=== PATIENT | female | born 1950 | race Caucasian/White ===

== ENCOUNTER 2023-07-03 23:38 | Inpatient (IN) | payer MEDICARE, BC, SELFPAY ==
[2023-07-03 18:03] VITALS: BP 118/51
[2023-07-03 18:27] LABS: % Basophils 0.4 % (0-2); % Eosinophils 1.6 % (0-6); % Immature Granulocytes 0.4 % (0-0.5); % Lymphocytes 14.2 % (20.5-51.1); % Neutrophils 77.4 % (42.2-75.2); Absolute Eosinophils 0.1 10^3/uL (0-0.7); Absolute Lymphocytes 0.7 10^3/uL (1.2-3.4); Absolute Monocytes 0.3 10^3/uL (0.1-0.6); Absolute Neutrophils 3.9 10^3/uL (1.4-6.5); Hematocrit 32.3 % (37.0-47.0); Hemoglobin 11.1 g/dL (12.0-16.0); Mean Corp Hgb Conc. 34.4 g/dL (33.0-37.0); Mean Corpuscular Hgb 31.7 pg (27.0-31.0); Mean Corpuscular Volume 92.3 fL (81.0-99.0); Mean Platelet Volume 8.7 fL (7.4-10.4); Nucleated Red Blood Cells % 0 %; Platelet Count 180 10^3/uL (130-400)
[2023-07-03 18:44] LABS: ALT (SGPT) 20 U/L (0-35); AST (SGOT) 28 U/L (14-36); Albumin 3.9 g/dl (3.5-5.0); Alkaline Phosphatase 84 U/L (38-126); Blood Urea Nitrogen 25 mg/dl (7-17); Calcium 10.1 mg/dl (8.4-10.2); Carbon Dioxide 31 mmol/L (22-30); Chloride 100 mmol/L (98-107); Glucose 123 mg/dl (70-99); Sodium 138 mmol/L (135-145); Total Bilirubin 0.4 mg/dl (0.2-1.3); Total Protein 6.1 g/dl (6.3-8.2); eGFR 59.49
[2023-07-03 19:38] VITALS: BMI 24.2
[2023-07-03] MEDS: DECADRON 10 MG IV (20:37)
[2023-07-03] MEDS: DUONEB 3 ML INH (20:37)
--- NOTE | 2023-07-03 20:43 | ED.GENMED ---
History of Present Illness
General
Chief Complaint: Breathing Problem
Source: patient
Exam Limitations: none
Time Seen by Provider: 07/03/23 19:32
Nursing documentation reviewed up to this point in time: agreed with
Travel History
Have you had any contact with someone who has COVID-19?: No
Do you have any symptoms of coronavirus? Fever > 100 degrees, chills, cough, shortness of breath, sore throat, loss of taste or smell, muscle aches, or headache?: No
History of Present Illness
History of Present Illness:
72-year-old female steroid and oxygen dependent COPD been on alternating 5 to 10 mg a day prednisone, usually on 2 L of oxygen 3 to 4 days ago increased shortness of breath cough bit of increase in her sputum despite using albuterol no fevers no
hemoptysis no leg edema increased her oxygen to 4 L, she is felt fatigued
Past History
Past History
ED Past Medical History: COPD, Fibromyalgia, GERD and Other (Rheumatoid arthritis, scleroderma, pneumonia, renal, bowel obstruction, IBS, anemia, chronic constipation, rectal prolapse, Upper Gi bleeding, Raynaud's disease)
ED Past Surgical History: Appendectomy, Bowel resection (due to perforation), Cholecystectomy, Gynecological (Hysterectomy) and Other ( breast lumpectomy)
Social History
Tobacco: Former smoker
Alcohol: None
Drug: None
Personal:
Living: alone
Employment: Not employed
Family History
Family History: Unable to obtain
Review of Systems
Review of Systems
Constitutional: Reports fatigue; Denies fever
EENT: Reports no symptoms
Respiratory: Reports cough and trouble breathing
Cardiac: Reports no symptoms
ABD/GI: Reports no symptoms
: Reports no symptoms
Musculoskeletal: Reports no symptoms
Skin: Reports no symptoms
Endocrine: Reports no symptoms
Phy Exam
Physical Exam
Physical Exam:
Physical Exam
General: Chronically ill female slightly dyspneic.
Neck: No jaundice
Heart: Regular
Lungs: Fair air movement diminished bilaterally no wheeze
Abdomen: Not tender
Neuro: alert and oriented. no focal neurological deficits
Skin: no rash
Psychiatric: well kept. interactive and cooperative
Extremities: no edema. no calf tenderness.
Scores
Heart Failure Risk
Heart Failure Risk Score: Not Applicable
Course
Orders/Labs/Results
Orders:
Orders
07/03/23 18:10
Electrocardiogram (*1) Urgent
Reason for Study: Shortness of Breath
EKG- Treatment ONCE
07/03/23 18:21
Complete Blood Count/With Diff Urgent
Comprehensive Metabolic Panel Urgent
07/03/23 19:32
CR Chest - 2 Views Urgent
Comment:
Reason For Exam: sob
07/03/23 20:24
Dexamethasone Sod Phosphate [Decadron] 10 mg IV NOW STA
Ipratropium/Albuterol Sulfate [Duoneb] 3 ml INH R NOW STA
Abnormal Lab Results
07/03/23
18:21
RBC 3.50 L 10^6/uL
(4.20-5.40)
Hgb 11.1 L g/dL
(12.0-16.0)
Hct 32.3 L %
(37.0-47.0)
MCH 31.7 H pg
(27.0-31.0)
Absolute Lymphs (auto) 0.7 L 10^3/uL
(1.2-3.4)
Neutrophils % 77.4 H %
(42.2-75.2)
Lymphocytes % 14.2 L %
(20.5-51.1)
Carbon Dioxide 31 H mmol/L
(22-30)
BUN 25 H mg/dl
(7-17)
Glucose 123 H mg/dl
(70-99)
Total Protein 6.1 L g/dl
(6.3-8.2)
07/03/23 18:21
07/03/23 18:21
Vital Signs
Initial and Last Documented VS:
Initial Vital Signs
Temp Pulse Resp BP Pulse Ox
98.8 F 94 16 118/51 96
07/03/23 18:03 07/03/23 18:03 07/03/23 18:03 07/03/23 18:03 07/03/23 18:03
Last Documented Vital Signs
Temp Pulse Resp BP Pulse Ox
98.8 F 79 18 138/63 91
07/03/23 18:03 07/03/23 21:00 07/03/23 21:00 07/03/23 21:00 07/03/23 21:00
MDM/Problems Addressed
Differential Diagnosis Includes:
COPD pneumonia heart failure pneumothorax conceivably PE
MDM/Problems Addressed:
Shortness of breath
Chronic conditions affecting care: COPD
Acute Exacerbation and/or Progression of Chronic Illness: COPD
*Radiology
Radiology exam reviewed: preliminary read by ED provider and radiology read reviewed
*Pulse Oximetry
Patient hypoxic: no
Comment: 98% on 3 L
*EKG
Interpreted by ED Provider?: Yes
Interpretation: abnormal
Comparison EKG: no comparison EKG present
Heart Rate: 78
Rate: normal
Rhythm: sinus
Ischemia: non-specific ST changes
*Accounting Director Interpretation
Rate: normal
Interpretation: normal
Heart Rate: 78
Rhythm: sinus
*Critical Care Note
Total Time (30-74mins, 75-104mins- exclusive of procedures): Not Applicable
Update Note
Update Note:
938 chest x-ray report noted patient given nebs and steroids
10:30 PM patient tells me she feels dyspneic still, recommend ambulating she belives she needs to be admitted
ED Attending Note
-
Portions of this chart may have been created with voice recognition software.� Occasional wrong word or��sound alike� substitutions may have occurred due to the inherent limitations of voice recognition software.
Discharge Plan
Departure
Patient Disposition: Admit
Date of Disposition: 07/03/23
Time of Disposition: 22:31
Admit to: Med/Surg
Presentation/result/management discussed w/ accepting MD/DO: Hospitalist
Patient with high blood pressure during this ER visit?: No
Condition: Fair
Covid-19: Not Applicable
Discharge Problem:
Acute exacerbation of chronic obstructive pulmonary disease (COPD), Chronic respiratory failure, Fibromyalgia, Esophageal reflux, Scleroderma, Hypothyroidism, Rheumatoid arthritis, Crouch's esophagus, Raynauds disease, CREST (calcinosis, Raynaud's
phenomenon, esophageal dysfunction, sclerodactyly, telangiectasia), Stage 3a chronic kidney disease (CKD)
Prescriptions:
No Action
citalopram 20 MG tablet
40 mg PO DAILY
oxycodone 5 MG tablet
5 mg PO BID
famotidine 40 MG tablet
40 mg PO HS
valsartan 80 MG tablet
160 mg PO DAILY
trazodone 100 MG tablet
200 mg PO HS
baclofen 10 MG tablet
10 mg PO BID
vitamin B complex 1 TAB tablet
1 tab PO DAILY
aripiprazole 5 MG tablet
5 mg PO DAILY
Focus Factor
2 cap PO DAILY
Hair,Skin and Nails Tablet
2 tab PO DAILY
bupropion HCl 300 mg tablet extended release 24 hr
300 mg PO DAILY
budesonide-formoterol [Symbicort] 160-4.5 mcg/actuation HFA aerosol inhaler
2 puff INHALATION R BID
cholecalciferol (vitamin D3) [Vitamin D3] 125 mcg (5,000 unit) Tablet
125 mcg PO DAILY
furosemide 40 mg Tablet
40 mg PO DAILY
prednisone 10 mg Tablet
5 mg PO SUTUTHSA@0800
atorvastatin 10 mg Tablet
10 mg PO DAILY
Theragen Tablet
1 tab PO DAILY
omeprazole 40 mg Capsule,Delayed Release(Dr/Ec)
40 mg PO DAILY
TheraTears 0.25 % Drops
1 drp BOTH EYES BID
fentanyl 25 mcg/hr Patch 72 Hour
1 patch TRANSDERMAL Q72H
Patient Comments:
07/03/2023, pt. wearing a patch on her left upper chest; per pt., she is due to change it tomorrow (07/04/2023).
albuterol sulfate [Ventolin HFA] 90 mcg/actuation Hfa Aerosol Inhaler
2 puff INHALATION R Q6HPRN PRN (Reason: sob)
Spiriva Respimat 2.5 mcg/actuation Mist
2 puff INHALATION R DAILY
fluticasone furoate-vilanterol [Breo Ellipta] 100-25 mcg/dose Blister With Device
1 inh INHALATION R DAILY
turmeric
2 cap PO DAILY
prednisone 10 mg tablet
10 mg PO MOWEFR@0800
budesonide 0.5 mg/2 mL suspension for nebulization
0.5 mg inhalation R TID
Patient Comments:
07/03/2023, pt. states to take this med. TID but on [facility] this med. is listed as BIDPRN as of 06/14/2023.
Referrals:
Diego Crenshaw MD [Family Provider] -
Interventions
Interventions:
*Risk Screen - Suicide Last Done: 07/03/23 20:07
*Neglect/Abuse Screening Last Done: 07/03/23 20:07
*ED COVID-19 Vaccine History Last Done: 07/03/23 18:03
ED- Cardiac Assessment Last Done: 07/03/23 20:06
ED- Pulmonary Assessment Last Done: 07/03/23 20:06
Discharge Date and Time
Print Language: OMANI
[2023-07-03 21:00] VITALS: BP 138/63
[2023-07-03 21:37] VITALS: BP 155/60
[2023-07-03 22:00] VITALS: BP 124/82
[2023-07-03 23:00] VITALS: BP 144/72
--- NOTE | 2023-07-03 23:30 | HPS.HSE ---
Family Physician
-
Family Physician: Diego Crenshaw
Chief Complaint
-
Shortness of Breath
History of Present Illness
This is a 72 year old female with a past medical history of COPD on chronic O2 at 2L and chronic steroids, scleroderma, GERD, hypertension, and chronic pain, who presents today for worsening dyspnea on exertion x 1 week. She states that it is 'hard
to get air in.' She notes over the weekend she had to increase her oxygen from 2L up to 4L due to increasing shortness of breath. Her symptoms were unimproved and she had a hard time showering today, prompting her to come to the ED. She also
complains of a cough and feeling of phlegm, but states she is unable to expectorate any mucus. She denies fever, wheezing, chest pain, or lower extremity edema.
Medical History
Past Medical History
Past Medical History: Reports Other
Additional Past Medical History:
Chronic Hypoxic Respiratory Failure
COPD
Interstitial Lung Disease
Essential Hypertension
CKD Stage IIIA
Hyperlipidemia
Fibromyalgia
Rheumatoid Arthritis
Scleroderma / CREST Syndrome
Irritable Bowel Syndrome
Major Depressive Disorder
Chronic Pain with Opioid Dependence
GERD
Past Surgical History: Reports Other
Additional Past Surgical History:
Appendectomy
Bowel Resection
Cholecystectomy
Hysterectomy
Breast Lumpectomy
Social History
Tobacco: Former Smoker
Alcohol: None
Drug: None
Personal:
Living: With Family (In-Law Suite)
Family History
Family History: Not pertinent
Allergies / Home Medications
Allergies reflects when Allergies were last updated in [employer].
Home Medications with original date entered in [employer]
Allergy/Medication List:
Allergies
Allergy/AdvReac Type Severity Reaction Status Date / Time
codeine Allergy rash,hives,METALLIC Verified 07/03/23 18:09
TASTE IN
MOUTH
Home Medications
citalopram 20 mg tablet 40 mg PO DAILY Mental Health 12/27/17
oxycodone 5 mg tablet 5 mg PO BID Pain 06/19/18
Focus Factor 2 cap PO DAILY Supplement 11/11/20
aripiprazole 5 mg tablet 5 mg PO DAILY Mental Health 11/11/20
baclofen 10 mg tablet 10 mg PO BID Muscle spasms 11/11/20
famotidine 40 mg tablet 40 mg PO HS Gastrointestinal issue 11/11/20
trazodone 100 mg tablet 200 mg PO HS Sleep 11/11/20
valsartan 80 mg tablet 160 mg PO DAILY Blood pressure 11/11/20
vitamin B complex 1 tab PO DAILY Supplement 11/11/20
budesonide-formoterol HFA 160 mcg-4.5 mcg/actuation aerosol inhaler (Symbicort) 2 puff inhalation R BID Lung/Breathing Issues 07/26/22
bupropion HCl 300 mg 24 hr tablet, extended release 300 mg PO DAILY Mental Health 07/26/22
cholecalciferol (vitamin D3) 125 mcg (5,000 unit) tablet (Vitamin D3) 125 mcg PO DAILY Supplement 07/26/22
multivitamin with minerals (Hair,Skin and Nails tablet) 2 tab PO DAILY Supplement 07/26/22
albuterol sulfate 90 mcg/actuation aerosol inhaler (Ventolin HFA) 2 puff inhalation R Q6HPRN PRN sob 07/03/23
atorvastatin 10 mg tablet 10 mg PO DAILY 07/03/23
budesonide 0.5 mg/2 mL suspension for nebulization 0.5 mg inhalation R TID Lung/breathing issues 07/03/23
carboxymethylcellulose sodium 0.25 % eye drops (TheraTears) 1 drp BOTH EYES BID 07/03/23
fentanyl 25 mcg/hr transdermal patch 1 patch transdermal Q72H 07/03/23
fluticasone furoate 100 mcg-vilanterol 25 mcg/dose inhalation powder (Breo Ellipta) 1 inh inhalation R DAILY 07/03/23
furosemide 40 mg tablet 40 mg PO DAILY 07/03/23
omeprazole 40 mg capsule,delayed release 40 mg PO DAILY 07/03/23
prednisone 10 mg tablet 5 mg PO SUTUTHSA@0800 07/03/23
prednisone 10 mg tablet 10 mg PO MOWEFR@0800 07/03/23
therapeutic multivitamin 1 tab PO DAILY 07/03/23
tiotropium bromide 2.5 mcg/actuation mist for inhalation (Spiriva Respimat) 2 puff inhalation R DAILY 07/03/23
turmeric 2 cap PO DAILY 07/03/23
Review of Systems
-
A 12 point ROS was completed and negative except as noted: Yes
Constitutional: Denies Fever or Chills
Respiratory: Reports See HPI and Trouble Breathing
Cardiac: Denies Chest Pain or Palpitations
Physical Exam
Vital Signs
Vital Signs
Temp Pulse Resp BP Pulse Ox
98.8 F 79 18 138/63 91
07/03/23 18:03 07/03/23 21:00 07/03/23 21:00 07/03/23 21:00 07/03/23 21:00
Physical Exam
General: Comfortable and Conversant
HEENT: Atraumatic and Oxygen (Nasal Cannula)
Respiratory: Wheezes (Faint late expiratory wheeze throughout), Non Labored Respirations and Decreased Breath Sounds
Cardiac: S1/S2 and Regular Rhythm; No Tachycardia
GI: Soft and Non Tender
Musculoskeletal: No Clubbing, No Cyanosis and No Edema
Skin: Warm and Dry
Neuro: Awake, Alert, Oriented and Nonfocal/grossly intact
Laboratory Results
-
07/03/23 18:21
07/03/23 18:21
Laboratory Results
Total Bilirubin 0.4 mg/dl (0.2-1.3) 07/03/23 18:21
AST 28 U/L (14-36) 07/03/23 18:21
ALT 20 U/L (0-35) 07/03/23 18:21
Alkaline Phosphatase 84 U/L (38-126) 07/03/23 18:21
Data Reviewed
-
Diagnostic Radiology: Report Reviewed by me
Lab Data: Labs Reviewed by me
Old Records: Reviewed
Impression/Plan
-
Acute COPD Exacerbation
-Continue Decadron
-Continue DuoNeb QID and PRN
-Continue Pulmicort Neb
-Continue Doxycycline
Acute on Chronic Hypoxic Respiratory Failure
-Continue supplemental oxygen
-Attempt to wean back to baseline 2L via nasal canula
Essential Hypertension
-Continue valsartan
Hyperlipidemia
-Continue atorvastatin
Lower Ext Edema
-Continue Lasix
CKD Stage IIIA
-Creatinine at baseline
Major Depressive Disorder
-Continue aripiprazole, bupropion, citalopram and trazodone
GERD
-Continue Pepcid and Protonix
Chronic Pain with Opioid Dependence
-Continue fentanyl patch
-Continue baclofen
DVT proph: Lovenox
Code Status: Full Code
--- NOTE | 2023-07-03 23:33 | W.PN.UPDATE ---
Update Note
Progress Note Update
This is an addendum to the history and physical written by GROVER Silva on 07/03/2023/. Patient seen and examined independently with PA.
72-year-old female past medical history of COPD on 2 L baseline, chronic pain/fibromyalgia with narcotic dependence, GERD, Rheumatoid Arthritis, scleroderma/CREST, anemia of chronic disease, chronic constipation, depression, CKD 3A, here with
shortness of breath with increasing productive cough consistent with COPD exacerbation. Chest x-ray unremarkable.
DuoNebs every 6 hours. Dexamethasone. Doxycycline.
[2023-07-04] VITALS (10 sets, daily range): BP systolic 86–135; BP diastolic 51–96; PULSE 75; O2SAT 96–97; BMI 23.8
--- NOTE | 2023-07-04 01:45 | PTCARENOTE ---
Pt transferred from ED. Pt ambulated into room with assistance. Pt on 3L, VSS. Pt oriented to unit, call romero within reach. Will continue with current plan.
[2023-07-04] MEDS: LIORESAL 10 MG PO ×3 (02:21→20:29)
[2023-07-04] MEDS: ROXICODONE 5 MG PO ×3 (02:21→20:29)
[2023-07-04] MEDS: DESYREL 100 MG PO (02:21)
[2023-07-04] MEDS: DECADRON 4 MG IV ×3 (05:14→17:14)
[2023-07-04] MEDS: PULMICORT 0.5 MG INH ×2 (07:20→19:47)
[2023-07-04] MEDS: DUONEB 3 ML INH ×4 (07:20→19:47)
[2023-07-04 08:16] LABS: % Basophils 0.2 % (0-2); % Immature Granulocytes 0.7 % (0-0.5); % Lymphocytes 16.3 % (20.5-51.1); % Monocytes 2.2 % (1.7-9.3); % Neutrophils 80.6 % (42.2-75.2); Absolute Lymphocytes 0.7 10^3/uL (1.2-3.4); Absolute Monocytes 0.1 10^3/uL (0.1-0.6); Absolute Neutrophils 3.4 10^3/uL (1.4-6.5); Hemoglobin 11.2 g/dL (12.0-16.0); Mean Corp Hgb Conc. 32.9 g/dL (33.0-37.0); Mean Corpuscular Hgb 31.2 pg (27.0-31.0); Mean Corpuscular Volume 94.7 fL (81.0-99.0); Nucleated Red Blood Cells % 0 %; Platelet Count 184 10^3/uL (130-400); Red Blood Cell Count 3.59 10^6/uL (4.20-5.40); Red Cell Dist. Width 12.8 % (11.5-14.5); White Blood Cell Count 4.2 10^3/uL (4.8-10.8)
[2023-07-04] MEDS: ABILIFY 5 MG PO (08:36)
[2023-07-04] MEDS: DIOVAN PO (08:37)
[2023-07-04] MEDS: DURAGESIC 25 MCG/HR PATCH 1 PATCH TRANSDERM (08:37)
[2023-07-04] MEDS: CELEXA 40 MG PO (08:37)
[2023-07-04] MEDS: B COMPLEX w/VITAMIN C 1 CAPLET PO (08:37)
[2023-07-04] MEDS: LASIX 40 MG PO (08:39)
[2023-07-04] MEDS: PROTONIX 40 MG PO (08:40)
[2023-07-04] MEDS: MUCINEX 600 MG PO ×2 (08:40→20:30)
[2023-07-04] MEDS: VIBRAMYCIN 100 MG PO ×2 (08:40→20:29)
[2023-07-04] MEDS: LIPITOR 10 MG PO (08:40)
[2023-07-04] MEDS: WELLBUTRIN XL (24 hour extended release) 300 MG PO (08:41)
[2023-07-04] MEDS: VITAMIN D3 (cholecalciferol) 125 MCG PO (08:41)
[2023-07-04 09:07] LABS: Blood Urea Nitrogen 24 mg/dl (7-17); Calcium 10.2 mg/dl (8.4-10.2); Carbon Dioxide 29 mmol/L (22-30); Chloride 100 mmol/L (98-107); Estimated Creatinine Clearance 47 ml/min; Glucose 117 mg/dl (70-99); Potassium 4.1 mmol/L (3.5-5.1); Sodium 137 mmol/L (135-145); eGFR > 60.00
--- NOTE | 2023-07-04 09:42 | PTOTSP ---
pt currently requires supervision to no assistance to complete simple ADLs, functional transfers, ambulation. pt typically on 2LO2 at home, currently on 3L. will defer endurance training, activity tolerance to PT, as pt is capable of completing
tasks without physical intervention. no acute OT needs identified, will sign off.
--- NOTE | 2023-07-04 10:08 | W.PN.HOSP.TC ---
Today's Communication/Plan
-
Continue present IV dexamethasone/nebs and oxygen as needed
Pulmonary consultation pending/
Assessment / Plan
Assessment / Plan
This is a 72 year old female with a past medical history of COPD on chronic O2 at 2L and chronic steroids, scleroderma, GERD, hypertension, and chronic pain, who presents today for worsening dyspnea on exertion x 1 week. She states that it is 'hard
to get air in.' She notes over the weekend she had to increase her oxygen from 2L up to 4L due to increasing shortness of breath. Her symptoms were unimproved and she had a hard time showering today, prompting her to come to the ED.
She also complains of a cough and feeling of phlegm, but states she is unable to expectorate any mucus. She denies fever, wheezing, chest pain, or lower extremity edema. She follows with Dr. Chavez who has been trying to reduce her steroids with a
slow taper of late alternating 5 and 10 mg.
Acute COPD Exacerbation
-Continue Decadron
-Continue DuoNeb QID and PRN
-Continue Pulmicort Neb
-Continue Doxycycline
-Await pulmonary input/not a lot of options left
Acute on Chronic Hypoxic Respiratory Failure
-Continue supplemental oxygen
-Attempt to wean back to baseline 2L via nasal canula
Essential Hypertension
-Continue valsartan
Hyperlipidemia
-Continue atorvastatin
Lower Ext Edema
-Continue Lasix
CKD Stage IIIA
-Creatinine at baseline
Major Depressive Disorder
-Continue aripiprazole, bupropion, citalopram and trazodone
GERD
-Continue Pepcid and Protonix
Chronic Pain with Opioid Dependence
-Continue fentanyl patch
-Continue baclofen
DVT proph: Lovenox
Code Status: Full Code
Anticipated Discharge: 24 - 48 hours
Subjective/Interval History
-
Date of Service: July 04, 2023
Dyspneic and breathless at rest on 3 L with recent pulse ox check of 93% on 3 L uses 3 L at home but had to increase it up to 4 L last 24 hours.
Objective Data
-
Labs:
Laboratory Results
07/04/23
07:57
WBC 4.2 L
Hgb 11.2 L
Hct 34.0 L
Plt Count 184
Sodium 137
Potassium 4.1
Chloride 100
Carbon Dioxide 29
BUN 24 H
Creatinine 0.8
Glucose 117 H
Calcium 10.2
Vital Signs:
Vital Signs
Temp Pulse Resp BP Pulse Ox
98.7 F 86 20 80/59 94
07/04/23 07:25 07/04/23 08:29 07/04/23 08:29 07/04/23 08:37 07/04/23 08:50
Review of Systems
-
History Source: Patient
Respiratory: Reports Trouble Breathing
Cardiac: Reports No Symptoms
Abdomen/GI: Reports No Symptoms
Genitourinary: Reports No Symptoms
Physical Exam
-
General: Appears Chronically Ill
HEENT: Normocephalic
Respiratory: Rhonchi and Decreased Breath Sounds
Cardiac: Regular Rhythm
GI: Soft
Neuro: Awake, Alert and Oriented
Psych: Calm
Data Reviewed
-
Total Time Spent with Patient (in minutes): 45
Labs: Labs Reviewed by me
--- NOTE | 2023-07-04 10:57 | CM ---
Patient seen in chair, initial assessment completed. Patient resides with her son, daughter in law, and two grandchildren in an in law suite, no steps to enter. Patient is on home O2, reports through '[facility]', denies other DME. Patient reports [facility] in
past, [facility] in past. Patient confirms Diego Crenshaw, pharmacy [facility]. Patient confirms she has prescription coverage, denies food insecurities at home. CM will continue to follow for all discharge planning needs.
Plan; home no needs likely.
--- NOTE | 2023-07-04 11:18 | CON.PUL ---
Consultation
Consultation Request
Date/Time Consultation Requested: 07/04/23
Date/Time Consultation Performed: 07/04/23
Performing Provider: Nicolasa
Reason for Consultation: SOB
Medical History
-
History of Present Illness:
72 year old female with a past medical history of COPD on chronic O2 at 2-3L and chronic steroids, scleroderma, GERD, hypertension, and chronic pain, who presents to ER 07/03/23 for worsening SOB x 1 week. She notes over the weekend she had to
increase her oxygen from 2L up to 4L due to increasing shortness of breath. Her symptoms were unimproved and she had a hard time showering today, prompting her to come to the ED.
Holden this was triggered by recent decrease in her prednisone, she normally takes 10mg daily. CXR performed showing no acute findings. ABG showing chronic CO2 retention.
Has extensive history of lung disease including COPD, pulmonary cachexia, chronic oxygen therapy, 3 L (w/ severe diffusion impairment, DLCO 30%), interstitial lung disease
She follows with Dr Garcia
Past Medical History
Past Medical History: Other (see list below)
Social History
Tobacco: Former Smoker
Alcohol: None
Drug: None
Family History
Family History: Reviewed & Not Pertinent
Allergies / Home Medications
Allergies
Allergy/AdvReac Type Severity Reaction Status Date / Time
codeine Allergy rash,hives,METALLIC Verified 07/03/23 18:09
TASTE IN
MOUTH
Home Medications
�Medication �Instructions �Recorded �Confirmed �Last Taken �Type
citalopram 20 mg tablet 40 mg PO DAILY Mental Health 12/27/17 07/03/23 07/03/23 History
oxycodone 5 mg tablet 5 mg PO BID Pain 06/19/18 07/03/23 07/03/23 History
Focus Factor 2 cap PO DAILY Supplement 11/11/20 07/03/23 07/03/23 History
aripiprazole 5 mg tablet 5 mg PO DAILY Mental Health 11/11/20 07/03/23 07/03/23 History
baclofen 10 mg tablet 10 mg PO BID Muscle spasms 11/11/20 07/03/23 07/03/23 History
famotidine 40 mg tablet 40 mg PO HS Gastrointestinal issue 11/11/20 07/03/23 07/01/23 History
trazodone 100 mg tablet 200 mg PO HS Sleep 11/11/20 07/03/23 07/02/23 History
valsartan 80 mg tablet 160 mg PO DAILY Blood pressure 11/11/20 07/03/23 07/03/23 History
vitamin B complex 1 tab PO DAILY Supplement 11/11/20 07/03/23 07/03/23 History
budesonide-formoterol HFA 160 2 puff inhalation R BID 07/26/22 07/03/23 07/03/23 History
mcg-4.5 mcg/actuation aerosol Lung/Breathing Issues
inhaler (Symbicort)
bupropion HCl 300 mg 24 hr tablet, 300 mg PO DAILY Mental Health 07/26/22 07/03/23 07/03/23 History
extended release
cholecalciferol (vitamin D3) 125 125 mcg PO DAILY Supplement 07/26/22 07/03/23 07/03/23 History
mcg (5,000 unit) tablet (Vitamin
D3)
multivitamin with minerals 2 tab PO DAILY Supplement 07/26/22 07/03/23 07/03/23 History
(Hair,Skin and Nails tablet)
albuterol sulfate 90 mcg/actuation 2 puff inhalation R Q6HPRN PRN sob 07/03/23 07/03/23 07/03/23 History
aerosol inhaler (Ventolin HFA)
atorvastatin 10 mg tablet 10 mg PO DAILY High Cholesterol 07/03/23 07/03/23 07/03/23 History
budesonide 0.5 mg/2 mL suspension 0.5 mg inhalation R TID 07/03/23 07/03/23 07/02/23 History
for nebulization Lung/breathing issues
carboxymethylcellulose sodium 0.25 1 drp BOTH EYES BID Eye Condition 07/03/23 07/03/23 07/03/23 History
% eye drops (TheraTears)
fentanyl 25 mcg/hr transdermal 1 patch transdermal Q72H Pain 07/03/23 07/03/23 07/03/23 History
patch
fluticasone furoate 100 1 inh inhalation R DAILY 07/03/23 07/03/23 07/03/23 History
mcg-vilanterol 25 mcg/dose Lung/Breathing Issues
inhalation powder (Breo Ellipta)
furosemide 40 mg tablet 40 mg PO DAILY Fluid 07/03/23 07/03/23 07/03/23 History
Retention/Swelling
omeprazole 40 mg capsule,delayed 40 mg PO DAILY GERD 07/03/23 07/03/23 07/03/23 History
release
prednisone 10 mg tablet 5 mg PO SUTUTHSA@0800 INFLAMMATION 07/03/23 07/03/23 07/02/23 History
prednisone 10 mg tablet 10 mg PO MOWEFR@0800 INFLAMMATION 07/03/23 07/03/23 07/03/23 History
therapeutic multivitamin 1 tab PO DAILY Supplement 07/03/23 07/03/23 07/03/23 History
tiotropium bromide 2.5 2 puff inhalation R DAILY 07/03/23 07/03/23 07/03/23 History
mcg/actuation mist for inhalation Lung/Breathing Issues
(Spiriva Respimat)
turmeric 2 cap PO DAILY Supplement 07/03/23 07/03/23 07/03/23 History
Review of Systems
-
History Source: Patient
All other systems: Negative unless noted
Vitals / Labs / Diagnostic Testing
Vital Signs
Temp Pulse Resp BP Pulse Ox
98.7 F 87 24 80/59 95
07/04/23 07:25 07/04/23 11:17 07/04/23 11:17 07/04/23 08:37 07/04/23 11:17
Lab Data
07/04/23 07:57
07/04/23 07:57
Diagnostic Testing:
Physical Exam
-
HEENT: Normocephalic, Anicteric and Moist Mucous Membranes
Cardiovascular: S1/S2 and Regular Rhythm
Respiratory: Clear (overall significantly decreased), Non-Labored Respirations and Other (visibly breath stacking)
GI: Soft, Non Distended and Non Tender
Neurology: Awake, Alert, Oriented, AO x 3 and No Motor Deficits
Skin: Warm, Dry and Good Color
General: Comfortable and Other (NAD, anxious appearing)
Assessment
-
72 year old female with a past medical history of COPD on chronic O2 at 2-3L and chronic steroids, scleroderma, GERD, hypertension, and chronic pain, who presents to ER 07/03/23 for worsening SOB x 1 week. She notes over the weekend she had to
increase her oxygen from 2L up to 4L due to increasing shortness of breath. Her symptoms were unimproved and she had a hard time showering today, prompting her to come to the ED.
Holden this was triggered by recent decrease in her prednisone, she normally takes 10mg daily. CXR performed showing no acute findings. ABG showing chronic CO2 retention. We are consulted for eval.
AECOPD
Acute on chronic SOB
Acute on chronic CO2 retention, ABG 7.
Mild leukopenia/anemia
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
Recent admission 01/12-20 07/2022 with COPD exacerbation
COPD on home O2
Follows with Dr Garcia
pulmonary cachexia
oxygen therapy, 3 L (severe diffusion impairment, DLCO 30%)
Interstitial lung disease
Bilateral groundglass abnormality, interstitial changes, bronchiolitis,
CT 06/19/2018 reviewed-- mild interstitial changes, 1 cm subpleural nodule right lung, likely inflammatory/scar
Fibromyalgia.
GERD.
RA.
Scleroderma w/ lung/GI involvement, follows GI at [facility]
History of aspiration/VDRF, hospitalized for 10 days
Bowel obstruction.
GERD - Diverticulosis - Colon polyps
Vitamin D deficiency
IBS.
Chronic anemia.
Chronic constipation.
Rectal prolapse.
History of upper GI bleed.
Raynaud's.
Appendectomy.
Bowel [id number]
Exploratory Laparotomy with lysis of adhesions, repair of two partial-thickness enterotomies-10/2017
s/p Bowel resection due to perforation.
Cholecystectomy.
MIHAI - bleeding and fibroids - 1976
RT breast Cyst [id number]
Depression
B/L Cataract Surgery
Plan
She is maintained on 3L, currently 95%
Baseline use of 2-3L
Has extensive history of lung disease including COPD, pulmonary cachexia, chronic oxygen therapy, 3 L (w/ severe diffusion impairment, DLCO 30%), interstitial lung disease
She follows with Dr Garcia
Suspect patient has underlying AECOPD, she feels triggered by reduction in steroid dosing
She is started on IV decadron
Anxiety may be a component as she is visibly breath stacking, we discussed breathing techniques
CXR obtained indicating NAD
Other imaging reviewed--minor scarring, mild ILD, nodules found-chronic
Prior ECHO reviewed-stable biV function
proBNP <200 in past, not repeat
CXR clear, no signs of volume overload
She has chronic Co2 retention
Never had a sleep study
Can trial CPAP now
Would need OP testing to confirm SDB
There is possibility of overlap syndrome (with history of COPD)
We will follow
Diagnostic Data
CXR 07/03/23- No acute cardiopulmonary process.
Chest x-ray 01/26/2023-subsegmental atelectasis right basilar opacification
CT chest 11/01/2022: Stable 10 mm subpleural nodule in the anterior inferior right upper lobe consistent with benign etiology. Stable biapical pleural-parenchymal scarring, right greater than left. No new or enlarging or suspicious pulmonary nodules.
Lungs otherwise clear. Moderate coronary artery calcifications redemonstrated. Patulous distal esophagus with air fluid level, findings suggest gastroesophageal reflux.
CT chest 01/09/2023-no pulmonary embolism, subcentimeter nodular focus anterior inferior right upper lobe stable from previous exam and favors a benign etiology-comparison made to 11/01/2022,
CT head 01/27/2023-no acute intracranial abnormalities diffuse cortical atrophy
ABG 01/26/2023--49/93/7 0.35
PFT 12/30/22: FVC 2.43/96%, FEV1 1.45/76%, ratio 60%, no significant BD response, TLC 5.57/126%, RV 3.14/159%, DLCO 8.78/46%.
PFT 10/11/21: FVC 2.25/86%, FEV1 1.46/74%, ratio 65. TLC 4.83/107%, DLCO 6.85/35%.
TTE 01-13-23 CONCLUSIONS: Normal biventricular size and systolic function without regional wall motion abnormality. Estimated LVEF 65-70%. Mild/moderate eccentric aortic regurgitation. Mild/moderate tricuspid regurgitation. Mildly elevated PASP.
Estimated pulmonary artery pressure of 42 mmHg. Compared to 10/09/20: AR and TR have progressed from mild to mild/moderate. PASP has increased from 37 mmHg to 42 mmHg.
--- NOTE | 2023-07-04 12:04 | PTCARENOTE ---
Addendum entered by Summer Bowser RN 07/04/23 16:12:
250ml NS IV bolus infused and thigh high teds applied per dr's order. Pt's B/P at present 115/69
Original Note:
Pt's B/P has been on the lower side today, 90/59, 86/56, 87/51 by dynamap and manually LT 88/52 and RT 64/32. Pt is asymptomatic. Avel held this am. Dr. Bosch made aware.
[2023-07-04 14:40] LABS: Venous Blood Gas B.E. 6.2 mmol/L (-4 to +4); Venous Blood Gas O2 Sat % 75.5 %; Venous Blood Gas pCO2 57 mmHg (35-48); Venous Blood Gas pH 7.37 (7.32-7.43); Venous Blood Gas pO2 44 mmHg (30-50)
[2023-07-04] MEDS: NSS 250 IV (14:58)
[2023-07-04] MEDS: LOVENOX 40 MG SC (17:15)
[2023-07-04] MEDS: PEPCID 40 MG PO (21:43)
[2023-07-04] MEDS: DESYREL 200 MG PO (21:43)
[2023-07-05] VITALS (7 sets, daily range): BP systolic 109–157; BP diastolic 56–76; PULSE 81; BMI 24.3
[2023-07-05] MEDS: DECADRON 4 MG IV ×5 (00:08→23:24)
--- NOTE | 2023-07-05 04:09 | DOWNTIME ---
There was a [employer] Client [employer] Downtime on 07/04/2023 from 0100 to 07/05/2023 at 0300. Downtime documentation of patient's care, including medication administrations, has been reconciled in the electronic record per guidelines. Refer to the
patient's paper chart under the miscellaneous tab to see printed paper medication records and downtime forms.
[2023-07-05 06:59] LABS: Hematocrit 32.5 % (37.0-47.0); Hemoglobin 11.3 g/dL (12.0-16.0); Mean Corp Hgb Conc. 34.8 g/dL (33.0-37.0); Mean Corpuscular Hgb 31.7 pg (27.0-31.0); Platelet Count 198 10^3/uL (130-400); Red Blood Cell Count 3.57 10^6/uL (4.20-5.40); Red Cell Dist. Width 12.9 % (11.5-14.5); White Blood Cell Count 8.6 10^3/uL (4.8-10.8)
[2023-07-05 07:33] LABS: Blood Urea Nitrogen 27 mg/dl (7-17); Calcium 9.9 mg/dl (8.4-10.2); Carbon Dioxide 29 mmol/L (22-30); Chloride 100 mmol/L (98-107); Estimated Creatinine Clearance 42 ml/min; Glucose 107 mg/dl (70-99); Potassium 3.8 mmol/L (3.5-5.1); Sodium 135 mmol/L (135-145); eGFR > 60.00
[2023-07-05] MEDS: PULMICORT 0.5 MG INH ×2 (07:42→19:58)
[2023-07-05] MEDS: DUONEB 3 ML INH ×4 (07:42→19:59)
[2023-07-05] MEDS: MUCINEX 600 MG PO ×2 (08:44→21:05)
[2023-07-05] MEDS: PROTONIX 40 MG PO (08:44)
[2023-07-05] MEDS: DIOVAN 160 MG PO (08:44)
[2023-07-05] MEDS: VIBRAMYCIN 100 MG PO ×2 (08:44→21:04)
[2023-07-05] MEDS: ABILIFY 5 MG PO (08:46)
[2023-07-05] MEDS: VITAMIN D3 (cholecalciferol) 125 MCG PO (08:46)
[2023-07-05] MEDS: LIPITOR 10 MG PO (08:46)
[2023-07-05] MEDS: LIORESAL 10 MG PO ×2 (08:47→21:05)
[2023-07-05] MEDS: ROXICODONE 5 MG PO ×2 (08:47→21:04)
[2023-07-05] MEDS: B COMPLEX w/VITAMIN C 1 CAPLET PO (08:47)
[2023-07-05] MEDS: WELLBUTRIN XL (24 hour extended release) 300 MG PO (08:48)
[2023-07-05] MEDS: CELEXA 40 MG PO (08:48)
--- NOTE | 2023-07-05 09:05 | W.PN.HOSP.TC ---
Today's Communication/Plan
-
Will continue present course of steroid management at this time
Continue nebs and oxygen as required to maintain pulse ox of over 93%
Continue CPAP nightly which seems to have helped her overall fatigue following day
Assessment / Plan
Assessment / Plan
This is a 72 year old female with a past medical history of COPD on chronic O2 at 2L and chronic steroids, scleroderma, GERD, hypertension, and chronic pain, who presents today for worsening dyspnea on exertion x 1 week. She states that it is 'hard
to get air in.' She notes over the weekend she had to increase her oxygen from 2L up to 4L due to increasing shortness of breath. Her symptoms were unimproved and she had a hard time showering today, prompting her to come to the ED.
She also complains of a cough and feeling of phlegm, but states she is unable to expectorate any mucus. She denies fever, wheezing, chest pain, or lower extremity edema. She follows with Dr. Chavez who has been trying to reduce her steroids with a
slow taper of late alternating 5 and 10 mg.
Acute COPD Exacerbation
-Continue Decadron
-Continue DuoNeb QID and PRN
-Continue Pulmicort Neb
-Continue Doxycycline
-Await pulmonary input/not a lot of options left
-Added CPAP nightly
Acute on Chronic Hypoxic Respiratory Failure
-Continue supplemental oxygen
-Attempt to wean back to baseline 2L via nasal canula
Essential Hypertension
-Continue valsartan
Hyperlipidemia
-Continue atorvastatin
Lower Ext Edema
-Continue Lasix
CKD Stage IIIA
-Creatinine at baseline
Major Depressive Disorder
-Continue aripiprazole, bupropion, citalopram and trazodone
GERD
-Continue Pepcid and Protonix
Chronic Pain with Opioid Dependence
-Continue fentanyl patch
-Continue baclofen
DVT proph: Lovenox
Code Status: Full Code
Anticipated Discharge: Within 24 hours
Subjective/Interval History
-
Date of Service: July 05, 2023
Used to be breathing a little bit easier she is lying flat in bed she did have CPAP overnight which helped her she believes she gets more stressed.
Objective Data
-
Labs:
Laboratory Results
07/05/23
06:47
WBC 8.6
Hgb 11.3 L
Hct 32.5 L
Plt Count 198
Sodium 135
Potassium 3.8
Chloride 100
Carbon Dioxide 29
BUN 27 H
Creatinine 0.9
Glucose 107 H
Calcium 9.9
Vital Signs:
Vital Signs
Temp Pulse Resp BP Pulse Ox
97.9 F 72 18 124/76 98
07/05/23 03:34 07/05/23 07:44 07/05/23 07:44 07/05/23 03:34 07/05/23 07:44
I&O
07/04/23 07/05/23 07/06/23
06:59 06:59 06:59
Intake Total 1120 / 1120
Balance 1120 / 1120
Review of Systems
-
Respiratory: Reports Trouble Breathing
Cardiac: Reports No Symptoms
Abdomen/GI: Reports No Symptoms
Physical Exam
-
General: Appears Chronically Ill
HEENT: Normocephalic
Respiratory: Crackles and Decreased Breath Sounds
Cardiac: Regular Rhythm
GI: Soft
Neuro: Awake, Alert and Oriented
Data Reviewed
-
Total Time Spent with Patient (in minutes): 34
Labs: Labs Reviewed by me and Discussed with Physician
--- NOTE | 2023-07-05 10:38 | CM ---
Patient seen bedside, discussed PT recommendation of home health. Patient requesting referral to [facility], will update [facility] liaison. CM will continue to follow for all discharge planning needs.
Plan; home with [facility] pending acceptance
--- NOTE | 2023-07-05 12:44 | W.PN.PUL3 ---
Today's Communication / Plan
-
IV steroids continued, will taper to q8
CPAP trials, continue nightly
Encouraged further ambulation/IS
Slow progress
Assessment
-
72 year old female with a past medical history of COPD on chronic O2 at 2-3L and chronic steroids, scleroderma, GERD, hypertension, and chronic pain, who presents to ER 07/03/23 for worsening SOB x 1 week. She notes over the weekend she had to
increase her oxygen from 2L up to 4L due to increasing shortness of breath. Her symptoms were unimproved and she had a hard time showering today, prompting her to come to the ED.
[place] this was triggered by recent decrease in her prednisone, she normally takes 10mg daily. CXR performed showing no acute findings. ABG showing chronic CO2 retention. We are consulted for eval.
AECOPD
Acute on chronic SOB
Acute on chronic CO2 retention, ABG 7
Mild leukopenia/anemia
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
Recent admission 01/12-07/2022 with COPD exacerbation
COPD on home O2
Follows with Dr Garcia
pulmonary cachexia
oxygen therapy, 3 L (severe diffusion impairment, DLCO 30%)
Interstitial lung disease
Bilateral groundglass abnormality, interstitial changes, bronchiolitis,
CT 06/19/2018 reviewed-- mild interstitial changes, 1 cm subpleural nodule right lung, likely inflammatory/scar
Fibromyalgia.
GERD.
RA.
Scleroderma w/ lung/GI involvement, follows GI at [facility]
History of aspiration/VDRF, hospitalized for 10 days
Bowel obstruction.
GERD - Diverticulosis - Colon polyps
Vitamin D deficiency
IBS.
Chronic anemia.
Chronic constipation.
Rectal prolapse.
History of upper GI bleed.
Raynaud's.
Appendectomy.
Bowel [id number]
Exploratory Laparotomy with lysis of adhesions, repair of two partial-thickness enterotomies-10/2017
s/p Bowel resection due to perforation.
Cholecystectomy.
MIHAI - bleeding and fibroids - 1976
RT breast Cyst [id number]
Depression
B/L Cataract Surgery
Plan
She is maintained on 3L, currently 95%
Baseline use of 2-3L
Has extensive history of lung disease including COPD, pulmonary cachexia, chronic oxygen therapy, 3 L (w/ severe diffusion impairment, DLCO 30%), interstitial lung disease
She follows with Dr Garcia
Suspect patient has underlying AECOPD, she feels triggered by reduction in steroid dosing
She is started on IV decadron, will taper dosing today
Anxiety may be a component as she is visibly breath stacking, we discussed breathing techniques
CXR obtained indicating NAD
Other imaging reviewed--minor scarring, mild ILD, nodules found-chronic
Prior ECHO reviewed-stable biV function
proBNP <200 in past, not repeat
CXR clear, no signs of volume overload
She has chronic Co2 retention
Never had a sleep study
Can trial CPAP --she did well overnight
Would need OP testing to confirm SDB, PAP arrangement as OP
There is possibility of overlap syndrome (with history of COPD)
Encouraged further OOB/ambulation
Diagnostic Data
CXR 07/03/23- No acute cardiopulmonary process.
Chest x-ray 01/26/2023-subsegmental atelectasis right basilar opacification
CT chest 11/01/2022: Stable 10 mm subpleural nodule in the anterior inferior right upper lobe consistent with benign etiology. Stable biapical pleural-parenchymal scarring, right greater than left. No new or enlarging or suspicious pulmonary nodules.
Lungs otherwise clear. Moderate coronary artery calcifications redemonstrated. Patulous distal esophagus with air fluid level, findings suggest gastroesophageal reflux.
CT chest 01/09/2023-no pulmonary embolism, subcentimeter nodular focus anterior inferior right upper lobe stable from previous exam and favors a benign etiology-comparison made to 11/01/2022,
CT head 01/27/2023-no acute intracranial abnormalities diffuse cortical atrophy
ABG 01/26/2023--49/93/7 0.35
PFT 12/30/22: FVC 2.43/96%, FEV1 1.45/76%, ratio 60%, no significant BD response, TLC 5.57/126%, RV 3.14/159%, DLCO 8.78/46%.
PFT 10/11/21: FVC 2.25/86%, FEV1 1.46/74%, ratio 65. TLC 4.83/107%, DLCO 6.85/35%.
TTE 01-13-23 CONCLUSIONS: Normal biventricular size and systolic function without regional wall motion abnormality. Estimated LVEF 65-70%. Mild/moderate eccentric aortic regurgitation. Mild/moderate tricuspid regurgitation. Mildly elevated PASP.
Estimated pulmonary artery pressure of 42 mmHg. Compared to 10/09/20: AR and TR have progressed from mild to mild/moderate. PASP has increased from 37 mmHg to 42 mmHg.
Subjective Data
-
Date of Service:
Date of Service: July 05, 2023
Chief Complaint: Pulmonary Follow Up
Subjective:
doing slightly better today but still notes ongoing LEVINE to bathroom
tolerated CPAP overnight
Objective Data
Data Reviewed
Vital Signs / I&O / Oxygen:
Vital Signs
Temp Pulse Resp BP Pulse Ox
98.2 F 76 18 142/69 95
07/05/23 07:00 07/05/23 11:15 07/05/23 11:15 07/05/23 07:00 07/05/23 11:15
Intake and Output
07/04/23 07/05/23 07/06/23
06:59 06:59 06:59
Intake Total 1120 / 1120
Balance 1120 / 1120
SaO2 95
Nasal Cannula flow liters per 3
minute
Physical Exam
General: Comfortable and Other (chronically ill appearing, nad)
HEENT: Normocephalic, Anicteric and Moist Mucous Membranes
Cardiovascular: S1-S2 and Regular Rhythm
Respiratory: Crackles, Non-Labored Respirations and Other (scoliosis noted)
GI: Soft, Non Distended and Non Tender
Neurology: Awake, Alert, Oriented, AO x 3 and No Motor Deficits
Skin: Warm and Dry
Labs/Micro/Reports
Lab Data
07/05/23 06:47
07/05/23 06:47
--- NOTE | 2023-07-05 14:46 | PN.CDI ---
CDI
- -
CDI:
Physician Documentation Request
Admit Date: 07/03/23 23:38
Dear Doctor Danitza,
Please review the following and provide your response in the progress notes.
Clinical Indicators:
Documentation in the record on _07/04 PN_ includes the diagnosis of acute on chronic respiratory failure.
- 07/04 PN 'Acute on Chronic Hypoxic Respiratory Failure...Attempt to wean back to baseline 2L via nasal canula'
- During admission 3-4L O2, SpO2 > 91%
- 07/04 Pulmonary 'AECOPD...Acute on chronic CO2 retention'
Based on the above information and the recognized standard for respiratory failure could you please verify this diagnoses is still accurate and reflective of the patient�s condition to ensure quality of the medical record.
Please clarify in the Progress Notes:
Acute hypoxic respiratory failure is/was present and is a clinical diagnosis based on (please include this additional support in the medical record)
After careful study acute hypoxic respiratory failure has been ruled out, chronic hypoxic respiratory failure only
Other
Recognized standard criteria for respiratory failure includes:
(Source: [facility] Dec 2012)
ABGs (1 or more)
�PO2 <60 or RA SpO2 <91%
�PcO2 >50 and pH <7.35
�pO2 decrease or pcO2 increase by 10 mmHg from baseline if known Symptoms:
�Tachypnea, SOB, dyspnea
�Pallor or cyanosis
�Anxiety or restlessness
�Use of accessory muscles
�Retractions (grunting in newborns)
�Unable to speak in complete sentences
Supplemental O2 requirement of 40% (5LPM) or more Intubation is not required
Use of terms such as suspected, likely, concern for, or probable (associated with a specific diagnosis that is being evaluated, monitored, or treated as if it exists) are acceptable and can be coded in the inpatient setting, when documented at the
time of discharge.
Thank you,
Eduard Calderon RN
CDI Specialist
Please use your independent medical judgment in providing your response.
--- NOTE | 2023-07-05 15:45 | VNURNOTE ---
Home Health Liaison met with patient at 1445 to discuss [facility] nurse/therapy, visits, schedule and homebound status. Patient is agreeable and understands that visits at home will be 2-3 x per week to assess and teach medical management.
[facility] brochure provided with contact information. Patient is aware that [facility] will contact her for start of care in 1-2 days after discharge from .
[facility] referral completed in [facility].
[2023-07-05] MEDS: LOVENOX 40 MG SC (17:10)
[2023-07-05] MEDS: DESYREL 200 MG PO (21:04)
[2023-07-05] MEDS: PEPCID 40 MG PO (21:05)
[2023-07-06] VITALS (9 sets, daily range): BP systolic 101–166; BP diastolic 57–93; PULSE 82–88; O2SAT 95; BMI 24.8
[2023-07-06] MEDS: PULMICORT 0.5 MG INH ×2 (07:33→20:07)
[2023-07-06] MEDS: DUONEB 3 ML INH ×4 (07:33→20:07)
[2023-07-06 07:48] LABS: Hematocrit 36.3 % (37.0-47.0); Hemoglobin 12.2 g/dL (12.0-16.0); Mean Corp Hgb Conc. 33.6 g/dL (33.0-37.0); Mean Corpuscular Hgb 30.6 pg (27.0-31.0); Platelet Count 235 10^3/uL (130-400); Red Blood Cell Count 3.99 10^6/uL (4.20-5.40); Red Cell Dist. Width 12.9 % (11.5-14.5); White Blood Cell Count 9.7 10^3/uL (4.8-10.8)
[2023-07-06 08:07] LABS: Blood Urea Nitrogen 30 mg/dl (7-17); Calcium 10.4 mg/dl (8.4-10.2); Carbon Dioxide 28 mmol/L (22-30); Chloride 100 mmol/L (98-107); Estimated Creatinine Clearance 42 ml/min; Glucose 87 mg/dl (70-99); Sodium 134 mmol/L (135-145); eGFR > 60.00
[2023-07-06] MEDS: DIOVAN 160 MG PO (08:57)
[2023-07-06] MEDS: VIBRAMYCIN 100 MG PO ×2 (08:57→19:50)
[2023-07-06] MEDS: ROXICODONE 5 MG PO ×2 (08:59→19:50)
[2023-07-06] MEDS: LIPITOR 10 MG PO (08:59)
[2023-07-06] MEDS: VITAMIN D3 (cholecalciferol) 125 MCG PO (08:59)
[2023-07-06] MEDS: CELEXA 40 MG PO (08:59)
[2023-07-06] MEDS: MUCINEX 600 MG PO ×2 (08:59→19:50)
[2023-07-06] MEDS: WELLBUTRIN XL (24 hour extended release) 300 MG PO (08:59)
[2023-07-06] MEDS: B COMPLEX w/VITAMIN C 1 CAPLET PO (08:59)
[2023-07-06] MEDS: ABILIFY 5 MG PO (08:59)
[2023-07-06] MEDS: PROTONIX 40 MG PO (08:59)
[2023-07-06] MEDS: LIORESAL 10 MG PO ×2 (08:59→19:50)
[2023-07-06] MEDS: DECADRON 4 MG IV ×2 (09:00→15:05)
--- NOTE | 2023-07-06 09:33 | W.PN.PUL3 ---
Today's Communication / Plan
-
Taper IV steroids again today, will transition to oral tomorrow if stable
She is on PAP nightly and PRN
Chronic LEVINE, not sure if there is much that can be done to improve her limitations
PT eval ongoing, possible SNF benefit
Assessment
-
72 year old female with a past medical history of COPD on chronic O2 at 2-3L and chronic steroids, scleroderma, GERD, hypertension, and chronic pain, who presents to ER 07/03/23 for worsening SOB x 1 week. She notes over the weekend she had to
increase her oxygen from 2L up to 4L due to increasing shortness of breath. Her symptoms were unimproved and she had a hard time showering today, prompting her to come to the ED.
[place] this was triggered by recent decrease in her prednisone, she normally takes 10mg daily. CXR performed showing no acute findings. ABG showing chronic CO2 retention. We are consulted for eval.
AECOPD
Acute on chronic SOB
Acute on chronic CO2 retention, ABG 7.
Mild leukopenia/anemia
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
Recent admission 01/12-07/2022 with COPD exacerbation
COPD on home O2
Follows with Dr Garcia
pulmonary cachexia
oxygen therapy, 3 L (severe diffusion impairment, DLCO 30%)
Interstitial lung disease
Bilateral groundglass abnormality, interstitial changes, bronchiolitis,
CT 06/19/2018 reviewed-- mild interstitial changes, 1 cm subpleural nodule right lung, likely inflammatory/scar
Fibromyalgia.
GERD.
RA.
Scleroderma w/ lung/GI involvement, follows GI at [facility]
History of aspiration/VDRF, hospitalized for 10 days
Bowel obstruction.
GERD - Diverticulosis - Colon polyps
Vitamin D deficiency
IBS.
Chronic anemia.
Chronic constipation.
Rectal prolapse.
History of upper GI bleed.
Raynaud's.
Appendectomy.
Bowel [id number]
Exploratory Laparotomy with lysis of adhesions, repair of two partial-thickness enterotomies-10/2017
s/p Bowel resection due to perforation.
Cholecystectomy.
MIHAI - bleeding and fibroids - 1976
RT breast Cyst [id number]
Depression
B/L Cataract Surgery
Plan
She is maintained on 3L, currently 95%
Baseline use of 2-3L
Has extensive history of lung disease including COPD, pulmonary cachexia, chronic oxygen therapy, 3 L (w/ severe diffusion impairment, DLCO 30%), interstitial lung disease
She follows with Dr Garcia
Suspect patient has underlying AECOPD, she feels triggered by reduction in steroid dosing
She is started on IV decadron, will taper dosing today
Anxiety may be a component as she is visibly breath stacking, we discussed breathing techniques
LEVINE may be chronic at this point
CXR obtained indicating NAD
Other imaging reviewed--minor scarring, mild ILD, nodules found-chronic
Prior ECHO reviewed-stable biV function
proBNP <200 in past, not repeat
CXR clear, no signs of volume overload
She has chronic Co2 retention
Never had a sleep study
Can trial CPAP --she did well overnight
Would need OP testing to confirm SDB, PAP arrangement as OP
There is possibility of overlap syndrome (with history of COPD)
Encouraged further OOB/ambulation
PT eval, could possibly benefit from SNF placement
Diagnostic Data
CXR 07/03/23- No acute cardiopulmonary process.
Chest x-ray 01/26/2023-subsegmental atelectasis right basilar opacification
CT chest 11/01/2022: Stable 10 mm subpleural nodule in the anterior inferior right upper lobe consistent with benign etiology. Stable biapical pleural-parenchymal scarring, right greater than left. No new or enlarging or suspicious pulmonary nodules.
Lungs otherwise clear. Moderate coronary artery calcifications redemonstrated. Patulous distal esophagus with air fluid level, findings suggest gastroesophageal reflux.
CT chest 01/09/2023-no pulmonary embolism, subcentimeter nodular focus anterior inferior right upper lobe stable from previous exam and favors a benign etiology-comparison made to 11/01/2022,
CT head 01/27/2023-no acute intracranial abnormalities diffuse cortical atrophy
ABG 01/26/2023--49/93/7 0.35
PFT 12/30/22: FVC 2.43/96%, FEV1 1.45/76%, ratio 60%, no significant BD response, TLC 5.57/126%, RV 3.14/159%, DLCO 8.78/46%.
PFT 10/11/21: FVC 2.25/86%, FEV1 1.46/74%, ratio 65. TLC 4.83/107%, DLCO 6.85/35%.
TTE 01-13-23 CONCLUSIONS: Normal biventricular size and systolic function without regional wall motion abnormality. Estimated LVEF 65-70%. Mild/moderate eccentric aortic regurgitation. Mild/moderate tricuspid regurgitation. Mildly elevated PASP.
Estimated pulmonary artery pressure of 42 mmHg. Compared to 10/09/20: AR and TR have progressed from mild to mild/moderate. PASP has increased from 37 mmHg to 42 mmHg.
Subjective Data
-
Date of Service:
Date of Service: July 06, 2023
Chief Complaint: Pulmonary Follow Up
Subjective:
slightly better, but still remains dyspneic with exertion
still using PAP at night
Objective Data
Data Reviewed
Vital Signs / I&O / Oxygen:
Vital Signs
Temp Pulse Resp BP Pulse Ox
97.7 F 80 18 143/67 97
07/06/23 07:00 07/06/23 07:35 07/06/23 07:35 07/06/23 07:00 07/06/23 07:35
Intake and Output
07/05/23 07/06/23 07/07/23
06:59 06:59 06:59
Intake Total 1120 / 1120 1080 / 1080
Balance 1120 / 1120 1080 / 1080
SaO2 97
Nasal Cannula flow liters per 3
minute
Physical Exam
General: Comfortable and Other (chronically ill appearing, nad)
HEENT: Normocephalic, Anicteric and Moist Mucous Membranes
Cardiovascular: S1-S2 and Regular Rhythm
Respiratory: Crackles, Non-Labored Respirations and Other (scoliosis noted)
GI: Soft, Non Distended and Non Tender
Neurology: Awake, Alert, Oriented, AO x 3 and No Motor Deficits
Skin: Warm and Dry
Labs/Micro/Reports
Lab Data
07/06/23 07:27
07/06/23 07:27
--- NOTE | 2023-07-06 10:01 | W.PN.HOSP.TC ---
Addendum entered and electronically signed by Edwar Bosch MD 07/06/23 17:09:
Chronic hypoxic respiratory failure with chronic CO2 retention
Original Note:
Today's Communication/Plan
-
Will get speech therapy eval and VSE
Continue IV steroids at present dosing and will await input from pulmonary
Not much improvement
Assessment / Plan
Assessment / Plan
This is a 72 year old female with a past medical history of COPD on chronic O2 at 2L and chronic steroids, scleroderma, GERD, hypertension, and chronic pain, who presents today for worsening dyspnea on exertion x 1 week. She states that it is 'hard
to get air in.' She notes over the weekend she had to increase her oxygen from 2L up to 4L due to increasing shortness of breath. Her symptoms were unimproved and she had a hard time showering today, prompting her to come to the ED.
She also complains of a cough and feeling of phlegm, but states she is unable to expectorate any mucus. She denies fever, wheezing, chest pain, or lower extremity edema. She follows with Dr. Chavez who has been trying to reduce her steroids with a
slow taper of late alternating 5 and 10 mg.
Acute COPD Exacerbation/also chronic CO2 retention
-Continue Decadron
-Continue DuoNeb QID and PRN
-Continue Pulmicort Neb
-Continue Doxycycline
-Await pulmonary input/not a lot of options left
-Added CPAP nightly
Acute on Chronic Hypoxic Respiratory Failure
-Continue supplemental oxygen
-Attempt to wean back to baseline 2L via nasal canula
Dysphagia
-Mostly solids
-Longstanding history of GERD with Crouch's esophagus and followed by outside GI
-Gets yearly dilatations and surveillance with EGDs
-Will obtain video swallow eval today may need GI eval
-Remains on PPI since admission and uses omeprazole at home
Essential Hypertension
-Continue valsartan
Hyperlipidemia
-Continue atorvastatin
Lower Ext Edema
-Continue Lasix
CKD Stage IIIA
-Creatinine at baseline
Major Depressive Disorder
-Continue aripiprazole, bupropion, citalopram and trazodone
GERD
-Continue Pepcid and Protonix
Chronic Pain with Opioid Dependence
-Continue fentanyl patch
-Continue baclofen
DVT proph: Lovenox
Code Status: Full Code
Anticipated Discharge: 24 - 48 hours
Subjective/Interval History
-
Date of Service: July 06, 2023
Some difficulty with the swallowing especially to solids still short of breath at rest on 3 L nasal flow oxygen not much improvement
Objective Data
-
Labs:
Laboratory Results
07/06/23
07:27
WBC 9.7
Hgb 12.2
Hct 36.3 L
Plt Count 235
Sodium 134 L
Potassium 4.0
Chloride 100
Carbon Dioxide 28
BUN 30 H
Creatinine 0.9
Glucose 87
Calcium 10.4 H
Vital Signs:
Vital Signs
Temp Pulse Resp BP Pulse Ox
97.7 F 80 18 143/67 97
07/06/23 07:00 07/06/23 07:35 07/06/23 07:35 07/06/23 07:00 07/06/23 07:35
I&O
07/05/23 07/06/23 07/07/23
06:59 06:59 06:59
Intake Total 1120 / 1120 1080 / 1080
Balance 1120 / 1120 1080 / 1080
Review of Systems
-
Constitutional: Reports Fatigue and Weakness
Respiratory: Reports Cough and Trouble Breathing
Cardiac: Reports No Symptoms
Physical Exam
-
General: Cachectic
HEENT: Normocephalic
Respiratory: Clear to Auscultation and Decreased Breath Sounds
Cardiac: Regular Rhythm
GI: Soft and Nontender
Skin: Warm
Neuro: Awake
Psych: Calm
Data Reviewed
-
Total Time Spent with Patient (in minutes): 56
Labs: Labs Reviewed by me
--- NOTE | 2023-07-06 10:49 | PTOTSP ---
Speech Therapy Assessment
No gross signs of aspiration. Patient complains of pharyngeal/sternal retention and regurgitation. High suspicion for esophageal dysphagia given above findings, as well as her history of scleroderma, GERD and patient report of dilations in past.
Recommend
1. Continue regular solids and thin liquids with patient selecting soft/moist options.
2. Meds as tolerated.
3. Cyclic ingestion of solids/liquids. Reflux precautions.
4. Rest breaks as needed.
5. Smaller/more frequent meals.
6. VSE to objectively assess pharyngeal swallow and airway protection as well as sweep esophagus for gross findings.
7. Consider GI consult.
--- NOTE | 2023-07-06 11:20 | CM ---
Patient seen, chart reviewed, remains on IV steroids. Patient for VSE. CM will continue to follow for all discharge planning needs.
Plan; home with [facility] when medically stable.
[2023-07-06] MEDS: LOVENOX 40 MG SC (17:13)
[2023-07-06] MEDS: DESYREL 200 MG PO (21:16)
[2023-07-06] MEDS: PEPCID 40 MG PO (21:16)
[2023-07-07] VITALS (8 sets, daily range): BP systolic 130–158; BP diastolic 56–68; PULSE 80–89; O2SAT 95; BMI 25.1
[2023-07-07] MEDS: DECADRON 4 MG IV ×2 (05:25→17:01)
[2023-07-07] MEDS: DUONEB 3 ML INH ×4 (07:08→20:19)
[2023-07-07] MEDS: PULMICORT 0.5 MG INH ×2 (07:08→20:19)
[2023-07-07] MEDS: DURAGESIC 25 MCG/HR PATCH 1 PATCH TRANSDERM (08:18)
[2023-07-07] MEDS: VIBRAMYCIN 100 MG PO ×2 (08:23→20:01)
[2023-07-07] MEDS: WELLBUTRIN XL (24 hour extended release) 300 MG PO (08:23)
[2023-07-07] MEDS: DIOVAN 160 MG PO (08:23)
[2023-07-07] MEDS: LIPITOR 10 MG PO (08:24)
[2023-07-07] MEDS: ROXICODONE 5 MG PO ×2 (08:24→20:01)
[2023-07-07] MEDS: MUCINEX 600 MG PO ×2 (08:24→20:01)
[2023-07-07] MEDS: CELEXA 40 MG PO (08:24)
[2023-07-07] MEDS: PROTONIX 40 MG PO (08:24)
[2023-07-07] MEDS: LIORESAL 10 MG PO ×2 (08:24→20:01)
[2023-07-07] MEDS: VITAMIN D3 (cholecalciferol) 125 MCG PO (08:24)
[2023-07-07] MEDS: B COMPLEX w/VITAMIN C 1 CAPLET PO (08:24)
[2023-07-07] MEDS: ABILIFY 5 MG PO (08:24)
--- NOTE | 2023-07-07 09:12 | W.PN.PUL3 ---
Today's Communication / Plan
-
Doing slightly better, she is still having LEVINE
Encouraged continued PT/ambulation, rehab
Transition IV steroids to PO
Outpatient pulmonary FU recommended
Hopefully may discharge in next 24 hours
Assessment
-
72 year old female with a past medical history of COPD on chronic O2 at 2-3L and chronic steroids, scleroderma, GERD, hypertension, and chronic pain, who presents to ER 07/03/23 for worsening SOB x 1 week. She notes over the weekend she had to
increase her oxygen from 2L up to 4L due to increasing shortness of breath. Her symptoms were unimproved and she had a hard time showering today, prompting her to come to the ED.
[place] this was triggered by recent decrease in her prednisone, she normally takes 10mg daily. CXR performed showing no acute findings. ABG showing chronic CO2 retention. We are consulted for eval.
AECOPD
Acute on chronic SOB
Acute on chronic CO2 retention, ABG
Mild leukopenia/anemia
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
Recent admission 01/12-07/2022 with COPD exacerbation
COPD on home O2
Follows with Dr Garcia
pulmonary cachexia
oxygen therapy, 3 L (severe diffusion impairment, DLCO 30%)
Interstitial lung disease
Bilateral groundglass abnormality, interstitial changes, bronchiolitis,
CT 06/19/2018 reviewed-- mild interstitial changes, 1 cm subpleural nodule right lung, likely inflammatory/scar
Fibromyalgia.
GERD.
RA.
Scleroderma w/ lung/GI involvement, follows GI at [place] [facility]
History of aspiration/VDRF, hospitalized for 10 days
Bowel obstruction.
GERD - Diverticulosis - Colon polyps
Vitamin D deficiency
IBS.
Chronic anemia.
Chronic constipation.
Rectal prolapse.
History of upper GI bleed.
Raynaud's.
Appendectomy.
Bowel [id number]
Exploratory Laparotomy with lysis of adhesions, repair of two partial-thickness enterotomies-10/2017
s/p Bowel resection due to perforation.
Cholecystectomy.
MIHAI - bleeding and fibroids - 1976
RT breast Cyst [id number]
Depression
B/L Cataract Surgery
Plan
She is maintained on 3L, currently 95%
Baseline use of 2-3L
Has extensive history of lung disease including COPD, pulmonary cachexia, chronic oxygen therapy, 3 L (w/ severe diffusion impairment, DLCO 30%), interstitial lung disease
She follows with Dr Garcia
Suspect patient has underlying AECOPD, she feels triggered by reduction in steroid dosing
She is started on IV decadron, will taper dosing today
Anxiety may be a component as she is visibly breath stacking, we discussed breathing techniques
LEVINE may be chronic at this point
CXR obtained indicating NAD
Other imaging reviewed--minor scarring, mild ILD, nodules found-chronic
Prior ECHO reviewed-stable biV function
proBNP <200 in past, not repeat
CXR clear, no signs of volume overload
She has chronic Co2 retention
Never had a sleep study
Can trial CPAP --she did well overnight
Would need OP testing to confirm SDB, PAP arrangement as OP
There is possibility of overlap syndrome (with history of COPD)
Encouraged further OOB/ambulation
PT eval, could possibly benefit from SNF placement
Diagnostic Data
CXR 07/03/23- No acute cardiopulmonary process.
Chest x-ray 01/26/2023-subsegmental atelectasis right basilar opacification
CT chest 11/01/2022: Stable 10 mm subpleural nodule in the anterior inferior right upper lobe consistent with benign etiology. Stable biapical pleural-parenchymal scarring, right greater than left. No new or enlarging or suspicious pulmonary nodules.
Lungs otherwise clear. Moderate coronary artery calcifications redemonstrated. Patulous distal esophagus with air fluid level, findings suggest gastroesophageal reflux.
CT chest 01/09/2023-no pulmonary embolism, subcentimeter nodular focus anterior inferior right upper lobe stable from previous exam and favors a benign etiology-comparison made to 11/01/2022,
CT head 01/27/2023-no acute intracranial abnormalities diffuse cortical atrophy
ABG 01/26/2023--49/93/7 0.35
PFT 12/30/22: FVC 2.43/96%, FEV1 1.45/76%, ratio 60%, no significant BD response, TLC 5.57/126%, RV 3.14/159%, DLCO 8.78/46%.
PFT 10/11/21: FVC 2.25/86%, FEV1 1.46/74%, ratio 65. TLC 4.83/107%, DLCO 6.85/35%.
TTE 01-13-23 CONCLUSIONS: Normal biventricular size and systolic function without regional wall motion abnormality. Estimated LVEF 65-70%. Mild/moderate eccentric aortic regurgitation. Mild/moderate tricuspid regurgitation. Mildly elevated PASP.
Estimated pulmonary artery pressure of 42 mmHg. Compared to 10/09/20: AR and TR have progressed from mild to mild/moderate. PASP has increased from 37 mmHg to 42 mmHg.
Subjective Data
-
Date of Service:
Date of Service: July 07, 2023
Chief Complaint: Pulmonary Follow Up
Subjective:
slightly better today
sitting in chair
still LEVINE
Objective Data
Data Reviewed
Vital Signs / I&O / Oxygen:
Vital Signs
Temp Pulse Resp BP Pulse Ox
97.9 F 78 16 158/68 97
07/07/23 08:05 07/07/23 08:05 07/07/23 08:05 07/07/23 08:05 07/07/23 08:05
Intake and Output
07/06/23 07/07/23 07/08/23
06:59 06:59 06:59
Intake Total 1080 / 1080 1840 / 184
Balance 1080 / 1080 0 / 184
SaO2 97
Nasal Cannula flow liters per 3
minute
Physical Exam
General: Comfortable and Other (chronically ill appearing, nad)
HEENT: Normocephalic, Anicteric and Moist Mucous Membranes
Cardiovascular: S1-S2 and Regular Rhythm
Respiratory: Crackles, Non-Labored Respirations and Other (scoliosis noted)
GI: Soft, Non Distended and Non Tender
Neurology: Awake, Alert, Oriented, AO x 3 and No Motor Deficits
Skin: Warm and Dry
Labs/Micro/Reports
Lab Data
07/06/23 07:27
07/06/23 07:27
--- NOTE | 2023-07-07 10:24 | W.PN.HOSP.TC ---
Today's Communication/Plan
-
Hope to continue slow steroid taper as per pulmonary
Continue nebs as prior along with doxycycline for now
May have some benefit for a subacute nursing facility short-term
Continue CPAP nightly
Assessment / Plan
Assessment / Plan
This is a 72 year old female with a past medical history of COPD on chronic O2 at 2L and chronic steroids, scleroderma, GERD, hypertension, and chronic pain, who presents today for worsening dyspnea on exertion x 1 week. She states that it is 'hard
to get air in.' She notes over the weekend she had to increase her oxygen from 2L up to 4L due to increasing shortness of breath. Her symptoms were unimproved and she had a hard time showering today, prompting her to come to the ED.
She also complains of a cough and feeling of phlegm, but states she is unable to expectorate any mucus. She denies fever, wheezing, chest pain, or lower extremity edema. She follows with Dr. Chavez who has been trying to reduce her steroids with a
slow taper of late alternating 5 and 10 mg.
Acute COPD Exacerbation/also chronic CO2 retention
-Continue Decadron being tapered and should be transition to oral in the next 24 hours
-Continue DuoNeb QID and PRN
-Continue Pulmicort Neb
-Continue Doxycycline
-Await pulmonary input/not a lot of options left
-Added CPAP nightly
-Pulmonary consult tapering steroids
Acute on Chronic Hypoxic Respiratory Failure
-Continue supplemental oxygen
-Attempt to wean back to baseline 2L via nasal canula
Dysphagia
-Mostly solids/VSE showed no overt aspiration the consistencies some distal esophageal slowing but went through
-Longstanding history of GERD with Crouch's esophagus and followed by outside GI
-Gets yearly dilatations and surveillance with EGDs
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
-Remains on PPI since admission and uses omeprazole at home
Essential Hypertension
-Continue valsartan
Hyperlipidemia
-Continue atorvastatin
Lower Ext Edema
-Continue Lasix
CKD Stage IIIA
-Creatinine at baseline
Major Depressive Disorder
-Continue aripiprazole, bupropion, citalopram and trazodone
GERD
-Continue Pepcid and Protonix
Chronic Pain with Opioid Dependence
-Continue fentanyl patch
-Continue baclofen
DVT proph: Lovenox
Code Status: Full Code
Anticipated Discharge: Within 24 hours
Subjective/Interval History
-
Date of Service: July 07, 2023
Seems to be at her baseline for oxygen requirements and no worsening of her dyspnea remains even dyspneic at rest which may be her baseline at this point.
Objective Data
-
Vital Signs:
Vital Signs
Temp Pulse Resp BP Pulse Ox
97.9 F 78 16 158/68 97
07/07/23 08:05 07/07/23 08:05 07/07/23 08:05 07/07/23 08:05 07/07/23 08:05
I&O
07/06/23 07/07/23 07/08/23
06:59 06:59 06:59
Intake Total 1080 / 1080 1840 / 1840
Balance 1080 / 1080 1840 / 1840
Review of Systems
-
History Source: Patient
Respiratory: Reports Trouble Breathing
Physical Exam
-
General: No Apparent Distress
Respiratory: Decreased Breath Sounds and Other (Oxygen at baseline of 3 L)
Cardiac: Regular Rhythm
Neuro: Awake, Alert and Oriented
Data Reviewed
-
Total Time Spent with Patient (in minutes): 45
Labs: Labs Reviewed by me (Had VSE this morning showing no overt aspiration with some slowing of the distal esophagus of contrast but went through/)
--- NOTE | 2023-07-07 11:11 | CM ---
Addendum entered by Krista Smith 07/07/23 15:45:
IMM signed placed in chart.
Original Note:
Patient seen in chair, reports she is feeling a little better today. CM will continue to follow for all discharge planning needs.
Plan; home with [facility] when stable.
--- NOTE | 2023-07-07 13:32 | PTOTSP ---
Video Swallow Examination
No aspiration or significant pharyngeal stasis. Risk for reverse aspiration given retained contrast in distal esophagus suggesting slow to empty esophagus. Esophageal findings consistent with known history.
Recommend
1. Continue with current diet of Regular solids/Thin liquids.
2. Patient will continue selecting soft/moist options.
3. Cyclic ingestion - taking sip of liquid after every 2-3 bites of solids/semi-solids
4. Eat slowly and chew food thoroughly.
5. Rest breaks as needed - stand briefly as needed.
6. Meds as tolerated.
7. Reflux precautions.
No further ST indicated as patient is knowledgeable and utilizing above strategies.
[2023-07-07] MEDS: LOVENOX 40 MG SC (17:01)
[2023-07-07] MEDS: DESYREL 200 MG PO (21:30)
[2023-07-07] MEDS: PEPCID 40 MG PO (21:30)
[2023-07-08] VITALS (7 sets, daily range): BP systolic 102–144; BP diastolic 54–74; PULSE 83; BMI 24.6
[2023-07-08] MEDS: DUONEB 3 ML INH ×4 (07:41→20:53)
[2023-07-08] MEDS: PULMICORT 0.5 MG INH ×2 (07:41→20:53)
[2023-07-08] MEDS: WELLBUTRIN XL (24 hour extended release) 300 MG PO (09:16)
[2023-07-08] MEDS: LIPITOR 10 MG PO (09:17)
[2023-07-08] MEDS: ABILIFY 5 MG PO (09:17)
[2023-07-08] MEDS: ROXICODONE 5 MG PO ×2 (09:17→20:39)
[2023-07-08] MEDS: MUCINEX 600 MG PO ×2 (09:17→20:39)
[2023-07-08] MEDS: VITAMIN D3 (cholecalciferol) 125 MCG PO (09:17)
[2023-07-08] MEDS: PROTONIX 40 MG PO (09:17)
[2023-07-08] MEDS: LIORESAL 10 MG PO ×2 (09:17→20:39)
[2023-07-08] MEDS: VIBRAMYCIN 100 MG PO ×2 (09:17→20:39)
[2023-07-08] MEDS: DIOVAN 160 MG PO (09:17)
[2023-07-08] MEDS: CELEXA 40 MG PO (09:18)
[2023-07-08] MEDS: B COMPLEX w/VITAMIN C 1 CAPLET PO (09:18)
[2023-07-08] MEDS: DELTASONE 50 MG PO (09:18)
--- NOTE | 2023-07-08 10:14 | W.PN.HOSP.TC ---
Today's Communication/Plan
-
At this point probably stable to undergo a very slow steroid taper and should go to rehab as believed to inform still for going home
Spoke to case management in that regard
Assessment / Plan
Assessment / Plan
This is a 72 year old female with a past medical history of COPD on chronic O2 at 2L and chronic steroids, scleroderma, GERD, hypertension, and chronic pain, who presents today for worsening dyspnea on exertion x 1 week. She states that it is 'hard
to get air in.' She notes over the weekend she had to increase her oxygen from 2L up to 4L due to increasing shortness of breath. Her symptoms were unimproved and she had a hard time showering today, prompting her to come to the ED.
She also complains of a cough and feeling of phlegm, but states she is unable to expectorate any mucus. She denies fever, wheezing, chest pain, or lower extremity edema. She follows with Dr. Chavez who has been trying to reduce her steroids with a
slow taper of late alternating 5 and 10 mg.
Acute COPD Exacerbation/also chronic CO2 retention
-Continue Decadron being tapered and should be transition to oral in the next 24 hours
-Continue DuoNeb QID and PRN
-Continue Pulmicort Neb
-Continue Doxycycline
-Await pulmonary input/not a lot of options left
-Added CPAP nightly
-Pulmonary consult tapering steroids/now on prednisone 40 mg which I will keep on for at least the next 5 days
Acute on Chronic Hypoxic Respiratory Failure
-Continue supplemental oxygen
-Attempt to wean back to baseline 2L via nasal canula
Dysphagia
-Mostly solids/VSE showed no overt aspiration the consistencies some distal esophageal slowing but went through
-Longstanding history of GERD with Crouch's esophagus and followed by outside GI
-Gets yearly dilatations and surveillance with EGDs
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
-Remains on PPI since admission and uses omeprazole at home
Essential Hypertension
-Continue valsartan
Hyperlipidemia
-Continue atorvastatin
Lower Ext Edema
-Continue Lasix
CKD Stage IIIA
-Creatinine at baseline
Major Depressive Disorder
-Continue aripiprazole, bupropion, citalopram and trazodone
GERD
-Continue Pepcid and Protonix
Chronic Pain with Opioid Dependence
-Continue fentanyl patch
-Continue baclofen
DVT proph: Lovenox
Code Status: Full Code
Anticipated Discharge: 24 - 48 hours
Subjective/Interval History
-
Date of Service: July 08, 2023
She remains weak and short of breath with any exertion and even at rest which may be her baseline at this point but also she is concerned about going home and the burden that she will be on her family members although she lives in a in-law suite.
We discussed the fact that both myself and the pulmonary service feel that may be her best would be a rehab facility
Objective Data
-
Vital Signs:
Vital Signs
Temp Pulse Resp BP Pulse Ox
98.1 F 73 20 141/64 97
07/08/23 07:45 07/08/23 09:17 07/08/23 07:45 07/08/23 09:17 07/08/23 07:45
I&O
07/07/23 07/08/23 07/09/23
06:59 06:59 06:59
Intake Total 1839 540 / 540
Balance 1839 540 / 540
Review of Systems
-
History Source: Patient
Constitutional: Reports Fatigue and Weakness
Respiratory: Reports Trouble Breathing
Cardiac: Reports No Symptoms
Abdomen/GI: Reports No Symptoms
Physical Exam
-
General: Appears Chronically Ill
HEENT: Normocephalic
Respiratory: Rhonchi
Cardiac: Regular Rhythm
GI: Soft and Nontender
Psych: Calm
Data Reviewed
-
Total Time Spent with Patient (in minutes): 45
Medical Tests (Nuc Med, Echo etc): Report Reviewed by me (Reviewed video swallow eval that showed some distal delay of the esophagus with contrast)
[2023-07-08] MEDS: DUONEB INH (11:37)
--- NOTE | 2023-07-08 12:22 | CM ---
Spoke with patient bedside.
Patient with oxygen 3liters.
PT/OT recommending home with [facility], however patient would prefer skilled rehab.
Plan: skilled rehab, referrals to [facility] and [facility].
[2023-07-08] MEDS: COLACE 100 MG PO (14:03)
--- NOTE | 2023-07-08 15:57 | W.PN.PUL3 ---
Today's Communication / Plan
-
O2
Prednisone taper
bronchodilators
Antibiotic
Disposition
Assessment
-
72 year old female with a past medical history of COPD on chronic O2 at 2-3L and chronic steroids, scleroderma, GERD, hypertension, and chronic pain, who presents to ER 07/03/23 for worsening SOB x 1 week. She notes over the weekend she had to
increase her oxygen from 2L up to 4L due to increasing shortness of breath. Her symptoms were unimproved and she had a hard time showering today, prompting her to come to the ED.
[place] this was triggered by recent decrease in her prednisone, she normally takes 10mg daily. CXR performed showing no acute findings. ABG showing chronic CO2 retention. We are consulted for eval.
AECOPD
Acute on chronic SOB
Acute on chronic CO2 retention, ABG 7.
Mild leukopenia/anemia
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
Recent admission 01/12-07/2022 with COPD exacerbation
COPD on home O2 3L
Follows with Dr Garcia
pulmonary cachexia
oxygen therapy, 3 L (severe diffusion impairment, DLCO 30%)
Interstitial lung disease
Bilateral groundglass abnormality, interstitial changes, bronchiolitis,
CT 06/19/2018 reviewed-- mild interstitial changes, 1 cm subpleural nodule right lung, likely inflammatory/scar
Fibromyalgia.
GERD.
RA.
Scleroderma w/ lung/GI involvement, follows GI at [facility]
History of aspiration/VDRF, hospitalized for 10 days
Bowel obstruction.
GERD - Diverticulosis - Colon polyps
Vitamin D deficiency
IBS.
Chronic anemia.
Chronic constipation.
Rectal prolapse.
History of upper GI bleed.
Raynaud's.
Appendectomy.
Bowel [id number]
Exploratory Laparotomy with lysis of adhesions, repair of two partial-thickness enterotomies-10/2017
s/p Bowel resection due to perforation.
Cholecystectomy.
MIHAI - bleeding and fibroids - 1976
RT breast Cyst [id number]
Depression
B/L Cataract Surgery
Plan
She is maintained on 3L, currently 95%
Baseline use of 2-3L at home
Has extensive history of lung disease including COPD, pulmonary cachexia, chronic oxygen therapy, 3 L (w/ severe diffusion impairment, DLCO 30%), interstitial lung disease
She follows with Dr Garcia
Suspect patient has underlying AECOPD, she feels triggered by reduction in steroid dosing
She was started on IV decadron, changed to pred 50 mg qd 07-07, taper by 10 mg q3 d to 10 mg/day until seen in the office again
According to the patient for the last several months, probably 10 months she been on a progressive weaning of prednisone, for the last 3 weeks she was on 10 mg Monday and Monday and 10 mg the rest of the days of the week
Anxiety may be a component as she is visibly breath stacking, we discussed breathing techniques
LEVINE may be chronic at this point
CXR obtained indicating NAD
Other imaging reviewed--minor scarring, mild ILD, nodules found-chronic
Complete 5-day course of oral doxycycline
Resume Breo Ellipta upon discharge as well as tiotropium
For now continue budesonide twice daily and DuoNebs 4 times daily and as needed
Prior ECHO reviewed-stable biV function
proBNP <200 in past, not repeat
CXR clear, no signs of volume overload
She has chronic CO2 retention
Never had a sleep study
Trial of CPAP 5 cwp, continue as an inpatient, discontinue upon discharge, does not need to be discharged on CPAP
Would need OP testing to confirm SDB, PAP arrangement as OP
There is possibility of overlap syndrome (with history of COPD)
Encouraged further OOB/ambulation
PT eval, could possibly benefit from SNF placement
Discussed with patient, questions answered
No objection to discharge in next 24 4 to 48 hours if otherwise stable
Diagnostic Data
CXR 07/03/23- No acute cardiopulmonary process.
Chest x-ray 01/26/2023-subsegmental atelectasis right basilar opacification
CT chest 11/01/2022: Stable 10 mm subpleural nodule in the anterior inferior right upper lobe consistent with benign etiology. Stable biapical pleural-parenchymal scarring, right greater than left. No new or enlarging or suspicious pulmonary nodules.
Lungs otherwise clear. Moderate coronary artery calcifications redemonstrated. Patulous distal esophagus with air fluid level, findings suggest gastroesophageal reflux.
CT chest 01/09/2023-no pulmonary embolism, subcentimeter nodular focus anterior inferior right upper lobe stable from previous exam and favors a benign etiology-comparison made to 11/01/2022,
CT head 01/27/2023-no acute intracranial abnormalities diffuse cortical atrophy
ABG 01/26/2023--49/93/7 0.35
PFT 12/30/22: FVC 2.43/96%, FEV1 1.45/76%, ratio 60%, no significant BD response, TLC 5.57/126%, RV 3.14/159%, DLCO 8.78/46%.
PFT 10/11/21: FVC 2.25/86%, FEV1 1.46/74%, ratio 65. TLC 4.83/107%, DLCO 6.85/35%.
TTE 01-13-23 CONCLUSIONS: Normal biventricular size and systolic function without regional wall motion abnormality. Estimated LVEF 65-70%. Mild/moderate eccentric aortic regurgitation. Mild/moderate tricuspid regurgitation. Mildly elevated PASP.
Estimated pulmonary artery pressure of 42 mmHg. Compared to 10/09/20: AR and TR have progressed from mild to mild/moderate. PASP has increased from 37 mmHg to 42 mmHg.
Subjective Data
-
Date of Service:
Date of Service: July 08, 2023
Chief Complaint: Pulmonary Follow Up
Subjective:
No major events reported overnight
Tolerated CPAP trial at 5 cm water pressure for the last 2 nights even though she does not like to use CPAP
States may be discharged to rehab today or tomorrow, continuous pillowcase cutter are working on this
Review of Systems
General: Fever (n), Sweats (n), Chills (n) and Satisfactory Appetite
HEENT: Epistaxis (n)
Cardiopulmonary: Dyspnea, Cough and Chest Pain (n)
GI: Abdominal Pain (n), Nausea (n) and Vomiting (n)
Neuro: Weakness
Objective Data
Data Reviewed
Vital Signs / I&O / Oxygen:
Vital Signs
Temp Pulse Resp BP Pulse Ox
98.0 F 100 22 102/74 94
07/08/23 15:44 07/08/23 15:44 07/08/23 15:44 07/08/23 15:44 07/08/23 15:44
Intake and Output
07/07/23 07/08/23 07/09/23
06:59 06:59 06:59
Intake Total 1839 540 / 540
Balance 1839 540 / 540
SaO2 94
Nasal Cannula flow liters per 3
minute
Physical Exam
General: Comfortable and Other (chronically ill appearing, nad)
HEENT: Normocephalic, Anicteric and Moist Mucous Membranes
Cardiovascular: S1-S2, Regular Rhythm, Murmur (n), JVD and Peripheral Edema (n)
Respiratory: Crackles, Non-Labored Respirations, Stridor (n) and Other (kyphosis)
GI: Soft, Non Distended and Non Tender
Neurology: Awake, AO x 3 and No Motor Deficits
Skin: Warm and Dry
Labs/Micro/Reports
Lab Data
07/06/23 07:27
07/06/23 07:27
[2023-07-08] MEDS: LOVENOX 40 MG SC (18:16)
[2023-07-08] MEDS: COLACE PO (20:20)
[2023-07-08] MEDS: PEPCID 40 MG PO (21:15)
[2023-07-08] MEDS: DESYREL 200 MG PO (21:15)
[2023-07-09 06:00] VITALS: BMI 24.5
[2023-07-09 07:00] VITALS: BP 137/59
[2023-07-09] MEDS: PULMICORT 0.5 MG INH ×2 (07:36→20:48)
[2023-07-09] MEDS: DUONEB 3 ML INH ×4 (07:36→20:48)
[2023-07-09] MEDS: DIOVAN 160 MG PO (08:58)
[2023-07-09] MEDS: DELTASONE 50 MG PO (08:58)
[2023-07-09] MEDS: VIBRAMYCIN 100 MG PO ×2 (08:58→20:43)
[2023-07-09] MEDS: ABILIFY 5 MG PO (08:58)
[2023-07-09] MEDS: PROTONIX 40 MG PO (08:58)
[2023-07-09] MEDS: MUCINEX 600 MG PO ×2 (08:59→20:43)
[2023-07-09] MEDS: LIORESAL 10 MG PO ×2 (08:59→20:44)
[2023-07-09] MEDS: WELLBUTRIN XL (24 hour extended release) 300 MG PO (08:59)
[2023-07-09] MEDS: COLACE PO ×3 (08:59→20:49)
[2023-07-09] MEDS: LASIX 40 MG PO (08:59)
[2023-07-09] MEDS: VITAMIN D3 (cholecalciferol) 125 MCG PO (08:59)
[2023-07-09] MEDS: LIPITOR 10 MG PO (08:59)
[2023-07-09] MEDS: B COMPLEX w/VITAMIN C 1 CAPLET PO (08:59)
[2023-07-09] MEDS: ROXICODONE 5 MG PO ×2 (08:59→20:43)
[2023-07-09] MEDS: CELEXA 40 MG PO (08:59)
--- NOTE | 2023-07-09 09:25 | W.PN.HOSP.TC ---
Today's Communication/Plan
-
Continue slow steroid taper
Should continue on the Breo Ellipta and budesonide at discharge
Right now best option given her presentation of pulmonary cachexia and ongoing COPD exacerbation is a SNF rehab/also given her home situation
Pulmonary does not believe will need CPAP on discharge
Assessment / Plan
Assessment / Plan
This is a 72 year old female with a past medical history of COPD on chronic O2 at 2L and chronic steroids, scleroderma, GERD, hypertension, and chronic pain, who presents today for worsening dyspnea on exertion x 1 week. She states that it is 'hard
to get air in.' She notes over the weekend she had to increase her oxygen from 2L up to 4L due to increasing shortness of breath. Her symptoms were unimproved and she had a hard time showering today, prompting her to come to the ED.
She also complains of a cough and feeling of phlegm, but states she is unable to expectorate any mucus. She denies fever, wheezing, chest pain, or lower extremity edema. She follows with Dr. Chavez who has been trying to reduce her steroids with a
slow taper of late alternating 5 and 10 mg.
Acute COPD Exacerbation/also chronic CO2 retention
-Now off IV Decadron and on prednisone taper 50 mg taper by 10 mg every third day
-Continue DuoNeb QID and PRN/resume Breo Ellipta at discharge
-Continue Pulmicort Neb continue on discharge
-Continue Doxycycline
-Await pulmonary input/not a lot of options left
-Added CPAP nightly( new) will not be required on discharge
-Pulmonary consult tapering steroids/now on prednisone 40 mg which I will keep on for at least the next 5 days
Acute on Chronic Hypoxic Respiratory Failure
-Continue supplemental oxygen
-Attempt to wean back to baseline 2L via nasal canula
Dysphagia
-Mostly solids/VSE showed no overt aspiration the consistencies some distal esophageal slowing but went through
-Longstanding history of GERD with Crouch's esophagus and followed by outside GI
-Gets yearly dilatations and surveillance with EGDs
-Based on swallow eval ( VSE showed some distal esophageal delay in contrast passage but no emilee obstruction and no aspiration events) can continue to follow with her outpatient qa automation engineer continue present diet is already modified
-Remains on PPI since admission and uses omeprazole at home
Essential Hypertension
-Continue valsartan
Hyperlipidemia
-Continue atorvastatin
Lower Ext Edema
-Continue Lasix
CKD Stage IIIA
-Creatinine at baseline
Major Depressive Disorder
-Continue aripiprazole, bupropion, citalopram and trazodone
GERD
-Continue Pepcid and Protonix
Chronic Pain with Opioid Dependence
-Continue fentanyl patch
-Continue baclofen
DVT proph: Lovenox
Code Status: Full Code
Anticipated Discharge: 24 - 48 hours
Subjective/Interval History
-
Date of Service: July 09, 2023
Remains dyspneic at rest remains on 3 L nasal of oxygen/continues to request to go to rehab which I agree with
Objective Data
-
Vital Signs:
Vital Signs
Temp Pulse Resp BP Pulse Ox
97.6 F 79 16 137/59 98
07/09/23 07:00 07/09/23 08:58 07/09/23 07:43 07/09/23 08:58 07/09/23 07:43
I&O
07/08/23 07/09/23 07/10/23
06:59 06:59 06:59
Intake Total 540 / 540 1200 / 1200
Balance 540 / 540 1200 / 1200
Review of Systems
-
History Source: Patient
Constitutional: Reports No Symptoms
Respiratory: Reports No Symptoms and Trouble Breathing
Abdomen/GI: Reports No Symptoms
Physical Exam
-
General: Appears Chronically Ill and Cachectic
HEENT: Normocephalic
Respiratory: Rhonchi and Decreased Breath Sounds
Cardiac: Regular Rhythm
GI: Soft
Psych: Calm
[2023-07-09 15:00] VITALS: BP 133/56
--- NOTE | 2023-07-09 16:36 | W.PN.PUL3 ---
Today's Communication / Plan
-
O2
CS
BDs
CPAP inpatient
Dispo
Assessment
-
72 year old female with a past medical history of COPD on chronic O2 at 2-3L and chronic steroids, scleroderma, GERD, hypertension, and chronic pain, who presents to ER 07/03/23 for worsening SOB x 1 week. She notes over the weekend she had to
increase her oxygen from 2L up to 4L due to increasing shortness of breath. Her symptoms were unimproved and she had a hard time showering today, prompting her to come to the ED.
[place] this was triggered by recent decrease in her prednisone, she normally takes 10mg daily. CXR performed showing no acute findings. ABG showing chronic CO2 retention. We are consulted for eval.
AECOPD
Acute on chronic SOB
Acute on chronic CO2 retention, ABG 7.
Mild leukopenia/anemia
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
Recent admission 01/12-07/2022 with COPD exacerbation
COPD on home O2 3L
Follows with Dr Garcia
pulmonary cachexia
oxygen therapy, 3 L (severe diffusion impairment, DLCO 30%)
Interstitial lung disease
Bilateral groundglass abnormality, interstitial changes, bronchiolitis,
CT 06/19/2018 reviewed-- mild interstitial changes, 1 cm subpleural nodule right lung, likely inflammatory/scar
Fibromyalgia.
GERD.
RA.
Scleroderma w/ lung/GI involvement, follows GI at [facility]
History of aspiration/VDRF, hospitalized for 10 days
Bowel obstruction.
GERD - Diverticulosis - Colon polyps
Vitamin D deficiency
IBS.
Chronic anemia.
Chronic constipation.
Rectal prolapse.
History of upper GI bleed.
Raynaud's.
Appendectomy.
Bowel [id number]
Exploratory Laparotomy with lysis of adhesions, repair of two partial-thickness enterotomies-10/2017
s/p Bowel resection due to perforation.
Cholecystectomy.
MIHAI - bleeding and fibroids - 1976
RT breast Cyst [id number]
Depression
B/L Cataract Surgery
Plan
She is maintained on 3L, POC POx 95%
Baseline use of 2-3L at home
Has extensive history of lung disease including COPD, pulmonary cachexia, chronic oxygen therapy, 3 L (w/ severe diffusion impairment, DLCO 30%), interstitial lung disease
She follows with Dr Garcia
Suspect patient has underlying AECOPD, she feels triggered by reduction in steroid dosing
She was started on IV decadron, changed to pred 50 mg qd 07-07, taper by 10 mg q3 d to 10 mg/day until seen in the office again
According to the patient for the last several months, probably 10 months she been on a progressive weaning of prednisone, for the last 3 weeks she was on 10 mg Monday and Monday and 10 mg the rest of the days of the week
Anxiety is a significant component as she was visibly breath stacking, we discussed breathing techniques
LEVINE may be chronic at this point
CXR obtained indicating NAD
Other imaging reviewed--minor scarring, mild ILD, nodules found-chronic
Complete 5-day course of oral doxycycline
Resume Breo Ellipta upon discharge as well as tiotropium
For now continue budesonide twice daily and DuoNebs 4 times daily and as needed
Prior ECHO reviewed-stable biV function
proBNP <200 in past, not repeat
CXR clear, no signs of volume overload
She has chronic CO2 retention
Never had a sleep study
Trial of CPAP 5 cwp, continue as an inpatient, discontinue upon discharge, does not need to be discharged on CPAP
Would need OP testing to confirm SDB, PAP arrangement as OP
There is possibility of overlap syndrome (with history of COPD)
Encouraged further OOB/ambulation
PT eval, could possibly benefit from SNF placement
Discussed with Mrs Jain, questions answered
No objection to discharge in next 24 4 to 48 hours if otherwise stable
Diagnostic Data
CXR 07/03/23- No acute cardiopulmonary process.
Chest x-ray 01/26/2023-subsegmental atelectasis right basilar opacification
CT chest 11/01/2022: Stable 10 mm subpleural nodule in the anterior inferior right upper lobe consistent with benign etiology. Stable biapical pleural-parenchymal scarring, right greater than left. No new or enlarging or suspicious pulmonary nodules.
Lungs otherwise clear. Moderate coronary artery calcifications redemonstrated. Patulous distal esophagus with air fluid level, findings suggest gastroesophageal reflux.
CT chest 01/09/2023-no pulmonary embolism, subcentimeter nodular focus anterior inferior right upper lobe stable from previous exam and favors a benign etiology-comparison made to 11/01/2022,
CT head 01/27/2023-no acute intracranial abnormalities diffuse cortical atrophy
ABG 01/26/2023--49/93/7 0.35
PFT 12/30/22: FVC 2.43/96%, FEV1 1.45/76%, ratio 60%, no significant BD response, TLC 5.57/126%, RV 3.14/159%, DLCO 8.78/46%.
PFT 10/11/21: FVC 2.25/86%, FEV1 1.46/74%, ratio 65. TLC 4.83/107%, DLCO 6.85/35%.
TTE 01-13-23 CONCLUSIONS: Normal biventricular size and systolic function without regional wall motion abnormality. Estimated LVEF 65-70%. Mild/moderate eccentric aortic regurgitation. Mild/moderate tricuspid regurgitation. Mildly elevated PASP.
Estimated pulmonary artery pressure of 42 mmHg. Compared to 10/09/20: AR and TR have progressed from mild to mild/moderate. PASP has increased from 37 mmHg to 42 mmHg.
Subjective Data
-
Date of Service:
Date of Service: July 09, 2023
Chief Complaint: Pulmonary Follow Up
Subjective:
No major events reported overnight
I noted that she became dyspneic when she realizes entered the room, she) does have a component of anxiety that compounds care underlying severe lung disease (COPD)
Review of Systems
General: Fever (n), Sweats, Chills (n) and Satisfactory Appetite
Cardiopulmonary: Dyspnea, Dyspnea on Exertion, Cough and Wheezing
GI: Abdominal Pain (n), Nausea (n) and Vomiting
Neuro: Weakness
Objective Data
Data Reviewed
Vital Signs / I&O / Oxygen:
Vital Signs
Temp Pulse Resp BP Pulse Ox
97.6 F 76 16 137/59 98
07/09/23 07:00 07/09/23 14:53 07/09/23 14:53 07/09/23 08:58 07/09/23 07:43
Intake and Output
07/08/23 07/09/23 07/10/23
06:59 06:59 06:59
Intake Total 540 / 540 1200 / 1200
Balance 540 / 540 1200 / 1200
SaO2 98
Nasal Cannula flow liters per 3
minute
Physical Exam
General: Other (chronically ill appearing)
HEENT: Normocephalic, Anicteric and Moist Mucous Membranes
Cardiovascular: S1-S2, Regular Rhythm, Murmur (n), JVD and Peripheral Edema (n)
Respiratory: Crackles, Non-Labored Respirations, Stridor (n) and Other (kyphosis)
GI: Soft, Non Distended and Non Tender
Neurology: Awake, AO x 3 and No Motor Deficits
Skin: Warm and Dry
Labs/Micro/Reports
Lab Data
07/06/23 07:27
07/06/23 07:27
[2023-07-09] MEDS: LOVENOX 40 MG SC (17:14)
[2023-07-09] MEDS: PEPCID 40 MG PO (21:42)
[2023-07-09] MEDS: DESYREL 200 MG PO (21:42)
[2023-07-09 23:20] VITALS: BP 129/63
[2023-07-10 06:00] VITALS: BMI 23.9
[2023-07-10 07:30] VITALS: BP 145/56
[2023-07-10] MEDS: DUONEB 3 ML INH ×4 (08:11→19:28)
[2023-07-10] MEDS: PULMICORT 0.5 MG INH ×2 (08:17→19:28)
[2023-07-10] MEDS: B COMPLEX w/VITAMIN C 1 CAPLET PO (08:33)
[2023-07-10] MEDS: CELEXA 40 MG PO (08:33)
[2023-07-10] MEDS: ABILIFY 5 MG PO (08:33)
[2023-07-10] MEDS: LIPITOR 10 MG PO (08:34)
[2023-07-10] MEDS: DELTASONE 50 MG PO (08:34)
[2023-07-10] MEDS: MUCINEX 600 MG PO ×2 (08:34→19:41)
[2023-07-10] MEDS: DIOVAN 160 MG PO (08:34)
[2023-07-10] MEDS: LIORESAL 10 MG PO ×2 (08:34→19:41)
[2023-07-10] MEDS: LASIX 40 MG PO (08:34)
[2023-07-10] MEDS: COLACE 100 MG PO (08:34)
[2023-07-10] MEDS: WELLBUTRIN XL (24 hour extended release) 300 MG PO (08:34)
[2023-07-10] MEDS: DURAGESIC 25 MCG/HR PATCH 1 PATCH TRANSDERM (08:34)
[2023-07-10] MEDS: ROXICODONE 5 MG PO ×2 (08:35→19:41)
[2023-07-10] MEDS: VIBRAMYCIN 100 MG PO ×2 (08:35→19:41)
[2023-07-10] MEDS: VITAMIN D3 (cholecalciferol) 125 MCG PO (08:35)
[2023-07-10] MEDS: PROTONIX 40 MG PO (08:35)
--- NOTE | 2023-07-10 12:29 | W.PN.HOSP.TC ---
Today's Communication/Plan
-
monitor vitals
see plan
cw prednisone
patient wants to see how she does with ambulation today before deciding if wants SNF or can go home
Continue with breathing treatments
Assessment / Plan
Assessment / Plan
This is a 72 year old female with a past medical history of COPD on chronic O2 at 2L and chronic steroids, scleroderma, GERD, hypertension, and chronic pain, who presents today for worsening dyspnea on exertion x 1 week. She states that it is 'hard
to get air in.' She notes over the weekend she had to increase her oxygen from 2L up to 4L due to increasing shortness of breath. Her symptoms were unimproved and she had a hard time showering today, prompting her to come to the ED.
She also complains of a cough and feeling of phlegm, but states she is unable to expectorate any mucus. She denies fever, wheezing, chest pain, or lower extremity edema. She follows with Dr. Chavez who has been trying to reduce her steroids with a
slow taper of late alternating 5 and 10 mg.
Acute COPD Exacerbation/also chronic CO2 retention
-Now off IV Decadron and on prednisone taper 50 mg taper by 10 mg every third day
-Continue DuoNeb QID and PRN/resume Breo Ellipta at discharge
-Continue Pulmicort Neb continue on discharge
-Continue Doxycycline
-Await pulmonary input/not a lot of options left
-Added CPAP nightly( new) will not be required on discharge
-Pulmonary consult tapering steroids/now on prednisone 50 mg which I will keep on for at least the next 5 days
Acute on Chronic Hypoxic Respiratory Failure
-Continue supplemental oxygen
-Attempt to wean back to baseline 2L via nasal canula
Dysphagia
-Mostly solids/VSE showed no overt aspiration the consistencies some distal esophageal slowing but went through
-Longstanding history of GERD with Crouch's esophagus and followed by outside GI
-Gets yearly dilatations and surveillance with EGDs
-Based on swallow eval ( VSE showed some distal esophageal delay in contrast passage but no emilee obstruction and no aspiration events) can continue to follow with her outpatient crime scene specialist continue present diet is already modified
-Remains on PPI since admission and uses omeprazole at home
Essential Hypertension
-Continue valsartan
Hyperlipidemia
-Continue atorvastatin
Lower Ext Edema
-Continue Lasix
CKD Stage IIIA
-Creatinine at baseline
Major Depressive Disorder
-Continue aripiprazole, bupropion, citalopram and trazodone
GERD
-Continue Pepcid and Protonix
Chronic Pain with Opioid Dependence
-Continue fentanyl patch
-Continue baclofen
DVT proph: Lovenox
Code Status: Full Code
General: Appears Chronically Ill and Cachectic
HEENT: Normocephalic
Respiratory: Rhonchi and Decreased Breath Sounds
Cardiac: Regular Rhythm
GI: Soft
Psych: Calm
Anticipated Discharge: Within 24 hours
Subjective/Interval History
-
Date of Service: July 10, 2023
denies chest pain
Objective Data
-
Vital Signs:
Vital Signs
Temp Pulse Resp BP Pulse Ox
99.0 F 76 16 145/56 93
07/10/23 07:30 07/10/23 11:44 07/10/23 11:44 07/10/23 07:30 07/10/23 11:44
I&O
07/09/23 07/10/23 07/11/23
06:59 06:59 06:59
Intake Total 1200 / 1200 1400 / 1400
Balance 1200 / 1200 1400 / 1400
--- NOTE | 2023-07-10 12:39 | CM ---
Patient seen bedside, reports she is feeling a little bit better today. CM discussed SN[facility] referrals [facility], no beds at [facility], awaiting to hear from [facility] in regards to bed availability. CM will continue to follow for all discharge
planning needs.
Plan; SNF pending accepting facility, when medically stable. No auth required.
--- NOTE | 2023-07-10 14:05 | W.PN.PUL3 ---
Today's Communication / Plan
-
O2
CS
BDs
Hold off on CPAP tonight --> trend AM VBG to assure pCO2 is stable
Dispo planning - PT recommending skilled rehab
Assessment
-
72 year old female with a past medical history of COPD on chronic O2 at 2-3L and chronic steroids, scleroderma, GERD, hypertension, and chronic pain, who presents to ER 07/03/23 for worsening SOB x 1 week. She notes over the weekend she had to
increase her oxygen from 2L up to 4L due to increasing shortness of breath. Her symptoms were unimproved and she had a hard time showering today, prompting her to come to the ED.
[place] this was triggered by recent decrease in her prednisone, she normally takes 10mg daily. CXR performed showing no acute findings. ABG showing chronic CO2 retention. We are consulted for eval.
Impression:
AECOPD
Acute on chronic SOB
Acute on chronic CO2 retention, ABG 7.37/57 - had simialr hospitalization in 2022 with acute on chronic hypercapnea)
Mild leukopenia/anemia
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
Recent admission 01/12-07/2022 with COPD exacerbation
COPD on home O2 3L
Follows with Dr Garcia
pulmonary cachexia
oxygen therapy, 3 L (severe diffusion impairment, DLCO 30%)
Interstitial lung disease
Bilateral groundglass abnormality, interstitial changes, bronchiolitis,
CT 06/19/2018 reviewed-- mild interstitial changes, 1 cm subpleural nodule right lung, likely inflammatory/scar
Fibromyalgia.
GERD.
RA.
Scleroderma w/ lung/GI involvement, follows GI at [facility]
History of aspiration/VDRF, hospitalized for 10 days
Bowel obstruction.
GERD - Diverticulosis - Colon polyps
Vitamin D deficiency
IBS.
Chronic anemia.
Chronic constipation.
Rectal prolapse.
History of upper GI bleed.
Raynaud's.
Appendectomy.
Bowel [id number]
Exploratory Laparotomy with lysis of adhesions, repair of two partial-thickness enterotomies-10/2017
s/p Bowel resection due to perforation.
Cholecystectomy.
MIHAI - bleeding and fibroids - 1976
RT breast Cyst [id number]
Depression
B/L Cataract Surgery
Plan
She is maintained on 3L, POC POx 95%
Baseline use of 2-3L at home on chronic prednisone
Has extensive history of lung disease including COPD, pulmonary cachexia, chronic oxygen therapy, 3 L (w/ severe diffusion impairment, DLCO 30%), interstitial lung disease
She follows with Dr Garica
Suspect patient has underlying AECOPD, she feels triggered by reduction in steroid dosing
She was started on IV decadron, changed to pred 50 mg qd 07-07, taper by 10 mg q3 d to 10 mg/day until seen in the office again
According to the patient for the last several months, probably 10 months she been on a progressive weaning of prednisone, for the last 3 weeks she was on 10 mg Monday and Monday and 10 mg the rest of the days of the week
Anxiety is a significant component as she was visibly breath stacking, we discussed breathing techniques
LEVINE may be chronic at this point
CXR obtained indicating NAD
Other imaging reviewed--minor scarring, mild ILD, nodules found-chronic
Complete 5-7 day course of oral doxycycline
Resume Breo Ellipta upon discharge as well as tiotropium
For now continue budesonide twice daily and DuoNebs 4 times daily and as needed
Prior ECHO reviewed-stable biV function
proBNP <200 in past, not repeat
CXR clear, no signs of volume overload
She has chronic CO2 retention
Never had a sleep study
Considering patient is now mentating well with stable serum bicarbonate level of 28, hold off on CPAP tonight and check morning VBG. If VBG is stable then okay to discontinue nocturnal PAP and continue to trend blood gas while she remains
inpatient.
Would need OP testing to confirm SDB, PAP arrangement as OP
There is possibility of overlap syndrome (with history of COPD)
Encouraged further OOB/ambulation
PT --> recommends skilled rehab upon discharge
Discussed with Mrs Jain, questions answered
No objection to discharge in next 1-2 days if otherwise stable
Total time spent today was 35 minutes for this encounter. Time includes reviewing laboratory test/imaging results, reviewing pertinent medical records, obtaining and reviewing medical history, performing an appropriate exam, ordering medications,
tests and procedures. Time also includes documentation of this encounter, coordinating patient care and communicating with other healthcare professionals. Total time does not include separately billed tests performed on this date of service.
Diagnostic Data
CXR 07/03/23- No acute cardiopulmonary process.
Chest x-ray 01/26/2023-subsegmental atelectasis right basilar opacification
CT chest 11/01/2022: Stable 10 mm subpleural nodule in the anterior inferior right upper lobe consistent with benign etiology. Stable biapical pleural-parenchymal scarring, right greater than left. No new or enlarging or suspicious pulmonary nodules.
Lungs otherwise clear. Moderate coronary artery calcifications redemonstrated. Patulous distal esophagus with air fluid level, findings suggest gastroesophageal reflux.
CT chest 01/09/2023-no pulmonary embolism, subcentimeter nodular focus anterior inferior right upper lobe stable from previous exam and favors a benign etiology-comparison made to 11/01/2022,
CT head 01/27/2023-no acute intracranial abnormalities diffuse cortical atrophy
ABG 01/26/2023--49/93/7 0.35
PFT 12/30/22: FVC 2.43/96%, FEV1 1.45/76%, ratio 60%, no significant BD response, TLC 5.57/126%, RV 3.14/159%, DLCO 8.78/46%.
PFT 10/11/21: FVC 2.25/86%, FEV1 1.46/74%, ratio 65. TLC 4.83/107%, DLCO 6.85/35%.
TTE 01-13-23 CONCLUSIONS: Normal biventricular size and systolic function without regional wall motion abnormality. Estimated LVEF 65-70%. Mild/moderate eccentric aortic regurgitation. Mild/moderate tricuspid regurgitation. Mildly elevated PASP.
Estimated pulmonary artery pressure of 42 mmHg. Compared to 10/09/20: AR and TR have progressed from mild to mild/moderate. PASP has increased from 37 mmHg to 42 mmHg.
Subjective Data
-
Date of Service:
Date of Service: July 10, 2023
Chief Complaint: Pulmonary Follow Up
Subjective:
Patient seen and evaluated at bedside. She says she feels better. Wore CPAP last night bled with 3 L/min. Patient currently denies chest pain, headache, fevers or chills.
Review of Systems
General: Other (Negative unless mentioned above)
Objective Data
Data Reviewed
Vital Signs / I&O / Oxygen:
Vital Signs
Temp Pulse Resp BP Pulse Ox
99.0 F 76 16 145/56 93
07/10/23 07:30 07/10/23 11:44 07/10/23 11:44 07/10/23 07:30 07/10/23 11:44
Intake and Output
07/09/23 07/10/23 07/11/23
06:59 06:59 06:59
Intake Total 1200 / 1200 1400 / 1400
Balance 1200 / 1200 1400 / 1400
SaO2 93
Nasal Cannula flow liters per 2
minute
Physical Exam
General: Respiratory Distress (Negative), Comfortable and Other (chronically ill appearing)
HEENT: Normocephalic and Anicteric
Cardiovascular: S1-S2, Murmur (n), Peripheral Edema (n) and Other (Varicose veins seen in bilateral lower extremities)
Respiratory: Wheeze (Negative), Crackles ([place] primarily in the left hemithorax), Rhonchi (Negative), Non-Labored Respirations, Stridor (n) and Other (kyphosis)
GI: Soft, Non Distended, Non Tender and Normal Bowel Sounds
Neurology: Awake, Alert and No Motor Deficits
Skin: Warm, Dry and Cyanosis (Negative)
Labs/Micro/Reports
Lab Data
07/06/23 07:27
07/06/23 07:27
[2023-07-10 15:05] VITALS: O2SAT 94
[2023-07-10 15:30] VITALS: BP 127/54
[2023-07-10] MEDS: LOVENOX 40 MG SC (17:06)
[2023-07-10] MEDS: COLACE PO (19:41)
[2023-07-10] MEDS: PEPCID 40 MG PO (21:07)
[2023-07-10] MEDS: DESYREL 200 MG PO (21:07)
[2023-07-10 23:33] VITALS: BP 122/105
[2023-07-11 06:00] VITALS: BMI 23.5
[2023-07-11 06:19] LABS: Venous Blood Gas B.E. 11.6 mmol/L (-4 to +4); Venous Blood Gas HCO3 37.5 mmol/L (22-27); Venous Blood Gas O2 Sat % 83.7 %; Venous Blood Gas pCO2 54 mmHg (35-48); Venous Blood Gas pH 7.45 (7.32-7.43); Venous Blood Gas pO2 49 mmHg (30-50)
[2023-07-11] MEDS: DUONEB 3 ML INH ×2 (07:20→11:32)
[2023-07-11] MEDS: PULMICORT 0.5 MG INH (07:20)
[2023-07-11 07:51] VITALS: BP 111/71
[2023-07-11] MEDS: PROTONIX 40 MG PO (08:56)
[2023-07-11] MEDS: VIBRAMYCIN 100 MG PO (08:56)
[2023-07-11] MEDS: LASIX 40 MG PO (08:56)
[2023-07-11] MEDS: MUCINEX 600 MG PO (08:56)
[2023-07-11] MEDS: WELLBUTRIN XL (24 hour extended release) 300 MG PO (08:56)
[2023-07-11] MEDS: CELEXA 40 MG PO (08:56)
[2023-07-11] MEDS: LIPITOR 10 MG PO (08:57)
[2023-07-11] MEDS: ABILIFY 5 MG PO (08:57)
[2023-07-11] MEDS: DELTASONE 50 MG PO (08:57)
[2023-07-11] MEDS: B COMPLEX w/VITAMIN C 1 CAPLET PO (08:57)
[2023-07-11] MEDS: LIORESAL 10 MG PO (08:57)
[2023-07-11] MEDS: ROXICODONE 5 MG PO (08:57)
[2023-07-11] MEDS: COLACE PO (08:57)
[2023-07-11] MEDS: DIOVAN 160 MG PO (08:57)
[2023-07-11] MEDS: VITAMIN D3 (cholecalciferol) 125 MCG PO (08:57)
[2023-07-11] MEDS: IMODIUM 2 MG PO (09:58)
--- NOTE | 2023-07-11 11:20 | W.PN.PUL3 ---
Today's Communication / Plan
-
O2
CS - continue prednisone taper
BDs
Give Diamox x 2 doses today given alkalemia seen on blood gas this morning. Okay to stop nocturnal PAP as patient has no intention of using this once she is discharged and her mental status is normal.
PT recommending skilled rehab
Patient being prepared for discharge today back to her halfway [facility]. Her next appointment with our office is on 08/16/2023 at 1:[address] Garcia - I will work on getting this appt moved up for between next 1-2 weeks.
Pulmonary service will now sign off. Please reconsult if there are any additional questions/concerns, or if patient's respiratory status deteriorates.
Assessment
-
72 year old female with a past medical history of COPD on chronic O2 at 2-3L and chronic steroids, scleroderma, GERD, hypertension, and chronic pain, who presents to ER 07/03/23 for worsening SOB x 1 week. She notes over the weekend she had to
increase her oxygen from 2L up to 4L due to increasing shortness of breath. Her symptoms were unimproved and she had a hard time showering today, prompting her to come to the ED.
[place] this was triggered by recent decrease in her prednisone, she normally takes 10mg daily. CXR performed showing no acute findings. ABG showing chronic CO2 retention. We are consulted for eval.
Impression:
AECOPD
Acute on chronic SOB
Acute on chronic CO2 retention, ABG 7.37/57 - had similar hospitalization in 2022 with acute on chronic hypercapnea)
Mild leukopenia/anemia
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
Recent admission 01/12-07/2022 with COPD exacerbation
COPD on home O2 3L
Follows with Dr Garcia
pulmonary cachexia
oxygen therapy, 3 L (severe diffusion impairment, DLCO 30%)
Interstitial lung disease
Bilateral groundglass abnormality, interstitial changes, bronchiolitis,
CT 06/19/2018 reviewed-- mild interstitial changes, 1 cm subpleural nodule right lung, likely inflammatory/scar
Fibromyalgia.
GERD.
RA.
Scleroderma w/ lung/GI involvement, follows GI at [facility]
History of aspiration/VDRF, hospitalized for 10 days
Bowel obstruction.
GERD - Diverticulosis - Colon polyps
Vitamin D deficiency
IBS.
Chronic anemia.
Chronic constipation.
Rectal prolapse.
History of upper GI bleed.
Raynaud's.
Appendectomy.
Bowel [id number]
Exploratory Laparotomy with lysis of adhesions, repair of two partial-thickness enterotomies-10/2017
s/p Bowel resection due to perforation.
Cholecystectomy.
MIHAI - bleeding and fibroids - 1976
RT breast Cyst [id number]
Depression
B/L Cataract Surgery
Plan
She is maintained on 3L, POx 95%
Baseline use of 2-3L at home on chronic prednisone
Has extensive history of lung disease including COPD, pulmonary cachexia, chronic oxygen therapy, 3 L (w/ severe diffusion impairment, DLCO 30%), interstitial lung disease
She follows with Dr Garcia
Suspect patient has underlying AECOPD, she feels triggered by reduction in steroid dosing
She was started on IV decadron, changed to pred 50 mg qd 07-07, taper by 10 mg q3 d to 10 mg/day until seen in the office again
According to the patient for the last several months, probably 10 months she been on a progressive weaning of prednisone, for the last 3 weeks she was on 10 mg Monday and Monday and 10 mg the rest of the days of the week
Anxiety is a significant component as she was visibly breath stacking, we discussed breathing techniques
LEVINE may be chronic at this point
CXR obtained indicating NAD
Other imaging reviewed--minor scarring, mild ILD, nodules found-chronic
Complete 5-7 day course of oral doxycycline
Resume Symbicort upon discharge as well as tiotropium
For now continue budesonide twice daily and DuoNebs 4 times daily and as needed
Prior ECHO reviewed-stable biV function
proBNP <200 in past, not repeat
CXR clear, no signs of volume overload
She has chronic CO2 retention
Never had a sleep study
VBG this morning showed alkalemia with pH 7.45 and pCO2 stable at 54. Her baseline is ~50. Give diamox x 2 doses. She is intolerant to nocturnal CPAP, so, can DC that now as she has no intention of using it as an outpatient anyway - we can discuss
this further in the office.
Would need OP testing to confirm SDB, PAP arrangement as OP
There is possibility of overlap syndrome (with history of COPD)
Encouraged further OOB/ambulation
PT --> recommends skilled rehab upon discharge
Discussed with Mrs Jain, questions answered
Patient being prepared for discharge today back to her halfway @ [facility]. Her next appointment with our office is on 08/16/2023 at 1:[address] Garcia - I will work on getting this appt moved up for between next 1-2 weeks.
Pulmonary service will now sign off. Thank you for allowing us to be involved in the care of this patient. Please reconsult if there are any additional questions/concerns, or if patient's respiratory status deteriorates.
Total time spent today was 25 minutes for this encounter. Time includes reviewing laboratory test/imaging results, reviewing pertinent medical records, obtaining and reviewing medical history, performing an appropriate exam, ordering medications,
tests and procedures. Time also includes documentation of this encounter, coordinating patient care and communicating with other healthcare professionals. Total time does not include separately billed tests performed on this date of service.
Diagnostic Data
CXR 07/03/23- No acute cardiopulmonary process.
Chest x-ray 01/26/2023-subsegmental atelectasis right basilar opacification
CT chest 11/01/2022: Stable 10 mm subpleural nodule in the anterior inferior right upper lobe consistent with benign etiology. Stable biapical pleural-parenchymal scarring, right greater than left. No new or enlarging or suspicious pulmonary nodules.
Lungs otherwise clear. Moderate coronary artery calcifications redemonstrated. Patulous distal esophagus with air fluid level, findings suggest gastroesophageal reflux.
CT chest 01/09/2023-no pulmonary embolism, subcentimeter nodular focus anterior inferior right upper lobe stable from previous exam and favors a benign etiology-comparison made to 11/01/2022,
CT head 01/27/2023-no acute intracranial abnormalities diffuse cortical atrophy
ABG 01/26/2023--49/93/7 0.35
PFT 12/30/22: FVC 2.43/96%, FEV1 1.45/76%, ratio 60%, no significant BD response, TLC 5.57/126%, RV 3.14/159%, DLCO 8.78/46%.
PFT 10/11/21: FVC 2.25/86%, FEV1 1.46/74%, ratio 65. TLC 4.83/107%, DLCO 6.85/35%.
TTE 01-13-23 CONCLUSIONS: Normal biventricular size and systolic function without regional wall motion abnormality. Estimated LVEF 65-70%. Mild/moderate eccentric aortic regurgitation. Mild/moderate tricuspid regurgitation. Mildly elevated PASP.
Estimated pulmonary artery pressure of 42 mmHg. Compared to 10/09/20: AR and TR have progressed from mild to mild/moderate. PASP has increased from 37 mmHg to 42 mmHg.
Subjective Data
-
Date of Service:
Date of Service: July 11, 2023
Chief Complaint: Pulmonary Follow Up
Subjective:
Patient seen and evaluated today at bedside. VBG this morning showed stable pCO2 with alkalemia, with pH 7.45, pCO2 54. She remains on 3 L/min nasal cannula and is breathing comfortably. No acute events reported overnight. Patient awaiting to be
discharged back to her SNF.
Review of Systems
General: Other (Negative unless mentioned above)
Objective Data
Data Reviewed
Vital Signs / I&O / Oxygen:
Vital Signs
Temp Pulse Resp BP Pulse Ox
98.4 F 91 18 117/61 99
07/11/23 14:14 07/11/23 14:14 07/11/23 14:14 07/11/23 14:14 07/11/23 14:14
Intake and Output
07/10/23 07/11/23 07/12/23
06:59 06:59 06:59
Intake Total 1400 / 1400 910 / 910
Output Total 250 / 250
Balance 1400 / 1400 660 / 660
SaO2 99
Nasal Cannula flow liters per 3
minute
Physical Exam
General: Respiratory Distress (Negative), Comfortable and Other (chronically ill appearing)
HEENT: Normocephalic and Anicteric
Cardiovascular: S1-S2, Murmur (n), Peripheral Edema (n) and Other (Varicose veins seen in bilateral lower extremities)
Respiratory: Wheeze (Negative), Crackles ([place] primarily in the left hemithorax), Rhonchi (Negative), Non-Labored Respirations, Stridor (n) and Other (kyphosis)
GI: Soft, Non Distended, Non Tender and Normal Bowel Sounds
Neurology: Awake, Alert and No Motor Deficits
Skin: Warm, Dry and Cyanosis (Negative)
Labs/Micro/Reports
Lab Data
07/06/23 07:27
07/06/23 07:27
--- NOTE | 2023-07-11 11:28 | W.PN.HOSP.TC ---
Today's Communication/Plan
-
Monitor vital signs
see plan
Discharge to SNF
Continue with prednisone with taper
Pulmonary follow-up outpatient
Time of discharge 38 minutes
Assessment / Plan
Assessment / Plan
This is a 72 year old female with a past medical history of COPD on chronic O2 at 2L and chronic steroids, scleroderma, GERD, hypertension, and chronic pain, who presents today for worsening dyspnea on exertion x 1 week. She states that it is 'hard
to get air in.' She notes over the weekend she had to increase her oxygen from 2L up to 4L due to increasing shortness of breath. Her symptoms were unimproved and she had a hard time showering today, prompting her to come to the ED.
She also complains of a cough and feeling of phlegm, but states she is unable to expectorate any mucus. She denies fever, wheezing, chest pain, or lower extremity edema. She follows with Dr. Chavez who has been trying to reduce her steroids with a
slow taper of late alternating 5 and 10 mg.
Acute COPD Exacerbation/also chronic CO2 retention
-Now off IV Decadron and on prednisone taper 50 mg taper by 10 mg every third day
-Continue DuoNeb QID and PRN/resume Breo Ellipta at discharge
-Continue Pulmicort Neb continue on discharge
-Continue Doxycycline
-Await pulmonary input/not a lot of options left
-Added CPAP nightly( new) will not be required on discharge
-Pulmonary consult tapering steroids/now on prednisone 50 mg qd -18, taper by 10 mg q3 d to 10 mg/day until seen in the pulmonary office again
Acute on Chronic Hypoxic Respiratory Failure
-Continue supplemental oxygen
-Attempt to wean back to baseline 2L via nasal canula
Dysphagia
-Mostly solids/VSE showed no overt aspiration the consistencies some distal esophageal slowing but went through
-Longstanding history of GERD with Crouch's esophagus and followed by outside GI
-Gets yearly dilatations and surveillance with EGDs
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
-Remains on PPI since admission and uses omeprazole at home
Essential Hypertension
-Continue valsartan
Hyperlipidemia
-Continue atorvastatin
Lower Ext Edema
-Continue Lasix
CKD Stage IIIA
-Creatinine at baseline
Major Depressive Disorder
-Continue aripiprazole, bupropion, citalopram and trazodone
GERD
-Continue Pepcid and Protonix
Chronic Pain with Opioid Dependence
-Continue fentanyl patch
-Continue baclofen
DVT proph: Lovenox
Code Status: Full Code
General: Appears Chronically Ill and Cachectic
HEENT: Normocephalic
Respiratory: Rhonchi and Decreased Breath Sounds
Cardiac: Regular Rhythm
GI: Soft
Psych: Calm
Anticipated Discharge: Today
Subjective/Interval History
-
Date of Service: July 11, 2023
denies pain
Objective Data
-
Vital Signs:
Vital Signs
Temp Pulse Resp BP Pulse Ox
97.7 F 72 20 111/71 99
07/11/23 07:51 07/11/23 07:51 07/11/23 07:51 07/11/23 07:51 07/11/23 07:51
I&O
07/10/23 07/11/23 07/12/23
06:59 06:59 06:59
Intake Total 1400 / 1400 910 / 910
Output Total 250 / 250
Balance 1400 / 1400 660 / 660
--- NOTE | 2023-07-11 11:38 | W.DCSUMMARY ---
Discharge Summary
Discharge Data
Date of Admission: 07/03/23
Date of Discharge: 07/11/23
-
Pending Results: No
Hospital Course
72-year-old female with past medical history of COPD, scleroderma, GERD, hypertension, chronic pain came to the hospital with shortness of breath known to be in COPD exacerbation. Patient initially had acute on chronic hypoxic respiratory failure
which over time improved and patient was able to be weaned down to her home oxygen needs. Patient was seen by pulmonary throughout hospitalization and was initially on IV steroids which was later transitioned to prednisone with taper. Patient did
had CPAP added at night however per latest pulmonary recommendation patient did not need CPAP on discharge. Patient also had dysphagia and was seen by speech. Patient instructed to follow-up with GI outpatient. Patient was evaluated by physical
therapy as well on this hospitalization. Once her symptoms started to improve, she was then discharged to SNF with instructions to follow-up with all her physicians outpatient.
Discharge Plan
-
Patient Disposition: Long Term/SNF
Discharge Diagnosis/Procedures: Acute chronic obstructive pulmonary disease exacerbation
Chronic hypercarbia
Acute on chronic hypoxic respiratory failure
Dysphagia
Diet: As tolerated
Activity: As tolerated
Driving Restrictions: As prior to admission
Bathing Restrictions: None
Activity Restrictions/Additional Instructions:
prednisone 50 mg qd on 07/11, starting 07/12 taper by 10 mg q3 days to 10 mg/day until seen in the pulmonary office again
1 dose Diamox needed 07/11/2023 evening dose
Follow-up with gastroenterology outpatient
Referrals:
Ventura Garcia MD [Active] - in one to two weeks
Diego Crenshaw MD [Family Provider] - in less than 1 week
Prescriptions:
New
docusate sodium 100 mg Capsule
100 mg PO BID Qty: 0 0RF
prednisone 50 mg Tablet
50 mg PO DAILY Qty: 0 0RF
guaifenesin 600 mg Tablet Extended Release 12hr
600 mg PO Q12 Qty: 0 0RF
acetazolamide 250 mg Tablet
250 mg PO BID Qty: 1 0RF
Continued
citalopram 20 MG tablet
40 mg PO DAILY
famotidine 40 MG tablet
40 mg PO HS
valsartan 80 MG tablet
160 mg PO DAILY
trazodone 100 MG tablet
200 mg PO HS
baclofen 10 MG tablet
10 mg PO BID
vitamin B complex 1 TAB tablet
1 tab PO DAILY
aripiprazole 5 MG tablet
5 mg PO DAILY
Focus Factor
2 cap PO DAILY
Hair,Skin and Nails Tablet
2 tab PO DAILY
bupropion HCl 300 mg tablet extended release 24 hr
300 mg PO DAILY
budesonide-formoterol [Symbicort] 160-4.5 mcg/actuation HFA aerosol inhaler
2 puff INHALATION R BID
cholecalciferol (vitamin D3) [Vitamin D3] 125 mcg (5,000 unit) Tablet
125 mcg PO DAILY
furosemide 40 mg Tablet
40 mg PO DAILY
atorvastatin 10 mg Tablet
10 mg PO DAILY
therapeutic multivitamin Tablet
1 tab PO DAILY
omeprazole 40 mg Capsule,Delayed Release(Dr/Ec)
40 mg PO DAILY
TheraTears 0.25 % Drops
1 drp BOTH EYES BID
albuterol sulfate [Ventolin HFA] 90 mcg/actuation Hfa Aerosol Inhaler
2 puff INHALATION R Q6HPRN PRN (Reason: sob)
Spiriva Respimat 2.5 mcg/actuation Mist
2 puff INHALATION R DAILY
fluticasone furoate-vilanterol [Breo Ellipta] 100-25 mcg/dose Blister With Device
1 inh INHALATION R DAILY
turmeric
2 cap PO DAILY
budesonide 0.5 mg/2 mL suspension for nebulization
0.5 mg inhalation R TID
Patient Comments:
07/03/2023, pt. states to take this med. TID but on [facility] this med. is listed as BIDPRN as of 06/14/2023.
fentanyl 25 mcg/hr Patch 72 Hour
1 patch TRANSDERMAL Q72H 3 Days Qty: 1 0RF
oxycodone 5 MG tablet
5 mg PO BID Qty: 6 0RF
Discontinued
prednisone 10 mg Tablet
5 mg PO SUTUTHSA@0800
prednisone 10 mg tablet
10 mg PO MOWEFR@0800
Discharge Orders:
Discharge Patient (As Directed); Ordered 07/11/23
Ordered By: Jamie Siddiqui
Discharge Date and Time
Discharge Date/Time: 07/11/23 15:36
Print Language: GRENADIAN
--- NOTE | 2023-07-11 11:47 | CM ---
Patient seen bedside, discussed [facility] able to accept patient today. Per transport, patient does not qualify for ambulance, will use hospital oxygen in wheelchair van as patient does not have her own oxygen with her. CM spoke with patients
daughter in law, Mariann, provided number to call for wheelchair van and cost of $90, 3:30 p.m. transport time scheduled. CM updated Al[facility] at [facility] with transport time. IMM reviewed, signed, placed in patients chart. CM will continue to follow for
discharge planning needs.
Plan; [facility], 3:30 p.m. wheelchair van transport.
[facility]
Report: [phone]
[2023-07-11 14:14] VITALS: BP 117/61
[2023-07-11] MEDS: DIAMOX 250 MG PO (14:42)
[2023-07-11] MEDS: DUONEB INH (15:32)
== END 2023-07-11 15:36 | DRG 190 ==
LOC: 4 WEST ACU 23:38
PROVIDERS: Emergency Medicine; Internal Medicine; Internal Medicine Critical Care Medicine; Physician Assistant Medical; ADMITTING PHYSICIAN Hospitalist; ATTENDING PHYSICIAN Internal Medicine; CONSULT PHYSICIAN Internal Medicine; EMERGENCY PHYSICIAN Emergency Medicine; FAMILY PHYSICIAN Family Medicine
DX: J44.1 Chronic obstructive pulmonary disease with (acute) exacerbation (principal); J96.21 Acute and chronic respiratory failure with hypoxia; F11.20 Opioid dependence, uncomplicated; E87.29 Other acidosis; I12.9 Hypertensive chronic kidney disease with stage 1 through stage 4 chronic kidney disease, or unspecified chronic kidney disease; N18.31 Chronic kidney disease, stage 3a; M34.1 CR(E)ST syndrome; Z79.52 Long term (current) use of systemic steroids; E78.00 Pure hypercholesterolemia, unspecified; F32.9 Major depressive disorder, single episode, unspecified; K21.9 Gastro-esophageal reflux disease without esophagitis; G89.29 Other chronic pain; M79.7 Fibromyalgia
CPT/HCPCS: 71046; 74230; 80048; 80053; 82805; 85025; 85027; 92610; 92611; 93005; 94640; 94660; 96374; 97116; 97161; 97165; 97530; 99285

== ENCOUNTER → 2023-07-14 10:53 | Outpatient (REF) | payer MEDICARE, BC, SELFPAY ==
[2023-07-14 12:19] LABS: % Basophils 0.2 % (0-2); % Eosinophils 1.5 % (0-6); % Immature Granulocytes 2.2 % (0-0.5); % Lymphocytes 23.4 % (20.5-51.1); % Monocytes 9.4 % (1.7-9.3); % Neutrophils 63.3 % (42.2-75.2); Absolute Eosinophils 0.1 10^3/uL (0-0.7); Absolute Immature Granulocytes 0.2 10^3/uL (0-0.05); Absolute Lymphocytes 2.3 10^3/uL (1.2-3.4); Absolute Monocytes 0.9 10^3/uL (0.1-0.6); Absolute Neutrophils 6.1 10^3/uL (1.4-6.5); Hematocrit 36.3 % (37.0-47.0); Hemoglobin 11.7 g/dL (12.0-16.0); Mean Corp Hgb Conc. 32.2 g/dL (33.0-37.0); Mean Corpuscular Hgb 31.5 pg (27.0-31.0); Mean Corpuscular Volume 97.6 fL (81.0-99.0); Mean Platelet Volume 9.9 fL (7.4-10.4); Nucleated Red Blood Cells % 0 %; Platelet Count 226 10^3/uL (130-400); Red Blood Cell Count 3.72 10^6/uL (4.20-5.40); Red Cell Dist. Width 14.2 % (11.5-14.5); White Blood Cell Count 9.6 10^3/uL (4.8-10.8)
[2023-07-14 12:26] LABS: Blood Urea Nitrogen 46 mg/dl (7-17); Calcium 9.7 mg/dl (8.4-10.2); Carbon Dioxide 28 mmol/L (22-30); Chloride 104 mmol/L (98-107); Glucose 89 mg/dl (70-99); Potassium 3.7 mmol/L (3.5-5.1); Sodium 138 mmol/L (135-145); eGFR 33.84
== END ==
LOC: OLABP 10:53
PROVIDERS: ATTENDING PHYSICIAN Family Medicine
DX: J44.1 Chronic obstructive pulmonary disease with (acute) exacerbation (principal); J84.9 Interstitial pulmonary disease, unspecified; M79.7 Fibromyalgia; K22.70 Barrett's esophagus without dysplasia; N18.31 Chronic kidney disease, stage 3a; K21.9 Gastro-esophageal reflux disease without esophagitis; M06.9 Rheumatoid arthritis, unspecified; M34.9 Systemic sclerosis, unspecified; E55.9 Vitamin D deficiency, unspecified; K58.9 Irritable bowel syndrome, unspecified; D64.9 Anemia, unspecified
CPT/HCPCS: 36415; 80048; 85025

== ENCOUNTER → 2023-07-18 11:51 | Outpatient (REF) | payer MEDICARE, BC, SELFPAY ==
[2023-07-18 12:34] LABS: % Basophils 0.1 % (0-2); % Eosinophils 0.8 % (0-6); % Immature Granulocytes 0.8 % (0-0.5); % Lymphocytes 21.8 % (20.5-51.1); % Monocytes 8.4 % (1.7-9.3); % Neutrophils 68.1 % (42.2-75.2); Absolute Eosinophils 0.1 10^3/uL (0-0.7); Absolute Immature Granulocytes 0.1 10^3/uL (0-0.05); Absolute Lymphocytes 1.7 10^3/uL (1.2-3.4); Absolute Monocytes 0.7 10^3/uL (0.1-0.6); Absolute Neutrophils 5.3 10^3/uL (1.4-6.5); Hematocrit 32.2 % (37.0-47.0); Hemoglobin 10.4 g/dL (12.0-16.0); Mean Corp Hgb Conc. 32.3 g/dL (33.0-37.0); Mean Corpuscular Hgb 31.6 pg (27.0-31.0); Mean Corpuscular Volume 97.9 fL (81.0-99.0); Mean Platelet Volume 10.2 fL (7.4-10.4); Nucleated Red Blood Cells % 0 %; Platelet Count 181 10^3/uL (130-400); Red Blood Cell Count 3.29 10^6/uL (4.20-5.40); Red Cell Dist. Width 14.5 % (11.5-14.5); White Blood Cell Count 7.7 10^3/uL (4.8-10.8)
[2023-07-18 12:53] LABS: Blood Urea Nitrogen 29 mg/dl (7-17); Calcium 8.8 mg/dl (8.4-10.2); Carbon Dioxide 22 mmol/L (22-30); Chloride 109 mmol/L (98-107); Glucose 80 mg/dl (70-99); Potassium 3.6 mmol/L (3.5-5.1); Sodium 138 mmol/L (135-145); eGFR 59.49
== END ==
LOC: OLABP 11:51
PROVIDERS: ATTENDING PHYSICIAN Family Medicine
DX: J44.1 Chronic obstructive pulmonary disease with (acute) exacerbation (principal); J84.9 Interstitial pulmonary disease, unspecified; M79.7 Fibromyalgia; E55.9 Vitamin D deficiency, unspecified
CPT/HCPCS: 36415; 80048; 85025

== ENCOUNTER 2023-08-07 19:14 | Emergency (ER) | payer MEDICARE, BC, SELFPAY ==
[2023-08-07 19:26] VITALS: BP 122/56
--- NOTE | 2023-08-07 19:41 | ED.GENMED ---
History of Present Illness
General
Chief Complaint: Change in Mental Status
Time Seen by Provider: 08/07/23 19:40
Travel History
Have you had any contact with someone who has COVID-19?: No
Do you have any symptoms of coronavirus? Fever > 100 degrees, chills, cough, shortness of breath, sore throat, loss of taste or smell, muscle aches, or headache?: No
History of Present Illness
History of Present Illness:
HPI: Daughter states the patient was brought here due to concerns for confusion. These are described as relatively mild. She does have a history of COPD on chronic oxygen. When she was here in the past with COPD exacerbation she is much worse
than she was currently. Patient had a little bit of pain near the right mastoid/back of the neck.
EXAM:
GENERAL: Well appearing in no distress
HEENT: Moist oral mucosa
CARDIOVASCULAR: No murmurs, normal heart rate, regular rhythm, No chest wall tenderness
PULMONARY: No respiratory distress, breath sounds are clear and equal
ABDOMEN: Soft with no peritoneal signs, no tenderness
NEUROLOGIC: There strength all extremities, no coordination deficits
PSYCHIATRIC: Mild cognitive deficits but reasonable judgment and insight
EXTREMITIES: Nontender, no edema, moves all extremities equally
SKIN: No rash, no lesions
TIME OF INITIAL ENCOUNTER: 7:15 PM
NUMBER AND COMPLEXITY OF PROBLEMS ADDRESSED AT THE ENCOUNTER
� Chronic conditions affecting care: COPD, Raynaud's, smoker, has had cardiac arrest, high blood pressure, hyperlipidemia, has had bowel obstruction, GERD, anemia
� Acute Exacerbation and/or Progression of Chronic Illness: This is an acute problem
� Differential Diagnosis includes: UTI, hyponatremia, intracranial pathology
AMOUNT AND/OR COMPLEXITY OF DATA TO BE REVIEWED AND ANALYZED
� I performed an independent evaluation of and my interpretation is:
EKG:
CT: CT brain shows no acute abnormality
X-rays:
Laboratory Studies: White count 7.0, hemoglobin 10.8 which is near baseline, pCO2 is 46, urinalysis shows no evidence of infection, renal function is slightly impaired with a creatinine of 1.5 up from 1.0
Other:
� Review of other/old records: I reviewed records. The patient was admitted here with COPD exacerbation. She is chronically on home oxygen. She was treated with IV steroids last admission and pulmonary recommended that the
patient did not need CPAP on discharge. She was discharged to a SNF.
� Clinical information was obtained by an independent historian: I spoke to the daughter at bedside
� Prescriptions/Medications Considered but not given:
� Further testing considered but not performed:
RISK OF COMPLICATIONS AND/OR MORBIDITY OR MORTALITY OF PATIENT MANAGEMENT
� Social determinants of health affecting care: Lives at home with family
� Discussion with other providers: I spoke to the respiratory therapist to do the ABG who actually knows the patient personally who indicates she is near her baseline
� Escalation of care including admission/observation vs risk of discharge considered: The patient has only mild confusion/mild change in mental status but overall daughter is pleased with how she looks. I do suspect that degree
of dehydration given the rise in the creatinine and she was given IV fluids. Relatively unremarkable workup with no clear indication for admission to the hospital. Daughter feels okay with her going back home.
Past History
Past History
ED Past Medical History: COPD, Fibromyalgia, GERD and Other (Rheumatoid arthritis, scleroderma, pneumonia, renal, bowel obstruction, IBS, anemia, chronic constipation, rectal prolapse, Upper Gi bleeding, Raynaud's disease)
ED Past Surgical History: Appendectomy, Bowel resection (due to perforation), Cholecystectomy, Gynecological (Hysterectomy) and Other ( breast lumpectomy)
Social History
Tobacco: Former smoker
Alcohol: None
Drug: None
Personal:
Living: alone
Employment: Not employed
Family History
Family History: Unable to obtain
Phy Exam
Physical Exam
Physical Exam:
See HPI
Course
Orders/Labs/Results
Orders:
Orders
08/07/23 19:43
0.9% Sodium Chloride 500 ml [Nss] 500 ml IV BOLUS
08/07/23 19:49
CT Head W/o Iv Contrast Urgent
Comment:
Reason For Exam: alt ms, ARRIAGA
Straight cath- Treatment ONCE
08/07/23 20:06
Complete Blood Count/With Diff Urgent
Comprehensive Metabolic Panel Urgent
08/07/23 20:28
Urinalysis Reflex To Culture Urgent
Date Specimen was Collected: 08/07/23
Time Specimen was Collected: 20:10
08/07/23 21:15
ABG [Arterial Blood Gas] Urgent
%Oxygen/Room Air: 3lpm
Abnormal Lab Results
08/07/23 08/07/23
20:06 21:15
RBC 3.41 L 10^6/uL
(4.20-5.40)
Hgb 10.8 L g/dL
(12.0-16.0)
Hct 32.5 L %
(37.0-47.0)
MCH 31.7 H pg
(27.0-31.0)
Abs Immat Gran (auto) 0.1 H 10^3/uL
(0-0.05)
Absolute Lymphs (auto) 0.9 L 10^3/uL
(1.2-3.4)
Immature Gran % 1.4 H %
(0-0.5)
Neutrophils % 76.5 H %
(42.2-75.2)
Lymphocytes % 12.2 L %
(20.5-51.1)
pCO2 46 H mmHg
(32-35)
pO2 121 H mmHg
(83-108)
ABG O2 Sat (Measured) 98.6 H %
(94-98)
BUN 26 H mg/dl
(7-17)
Creatinine 1.5 H mg/dL
(0.6-1.0)
Glucose 109 H mg/dl
(70-99)
Total Protein 6.0 L g/dl
(6.3-8.2)
08/07/23 20:06
08/07/23 20:06
Vital Signs
Initial and Last Documented VS:
Initial Vital Signs
Temp Pulse Resp BP Pulse Ox
98.1 F 92 18 122/56 98
08/07/23 19:26 08/07/23 19:26 08/07/23 19:26 08/07/23 19:26 08/07/23 19:26
Last Documented Vital Signs
Temp Pulse Resp BP Pulse Ox
98.1 F 92 18 122/56 98
08/07/23 19:26 08/07/23 19:26 08/07/23 19:26 08/07/23 19:26 08/07/23 19:26
*Critical Care Note
Total Time (30-74mins, 75-104mins- exclusive of procedures): Not Applicable
ED Attending Note
-
Portions of this chart may have been created with voice recognition software.� Occasional wrong word or��sound alike� substitutions may have occurred due to the inherent limitations of voice recognition software.
Discharge Plan
Departure
Prescriptions:
No Action
citalopram 20 MG tablet
40 mg PO DAILY
famotidine 40 MG tablet
40 mg PO HS
valsartan 80 MG tablet
160 mg PO DAILY
trazodone 100 MG tablet
200 mg PO HS
baclofen 10 MG tablet
10 mg PO BID
vitamin B complex 1 TAB tablet
1 tab PO DAILY
aripiprazole 5 MG tablet
5 mg PO DAILY
Focus Factor
2 cap PO DAILY
Hair,Skin and Nails Tablet
2 tab PO DAILY
bupropion HCl 300 mg tablet extended release 24 hr
300 mg PO DAILY
budesonide-formoterol [Symbicort] 160-4.5 mcg/actuation HFA aerosol inhaler
2 puff INHALATION R BID
cholecalciferol (vitamin D3) [Vitamin D3] 125 mcg (5,000 unit) Tablet
125 mcg PO DAILY
furosemide 40 mg Tablet
40 mg PO DAILY
atorvastatin 10 mg Tablet
10 mg PO DAILY
therapeutic multivitamin Tablet
1 tab PO DAILY
omeprazole 40 mg Capsule,Delayed Release(Dr/Ec)
40 mg PO DAILY
TheraTears 0.25 % Drops
1 drp BOTH EYES BID
albuterol sulfate [Ventolin HFA] 90 mcg/actuation Hfa Aerosol Inhaler
2 puff INHALATION R Q6HPRN PRN (Reason: sob)
Spiriva Respimat 2.5 mcg/actuation Mist
2 puff INHALATION R DAILY
fluticasone furoate-vilanterol [Breo Ellipta] 100-25 mcg/dose Blister With Device
1 inh INHALATION R DAILY
turmeric
2 cap PO DAILY
budesonide 0.5 mg/2 mL suspension for nebulization
0.5 mg inhalation R TID
Patient Comments:
07/03/2023, pt. states to take this med. TID but on [facility] this med. is listed as BIDPRN as of 06/14/2023.
docusate sodium 100 mg Capsule
100 mg PO BID Qty: 0 0RF
prednisone 50 mg Tablet
50 mg PO DAILY Qty: 0 0RF
guaifenesin 600 mg Tablet Extended Release 12hr
600 mg PO Q12 Qty: 0 0RF
fentanyl 25 mcg/hr Patch 72 Hour
1 patch TRANSDERMAL Q72H 3 Days Qty: 1 0RF
oxycodone 5 MG tablet
5 mg PO BID Qty: 6 0RF
acetazolamide 250 mg Tablet
250 mg PO BID Qty: 1 0RF
Referrals:
Diego Crenshaw MD [Family Provider] -
Interventions
Interventions:
*Risk Screen - Suicide Last Done: 08/07/23 19:26
*General Assessment Last Done: 08/07/23 19:26
*Neglect/Abuse Screening Last Done: 08/07/23 19:26
ED- Neurological Assessment Last Done: 08/07/23 20:25
Discharge Date and Time
Print Language: [id number]
[2023-08-07 20:05] VITALS: BMI 24.6
[2023-08-07 20:11] LABS: % Basophils 0.9 % (0-2); % Eosinophils 1.7 % (0-6); % Immature Granulocytes 1.4 % (0-0.5); % Lymphocytes 12.2 % (20.5-51.1); % Monocytes 7.3 % (1.7-9.3); % Neutrophils 76.5 % (42.2-75.2); Absolute Basophils 0.1 10^3/uL (0-0.2); Absolute Eosinophils 0.1 10^3/uL (0-0.7); Absolute Immature Granulocytes 0.1 10^3/uL (0-0.05); Absolute Lymphocytes 0.9 10^3/uL (1.2-3.4); Absolute Monocytes 0.5 10^3/uL (0.1-0.6); Absolute Neutrophils 5.4 10^3/uL (1.4-6.5); Hematocrit 32.5 % (37.0-47.0); Hemoglobin 10.8 g/dL (12.0-16.0); Mean Corp Hgb Conc. 33.2 g/dL (33.0-37.0); Mean Corpuscular Hgb 31.7 pg (27.0-31.0); Mean Corpuscular Volume 95.3 fL (81.0-99.0); Mean Platelet Volume 8.7 fL (7.4-10.4); Nucleated Red Blood Cells % 0 %; Platelet Count 240 10^3/uL (130-400); Red Blood Cell Count 3.41 10^6/uL (4.20-5.40); Red Cell Dist. Width 13.3 % (11.5-14.5)
[2023-08-07] MEDS: NSS 500 IV (20:11)
[2023-08-07 20:30] LABS: ALT (SGPT) 20 U/L (0-35); AST (SGOT) 25 U/L (14-36); Albumin 3.7 g/dl (3.5-5.0); Alkaline Phosphatase 67 U/L (38-126); Blood Urea Nitrogen 26 mg/dl (7-17); Calcium 10.2 mg/dl (8.4-10.2); Carbon Dioxide 29 mmol/L (22-30); Chloride 105 mmol/L (98-107); Estimated Creatinine Clearance 25 ml/min; Glucose 109 mg/dl (70-99); Potassium 3.8 mmol/L (3.5-5.1); Sodium 142 mmol/L (135-145); Total Bilirubin 0.3 mg/dl (0.2-1.3); eGFR 36.57
[2023-08-07 20:37] LABS: Urine Albumin Negative (Neg - Trace); Urine Bilirubin Negative (Negative); Urine Character Clear (Clear); Urine Color Yellow; Urine Glucose Negative (Negative); Urine Ketone Negative (Negative); Urine Leukocyte Negative (Negative); Urine Nitrite Negative (Negative); Urine Occult Blood Negative (Negative); Urine Specific Gravity 1.015 (<1.030); Urine Urobilinogen Negative (Neg - 1+)
[2023-08-07 21:23] LABS: B.E. 0.3 mmol/L; O2 Saturation % 98.6 % (94-98); PCO2 46 mmHg (32-35); PO2 121 mmHg (83-108); pH 7.36 (7.35-7.45)
== END 2023-08-07 22:40 | disposition home or self-care (01) ==
LOC: EMR 19:14
PROVIDERS: EMERGENCY PHYSICIAN Emergency Medicine; FAMILY PHYSICIAN Family Medicine
DX: R41.0 Disorientation, unspecified (principal); Z87.891 Personal history of nicotine dependence; J44.9 Chronic obstructive pulmonary disease, unspecified; Z99.81 Dependence on supplemental oxygen
CPT/HCPCS: 99284; 96360; 70450; 80053; 81003; 82805; 85025

== ENCOUNTER 2023-08-19 23:27 | Inpatient (IN) | payer MEDICARE, BC, SELFPAY ==
[2023-08-19] VITALS (7 sets, daily range): BP systolic 90–178; BP diastolic 42–151; BMI 23.3
--- NOTE | 2023-08-19 19:47 | ED.GENMED ---
History of Present Illness
General
Chief Complaint: Weakness
Source: family and ambulance crew
Exam Limitations: clinical condition
Time Seen by Provider: 08/19/23 19:47
Nursing documentation reviewed up to this point in time: agreed with
History of Present Illness
History of Present Illness:
72-year-old female presents via EMS for weakness. Patient was discharged from [facility] yesterday. Patient has not eaten since her discharge. Patient does have a chronic fentanyl patch in place.
Past History
Past History
ED Past Medical History: COPD, Fibromyalgia, GERD and Other (Rheumatoid arthritis, scleroderma, pneumonia, renal, bowel obstruction, IBS, anemia, chronic constipation, rectal prolapse, Upper Gi bleeding, Raynaud's disease)
ED Past Surgical History: Appendectomy, Bowel resection (due to perforation), Cholecystectomy, Gynecological (Hysterectomy) and Other ( breast lumpectomy)
Social History
Tobacco: Former smoker
Alcohol: None
Drug: None
Personal:
Living: alone
Employment: Not employed
Family History
Family History: Unable to obtain
Review of Systems
Review of Systems
Allergies reviewed?: Yes
Unable to obtain full review of systems at this time due to: due to acuity
Other source history: family
All Other Systems: Not applicable
Constitutional: Reports fatigue and sleep disturbance
EENT: Reports no symptoms
Respiratory: Reports no symptoms
Cardiac: Reports no symptoms
ABD/GI: Reports no symptoms
: Reports no symptoms
Musculoskeletal: Reports no symptoms
Skin: Reports no symptoms
Neurological: Reports weakness
Endocrine: Reports no symptoms
Hematologic/Lymphatic: Reports no symptoms
Psychiatric: Reports anxiety
Phy Exam
General Physical Exam
General Presentation: moderate distress
General age: appears stated age
General Skin: warm and dry
General Habitus: elderly and frail
General Mental: confused
General Hydration: dry mucous membranes
ENT Exam
ENT Exam: EOMI, pharynx normal, neck supple and normocephalic
Eye Exam
Eye Exam: PERRL, cornea clear and conjunctiva normal
Cardiovascular Exam
Cardiovascular Exam: regular rate/rhythm
Pulmonary Exam
Pulmonary Exam: lungs clear, no respiratory distress, no rales, no crackles, no rhonchi, no stridor, no wheezing and no cough
Gastrointestinal Exam
Gastrointestinal Exam: normal bowel sounds, non tender, soft, no organomegaly, no pulsatile mass and non distended
Neurological Exam
Neurological Exam: alert, oriented x3, no motor deficits and speech normal
Musculoskeletal Exam
Musculoskeletal Exam: full ROM and no edema
Skin Exam
Skin Exam: normal color, warm/dry, no rash and no petechia
Psychiatric Exam
Psychiatric Exam: depressed and labile
Course
Orders/Labs/Results
Orders:
Orders
08/19/23 19:42
Electrocardiogram (*1) Urgent
Reason for Study: Syncope
EKG- Treatment ONCE
CR Chest - 2 Views Urgent
Comment:
Reason For Exam: wheezing
08/19/23 19:45
Complete Blood Count/With Diff Urgent
Comprehensive Metabolic Panel Urgent
Troponin I Urgent
08/19/23 20:27
CT Head W/o Iv Contrast Urgent
Comment:
Reason For Exam: CONFUSION
08/19/23 20:45
0.9% Sodium Chloride 1000 ml [Nss] 1,000 ml IV 250 mls/hr
08/19/23 23:09
Urinalysis Reflex To Culture Urgent
Date Specimen was Collected: 08/19/23
Time Specimen was Collected: 22:50
08/19/23 23:50
ABG [Arterial Blood Gas] Urgent
%Oxygen/Room Air: NC
Abnormal Lab Results
08/19/23
19:45
RBC 3.26 L 10^6/uL
(4.20-5.40)
Hgb 10.2 L g/dL
(12.0-16.0)
Hct 31.3 L %
(37.0-47.0)
MCH 31.3 H pg
(27.0-31.0)
MCHC 32.6 L g/dL
(33.0-37.0)
Abs Immat Gran (auto) 0.1 H 10^3/uL
(0-0.05)
Absolute Lymphs (auto) 1.1 L 10^3/uL
(1.2-3.4)
Absolute Monos (auto) 0.7 H 10^3/uL
(0.1-0.6)
Immature Gran % 1.3 H %
(0-0.5)
Lymphocytes % 19.8 L %
(20.5-51.1)
Monocytes % 12.2 H %
(1.7-9.3)
Chloride 108 H mmol/L
(98-107)
BUN 31 H mg/dl
(7-17)
Creatinine 1.6 H mg/dL
(0.6-1.0)
Total Protein 5.4 L g/dl
(6.3-8.2)
08/19/23 19:45
08/19/23 19:45
Vital Signs
Initial and Last Documented VS:
Initial Vital Signs
Temp Pulse Resp BP Pulse Ox
98.2 F 80 16 115/50 96
08/19/23 19:28 08/19/23 19:28 08/19/23 19:28 08/19/23 19:28 08/19/23 19:28
Last Documented Vital Signs
Temp Pulse Resp BP Pulse Ox
98.2 F 75 11 98/47 94
08/19/23 23:29 08/20/23 00:00 08/20/23 00:00 08/20/23 00:00 08/20/23 00:00
*Radiology
Radiology exam reviewed: radiology read reviewed (IMPRESSION: No acute intracranial process. No intracranial bleed. No calvarial fracture. Unchanged mild parenchymal volume loss.)
*Pulse Oximetry
Patient hypoxic: no
*Critical Care Note
Total Time (30-74mins, 75-104mins- exclusive of procedures): 40
comment:
Critical care statement: A total of 40 minutes of critical care time was provided for this patient. This time is separate from time utilized to perform the aforementioned documented procedures. Aggregate critical care time includes only time
during which I was engaged in work directly related to the patient's care, as described above, whether at the bedside or elsewhere in the Emergency Department.
Data Reviewed
Review of Other/Old Records Reveals: Labs, Operative Reports and Testing
Source: patient and family
Patient Management
Discussion with other providers: Hospitalist
Update Note
Update Note:
Spoke with [id number] who is her primary caregiver while at home. She was able to give us a good history. In June she was seen at [facility] for COPD. She was admitted for approximately 1-1/2 weeks. She was discharged to [facility] [place] rehab.
After being rehabilitated at [facility] [place], she was discharged home and everything was great. Few weeks later she was sent to the emergency department at [place] for confusion. She was sent home without admission at that point. She was advised to
follow-up with GI for endoscopy. She was seen by the dry kiln worker to sent her to the [facility] ER for emergency endoscopy. She was admitted at [facility] since yesterday. Yesterday she was discharged home, feeling tired.
[id number] thought that her level of tiredness yesterday was from the hospital stay. She is on a strict liquid diet. Food was made for her but patient did not eat. Today, patient fell when getting up off the bed. Patient has not eaten since
getting home from the hospital yesterday. Patient was unable to communicate clearly and could not walk tonight which is new. [id number] states that she almost fell twice while being helped to the bathroom. Patient was sent into the hospital
for increased weakness, and somnolence for the last 2 days
ED Attending Note
-
Portions of this chart may have been created with voice recognition software.� Occasional wrong word or��sound alike� substitutions may have occurred due to the inherent limitations of voice recognition software.
Discharge Plan
Departure
Patient Disposition: Admit
Date of Disposition: 08/19/23
Time of Disposition: 22:26
Admit to: Telemetry
Presentation/result/management discussed w/ accepting MD/DO: Hospitalist
Condition: Fair
Discharge Problem:
Altered mental status, unspecified, Toxic metabolic encephalopathy, Acute kidney injury
Interventions
Interventions:
*Risk Screen - Suicide Last Done: 08/19/23 19:43
*General Assessment Last Done: 08/19/23 19:43
*Neglect/Abuse Screening Last Done: 08/19/23 19:43
ED- Fall Risk Assessment Last Done: 08/19/23 19:43
*ED COVID-19 Vaccine History Last Done: 08/19/23 19:43
ED- Cardiac Assessment Last Done: 08/19/23 19:43
ED- Neurological Assessment Last Done: 08/19/23 23:28
ED- Pulmonary Assessment Last Done: 08/19/23 19:43
[2023-08-19 19:55] LABS: % Basophils 1.1 % (0-2); % Eosinophils 5.3 % (0-6); % Immature Granulocytes 1.3 % (0-0.5); % Lymphocytes 19.8 % (20.5-51.1); % Monocytes 12.2 % (1.7-9.3); % Neutrophils 60.3 % (42.2-75.2); Absolute Basophils 0.1 10^3/uL (0-0.2); Absolute Eosinophils 0.3 10^3/uL (0-0.7); Absolute Immature Granulocytes 0.1 10^3/uL (0-0.05); Absolute Lymphocytes 1.1 10^3/uL (1.2-3.4); Absolute Monocytes 0.7 10^3/uL (0.1-0.6); Absolute Neutrophils 3.3 10^3/uL (1.4-6.5); Hematocrit 31.3 % (37.0-47.0); Hemoglobin 10.2 g/dL (12.0-16.0); Mean Corp Hgb Conc. 32.6 g/dL (33.0-37.0); Mean Corpuscular Hgb 31.3 pg (27.0-31.0); Mean Platelet Volume 9.6 fL (7.4-10.4); Nucleated Red Blood Cells % 0 %; Platelet Count 226 10^3/uL (130-400); Red Blood Cell Count 3.26 10^6/uL (4.20-5.40); Red Cell Dist. Width 13.8 % (11.5-14.5); White Blood Cell Count 5.5 10^3/uL (4.8-10.8)
[2023-08-19 20:13] LABS: ALT (SGPT) 16 U/L (0-35); AST (SGOT) 21 U/L (14-36); Albumin 3.5 g/dl (3.5-5.0); Alkaline Phosphatase 65 U/L (38-126); Blood Urea Nitrogen 31 mg/dl (7-17); Calcium 10.1 mg/dl (8.4-10.2); Carbon Dioxide 22 mmol/L (22-30); Chloride 108 mmol/L (98-107); Estimated Creatinine Clearance 24 ml/min; Glucose 92 mg/dl (70-99); Potassium 3.8 mmol/L (3.5-5.1); Sodium 139 mmol/L (135-145); Total Bilirubin 0.4 mg/dl (0.2-1.3); Total Protein 5.4 g/dl (6.3-8.2); eGFR 33.84
[2023-08-19 20:19] LABS: Troponin I < 0.012 ng/ml
[2023-08-19] MEDS: NSS 1000 IV (20:41)
[2023-08-19 23:16] LABS: Urine Albumin Negative (Neg - Trace); Urine Bilirubin Negative (Negative); Urine Character Clear (Clear); Urine Color Yellow; Urine Glucose Negative (Negative); Urine Ketone Negative (Negative); Urine Leukocyte Negative (Negative); Urine Nitrite Negative (Negative); Urine Occult Blood Negative (Negative); Urine Urobilinogen Negative (Neg - 1+)
--- NOTE | 2023-08-19 23:42 | HPS.HSE ---
Family Physician
-
Family Physician: NOT KNOW UNKNOWN - PT DOES
Chief Complaint
-
Lethargy
History of Present Illness
Patient is a 72y F with PMH significant for COPD with chronic hypoxemia, chronic dysphagia and chronic pain syndrome who presents to ED for evaluation of lethargy. History obtained primarily from [id number] via phone.
Patient was hospitalized here in June for COPD exacerbation. She was discharged to [facility] for rehab and was doing very well when she returned home. She began to decline with a few days however - including increased dyspnea and difficulty with
swallowing. Patient was seen by GI and referred emergently to [facility] ED where she was admitted. She underwent EGD with dilation and was discharged to home on 08/18/23.
[id number] notes that patient was very sleepy upon her return home. She had a very little amount of soup for dinner last PM.
Today she slept for most of the day with again very little PO intake. She is able to take in only liquid diet due to her chronic dysphagia.
This evening, patient had a fall witnessed by her family. No LOC and no significant injury noted.
Patient seemed more confused following this and EMS was called to bring patient to the ED for further evaluation.
In the ED, patient is awake but remains confused and will fall asleep easily.
She denies any pain or any SOB.
Medical History
Past Medical History
Past Medical History: Reports Other
Additional Past Medical History:
Chronic Hypoxemic Respiratory Failure (3 lpm at home)
COPD
Interstitial Lung Disease
Hypertension
CKD Stage IIIA
Hyperlipidemia
Fibromyalgia
Rheumatoid Arthritis
Scleroderma / CREST Syndrome
Irritable Bowel Syndrome
Major Depressive Disorder
Chronic Pain with Opioid Dependence
GERD
Chronic Dysphagia
Past Surgical History: Reports Other
Additional Past Surgical History:
Appendectomy
Bowel Resection
Cholecystectomy
Hysterectomy
Breast Lumpectomy
EGD with Dilation (multiple)
Social History
Tobacco: Former Smoker
Alcohol: None
Drug: None
Personal:
Living: With Family (In[employer]Law Suite)
Family History
Family History: Not pertinent
Allergies / Home Medications
Allergies reflects when Allergies were last updated in [facility].
Home Medications with original date entered in [facility]
Allergy/Medication List:
Allergies
Allergy/AdvReac Type Severity Reaction Status Date / Time
codeine Allergy rash,hives,METALLIC Verified 08/19/23 19:27
TASTE IN
MOUTH
Home Medications
citalopram 20 mg tablet 40 mg PO DAILY Mental Health 12/27/17
Focus Factor 2 cap PO DAILY Supplement 11/11/20
aripiprazole 5 mg tablet 5 mg PO DAILY Mental Health 11/11/20
baclofen 10 mg tablet 10 mg PO BID Muscle spasms 11/11/20
famotidine 40 mg tablet 40 mg PO HS Gastrointestinal issue 11/11/20
trazodone 100 mg tablet 200 mg PO HS Sleep 11/11/20
valsartan 80 mg tablet 160 mg PO DAILY Blood pressure 11/11/20
vitamin B complex 1 tab PO DAILY Supplement 11/11/20
budesonide-formoterol HFA 160 mcg-4.5 mcg/actuation aerosol inhaler (Symbicort) 2 puff inhalation R BID Lung/Breathing Issues 07/26/22
bupropion HCl 300 mg 24 hr tablet, extended release 300 mg PO DAILY Mental Health 07/26/22
cholecalciferol (vitamin D3) 125 mcg (5,000 unit) tablet (Vitamin D3) 125 mcg PO DAILY Supplement 07/26/22
multivitamin with minerals (Hair,Skin and Nails tablet) 2 tab PO DAILY Supplement 07/26/22
albuterol sulfate 90 mcg/actuation aerosol inhaler (Ventolin HFA) 2 puff inhalation R Q6HPRN PRN sob 07/03/23
atorvastatin 10 mg tablet 10 mg PO DAILY High Cholesterol 07/03/23
budesonide 0.5 mg/2 mL suspension for nebulization 0.5 mg inhalation R TID Lung/breathing issues 07/03/23
carboxymethylcellulose sodium 0.25 % eye drops (TheraTears) 1 drp BOTH EYES BID Eye Condition 07/03/23
fluticasone furoate 100 mcg-vilanterol 25 mcg/dose inhalation powder (Breo Ellipta) 1 inh inhalation R DAILY Lung/Breathing Issues 07/03/23
furosemide 40 mg tablet 40 mg PO DAILY Fluid Retention/Swelling 07/03/23
omeprazole 40 mg capsule,delayed release 40 mg PO DAILY GERD 07/03/23
therapeutic multivitamin 1 tab PO DAILY Supplement 07/03/23
tiotropium bromide 2.5 mcg/actuation mist for inhalation (Spiriva Respimat) 2 puff inhalation R DAILY Lung/Breathing Issues 07/03/23
turmeric 2 cap PO DAILY Supplement 07/03/23
acetazolamide 250 mg tablet 250 mg PO BID #1 tab 07/11/23
docusate sodium 100 mg capsule 100 mg PO BID #0 caps 07/11/23
fentanyl 25 mcg/hr transdermal patch 1 patch transdermal Q72H Pain 3 days #1 ea 07/11/23
guaifenesin 600 mg tablet, extended release 12 hr 600 mg PO Q12 #0 tabs 07/11/23
oxycodone 5 mg tablet 5 mg PO BID Pain #6 tabs 07/11/23
prednisone 50 mg tablet 50 mg PO DAILY #0 tabs 07/11/23
Review of Systems
-
History Source: Patient (Limited ROS due to lethargy)
A 12 point ROS was completed and negative except as noted: Yes
Constitutional: Reports Fatigue
EENT: Denies Sore Throat
Respiratory: Denies Cough or Trouble Breathing
Cardiac: Denies Chest Pain or Palpitations
Abdomen/GI: Denies Abdominal Pain or Nausea
Neurological: Denies Headache
Physical Exam
Vital Signs
Vital Signs
Temp Pulse Resp BP Pulse Ox
98.2 F 64 10 92/45 92
08/19/23 23:29 08/19/23 22:00 08/19/23 22:00 08/19/23 20:36 08/19/23 23:29
Physical Exam
General: Other (72y F who appears older than stated age. Not in acute distress. Slightly flushed appearance.)
HEENT: Other (Dry MM. No JVD.)
Respiratory: Other (Decreased BS at bases - otherwise clear.)
Cardiac: S1/S2 and Regular Rhythm
GI: Soft, Non Tender, Non Distended and Normal Bowel Sounds
Musculoskeletal: No Clubbing, No Cyanosis and No Edema
Neuro: Awake and Other (Patient unable to recall details leading to hospitalization. Knows that she is in the hospital. Follows commands.)
Laboratory Results
-
08/19/23 19:45
08/19/23 19:45
Laboratory Results
Total Bilirubin 0.4 mg/dl (0.2-1.3) 08/19/23 19:45
AST 21 U/L (14-36) 08/19/23 19:45
ALT 16 U/L (0-35) 08/19/23 19:45
Alkaline Phosphatase 65 U/L (38-126) 08/19/23 19:45
Troponin I < 0.012 ng/ml 08/19/23 19:45
Impression/Plan
-
A/P: Patient is a 72y F with PMH significant for COPD, chronic hypoxemia and chronic dysphagia who presents to ED for evaluation of lethargy 24 hours s/p discharge from outside institution.
Acute TME / Lethargy
- Admit for further evaluation and treatment.
- Differential for lethargy includes CO2 narcosis, adverse med effect, VIKTOR / hypovolemia, etc.
- ABG pending to assess for CO2 retention (prior h/o same) - begin PAP therapy if indicated.
- Hold sedating medications including fentanyl patch, trazodone, etc.
- Hold diuretic regimen. IVF overnight.
- Follow for improvement in mental status.
- Treat individual issues as outlined below.
VIKTOR
- SCr = 1.6 compared to known baseline = 1.0.
- Hold Diamox and Lasix for now.
- Hold ARB.
- IVF support overnight and follow for improvement in labs / lytes / cognition.
COPD without Acute Exacerbation
Chronic Hypoxemic Respiratory Failure
- No new / worsened hypoxemia, no cough, no wheezing on exam.
- Continue current medications - including current prednisone dose - without changes.
- Patient has noted history of CO2 retention and has been on BiPAP therapy here previously.
- Most recent ABGs do not show significant retention - repeat pending today.
- Titrate FiO2 to keep SpO2 88-92%.
- Follow for any new / worsening pulmonary symptoms.
Chronic Dysphagia
Scleroderma / CREST Syndrome
GERD
- Stable. s/p recent EGD / dilation done at [facility].
- Continue liquid only diet.
- Encourage oral intake as able.
Chronic Pain Syndrome
Chronic Opioid Dependence
- Fentanyl patch removed given lethargy / TME.
- Change oxycodone to PRN only.
- Adjust med regimen as needed.
Anxiety / Depression
- Hold sedating meds acutely including aripiprazole and trazodone.
- Continue Wellbutrin and Celexa.
- Adjust med regimen as clinical status improves.
- Seems that patient would - in general -benefit from overall decrease in med burden.
Benign Hypertension
- Presently hypotensive in the ED - likely due to hypovolemia / overdiuresis.
- Holding diuretics / IVFs overnight as noted above.
- Hold ARB due to hypotension and VIKTOR.
DVT Prophylaxis: Subcut Heparin
Code Status: Full
[2023-08-20] VITALS (13 sets, daily range): BP systolic 92–145; BP diastolic 41–69; PULSE 2–100; O2SAT 94; BMI 22.7; BMI 23.0
[2023-08-20 00:01] LABS: B.E. -5.4 mmol/L; HCO3 21.5 mmol/L (21-28); O2 Saturation % 96.6 % (94-98); PCO2 48 mmHg (32-35); PO2 69 mmHg (83-108); pH 7.26 (7.35-7.45)
[2023-08-20 00:02] LABS: O2 Therapy %Oxygen/Room Air NC
[2023-08-20] MEDS: NSS IV (02:11)
--- NOTE | 2023-08-20 02:40 | PTCARENOTE ---
Received pt from ED into bed 317-1 at approx 0200 with BiPAP, HARD[employer] FLOORING SPECIALIST at bedside. Purewick in place. VSS. Placed on telemetry monitoring, NSR. Pt drowsy, falling asleep during assessment. Pt Ox3, able to state she is in the hospital, unable to decipher
which one. Pt previously on liquid diet, hx of dysphagia - made NPO per protocol. Bed alarm activated for safety. Call romero within reach
[2023-08-20] MEDS: LR 1000 IV ×2 (02:59→13:01)
[2023-08-20 06:43] LABS: Hematocrit 29.4 % (37.0-47.0); Hemoglobin 9.4 g/dL (12.0-16.0); Mean Corpuscular Hgb 31.2 pg (27.0-31.0); Mean Corpuscular Volume 97.7 fL (81.0-99.0); Platelet Count 221 10^3/uL (130-400); Red Blood Cell Count 3.01 10^6/uL (4.20-5.40); Red Cell Dist. Width 13.7 % (11.5-14.5); White Blood Cell Count 5.5 10^3/uL (4.8-10.8)
[2023-08-20 07:12] LABS: Blood Urea Nitrogen 23 mg/dl (7-17); Calcium 9.1 mg/dl (8.4-10.2); Carbon Dioxide 21 mmol/L (22-30); Chloride 114 mmol/L (98-107); Estimated Creatinine Clearance 38 ml/min; Glucose 67 mg/dl (70-99); Potassium 3.8 mmol/L (3.5-5.1); Sodium 139 mmol/L (135-145); eGFR 53.06
[2023-08-20] MEDS: SYMBICORT 160/4.5 MCG INHALER 2 PUFF INH ×2 (07:23→20:10)
[2023-08-20] MEDS: DUONEB 3 ML INH ×4 (07:24→20:10)
[2023-08-20] MEDS: PULMICORT 0.5 MG INH (07:24)
[2023-08-20 07:37] LABS: TSH Reflex To Free T4 1.76 uIU/ml (0.47-4.68)
[2023-08-20] MEDS: HEPARIN 5000 UNITS SC ×2 (08:13→19:45)
[2023-08-20] MEDS: CELEXA PO (10:54)
[2023-08-20] MEDS: DELTASONE PO (10:55)
[2023-08-20] MEDS: COLACE PO ×2 (10:55→19:45)
[2023-08-20] MEDS: PROTONIX PO (10:55)
[2023-08-20] MEDS: WELLBUTRIN XL (24 hour extended release) PO (10:55)
[2023-08-20] MEDS: LIPITOR PO (10:55)
--- NOTE | 2023-08-20 11:28 | W.PN.HOSP.TC ---
Today's Communication/Plan
-
Resume diet
Speech consult
Await records
Assessment / Plan
Assessment / Plan
Gen-AAOx3, NAD
HEENT-NC, AT, anicteric, clear oral mm
Neck-supple
CV-reg, no M, +S1/S2
Lungs-clear B/L
Abd-soft, NT, ND
Ext-no edema
Musculoskeletal-no cyanosis, clubbing
Skin-warm and dry
Neuro-grossly non-focal
Psych-calm, cooperative
Acute encephalopathy -likely due to volume depletion, VIKTOR. Opiates and sedatives likely contributing. Mental status appears to be back to baseline. Sedatives on hold for now.
Severe chronic dysphagia -with recent esophageal dilation in [facility]. Await records, request ordered.
Apparently was discharged on pur�ed diet. Resume diet, consult speech therapy.
Volume depletion/VIKTOR - improved with IV fluids.
Chronic normocytic anemia -stable.
COPD without exacerbation/chronic hypoxic respiratory failure -stable. Resume inhalers. On chronic home oxygen 3 L [id number].
Interstitial lung disease
rheumatoid arthritis
Scleroderma/crest syndrome
IBS
Fibromyalgia
Major depression
Chronic pain syndrome/chronic opiate dependence -fentanyl patch on hold given presentation with sedation, encephalopathy. Oxycodone as needed to continue. Resume fentanyl patch when more stable.
GERD
Hyperlipidemia
Full code
Updated family on the phone.
Anticipated Discharge: 24 - 48 hours
Subjective/Interval History
-
Date of Service: August 20, 2023
Patient seen and examined. Feeling hungry, asking to eat.
Objective Data
-
Labs:
Laboratory Results
08/19/23 08/20/23
23:50 05:42
WBC 5.5
Hgb 9.4 L
Hct 29.4 L
Plt Count 221
HCO3 21.5
Sodium 139
Potassium 3.8
Chloride 114 H
Carbon Dioxide 21 L
BUN 23 H
Creatinine 1.1 H
Glucose 67 L
Calcium 9.1
Vital Signs:
Vital Signs
Temp Pulse Resp BP Pulse Ox
97.8 F 84 17 130/60 100
08/20/23 11:00 08/20/23 11:00 08/20/23 11:00 08/20/23 11:00 08/20/23 11:00
I&O
08/19/23 08/20/23 08/21/23
06:59 06:59 06:59
Output Total 250 / 250
Balance -250 / -250
Review of Systems
-
History Source: Patient
All other systems: Reviewed and negative
--- NOTE | 2023-08-20 11:31 | CM ---
Reviewed chart, placed a call to patient's daughter in law, Pretty, to obtain information for assessment. Pretty stated that patient lives in an in law suite which is one level with no steps to enter or inside. Patient has only been home for about a
week and a half as she was at [facility] for SNF post an admission at [place]. Patient's family would like for resumption of care, of VN services prior to discharge through . Since patient has been home, patient's daughter has been
assisting with dressing, bathing, personal care, all ADLs and supervises ambulation with her rollator. Patient's daughter in law does all the fruit receiver, cooking, cleaning and laundry. Per daughter in law, up until June, she was doing these
things at an independent level. Daughter in law transports patient to her appointments and does all the shopping.
Patient has home o2 and uses it continuously.
Patient was at [facility] in [place] in the past. [facility] recently.
She is current with VN.
Patient has a prescription plan and uses [facility] in [place].
Her PCP is, not listed.
Plan: Case management will continue to follow and assist with discharge planning. Patient's daughter in law is hopeful that patient can return home with her VN. She confirmed that she did call to make them aware.
--- NOTE | 2023-08-20 13:00 | PTOTSP ---
Speech Therapy
Presentation: Patient's speech and language was WNL during informal conversations with POWER ELECTRONICS RESEARCH ENGINEER. Patient denied communicative deficits.
07/07/23 VSE: POWER ELECTRONICS RESEARCH ENGINEER recommended regular consistency solids and thin liquids (soft moist preference) with cyclic ingestion and reflux precautions. See VSE note for details.
Per patient, recent dilation and EGD at [facility] in which patient was on a full liquid diet and was recently upgraded to a puree and thin liquid diet.
Swallowing Function: Patient was observed with several straw sips of thin liquids and bites of puree in which patient appeared to tolerate as she did not exhibit any overt clinical s/sx of aspiration or difficulty with mastication/ manipulation.
Patient recalled and demonstrated an understanding of previous recommendations from recent VSE (i.e. compensatory strategies).
Given the above, recommend continuation of IDDSI 4 puree solids and thin liquids.
Recommendations:
1) Continuation of IDDSI 4; puree solids and thin liquids
2) Aspiration precuations
3) Reflux precautions
4) Continued use of compensatory strategies
5) Medications as tolerated
Plan: POWER ELECTRONICS RESEARCH ENGINEER will continue to follow; pending hospitalization.
[2023-08-20] MEDS: PEPCID 20 MG PO (21:27)
[2023-08-21] VITALS (10 sets, daily range): BP systolic 108–164; BP diastolic 52–89; PULSE 2–103; BMI 22.8
[2023-08-21] MEDS: LR 1000 IV (00:52)
[2023-08-21] MEDS: DELTASONE 50 MG PO (07:32)
[2023-08-21] MEDS: CELEXA 40 MG PO (07:32)
[2023-08-21] MEDS: PROTONIX 40 MG PO (07:32)
[2023-08-21] MEDS: LIPITOR 10 MG PO (07:32)
[2023-08-21] MEDS: WELLBUTRIN XL (24 hour extended release) 300 MG PO (07:33)
[2023-08-21] MEDS: HEPARIN 5000 UNITS SC ×2 (07:33→20:30)
[2023-08-21] MEDS: DUONEB 3 ML INH ×4 (07:36→19:54)
[2023-08-21] MEDS: SYMBICORT 160/4.5 MCG INHALER 2 PUFF INH ×2 (07:36→19:54)
[2023-08-21 07:52] LABS: Blood Urea Nitrogen 15 mg/dl (7-17); Calcium 9.5 mg/dl (8.4-10.2); Carbon Dioxide 22 mmol/L (22-30); Chloride 112 mmol/L (98-107); Estimated Creatinine Clearance 59 ml/min; Glucose 84 mg/dl (70-99); Potassium 3.6 mmol/L (3.5-5.1); Sodium 141 mmol/L (135-145); eGFR > 60.00
[2023-08-21] MEDS: COLACE PO ×2 (08:03→19:52)
[2023-08-21] MEDS: LEVAQUIN 750 MG PO (10:06)
[2023-08-21] MEDS: LR IV (10:12)
--- NOTE | 2023-08-21 12:35 | W.PN.HOSP.TC ---
Today's Communication/Plan
-
pursue SNF placement
Assessment / Plan
Assessment / Plan
Assessment:
Acute encephalopathy - likely due to volume depletion, VIKTOR. Opiates and sedatives likely contributing. Mental status appears to be back to baseline. Sedatives on hold for now.
Severe chronic dysphagia -with recent esophageal dilation in [facility]. Await records, request ordered.
- Apparently was discharged on pur�ed diet. Resume diet, consult speech therapy.
- OP GI f/u [place]
Volume depletion/VIKTOR - resolved with IV fluids.
Chronic normocytic anemia -stable.
COPD without exacerbation/chronic hypoxic respiratory failure -stable. Resume inhalers. On chronic home oxygen 3 L [id number].
- CXR with subtle increased reticulonodular opacities in the left mid to lower lung and the right lower lung, new since previous examination, suspicious for pneumonia.
- start Levaquin 750mg daily x 5 days
Interstitial lung disease
- OP pulm follow up
rheumatoid arthritis
Scleroderma/crest syndrome
IBS
Fibromyalgia
Major depression
Chronic pain syndrome/chronic opiate dependence -fentanyl patch on hold given presentation with sedation, encephalopathy. Oxycodone as needed to continue. Resume fentanyl patch when more stable.
GERD
Hyperlipidemia
Full code
Anticipated Discharge: 24 - 48 hours
Subjective/Interval History
-
Date of Service: August 21, 2023
tolerating diet
reports chronically SOB
Objective Data
-
Labs:
Laboratory Results
08/21/23
06:43
Sodium 141
Potassium 3.6
Chloride 112 H
Carbon Dioxide 22
BUN 15
Creatinine 0.7
Glucose 84
Calcium 9.5
Vital Signs:
Vital Signs
Temp Pulse Resp BP Pulse Ox
98.6 F 85 16 157/78 97
08/21/23 11:00 08/21/23 11:26 08/21/23 11:26 08/21/23 11:00 08/21/23 11:26
I&O
08/20/23 08/21/23 08/22/23
06:59 06:59 06:59
Intake Total 2580 / 2580 300 / 300
Output Total 250 / 250 2150 / 2150
Balance -250 / -250 430 / 430 300 / 300
Physical Exam
-
General: No Apparent Distress
HEENT: Normocephalic and Atraumatic
Respiratory: Negative Wheezes
Cardiac: Regular Rhythm
GI: Soft
Neuro: AO x 3
Psych: Calm
Data Reviewed
-
Total Time Spent with Patient (in minutes): 42
Labs: Labs Reviewed by me
[2023-08-22] VITALS (13 sets, daily range): BP systolic 118–165; BP diastolic 52–89; PULSE 2–99; O2SAT 97; BMI 21.5
[2023-08-22] MEDS: SYMBICORT 160/4.5 MCG INHALER 2 PUFF INH ×2 (07:28→19:44)
[2023-08-22] MEDS: DUONEB 3 ML INH ×4 (07:28→19:44)
[2023-08-22 08:09] LABS: Blood Urea Nitrogen 14 mg/dl (7-17); Calcium 9.9 mg/dl (8.4-10.2); Carbon Dioxide 27 mmol/L (22-30); Chloride 107 mmol/L (98-107); Estimated Creatinine Clearance 52 ml/min; Glucose 81 mg/dl (70-99); Potassium 3.7 mmol/L (3.5-5.1); Sodium 140 mmol/L (135-145); eGFR > 60.00
[2023-08-22] MEDS: DELTASONE 50 MG PO (08:12)
[2023-08-22] MEDS: LIPITOR 10 MG PO (08:12)
[2023-08-22] MEDS: PROTONIX 40 MG PO (08:12)
[2023-08-22] MEDS: CELEXA 40 MG PO (08:13)
[2023-08-22] MEDS: WELLBUTRIN XL (24 hour extended release) 300 MG PO (08:13)
[2023-08-22] MEDS: COLACE 100 MG PO ×2 (08:13→20:01)
[2023-08-22] MEDS: HEPARIN 5000 UNITS SC ×2 (08:13→20:01)
[2023-08-22] MEDS: LEVAQUIN 750 MG PO (08:42)
--- NOTE | 2023-08-22 09:42 | VNURNOTE ---
Patient current with [facility] since 07/26, SN. Chart reviewed, will continue to follow hospital course, d/c needs.
--- NOTE | 2023-08-22 11:13 | W.PN.HOSP.TC ---
Today's Communication/Plan
-
dc standing nebs
resume Fent patch
continue Abx for PNA
DC planning to SNF
Assessment / Plan
Assessment / Plan
Assessment:
Acute encephalopathy - likely due to volume depletion, VIKTOR. Opiates and sedatives likely contributing. Mental status appears to be back to baseline. Sedatives on hold for now.
Severe chronic dysphagia -with recent esophageal dilation in [facility]. Await records, request ordered.
- Apparently was discharged on pur�ed diet. Resume diet. speech therapy following.
- OP GI f/u [place]
Volume depletion/VIKTOR - resolved with IV fluids.
Chronic normocytic anemia
- stable.
COPD without exacerbation/chronic hypoxic respiratory failure -stable. Resume inhalers. On chronic home oxygen 3 L [id number].
- CXR with subtle increased reticulonodular opacities in the left mid to lower lung and the right lower lung, new since previous examination, suspicious for pneumonia.
- continue Levaquin 750mg daily, day 2/5.
- prn nebs
Interstitial lung disease
- OP pulm follow up
rheumatoid arthritis
Scleroderma/crest syndrome
IBS
Fibromyalgia
Major depression
Chronic pain syndrome/chronic opiate dependence - fentanyl patch on hold given presentation with sedation, encephalopathy. Oxycodone as needed to continue. Resume fentanyl patch today.
GERD
Hyperlipidemia
Full code
Anticipated Discharge: 24 - 48 hours
Subjective/Interval History
-
Date of Service: August 22, 2023
reports tremors associated with ongoing nebs
she reports prn usage at home
no other complaints
Objective Data
-
Labs:
Laboratory Results
08/22/23
06:44
Sodium 140
Potassium 3.7
Chloride 107
Carbon Dioxide 27
BUN 14
Creatinine 0.8
Glucose 81
Calcium 9.9
Vital Signs:
Vital Signs
Temp Pulse Resp BP Pulse Ox
97.9 F 83 18 121/72 97
08/22/23 07:00 08/22/23 07:33 08/22/23 07:33 08/22/23 07:00 08/22/23 07:33
I&O
08/21/23 08/22/23 08/23/23
06:59 06:59 06:59
Intake Total 2580 / 2580 1020 / 1020
Output Total 2150 / 2150 400 / 400
Balance 430 / 430 620 / 620
Physical Exam
-
General: No Apparent Distress
HEENT: Normocephalic and Atraumatic
Respiratory: Decreased Breath Sounds; Negative Wheezes
Cardiac: Regular Rhythm and S1/S2
Genito-urinary: No Costovertebral Tender
Neuro: AO x 3 and Tremors
Psych: Calm
Data Reviewed
-
Total Time Spent with Patient (in minutes): 42
Labs: Labs Reviewed by me
[2023-08-22] MEDS: DUONEB INH (11:17)
--- NOTE | 2023-08-22 11:41 | CM ---
PT OT recommended SNF.
SPoke with first contact gama Olsen [phone] reviewed PT OT evals with her .She requested [facility] referral
Referral placed in care port.
Pt has Medicare.
Maintained on oxygen 2 liter Pox 97%.
PLAN To Snf after located
--- NOTE | 2023-08-22 12:11 | PTOTSP ---
SPEECH THERAPY SWALLOW FOLLOW UP NOTE:
Patient continues to exhibit clinical signs of oropharyngeal dysphagia. Recommend diet downgrade to Full Liquid diet at this time due to patient preference, only when respiratory status improves. Strict aspiration precautions. Patient reported she
understood all recommendations. Recommend consider repeat VSE (prior VSE 07/07/23) to further assess swallow physiology at this time, given pneumonia diagnosis and patient endorsing dysphagia symptoms. Recommend hold on VSE at this time until
respiratory status improves. Recommend Speech therapy to follow, re-assess patient in 24 hours, determine readiness and/or indication for repeat VSE, and provide continued diagnostic swallow therapy as appropriate. Discussed with patient, RN, and
Dr. Carrasquillo.
RECOMMEND:
1) diet downgrade to Full Liquid diet per patient preference
2) Medications with liquid, one at a time
3) Aspiration precautions: Do not eat when short of breath; Take breaks while eating/drinking; Small single sips/bites; Slow rate of intake; Upright positioning
4) Speech therapy to follow, re-assess patient in 24 hours, determine readiness and/or indication for repeat VSE
[2023-08-22] MEDS: ABILIFY 5 MG PO (12:19)
[2023-08-22] MEDS: DURAGESIC 25 MCG/HR PATCH 1 PATCH TRANSDERM (12:33)
--- NOTE | 2023-08-22 13:07 | PN.CDI ---
CDI
- -
CDI:
Physician Documentation Request
Admit Date: 08/19/23 23:27
Dear Doctor Foreign,
Please review the following and provide your response in the progress notes.
Clinical Indicators:
Pt admitted with VIKTOR/ TME// Chronic Hypoxic respiratory Failure on 3 LPM at baseline
Documented per ED, ' Patient was discharged from [facility] yesterday. Patient has not eaten since her discharge. ..'
Pt with Severe chronic dysphagia
Documented per nutrition consult 08/20, 'Pt reports poor appetite due to difficulty swallowing. Pt states can't eat much at one time. Pt had ensure at bedside and was consuming..... RD to order ensure daily to help met estimated needs....
.CBW: 128 lbs 9.6 oz BMI 22.8 normal range 08/20. Pts weight previous admission listed as 124 lbs 07/10 reflective of stable weight. During visit RD able to visualize protrusion of clavicle, temporal wasting and apparent ribs.....
With < 75% estimated needs > 1 month and observed muscle and fat wasting pt meets AND/ASPEN criteria for moderate protein calorie malnutrition of chronic illness... Subcutaneous loss over rib cage Severity-moderate, Muscle loss over temporal/
Clavicle severity Moderate...'
Based on the above information and your assessment, which of the following most accurately represents the patient's nutritional status?
Moderate protein calorie Malnutrition
Mild protein Calorie Malnutrition
Other ( please specify)
Dyer Criteria (ACP Hospitalist 2017)
2 or more criteria must be present for either
non severe or severe malnutrition
Note that the criteria differs related to the
presence of an acute or chronic illness
Acute Illness Chronic Illness
Energy Intake Non Severe: <75% for >7 days Non Severe: <75% for >1 month
Severe: <50% for >5 days Severe: <75% for >1 month
Weight Loss Non Severe: 1-2% over 1 week Non Severe: 5% over 1 month
5% over 1 month 7.5% over 3 months
7.5% over 3 months 10% over 6 months
1 year N/A 20% over 1 year
Severe: >2% over 1 week Severe: >5% over 1 month
>5% over 1 month >7.5% over 3 months
>7.5% over 3 months >10% over 6 months
1 year N/A >20% over 1 year
Body Fat Non Severe: Mild Decrease Non Severe: Mild Loss
Severe: Moderate Decrease Severe: Severe Loss
Muscle Mass Non Severe: Mild Decrease Non Severe: Mild Loss
Severe: Moderate Decrease Severe: Severe Loss
Fluid Accumulation Non Severe: Mild Accumulation Non Severe: Mild Accumulation
Severe: Moderate to severe Severe: Moderate to severe
accumulation accumulation
Reduced Door And Arrival Attendant Strength Non Severe: N/A Non Severe: N/A
Severe: Measurably reduced Severe: Measurably reduced
Use of terms such as suspected, likely, concern for, or probable (associated with a specific diagnosis that is being evaluated, monitored, or treated as if it exists) are acceptable and can be coded in the inpatient setting, when documented at the
time of discharge.
Thank you,
Diana Kurtz RN
CDI Specialist
[facility]
Please use your independent medical judgment in providing your response.
--- NOTE | 2023-08-22 18:17 | W.PN.UPDATE ---
Update Note
Progress Note Update
Received TT from RN pt with tachypnea.
Seen and examined at bedside
remains on 3L oxygen at her baseline
denies cp or sob.
Gen: cachectic on NC, appears chronically ill and older than expected age
cards s1 s2 mild tachycardia regular
lung-no wheezing, mild decrease aeration b/l, mild tachypneic
ext no edema
neuro awake
A/P
Tachypnea likely 2/2 AECOPD/ILD vs. mild anxiety
Will give decadron 6mg x 1. Added duoneb BID standing for now. Further adjustment based on clinical course.
repeat CXR portable
cont abx
Pt did not tolerate CPAP last night (as O2 was malfunctioning)
Last abg with CO2 retention-pt willing to go back on CPAP now -RN to call RT.
If no improvement, Check abg in 1h. Unclear if will be able to tolerate Bipap. If ABG with severe retention then trial of BiPAP
Speech evaluated earlier today and diet was downgraded. Unclear if there was any aspiration pneumonitis.
[2023-08-22] MEDS: DECADRON 6 MG IV (18:34)
[2023-08-22] MEDS: ATIVAN 0.5 MG PO (22:08)
[2023-08-22] MEDS: PEPCID 20 MG PO (22:08)
[2023-08-22] MEDS: DESYREL 200 MG PO (22:08)
[2023-08-23] VITALS (7 sets, daily range): BP systolic 102–153; BP diastolic 54–79; PULSE 2; BMI 22.0
[2023-08-23] MEDS: SYMBICORT 160/4.5 MCG INHALER 2 PUFF INH ×2 (07:57→19:34)
[2023-08-23] MEDS: DUONEB 3 ML INH ×2 (07:57→19:34)
--- NOTE | 2023-08-23 08:34 | W.PN.HOSP.TC ---
Today's Communication/Plan
-
continue IV steroids
continue Levaquin
pulmonary evaluation
Assessment / Plan
Assessment / Plan
Assessment:
Acute encephalopathy - likely due to volume depletion, VIKTOR. Opiates and sedatives likely contributing. Mental status appears to be back to baseline.
Severe chronic dysphagia -with recent esophageal dilation in [facility]. Await records, request ordered.
- Apparently was discharged on pur�ed diet. Resume diet. speech therapy following.
- OP GI f/u [place]
Volume depletion/VIKTOR - resolved with IV fluids.
Chronic normocytic anemia
- stable.
COPD *with* acute exacerbation/chronic hypoxic respiratory failure -stable. Resume inhalers. On chronic home oxygen 3 L [id number].
Underlying ILD
- CXR with subtle increased reticulonodular opacities in the left mid to lower lung and the right lower lung, new since previous examination, suspicious for pneumonia.
- continue Levaquin 750mg daily, day 3/.
- prn nebs
- started IV steroids 08/21 with worsening respiratory distress
- consult pulmonary
rheumatoid arthritis
Scleroderma/crest syndrome
IBS
Fibromyalgia
Major depression
Chronic pain syndrome/chronic opiate dependence - fentanyl patch on hold given presentation with sedation, encephalopathy. Oxycodone as needed to continue. Resume fentanyl patch today.
GERD
Hyperlipidemia
moderate protein calorie malnutrition of chronic illness
Full code
Anticipated Discharge: > 48 hours
Subjective/Interval History
-
Date of Service: August 23, 2023
feels subjective improved, less difficulty with breathing
Objective Data
-
Vital Signs:
Vital Signs
Temp Pulse Resp BP Pulse Ox
97.5 F 83 18 122/65 95
08/23/23 02:45 08/23/23 08:03 08/23/23 08:03 08/23/23 02:45 08/23/23 08:03
I&O
08/22/23 08/23/23 08/24/23
06:59 06:59 06:59
Intake Total 1020 / 1020 240 / 240
Output Total 400 / 400
Balance 620 / 620 240 / 240
Physical Exam
-
General: No Apparent Distress
HEENT: Normocephalic and Atraumatic
Respiratory: Negative Wheezes
Cardiac: Regular Rhythm and S1/S2
GI: Soft and Nontender
Musculoskeletal: No Edema
Neuro: AO x 3
Hematologic / Lymphatic: No Lymphadenopathy
Psych: Calm
Data Reviewed
-
Total Time Spent with Patient (in minutes): 41
Labs: Labs Reviewed by me
[2023-08-23] MEDS: WELLBUTRIN XL (24 hour extended release) 300 MG PO (08:35)
[2023-08-23] MEDS: ABILIFY 5 MG PO (08:35)
[2023-08-23] MEDS: COLACE PO ×4 (08:35→20:53)
[2023-08-23] MEDS: LIPITOR 10 MG PO (08:35)
[2023-08-23] MEDS: PROTONIX 40 MG PO (08:35)
[2023-08-23] MEDS: DELTASONE PO ×2 (08:35→09:01)
[2023-08-23] MEDS: HEPARIN 5000 UNITS SC ×2 (08:36→20:49)
[2023-08-23] MEDS: CELEXA 40 MG PO (08:36)
[2023-08-23] MEDS: LEVAQUIN 750 MG PO (08:36)
[2023-08-23] MEDS: DECADRON 4 MG IV ×2 (08:50→20:49)
[2023-08-23] MEDS: LASIX 40 MG PO (08:51)
[2023-08-23] MEDS: DIOVAN 160 MG PO (08:51)
[2023-08-23] MEDS: DIAMOX 250 MG PO (08:59)
--- NOTE | 2023-08-23 11:13 | CON.PUL ---
Consultation
Consultation Request
Date/Time Consultation Requested: 08/23/2023830
Date/Time Consultation Performed: 08/23/2023929
Requesting Provider: Dr. Carrasquillo
Performing Provider: Dr. Busby
Reason for Consultation: COPD
Medical History
-
Chief Complaint: Weakness
History of Present Illness:
72-year-old female former tobacco smoker (quit 07/2019) with moderate COPD with air trapping, hyperinflation and pulmonary cachexia, chronic hypoxic respiratory failure on home O2 at 3 L/min, mild restrictive lung defect, GERD without esophagitis,
history of scleroderma not on Biologics, history of aspiration pneumonia, IBD, history diverticulosis, colon polyps, fibromyalgia and depression who presents with generalized weakness. She was recently hospitalized at [facility] 1
day prior to arrival. When EMS arrived patient was hypotensive at 70/palp. Patient has fentanyl patch on and was given fluids by EMS. Vitals in the ER showed normotension to 115/50, afebrile to 98.2 �F, heart rate 80, RR: 16 and SpO2 96% on room
air. Labs showed elevated creatinine to 1.6, serum bicarbonate 22 (baseline 26�28), with mild acute respiratory acidosis with ABG showin.26/48/69/96%, troponin negative x 1 at <0.012, urinalysis negative for UTI, with CXR showing opacification
at the right base with retrocardiac opacification concerning for multifocal pneumonia vs atelectasis. IVF with 1L NS 0.9% was given in the ER, and she was admitted to the hospitalist service and started on Levaquin. She also apparently had a
recent esophageal dilation at [facility]. On the evening of 08/21 she developed tachypnea with suspected COPD flare versus Asbiha, and was given Decadron and DuoNebs. Pulmonary now consulted for additional management/recommendations.
When I saw the patient she was sitting in a chair in no acute distress on 3 L/min nasal cannula breathing comfortably. She says she feels better today. Denies cough or chest pain, headache, abdominal pain, nausea, vomiting, fevers or chills. She
says she was recently at [facility] for about 20 days due to shortness of breath, where she underwent a esophageal dilation due to difficulty swallowing. She did not know any additional details. She says that she continues to wear oxygen at home at
3 L/min. She does not follow with rheumatology for her scleroderma.
Patient follows with us in the [facility] office with Dr. Garcia - last office visit on 06/14/2023. Last full PFT performed in April 2023 showing moderate COPD with negative bronchodilator response, with mild restrictive lung defect and very severe gas
exchange capacity defect (DLco: 30%). She is on Breo, Spiriva with nebulized albuterol twice daily for her COPD and also chronic prednisone alternating between 5 mg and 10 mg every other day with intentions to go down to 5 mg daily. She does have
GERD and follows closely with GI at [place] and is taking omeprazole/famotidine. She was going to follow-up in July 2023, unfortunately she had a repeat COPD exacerbation and required hospitalization during 07/02ere at . She was
discharged to SNF/rehab @ [facility].
PMHx: Moderate COPD (due to centrilobular emphysema) with air trapping and hyperinflation with pulmonary cachexia, mild restrictive lung defect, esophageal dilation seen on CT chest, chronic hypoxic respiratory failure on home oxygen at 3 L/min,
pulmonary hypertension, history of scleroderma, GERD without esophagitis, history of aspiration, former tobacco use disorder (quit 07/2019), IBD, history of diverticulosis, colon polyps, fibromyalgia, depression, arthritis
PSHx: Appendectomy, cholecystectomy, bilateral cataract surgery, MIHAI, right breast cyst removal, bowel blockage surgery, ex lap with lysis of adhesions, repair of two partial-thickness enterotomies
Past Medical History
Past Medical History: Other (Above as per HPI)
Past Surgical History: Other (Above as per HPI)
Social History
Tobacco: Former Smoker (Quit July 2019)
Alcohol: None
Drug: None
Family History
Family History: CAD (Father + mother) and Hypertension (Mother + sibling X1)
Allergies / Home Medications
Allergies
Allergy/AdvReac Type Severity Reaction Status Date / Time
codeine Allergy rash,hives,METALLIC Verified 08/19/23 19:27
TASTE IN
MOUTH
Home Medications
�Medication �Instructions �Recorded �Confirmed �Last Taken �Type
citalopram 20 mg tablet 40 mg PO DAILY Mental Health 12/27/17 08/19/23 07/03/23 History
Focus Factor 2 cap PO DAILY Supplement 11/11/20 08/19/23 07/03/23 History
aripiprazole 5 mg tablet 5 mg PO DAILY Mental Health 11/11/20 08/19/23 07/03/23 History
baclofen 10 mg tablet 10 mg PO BID Muscle spasms 11/11/20 08/19/23 07/03/23 History
famotidine 40 mg tablet 40 mg PO HS Gastrointestinal issue 11/11/20 08/19/23 07/01/23 History
trazodone 100 mg tablet 200 mg PO HS Sleep 11/11/20 08/19/23 07/02/23 History
valsartan 80 mg tablet 160 mg PO DAILY Blood pressure 11/11/20 08/19/23 07/03/23 History
vitamin B complex 1 tab PO DAILY Supplement 11/11/20 08/19/23 07/03/23 History
budesonide-formoterol HFA 160 2 puff inhalation R BID 07/26/22 08/19/23 07/03/23 History
mcg-4.5 mcg/actuation aerosol Lung/Breathing Issues
inhaler (Symbicort)
bupropion HCl 300 mg 24 hr tablet, 300 mg PO DAILY Mental Health 07/26/22 08/19/23 07/03/23 History
extended release
cholecalciferol (vitamin D3) 125 125 mcg PO DAILY Supplement 07/26/22 08/19/23 07/03/23 History
mcg (5,000 unit) tablet (Vitamin
D3)
multivitamin with minerals 2 tab PO DAILY Supplement 07/26/22 08/19/23 07/03/23 History
(Hair,Skin and Nails tablet)
albuterol sulfate 90 mcg/actuation 2 puff inhalation R Q6HPRN PRN sob 07/03/23 08/19/23 07/03/23 History
aerosol inhaler (Ventolin HFA)
atorvastatin 10 mg tablet 10 mg PO DAILY High Cholesterol 07/03/23 08/19/23 07/03/23 History
budesonide 0.5 mg/2 mL suspension 0.5 mg inhalation R TID 07/03/23 08/19/23 07/02/23 History
for nebulization Lung/breathing issues
carboxymethylcellulose sodium 0.25 1 drp BOTH EYES BID Eye Condition 07/03/23 08/19/23 07/03/23 History
% eye drops (TheraTears)
fluticasone furoate 100 1 inh inhalation R DAILY 07/03/23 08/19/23 07/03/23 History
mcg-vilanterol 25 mcg/dose Lung/Breathing Issues
inhalation powder (Breo Ellipta)
furosemide 40 mg tablet 40 mg PO DAILY Fluid 07/03/23 08/19/23 07/03/23 History
Retention/Swelling
omeprazole 40 mg capsule,delayed 40 mg PO DAILY GERD 07/03/23 08/19/23 07/03/23 History
release
therapeutic multivitamin 1 tab PO DAILY Supplement 07/03/23 08/19/23 07/03/23 History
tiotropium bromide 2.5 2 puff inhalation R DAILY 07/03/23 08/19/23 07/03/23 History
mcg/actuation mist for inhalation Lung/Breathing Issues
(Spiriva Respimat)
turmeric 2 cap PO DAILY Supplement 07/03/23 08/19/23 07/03/23 History
acetazolamide 250 mg tablet 250 mg PO BID #1 tab 07/11/23 08/19/23 Unknown Rx
docusate sodium 100 mg capsule 100 mg PO BID #0 caps 07/11/23 08/19/23 Unknown Rx
fentanyl 25 mcg/hr transdermal 1 patch transdermal Q72H Pain 3 07/11/23 08/19/23 Unknown Rx
patch days #1 ea
guaifenesin 600 mg tablet, 600 mg PO Q12 #0 tabs 07/11/23 08/19/23 Unknown Rx
extended release 12 hr
oxycodone 5 mg tablet 5 mg PO BID Pain #6 tabs 07/11/23 08/19/23 Unknown Rx
prednisone 50 mg tablet 50 mg PO DAILY #0 tabs 07/11/23 08/19/23 Unknown Rx
Review of Systems
-
History Source: Patient
All other systems: Negative unless noted
Vitals / Labs / Diagnostic Testing
Vital Signs
Temp Pulse Resp BP Pulse Ox
97.6 F 85 17 153/61 98
08/23/23 08:54 08/23/23 08:54 08/23/23 08:54 08/23/23 08:54 08/23/23 08:54
Lab Data
08/20/23 05:42
08/22/23 06:44
Diagnostic Testing:
Physical Exam
-
HEENT: Normocephalic and Anicteric
Cardiovascular: S1/S2 and Peripheral Edema (Negative)
Respiratory: Wheeze (Negative), Rales (Bibasilar), Rhonchi (Negative) and Non-Labored Respirations
GI: Soft, Non Distended, Non Tender and Normal Bowel Sounds
Neurology: Awake and Alert
Skin: Warm and Dry
General: Comfortable, Fever (Negative) and Chills (Negative)
Assessment
-
Assessment: 72-year-old female former tobacco smoker (quit 07/2019) with moderate COPD with air trapping, hyperinflation and pulmonary cachexia, chronic hypoxic respiratory failure on home O2 at 3 L/min, mild restrictive lung defect, GERD without
esophagitis, history of scleroderma not on Biologics, history of aspiration pneumonia, IBD, history diverticulosis, colon polyps, fibromyalgia and depression who presents with generalized weakness. She was recently hospitalized at [facility] 1 day prior to arrival. When EMS arrived patient was hypotensive at 70/palp. Patient has fentanyl patch on and was given fluids by EMS. Vitals in the ER showed normotension to 115/50, afebrile to 98.2 �F, heart rate 80, RR: 16 and SpO2
96% on room air. Labs showed elevated creatinine to 1.6, serum bicarbonate 22 (baseline 26�28), with mild acute respiratory acidosis with ABG showin.26/48/69/96%, troponin negative x 1 at <0.012, urinalysis negative for UTI, with CXR showing
opacification at the right base with retrocardiac opacification concerning for multifocal pneumonia vs atelectasis. IVF with 1L NS 0.9% was given in the ER, and she was admitted to the hospitalist service and started on Levaquin. She also
apparently had a recent esophageal dilation at [facility]. On the evening of 08/21 she developed tachypnea with suspected COPD flare versus Sabiha, and was given Decadron and DuoNebs. Pulmonary now consulted for additional
management/recommendations.
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
oxygen at 3 L/min, pulmonary hypertension, history of scleroderma, GERD without esophagitis, history of aspiration, former tobacco use disorder (quit 07/2019), IBD, history of diverticulosis, colon polyps, fibromyalgia, depression, arthritis, history
of GI bleed, rectal prolapse
Impression:
#Tachypnea with acute on chronic respiratory failure with hypoxia -likely due to acute decompensated heart failure
#Acute pulmonary edema seen on CXR from 08/22/2023
#Moderate COPD with air trapping, hyperinflation on chronic prednisone and home oxygen at 3 L/min - On breo, Spiriva and BID nebulized albuterol at home
#History of pulmonary cachexia
#Chronic pulmonary aspiration
#Bibasilar linear scarring
#Acute on chronic anemia (Hb 9.4 on 08/20/2023 with baseline Hb 11�12.5 g/dL)
#History of of scleroderma
Plan:
- Diurese to maintain net negative of at least 1-1.5 L per day for next 1-2 days, re-assessing daily
- Re-check CXR tomorrow
- Strict I/O, trend sCr and UOP
- Check TTE and consider cardiology consultation
- Systemic steroids already started - currently on decadron 4mg IV q12hr - empirically continue but would diurese and if Sx improve then would quickly wean off decadron and go back to her home dose of prednisone
- Maintain SpO2 >88-94% with supplemental O2 - wean as tolerated
- Continue Symbicort 160mcg + DuoNebs BID; prn nebulized bronchodilators
- Obtain medical records from recent hospitalization at [facility]
- Aspiration precautions
- Diet as per CUSTOMER SERVICE DISPATCHER but if she is on BiPAP then maintain NPO for now
- Incentive spirometer encouraged
- Trend blood gas to monitor pH and pCO2; trend sHCO3 as well; if pt becomes alkalotic then consider diamox only if pH>7.45 and serum HCO3>35
- Her pCO2 was only slightly elevated on recent blood gas from 08/19/2023 (7.26/48/69/96%) - she says that she will wear BiPAP again tonight with sleep which she is not prescribed at home
- Hold diamox for now as need to check blood gas to ensure her pH is not still <7.3
- Trend CBC and transfuse if needed to keep Hb>7g/dL and plt>20k
- Replete electrolytes with K>4, Mg>2
- Maintain euglycemia with goal BG >100 and <180
- DVT ppx
Pulmonary service will continue to follow along.
Total time spent today was 55 minutes for this encounter. Time includes reviewing laboratory test/imaging results, reviewing pertinent medical records, obtaining and reviewing medical history, performing an appropriate exam, ordering medications,
tests and procedures. Time also includes documentation of this encounter, coordinating patient care and communicating with other healthcare professionals. Total time does not include separately billed tests performed on this date of service.
Data:
CXR 08-22-2023:
1. Mild acute interstitial cardiogenic pulmonary edema.
2. Mild cardiomegaly.
3. Severe calcific atherosclerotic plaque in the thoracic and abdominal aorta.
4. Mild scarring in the right lung apex, lingula, and left lower lobe.
TTE 02-13-2024:
Normal biventricular size and systolic function without regional wall motion
abnormality. Estimated LVEF 65-70%.
Mild/moderate eccentric aortic regurgitation.
Mild/moderate tricuspid regurgitation. Mildly elevated PASP. Estimated
pulmonary artery pressure of 42 mmHg.
Compared to 10/09/20: AR and TR have progressed from mild to mild/moderate.
PASP has increased from 37 mmHg to 42 mmHg.
[2023-08-23] MEDS: DESYREL 200 MG PO (20:49)
[2023-08-23] MEDS: FLUSH (NSS) 1 FLUSH IV (20:50)
[2023-08-23] MEDS: ROXICODONE 5 MG PO (21:01)
[2023-08-24] VITALS (9 sets, daily range): BP systolic 92–134; BP diastolic 48–62; PULSE 2–106; O2SAT 98; BMI 20.7
[2023-08-24 06:31] LABS: Venous Blood Gas B.E. 1.5 mmol/L (-4 to +4); Venous Blood Gas HCO3 25.9 mmol/L (22-27); Venous Blood Gas O2 Sat % 99.8 %; Venous Blood Gas pCO2 39 mmHg (35-48); Venous Blood Gas pH 7.43 (7.32-7.43); Venous Blood Gas pO2 151 mmHg (30-50)
[2023-08-24 06:42] LABS: Venous Blood Gas O2 Therapy 3L/min
[2023-08-24] MEDS: SYMBICORT 160/4.5 MCG INHALER 2 PUFF INH ×2 (07:48→19:38)
[2023-08-24] MEDS: DUONEB 3 ML INH ×2 (07:48→19:38)
[2023-08-24 08:43] LABS: Hematocrit 33.8 % (37.0-47.0); Hemoglobin 11.4 g/dL (12.0-16.0); Mean Corp Hgb Conc. 33.7 g/dL (33.0-37.0); Mean Corpuscular Hgb 31.1 pg (27.0-31.0); Mean Corpuscular Volume 92.3 fL (81.0-99.0); Mean Platelet Volume 9.4 fL (7.4-10.4); Platelet Count 244 10^3/uL (130-400); Red Blood Cell Count 3.66 10^6/uL (4.20-5.40); Red Cell Dist. Width 13.5 % (11.5-14.5); White Blood Cell Count 6.3 10^3/uL (4.8-10.8)
[2023-08-24 08:51] LABS: Blood Urea Nitrogen 26 mg/dl (7-17); Carbon Dioxide 27 mmol/L (22-30); Chloride 102 mmol/L (98-107); Estimated Creatinine Clearance 38 ml/min; Glucose 89 mg/dl (70-99); Magnesium 1.9 mg/dl (1.6-2.3); Potassium 3.6 mmol/L (3.5-5.1); Sodium 136 mmol/L (135-145); eGFR 53.06
[2023-08-24 08:59] LABS: NT-proBNP 1450 pg/ml
[2023-08-24] MEDS: ABILIFY 5 MG PO (09:14)
[2023-08-24] MEDS: LASIX 40 MG PO (09:14)
[2023-08-24] MEDS: PROTONIX 40 MG PO (09:14)
[2023-08-24] MEDS: LIPITOR 10 MG PO (09:14)
[2023-08-24] MEDS: CELEXA 40 MG PO (09:15)
[2023-08-24] MEDS: DECADRON 4 MG IV ×2 (09:15→21:04)
[2023-08-24] MEDS: WELLBUTRIN XL (24 hour extended release) 300 MG PO (09:15)
[2023-08-24] MEDS: HEPARIN 5000 UNITS SC ×2 (09:15→21:04)
[2023-08-24] MEDS: COLACE PO ×2 (09:16→21:06)
[2023-08-24] MEDS: LEVAQUIN PO (09:34)
[2023-08-24] MEDS: DIOVAN 160 MG PO (09:36)
--- NOTE | 2023-08-24 11:04 | W.PN.HOSP.TC ---
Today's Communication/Plan
-
hold further Lasix with rise in cr, repeat AM BMP and reassess dosing
continue IV steroids per pulm
dc planning to SNF
Assessment / Plan
Assessment / Plan
Assessment:
Acute encephalopathy - likely due to volume depletion, VIKTOR. Opiates and sedatives likely contributing. Mental status appears to be back to baseline.
Severe chronic dysphagia -with recent esophageal dilation in [facility]. Await records, request ordered.
- Apparently was discharged on pur�ed diet. Resume diet. speech therapy following.
- OP GI f/u [facility]
Volume depletion/VIKTOR - resolved with IV fluids.
mild acute HFpEF, possibly iatrogenic volume overload
- resume oral Lasix with improvement, will not hold with rising Cr. Repeat AM lab and consider resumption of 40mg vs 20mg
- echo: LV ejection fraction is 65-70%. No regional wall motion abnormalities are seen. Normal right ventricular size and function. Mild aortic regurgitation. Mild tricuspid regurgitation. Estimated pulmonary artery pressure of 20-25 mmHg.
Chronic normocytic anemia
- stable.
COPD *with* acute exacerbation/chronic hypoxic respiratory failure -stable. Resume inhalers. On chronic home oxygen 3 L [id number].
Underlying ILD
- CXR with subtle increased reticulonodular opacities in the left mid to lower lung and the right lower lung, new since previous examination, suspicious for pneumonia.
- continue Levaquin 750mg daily, day 4/5.
- prn nebs
- started IV steroids 08/21 with worsening respiratory distress; follow pulmonary recs
rheumatoid arthritis
Scleroderma/crest syndrome
IBS
Fibromyalgia
Major depression
Chronic pain syndrome/chronic opiate dependence - fentanyl patch on hold given presentation with sedation, encephalopathy. Oxycodone as needed to continue. Resume fentanyl patch today.
GERD
Hyperlipidemia
moderate protein calorie malnutrition of chronic illness
Full code
Anticipated Discharge: > 48 hours
Subjective/Interval History
-
Date of Service: August 24, 2023
breathing improving
weight reducing as well with resumption oral diuretics
Objective Data
-
Labs:
Laboratory Results
08/24/23
08:25
WBC 6.3
Hgb 11.4 L D
Hct 33.8 L
Plt Count 244
Sodium 136
Potassium 3.6
Chloride 102
Carbon Dioxide 27
BUN 26 H
Creatinine 1.1 H
Glucose 89
Calcium 10.0
Vital Signs:
Vital Signs
Temp Pulse Resp BP Pulse Ox
98.0 F 80 16 122/48 94
08/24/23 07:00 08/24/23 07:51 08/24/23 07:51 08/24/23 07:00 08/24/23 07:51
I&O
08/23/23 08/24/23 08/25/23
06:59 06:59 06:59
Intake Total 240 / 240 840 / 840
Output Total 600 / 600
Balance 240 / 240 240 / 240
Physical Exam
-
General: No Apparent Distress
HEENT: Normocephalic and Atraumatic
Respiratory: Negative Wheezes
Cardiac: Regular Rhythm and S1/S2
GI: Soft
Neuro: AO x 3
Psych: Calm
Data Reviewed
-
Total Time Spent with Patient (in minutes): 44
Labs: Labs Reviewed by me
--- NOTE | 2023-08-24 14:32 | W.PN.PUL3 ---
Today's Communication / Plan
-
Transition to oral prednisone in a.m.
Check ambulatory saturation
Continue inhaler regimen
DVT prophylaxis disposition efforts
Assessment
-
Assessment: 72-year-old female former tobacco smoker (quit 07/2019) with moderate COPD with air trapping, hyperinflation and pulmonary cachexia, chronic hypoxic respiratory failure on home O2 at 3 L/min, mild restrictive lung defect, GERD without
esophagitis, history of scleroderma not on Biologics, history of aspiration pneumonia, IBD, history diverticulosis, colon polyps, fibromyalgia and depression who presents with generalized weakness. She was recently hospitalized at [facility] 1 day prior to arrival. When EMS arrived patient was hypotensive at 70/palp. Patient has fentanyl patch on and was given fluids by EMS. Vitals in the ER showed normotension to 115/50, afebrile to 98.2 �F, heart rate 80, RR: 16 and SpO2
96% on room air. Labs showed elevated creatinine to 1.6, serum bicarbonate 22 (baseline 26�28), with mild acute respiratory acidosis with ABG showin.26/48/69/96%, troponin negative x 1 at <0.012, urinalysis negative for UTI, with CXR showing
opacification at the right base with retrocardiac opacification concerning for multifocal pneumonia vs atelectasis. IVF with 1L NS 0.9% was given in the ER, and she was admitted to the hospitalist service and started on Levaquin. She also
apparently had a recent esophageal dilation at [facility]. On the evening of 08/21 she developed tachypnea with suspected COPD flare versus Sabiha, and was given Decadron and DuoNebs. Pulmonary now consulted for additional
management/recommendations.
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
oxygen at 3 L/min, pulmonary hypertension, history of scleroderma, GERD without esophagitis, history of aspiration, former tobacco use disorder (quit 07/2019), IBD, history of diverticulosis, colon polyps, fibromyalgia, depression, arthritis, history
of GI bleed, rectal prolapse
Impression:
#Tachypnea with acute on chronic respiratory failure with hypoxia -likely due to acute decompensated heart failure
#Acute pulmonary edema seen on CXR from 08/22/2023
#Moderate COPD with air trapping, hyperinflation on chronic prednisone and home oxygen at 3 L/min - On breo, Spiriva and BID nebulized albuterol at home
#History of pulmonary cachexia
#Chronic pulmonary aspiration
#Bibasilar linear scarring
#Acute on chronic anemia (Hb 9.4 on 08/20/2023 with baseline Hb 11�12.5 g/dL)
#History of of scleroderma
Plan/recommendations
At this time, patient appears to be objectively and subjectively improved
Chest x-ray 08/23 without any changes
Mild crackles at base noted
Echocardiogram with normal biventricular function, normal pressures. No significant valvular disease
Positive fluid balance noted
Moving forward
At this time, patient appears to be subjectively improved without negative fluid status
This suggests possible noncardiac etiology
Echocardiogram also without significant abnormality
Given the above, doubt cardiac process at this time
Will continue with empiric steroids
Transition to oral prednisone
Continue inhaler regimen
Assess oxygen requirements
Obtain medical records from recent hospitalization at [facility]
Aspiration precautions
Diet as per TRANSPORTATION ENGINEERING TECHNICIAN but if she is on BiPAP then maintain NPO for now
ABG reviewed
Repeat ABG in a.m.
DVT ppx: Remains on subcutaneous heparin
GI prophylaxis: Remains on Protonix
Pulmonary service will continue to follow along.
Disposition efforts
Data:
CXR 08-22-2023:
1. Mild acute interstitial cardiogenic pulmonary edema.
2. Mild cardiomegaly.
3. Severe calcific atherosclerotic plaque in the thoracic and abdominal aorta.
4. Mild scarring in the right lung apex, lingula, and left lower lobe.
TTE 12-24-2024:
Normal biventricular size and systolic function without regional wall motion
abnormality. Estimated LVEF 65-70%.
Mild/moderate eccentric aortic regurgitation.
Mild/moderate tricuspid regurgitation. Mildly elevated PASP. Estimated
pulmonary artery pressure of 42 mmHg.
Compared to 10/09/20: AR and TR have progressed from mild to mild/moderate.
PASP has increased from 37 mmHg to 42 mmHg.
Subjective Data
-
Date of Service:
Date of Service: August 24, 2023
Subjective:
Patient examined earlier this morning. Subjectively she is improved. She is less short of breath. She denies chest pain, nausea, abdominal pain. She does have a mild dry cough, nonproductive.
Objective Data
Data Reviewed
Vital Signs / I&O / Oxygen:
Vital Signs
Temp Pulse Resp BP Pulse Ox
98.0 F 80 16 122/48 94
08/24/23 07:00 08/24/23 07:51 08/24/23 07:51 08/24/23 07:00 08/24/23 07:51
Intake and Output
08/23/23 08/24/23 08/25/23
06:59 06:59 06:59
Intake Total 240 / 240 840 / 840
Output Total 600 / 600
Balance 240 / 240 240 / 240
SaO2 94
Nasal Cannula flow liters per 3
minute
Physical Exam
General: Comfortable and Other (Cachectic, mild kyphoscoliosis)
HEENT: Normocephalic and Anicteric
Cardiovascular: S1-S2, Regular Rhythm, Murmur (2/6 systolic murmur), Rub (n), Peripheral Edema (n) and Calf Tenderness (n)
Respiratory: Wheeze (n), Crackles (Few at base), Rhonchi (n) and Non-Labored Respirations
GI: Soft, Non Distended and Non Tender
Neurology: Awake, Alert and No Motor Deficits (Able to sit up without assistance)
Skin: Good Color, Cyanosis (n) and Jaundice (n)
Labs/Micro/Reports
Lab Data
08/24/23 08:25
08/24/23 08:25
[2023-08-24] MEDS: DESYREL 200 MG PO (21:04)
[2023-08-24] MEDS: FLUSH (NSS) 1 FLUSH IV (21:08)
[2023-08-25] VITALS (7 sets, daily range): BP systolic 101–199; BP diastolic 54–76; PULSE 2–92; BMI 20.6
[2023-08-25 06:29] LABS: B.E. 2.3 mmol/L; HCO3 26.4 mmol/L (21-28); O2 Saturation % 98.5 % (94-98); PCO2 38 mmHg (32-35); PO2 83 mmHg (83-108); pH 7.45 (7.35-7.45)
[2023-08-25 06:54] LABS: Hematocrit 34.6 % (37.0-47.0); Hemoglobin 11.1 g/dL (12.0-16.0); Mean Corp Hgb Conc. 32.1 g/dL (33.0-37.0); Mean Corpuscular Hgb 30.8 pg (27.0-31.0); Mean Corpuscular Volume 96.1 fL (81.0-99.0); Mean Platelet Volume 9.8 fL (7.4-10.4); Platelet Count 228 10^3/uL (130-400); Red Cell Dist. Width 13.5 % (11.5-14.5); White Blood Cell Count 7.3 10^3/uL (4.8-10.8)
[2023-08-25 07:13] LABS: Blood Urea Nitrogen 39 mg/dl (7-17); Calcium 10.1 mg/dl (8.4-10.2); Carbon Dioxide 26 mmol/L (22-30); Chloride 103 mmol/L (98-107); Estimated Creatinine Clearance 35 ml/min; Glucose 98 mg/dl (70-99); Potassium 3.8 mmol/L (3.5-5.1); Sodium 135 mmol/L (135-145)
[2023-08-25] MEDS: DUONEB 3 ML INH ×2 (07:36→18:07)
[2023-08-25] MEDS: SYMBICORT 160/4.5 MCG INHALER 2 PUFF INH ×2 (07:37→18:07)
[2023-08-25] MEDS: CELEXA 40 MG PO (08:46)
[2023-08-25] MEDS: WELLBUTRIN XL (24 hour extended release) 300 MG PO (08:46)
[2023-08-25] MEDS: HEPARIN 5000 UNITS SC ×2 (08:46→20:48)
[2023-08-25] MEDS: DELTASONE 40 MG PO (08:46)
[2023-08-25] MEDS: COLACE 100 MG PO ×2 (08:46→20:48)
[2023-08-25] MEDS: LIPITOR 10 MG PO (08:46)
[2023-08-25] MEDS: PROTONIX 40 MG PO (08:46)
[2023-08-25] MEDS: PEPCID 20 MG PO (08:46)
[2023-08-25] MEDS: ABILIFY 5 MG PO (08:46)
[2023-08-25] MEDS: LEVAQUIN 750 MG PO (08:46)
--- NOTE | 2023-08-25 10:07 | CM ---
Addendum entered by JU Lopez 08/25/23 13:29:
Spoke with Pulmonology who stated that patient should be cleared for tomorrow. Met with patient who stated she is agreeable and her daughter will be here to transport her to SNF.
Addendum entered by JU Lopez 08/25/23 13:19:
Alba in admissions at [facility] called, and confirmed that she can take patient over the weekend
# for report [phone] ask for nursing supervisor shellfish farming and fax# [phone]
Patient on 3 liters of o2. She has o2 at facility.
Original Note:
Reviewed chart, placed a call to [facility] (Alba in admissions) however had to leave a voice mail. Request was made to call back with bed availability in the event that patient is medically stable today or over the weekend.
Plan: Case management will continue to follow and assist with discharge planning. Hopeful transfer to [facility] if [facility] does not have any beds.
--- NOTE | 2023-08-25 10:34 | W.PN.PUL3 ---
Today's Communication / Plan
-
Continue prednisone taper
Check ambulatory oximetry testing for home O2 assessment prior to discharge
Continue inhaler regimen
DVT prophylaxis disposition efforts
Will try to obtain medical records from [place] including any radiological, cardiac or GI testing/procedures done, any pulmonary progress notes and H&P/consult notes
Assessment
-
Assessment: 72-year-old female former tobacco smoker (quit 07/2019) with moderate COPD with air trapping, hyperinflation and pulmonary cachexia, chronic hypoxic respiratory failure on home O2 at 3 L/min, mild restrictive lung defect, GERD without
esophagitis, history of scleroderma not on Biologics, history of aspiration pneumonia, IBD, history diverticulosis, colon polyps, fibromyalgia and depression who presents with generalized weakness. She was recently hospitalized at [facility] 1 day prior to arrival. When EMS arrived patient was hypotensive at 70/palp. Patient has fentanyl patch on and was given fluids by EMS. Vitals in the ER showed normotension to 115/50, afebrile to 98.2 �F, heart rate 80, RR: 16 and SpO2
96% on room air. Labs showed elevated creatinine to 1.6, serum bicarbonate 22 (baseline 26�28), with mild acute respiratory acidosis with ABG showin.26/48/69/96%, troponin negative x 1 at <0.012, urinalysis negative for UTI, with CXR showing
opacification at the right base with retrocardiac opacification concerning for multifocal pneumonia vs atelectasis. IVF with 1L NS 0.9% was given in the ER, and she was admitted to the hospitalist service and started on Levaquin. She also
apparently had a recent esophageal dilation at [facility]. On the evening of 08/21 she developed tachypnea with suspected COPD flare versus Sabiha, and was given Decadron and DuoNebs. Pulmonary now consulted for additional
management/recommendations.
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
oxygen at 3 L/min, pulmonary hypertension, history of scleroderma, GERD without esophagitis, history of aspiration, former tobacco use disorder (quit 07/2019), IBD, history of diverticulosis, colon polyps, fibromyalgia, depression, arthritis, history
of GI bleed, rectal prolapse
Impression:
#Tachypnea with acute on chronic respiratory failure with hypoxia -likely due to acute decompensated heart failure
#Acute pulmonary edema seen on CXR from 08/22/2023
#Moderate COPD with air trapping, hyperinflation on chronic prednisone and home oxygen at 3 L/min - On breo, Spiriva and BID nebulized albuterol at home
#History of pulmonary cachexia
#Chronic pulmonary aspiration
#Bibasilar linear scarring
#Acute on chronic anemia (Hb 9.4 on 08/20/2023 with baseline Hb 11�12.5 g/dL)
#History of of scleroderma
Plan/recommendations
At this time, patient continues to be objectively and subjectively improved
Chest x-ray 08/23 without any changes with radiology stating there is slight improvement with mild vascular congestion and interstitial edema compared to prior CXR in 08/22/2023
Mild crackles at base noted
Echocardiogram from 08/23/2023 with normal biventricular function, normal pressures. No significant valvular disease
Positive fluid balance noted
Moving forward
At this time, patient appears to be subjectively improved without negative fluid status
This suggests possible noncardiac etiology
Echocardiogram also without significant abnormality
Given the above, doubt cardiac process at this time
Will continue with empiric steroids
Transitioned to oral prednisone today (08/24) --> wean by 10mg every 4th day until back to home dose (alternating between 10mg and 5mg every other day)
Continue inhaler regimen with Symbicort 160mcg + DuoNebs twice daily
Assess oxygen requirements prior to discharge with O2 assessment
Obtain medical records from recent hospitalization at [facility] - records obtained was just an AVS - no pertinent, helpful details on their except med list and dates of hospitalization, which was 08/09 - 08/18/2023
Aspiration precautions
Diet as per SYSTEMS ENG
ABG reviewed from today showing mild respiratory + metabolic alkalosis
Continue PPI (home med)
DVT ppx: HSQ
GI prophylaxis: N/A
Pulmonary service will continue to follow along.
Disposition efforts
Total time spent today was 35 minutes for this encounter. Time includes reviewing laboratory test/imaging results, reviewing pertinent medical records, obtaining and reviewing medical history, performing an appropriate exam, ordering medications,
tests and procedures. Time also includes documentation of this encounter, coordinating patient care and communicating with other healthcare professionals. Total time does not include separately billed tests performed on this date of service.
Data:
CXR 08-22-2023:
1. Mild acute interstitial cardiogenic pulmonary edema.
2. Mild cardiomegaly.
3. Severe calcific atherosclerotic plaque in the thoracic and abdominal aorta.
4. Mild scarring in the right lung apex, lingula, and left lower lobe.
TTE 02-13-2024:
Normal biventricular size and systolic function without regional wall motion
abnormality. Estimated LVEF 65-70%.
Mild/moderate eccentric aortic regurgitation.
Mild/moderate tricuspid regurgitation. Mildly elevated PASP. Estimated
pulmonary artery pressure of 42 mmHg.
Compared to 10/09/20: AR and TR have progressed from mild to mild/moderate.
PASP has increased from 37 mmHg to 42 mmHg.
Subjective Data
-
Date of Service:
Date of Service: August 25, 2023
Chief Complaint: Pulmonary Follow Up
Subjective:
Patient seen and evaluated at bedside. Still short of breath but just finished eating. Use CPAP overnight which woke her up. Currently on 3 L/min nasal cannula, has a mild occasional dry cough but it is not overly bothersome. She denies chest
pain, headache, abdominal pain, fevers or chills.
Review of Systems
General: Other (Negative unless mentioned above)
Objective Data
Data Reviewed
Vital Signs / I&O / Oxygen:
Vital Signs
Temp Pulse Resp BP Pulse Ox
98.3 F 86 16 148/62 94
08/25/23 07:44 08/25/23 07:51 08/25/23 07:51 08/25/23 07:46 08/25/23 07:51
Intake and Output
08/24/23 08/25/23 08/26/23
06:59 06:59 06:59
Intake Total 840 / 840 540 / 540
Output Total 600 / 600
Balance 240 / 240 540 / 540
SaO2 94
Nasal Cannula flow liters per 3
minute
Physical Exam
General: Comfortable and Other (Cachectic, mild kyphoscoliosis)
HEENT: Normocephalic and Anicteric
Cardiovascular: S1-S2, Murmur (2/6 systolic murmur), Rub (n), Peripheral Edema (n), Calf Tenderness (n) and Other (Distant heart sounds)
Respiratory: Wheeze (n), Crackles (Bibasilar), Rhonchi (n) and Non-Labored Respirations
GI: Soft, Non Distended and Non Tender
Neurology: Awake, Alert and No Motor Deficits (Able to sit up without assistance)
Skin: Good Color, Cyanosis (n) and Jaundice (n)
Labs/Micro/Reports
Lab Data
08/25/23 06:22
08/25/23 06:22
Laboratory Results
08/25/23
06:18
pH 7.45
pCO2 38 H
pO2 83
HCO3 26.4
O2 Delivery Level Not Reportable
--- NOTE | 2023-08-25 10:36 | W.PN.HOSP.TC ---
Today's Communication/Plan
-
decrease Lasix
repeat CXR tomorrow
Assessment / Plan
Assessment / Plan
Assessment:
Acute encephalopathy - likely due to volume depletion, VIKTOR. Opiates and sedatives likely contributing. Mental status appears to be back to baseline.
Severe chronic dysphagia -with recent esophageal dilation in [facility]. Await records, request ordered.
- Apparently was discharged on pur�ed diet. Resume diet. speech therapy following. Pt states she is due for another dilation, pt tod that she would need follow up with her GI doctor to schedule
- OP GI f/u [place]
Volume depletion/VIKTOR - resolved with IV fluids.
mild acute HFpEF, possibly iatrogenic volume overload
BUN/Creat: 14/0.8--> 26/1.1--> 39/1.2
- resumed oral Lasix with improvement, will decrease dose to 20 mg with rising Cr.
- echo: LV ejection fraction is 65-70%. No regional wall motion abnormalities are seen. Normal right ventricular size and function. Mild aortic regurgitation. Mild tricuspid regurgitation. Estimated pulmonary artery pressure of 20-25 mmHg.
Chronic normocytic anemia
- stable.
COPD *with* acute exacerbation/chronic hypoxic respiratory failure -stable. Resume inhalers. On chronic home oxygen 3 L [id number].
Underlying ILD
- CXR with subtle increased reticulonodular opacities in the left mid to lower lung and the right lower lung, new since previous examination, suspicious for pneumonia.
- continue Levaquin 750mg daily, day 4/5.
- prn nebs
- started IV steroids 08/21 with worsening respiratory distress; follow pulmonary recs, now on oral Prednisone
will repeat CXR
rheumatoid arthritis
Scleroderma/crest syndrome
IBS
Fibromyalgia
Major depression
Chronic pain syndrome/chronic opiate dependence - fentanyl patch on hold given presentation with sedation, encephalopathy. Oxycodone as needed to continue. Resume fentanyl patch today.
GERD
Hyperlipidemia
moderate protein calorie malnutrition of chronic illness
Full code
Anticipated Discharge: 24 - 48 hours
Subjective/Interval History
-
Date of Service: August 25, 2023
Awake, alert, conversant
Objective Data
-
Labs:
Laboratory Results
08/25/23 08/25/23
06:18 06:22
WBC 7.3
Hgb 11.1 L
Hct 34.6 L
Plt Count 228
HCO3 26.4
Sodium 135
Potassium 3.8
Chloride 103
Carbon Dioxide 26
BUN 39 H
Creatinine 1.2 H
Glucose 98
Calcium 10.1
Vital Signs:
Vital Signs
Temp Pulse Resp BP Pulse Ox
98.3 F 86 16 148/62 94
08/25/23 07:44 08/25/23 07:51 08/25/23 07:51 08/25/23 07:46 08/25/23 07:51
I&O
08/24/23 08/25/23 08/26/23
06:59 06:59 06:59
Intake Total 840 / 840 540 / 540
Output Total 600 / 600
Balance 240 / 240 540 / 540
Review of Systems
-
History Source: Patient and Coordinated Provider
Constitutional: Denies Fever
EENT: Reports No Symptoms Reported
Respiratory: Reports Cough
Cardiac: Reports No Symptoms; Denies Chest Pain
Genitourinary: Reports No Symptoms
Physical Exam
-
General: Well Developed, Well Nourished, No Apparent Distress and Appears Chronically Ill
HEENT: Normocephalic, Atraumatic and Moist Mucous Membranes
Respiratory: Rales (left lower lung)
Cardiac: Regular Rhythm, S1/S2 and Murmur (2/6sem)
Neuro: Awake, Alert and Oriented
[2023-08-25] MEDS: DURAGESIC 25 MCG/HR PATCH 1 PATCH TRANSDERM (12:46)
[2023-08-25] MEDS: DESYREL 200 MG PO (22:31)
[2023-08-26 03:55] VITALS: PULSE 2
[2023-08-26 06:00] VITALS: BMI 21.1
[2023-08-26 07:33] VITALS: BP 100/58
[2023-08-26] MEDS: SYMBICORT 160/4.5 MCG INHALER 2 PUFF INH ×2 (08:10→18:12)
[2023-08-26] MEDS: DUONEB 3 ML INH ×2 (08:10→18:11)
[2023-08-26] MEDS: CELEXA 40 MG PO (08:40)
[2023-08-26] MEDS: COLACE 100 MG PO ×2 (08:40→21:21)
[2023-08-26] MEDS: DELTASONE 40 MG PO (08:40)
[2023-08-26] MEDS: LIPITOR 10 MG PO (08:40)
[2023-08-26] MEDS: PROTONIX 40 MG PO (08:40)
[2023-08-26] MEDS: WELLBUTRIN XL (24 hour extended release) 300 MG PO (08:41)
[2023-08-26] MEDS: PEPCID 20 MG PO (08:41)
[2023-08-26] MEDS: ABILIFY 5 MG PO (08:41)
[2023-08-26] MEDS: HEPARIN 5000 UNITS SC ×2 (08:41→21:20)
[2023-08-26 09:33] VITALS: BP 137/57
--- NOTE | 2023-08-26 11:46 | W.PN.PUL3 ---
Today's Communication / Plan
-
Check ambulatory saturation on room air
Discontinue antibiotics
Will consult case management to see if home CPAP can be set up. If not, this can be done as outpatient
Aspiration precautions
Steroid wean as below
Disposition efforts
Assessment
-
Assessment: 72-year-old female former tobacco smoker (quit 07/2019) with moderate COPD with air trapping, hyperinflation and pulmonary cachexia, chronic hypoxic respiratory failure on home O2 at 3 L/min, mild restrictive lung defect, GERD without
esophagitis, history of scleroderma not on Biologics, history of aspiration pneumonia, IBD, history diverticulosis, colon polyps, fibromyalgia and depression who presents with generalized weakness. She was recently hospitalized at [facility] 1 day prior to arrival. When EMS arrived patient was hypotensive at 70/palp. Patient has fentanyl patch on and was given fluids by EMS. Vitals in the ER showed normotension to 115/50, afebrile to 98.2 �F, heart rate 80, RR: 16 and SpO2
96% on room air. Labs showed elevated creatinine to 1.6, serum bicarbonate 22 (baseline 26�28), with mild acute respiratory acidosis with ABG showin.26/48/69/96%, troponin negative x 1 at <0.012, urinalysis negative for UTI, with CXR showing
opacification at the right base with retrocardiac opacification concerning for multifocal pneumonia vs atelectasis. IVF with 1L NS 0.9% was given in the ER, and she was admitted to the hospitalist service and started on Levaquin. She also
apparently had a recent esophageal dilation at [facility]. On the evening of 08/21 she developed tachypnea with suspected COPD flare versus Sabiha, and was given Decadron and DuoNebs. Pulmonary now consulted for additional
management/recommendations.
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
oxygen at 3 L/min, pulmonary hypertension, history of scleroderma, GERD without esophagitis, history of aspiration, former tobacco use disorder (quit 07/2019), IBD, history of diverticulosis, colon polyps, fibromyalgia, depression, arthritis, history
of GI bleed, rectal prolapse
Impression:
#Tachypnea with acute on chronic respiratory failure with hypoxia -likely due to acute decompensated heart failure
#Acute pulmonary edema seen on CXR from 08/22/2023
#Moderate COPD with air trapping, hyperinflation on chronic prednisone and home oxygen at 3 L/min - On breo, Spiriva and BID nebulized albuterol at home
#History of pulmonary cachexia
#Chronic pulmonary aspiration
#Bibasilar linear scarring
#Acute on chronic anemia (Hb 9.4 on 08/20/2023 with baseline Hb 11�12.5 g/dL)
#History of of scleroderma
Plan/recommendations
At this time, patient continues to be objectively and subjectively improved
Chest x-ray 08/25 with improvement in pulm edema pattern when compared to 08/21 per my review
Echocardiogram from 08/23/2023 with normal biventricular function, normal pressures. No significant valvular disease
Negative fluid balance noted
Moving forward
At this time, patient appears to be subjectively improved with negative fluid status
Chest x-ray and exam improved
This suggests possible noncardiac etiology
Echocardiogram also without significant abnormality
Difficult to distinguish between volume overload and inflammatory process
Will continue with empiric steroids
Transitioned to oral prednisone today (08/24) --> wean by 10mg every 4th day until back to home dose (alternating between 10mg and 5mg every other day)
Continue inhaler regimen with Symbicort 160mcg + DuoNebs twice daily
Assess oxygen requirements prior to discharge with O2 assessment
Obtain medical records from recent hospitalization at [facility] - records obtained was just an AVS - no pertinent, helpful details on their except med list and dates of hospitalization, which was 08/09 - 08/18/2023
This can also be obtained as outpatient as patient follows up in the pulmonary clinic
Discontinue antibiotics
Aspiration precautions
Diet as per SOLUTION CONSULTANT
ABG reviewed from today showing mild respiratory + metabolic alkalosis
Continue PPI (home med)
DVT ppx: HSQ
GI prophylaxis: N/A
Ongoing disposition efforts
Data:
CXR 08-22-2023:
1. Mild acute interstitial cardiogenic pulmonary edema.
2. Mild cardiomegaly.
3. Severe calcific atherosclerotic plaque in the thoracic and abdominal aorta.
4. Mild scarring in the right lung apex, lingula, and left lower lobe.
TTE 02-13-2024:
Normal biventricular size and systolic function without regional wall motion
abnormality. Estimated LVEF 65-70%.
Mild/moderate eccentric aortic regurgitation.
Mild/moderate tricuspid regurgitation. Mildly elevated PASP. Estimated
pulmonary artery pressure of 42 mmHg.
Compared to 10/09/20: AR and TR have progressed from mild to mild/moderate.
PASP has increased from 37 mmHg to 42 mmHg.
Subjective Data
-
Date of Service:
Date of Service: August 26, 2023
Chief Complaint: Pulmonary Follow Up
Subjective:
Patient examined earlier this morning. She is feeling improved from a respiratory standpoint. Denies cough, chest pain, lightheadedness. She feels better since admission
Objective Data
Data Reviewed
Vital Signs / I&O / Oxygen:
Vital Signs
Temp Pulse Resp BP Pulse Ox
97.9 F 87 18 137/57 97
08/26/23 07:33 08/26/23 08:14 08/26/23 08:14 08/26/23 09:33 08/26/23 09:38
Intake and Output
08/25/23 08/26/23 08/27/23
06:59 06:59 06:59
Intake Total 540 / 540
Output Total 1050 / 1050
Balance 540 / 540 -1050 / -1050
SaO2 97
Nasal Cannula flow liters per 3
minute
Physical Exam
General: Comfortable and Other (Cachectic, mild kyphoscoliosis)
HEENT: Normocephalic and Anicteric
Cardiovascular: S1-S2, Murmur (2/6 systolic murmur), Rub (n), Peripheral Edema (n) and Calf Tenderness (n)
Respiratory: Wheeze (n), Crackles (Bibasilar), Rhonchi (n), Non-Labored Respirations and Other
GI: Soft, Non Distended and Non Tender
Neurology: Awake, Alert and No Motor Deficits (Able to sit up without assistance)
Skin: Good Color, Cyanosis (n) and Jaundice (n)
Labs/Micro/Reports
Lab Data
08/25/23 06:22
[2023-08-26 13:09] LABS: Blood Urea Nitrogen 31 mg/dl (7-17); Calcium 10.1 mg/dl (8.4-10.2); Carbon Dioxide 26 mmol/L (22-30); Chloride 105 mmol/L (98-107); Estimated Creatinine Clearance 35 ml/min; Glucose 82 mg/dl (70-99); Potassium 3.9 mmol/L (3.5-5.1); Sodium 137 mmol/L (135-145)
[2023-08-26] MEDS: ROXICODONE 5 MG PO (13:41)
--- NOTE | 2023-08-26 14:31 | W.PN.HOSP.TC ---
Today's Communication/Plan
-
stop Levaquin
Assessment / Plan
Assessment / Plan
Assessment:
Acute encephalopathy - likely due to volume depletion, VIKTOR. Opiates and sedatives likely contributing. Mental status appears to be back to baseline.
Severe chronic dysphagia -with recent esophageal dilation in [facility]. Discussed with Dr. Subramanian of GI, recommend this be followed up with her GI at [place] (Dr Alford)
- Apparently was discharged on pur�ed diet. continue pureed. speech therapy following. Pt states she is due for another dilation, pt told that she would need follow up with her GI doctor to schedule
- OP GI f/u [place]
Volume depletion/VIKTOR - resolved with IV fluids.
mild acute HFpEF, possibly iatrogenic volume overload
BUN/Creat: 14/0.8--> 26/1.1--> 39/1.2-->31/1.2
- resumed oral Lasix with improvement, decreased dose to 20 mg with rising Cr.
- echo: LV ejection fraction is 65-70%. No regional wall motion abnormalities are seen. Normal right ventricular size and function. Mild aortic regurgitation. Mild tricuspid regurgitation. Estimated pulmonary artery pressure of 20-25 mmHg.
Chronic normocytic anemia
- stable.
COPD *with* acute exacerbation/chronic hypoxic respiratory failure -stable. Resume inhalers. On chronic home oxygen 3 L [id number].
Underlying ILD
- CXR with subtle increased reticulonodular opacities in the left mid to lower lung and the right lower lung, new since previous examination, suspicious for pneumonia.
- completed Levaquin 750mg daily,
- prn nebs
- started IV steroids 08/21 with worsening respiratory distress; follow pulmonary recs, now on oral Prednisone
08/25 CXR: No evidence of congestive heart failure or pneumonia. Subtle band of linear atelectasis at the right lung base.
rheumatoid arthritis
Scleroderma/crest syndrome
IBS
Fibromyalgia
Major depression
Chronic pain syndrome/chronic opiate dependence - fentanyl patch on hold given presentation with sedation, encephalopathy. Oxycodone as needed to continue. Resume fentanyl patch today.
GERD
Hyperlipidemia
moderate protein calorie malnutrition of chronic illness
Full code
discussed with CM, will plan on dc tomorrow to SNF
Anticipated Discharge: Within 24 hours
Subjective/Interval History
-
Date of Service: August 26, 2023
Awake, alert, conversant
Objective Data
-
Labs:
Laboratory Results
08/26/23 08/26/23
10:30 11:49
Sodium Cancelled 137
Potassium Cancelled 3.9
Chloride Cancelled 105
Carbon Dioxide Cancelled 26
BUN Cancelled 31 H
Creatinine Cancelled 1.2 H
Glucose Cancelled 82
Calcium Cancelled 10.1
Vital Signs:
Vital Signs
Temp Pulse Resp BP Pulse Ox
97.9 F 87 18 137/57 97
08/26/23 07:33 08/26/23 08:14 08/26/23 08:14 08/26/23 09:33 08/26/23 09:38
I&O
08/25/23 08/26/23 08/27/23
06:59 06:59 06:59
Intake Total 540 / 540
Output Total 1050 / 1050
Balance 540 / 540 -1050 / -1050
Review of Systems
-
History Source: Patient and Coordinated Provider
Constitutional: Denies Fever
EENT: Reports No Symptoms Reported
Respiratory: Reports Cough
Cardiac: Reports No Symptoms; Denies Chest Pain
Genitourinary: Reports No Symptoms
Physical Exam
-
General: Well Developed, Well Nourished, No Apparent Distress and Appears Chronically Ill
HEENT: Normocephalic, Atraumatic and Moist Mucous Membranes
Respiratory: Negative Rales (left lower lung resolved)
Cardiac: Regular Rhythm, S1/S2 and Murmur (2/6sem)
Neuro: Awake, Alert and Oriented
[2023-08-26 15:13] VITALS: BP 130/57
[2023-08-26 15:26] VITALS: BP 130/57; BP 138/54; PULSE 87; O2SAT 97
[2023-08-26] MEDS: DESYREL 200 MG PO (21:20)
[2023-08-26 23:25] VITALS: BP 128/64
[2023-08-27 00:15] VITALS: PULSE 2; PULSE 76
[2023-08-27 06:00] VITALS: BMI 21.5
[2023-08-27] MEDS: HEPARIN 5000 UNITS SC ×2 (07:36→20:32)
[2023-08-27] MEDS: LIPITOR 10 MG PO (07:36)
[2023-08-27] MEDS: CELEXA 40 MG PO (07:36)
[2023-08-27] MEDS: DELTASONE 30 MG PO (07:37)
[2023-08-27 07:38] VITALS: BP 119/54
[2023-08-27] MEDS: PEPCID 20 MG PO (07:39)
[2023-08-27] MEDS: PROTONIX 40 MG PO (07:39)
[2023-08-27] MEDS: WELLBUTRIN XL (24 hour extended release) 300 MG PO (07:39)
[2023-08-27] MEDS: COLACE PO ×2 (07:39→20:23)
[2023-08-27] MEDS: ABILIFY 5 MG PO (07:41)
[2023-08-27] MEDS: SYMBICORT 160/4.5 MCG INHALER 2 PUFF INH ×2 (08:01→18:00)
[2023-08-27] MEDS: DUONEB 3 ML INH ×2 (08:05→18:00)
--- NOTE | 2023-08-27 10:17 | CM ---
PT Ot indictae SNF.
Spoke with [facility] wood room supervisor Zack Dyson .
Bed will be available tomorrow.
notified.
Zack Dyson
Report
report [phone]
fax [phone]
PLAN To Zack Dyson Monday
--- NOTE | 2023-08-27 11:31 | W.PN.HOSP.TC ---
Today's Communication/Plan
-
check BMP
continue taper of Prednisone
Assessment / Plan
Assessment / Plan
Assessment:
Acute encephalopathy - likely due to volume depletion, VIKTOR. Opiates and sedatives likely contributing. Mental status appears to be back to baseline. Resolved
Severe chronic dysphagia -with recent esophageal dilation in [facility]. Discussed with Dr. Subramanian of GI, recommend this be followed up with her GI at [place] (Dr Alford) who did her last dilation
- Apparently was discharged on pur�ed diet. continue pureed. speech therapy following. Pt states she is due for another dilation, pt told that she would need follow up with her GI doctor to schedule
- OP GI f/u [place]
Volume depletion/VIKTOR - resolved with IV fluids.
mild acute HFpEF, possibly iatrogenic volume overload
BUN/Creat: 14/0.8--> 26/1.1--> 39/1.2-->31/1.2
- resumed oral Lasix with improvement, decreased dose to 20 mg with rising Cr.
- echo: LV ejection fraction is 65-70%. No regional wall motion abnormalities are seen. Normal right ventricular size and function. Mild aortic regurgitation. Mild tricuspid regurgitation. Estimated pulmonary artery pressure of 20-25 mmHg.
Chronic normocytic anemia
- stable.
COPD *with* acute exacerbation/chronic hypoxic respiratory failure -stable. Resume inhalers. On chronic home oxygen 3 L [id number] SaO2 97%
Underlying ILD
- CXR with subtle increased reticulonodular opacities in the left mid to lower lung and the right lower lung, new since previous examination, suspicious for pneumonia.
- completed Levaquin 750mg daily,
- prn nebs
- started IV steroids 08/21 with worsening respiratory distress; follow pulmonary recs, now on oral Prednisone, now decreased to 30 mg daily, with continued improvement, continue to taper
08/25 CXR: No evidence of congestive heart failure or pneumonia. Subtle band of linear atelectasis at the right lung base.
rheumatoid arthritis
Scleroderma/crest syndrome
IBS
Fibromyalgia
Major depression
Chronic pain syndrome/chronic opiate dependence - fentanyl patch on hold given presentation with sedation, encephalopathy. Oxycodone as needed to continue. Resume fentanyl patch today.
GERD
Hyperlipidemia
moderate protein calorie malnutrition of chronic illness
Full code
discussed with WESLEY, will plan on dc tomorrow to [facility]
Discussed with WESLEY Quinteros. Zack Dyson unable to take today, will plan dc tomorrow. Recheck BMP prior to dc
Anticipated Discharge: Within 24 hours
Subjective/Interval History
-
Date of Service: August 27, 2023
Awake, alert, conversant
Objective Data
-
Vital Signs:
Vital Signs
Temp Pulse Resp BP Pulse Ox
98.5 F 89 18 119/54 97
08/27/23 07:38 08/27/23 08:06 08/27/23 08:06 08/27/23 07:38 08/27/23 08:06
I&O
08/26/23 08/27/23 08/28/23
06:59 06:59 06:59
Intake Total 1440 / 1440
Output Total 1050 / 1050
Balance -1050 / -1050 1440 / 1440
Review of Systems
-
History Source: Patient and Coordinated Provider
Constitutional: Denies Fever
EENT: Reports No Symptoms Reported
Respiratory: Reports No Symptoms; Denies Cough, Hemoptysis or Trouble Breathing
Cardiac: Reports No Symptoms; Denies Chest Pain
Abdomen/GI: Reports No Symptoms
Genitourinary: Reports No Symptoms
Musculoskeletal: Reports No Symptoms
Physical Exam
-
General: Well Developed, Well Nourished, No Apparent Distress and Appears Chronically Ill
HEENT: Normocephalic, Atraumatic and Moist Mucous Membranes
Respiratory: Clear to Auscultation; Negative Rales (left lower lung resolved)
Cardiac: Regular Rhythm, S1/S2 and Murmur (2/6sem)
Neuro: Awake, Alert and Oriented
[2023-08-27 15:31] VITALS: BP 134/59
--- NOTE | 2023-08-27 16:02 | W.PN.PUL3 ---
Today's Communication / Plan
-
Steroid taper as below
Outpatient follow-up in the sleep clinic to set up home CPAP
Patient will likely need SNF
Not sure she requires acetazolamide at discharge. Consider holding
Continue oxygen therapy
We will sign off. Please call with questions
Assessment
-
Assessment: 72-year-old female former tobacco smoker (quit 07/2019) with moderate COPD with air trapping, hyperinflation and pulmonary cachexia, chronic hypoxic respiratory failure on home O2 at 3 L/min, mild restrictive lung defect, GERD without
esophagitis, history of scleroderma not on Biologics, history of aspiration pneumonia, IBD, history diverticulosis, colon polyps, fibromyalgia and depression who presents with generalized weakness. She was recently hospitalized at [facility] 1 day prior to arrival. When EMS arrived patient was hypotensive at 70/palp. Patient has fentanyl patch on and was given fluids by EMS. Vitals in the ER showed normotension to 115/50, afebrile to 98.2 �F, heart rate 80, RR: 16 and SpO2
96% on room air. Labs showed elevated creatinine to 1.6, serum bicarbonate 22 (baseline 26�28), with mild acute respiratory acidosis with ABG showin.26/48/69/96%, troponin negative x 1 at <0.012, urinalysis negative for UTI, with CXR showing
opacification at the right base with retrocardiac opacification concerning for multifocal pneumonia vs atelectasis. IVF with 1L NS 0.9% was given in the ER, and she was admitted to the hospitalist service and started on Levaquin. She also
apparently had a recent esophageal dilation at [facility]. On the evening of 08/21 she developed tachypnea with suspected COPD flare versus Sabiha, and was given Decadron and DuoNebs. Pulmonary now consulted for additional
management/recommendations.
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
oxygen at 3 L/min, pulmonary hypertension, history of scleroderma, GERD without esophagitis, history of aspiration, former tobacco use disorder (quit 07/2019), IBD, history of diverticulosis, colon polyps, fibromyalgia, depression, arthritis, history
of GI bleed, rectal prolapse
Impression:
#Tachypnea with acute on chronic respiratory failure with hypoxia -likely due to acute decompensated heart failure
#Acute pulmonary edema seen on CXR from 08/22/2023
#Moderate COPD with air trapping, hyperinflation on chronic prednisone and home oxygen at 3 L/min - On breo, Spiriva and BID nebulized albuterol at home
#History of pulmonary cachexia
#Chronic pulmonary aspiration
#Bibasilar linear scarring
#Acute on chronic anemia (Hb 9.4 on 08/20/2023 with baseline Hb 11�12.5 g/dL)
#History of of scleroderma
Plan/recommendations
At this time, patient continues to be objectively and subjectively improved
Chest x-ray 08/25 with improvement in pulm edema pattern when compared to 08/21 per my review
Echocardiogram from 08/23/2023 with normal biventricular function, normal pressures. No significant valvular disease
Negative fluid balance noted
Difficult to distinguish between volume overload and inflammatory process
Transitioned to oral prednisone today (08/24) --> wean by 10mg every 4th day until back to home dose (alternating between 10mg and 5mg every other day)
Continue inhaler regimen with Symbicort 160mcg + DuoNebs twice daily
Assess oxygen requirements prior to discharge with O2 assessment
Obtain medical records from recent hospitalization at [facility] - records obtained was just an AVS - no pertinent, helpful details on their except med list and dates of hospitalization, which was 08/09 - 08/18/2023
This can also be obtained as outpatient as patient follows up in the pulmonary clinic
Discontinue antibiotics
Aspiration precautions
Diet as per TOBACCO HANGER
ABG reviewed from today showing mild respiratory + metabolic alkalosis
Continue PPI (home med)
Patient is interested in CPAP therapy at home. She will need to be seen in the office for this.
DVT ppx: HSQ
GI prophylaxis: N/A
Ongoing disposition efforts
We will sign off. Please call with questions
Data:
CXR 08-22-2023:
1. Mild acute interstitial cardiogenic pulmonary edema.
2. Mild cardiomegaly.
3. Severe calcific atherosclerotic plaque in the thoracic and abdominal aorta.
4. Mild scarring in the right lung apex, lingula, and left lower lobe.
TTE 02-13-2024:
Normal biventricular size and systolic function without regional wall motion
abnormality. Estimated LVEF 65-70%.
Mild/moderate eccentric aortic regurgitation.
Mild/moderate tricuspid regurgitation. Mildly elevated PASP. Estimated
pulmonary artery pressure of 42 mmHg.
Compared to 10/09/20: AR and TR have progressed from mild to mild/moderate.
PASP has increased from 37 mmHg to 42 mmHg.
Subjective Data
-
Date of Service:
Date of Service: August 27, 2023
Chief Complaint: Pulmonary Follow Up
Subjective:
Patient continues to improve subjectively. Denies chest pain, cough, shortness of breath at rest. Denies nausea, abdominal pain.
Objective Data
Data Reviewed
Vital Signs / I&O / Oxygen:
Vital Signs
Temp Pulse Resp BP Pulse Ox
97.9 F 78 16 134/59 97
08/27/23 15:31 08/27/23 15:31 08/27/23 15:31 08/27/23 15:31 08/27/23 15:31
Intake and Output
08/26/23 08/27/23 08/28/23
06:59 06:59 06:59
Intake Total 1440 / 1440
Output Total 1050 / 1050
Balance -1050 / -1050 1440 / 1440
SaO2 97
Nasal Cannula flow liters per 3
minute
Physical Exam
General: Comfortable and Other (Cachectic, mild kyphoscoliosis)
HEENT: Normocephalic and Anicteric
Cardiovascular: S1-S2, Murmur (2/6 systolic murmur), Rub (n), Peripheral Edema (n) and Calf Tenderness (n)
Respiratory: Wheeze (n), Crackles (Bibasilar), Rhonchi (n), Non-Labored Respirations and Other
GI: Soft, Non Distended and Non Tender
Neurology: Awake, Alert and No Motor Deficits (Able to sit up without assistance)
Skin: Good Color, Cyanosis (n) and Jaundice (n)
Labs/Micro/Reports
Lab Data
08/25/23 06:22
08/26/23 11:49
[2023-08-27] MEDS: DESYREL 200 MG PO (20:33)
[2023-08-27 23:20] VITALS: PULSE 118; PULSE 2
[2023-08-27 23:28] VITALS: BP 99/59
[2023-08-27 23:45] VITALS: BP 110/58
[2023-08-28 04:02] VITALS: PULSE 2
[2023-08-28 06:00] VITALS: BMI 21.1
[2023-08-28 07:00] VITALS: BP 130/51
[2023-08-28 07:39] LABS: Blood Urea Nitrogen 30 mg/dl (7-17); Calcium 9.7 mg/dl (8.4-10.2); Carbon Dioxide 32 mmol/L (22-30); Chloride 101 mmol/L (98-107); Estimated Creatinine Clearance 41 ml/min; Glucose 72 mg/dl (70-99); Potassium 3.8 mmol/L (3.5-5.1); Sodium 137 mmol/L (135-145); eGFR 59.49
[2023-08-28] MEDS: LIPITOR 10 MG PO (07:52)
[2023-08-28] MEDS: ABILIFY 5 MG PO (07:52)
[2023-08-28] MEDS: PROTONIX 40 MG PO (07:53)
[2023-08-28] MEDS: CELEXA 40 MG PO (07:53)
[2023-08-28] MEDS: PEPCID 20 MG PO (07:53)
[2023-08-28] MEDS: WELLBUTRIN XL (24 hour extended release) 300 MG PO (07:53)
[2023-08-28] MEDS: DELTASONE 30 MG PO (07:53)
[2023-08-28] MEDS: HEPARIN 5000 UNITS SC (07:54)
[2023-08-28] MEDS: SYMBICORT 160/4.5 MCG INHALER 2 PUFF INH (07:59)
[2023-08-28] MEDS: DUONEB 3 ML INH (07:59)
[2023-08-28] MEDS: COLACE PO (08:01)
--- NOTE | 2023-08-28 10:25 | W.PN.HOSP.TC ---
Today's Communication/Plan
-
dc
Assessment / Plan
Assessment / Plan
Physical Exam
-
General: Appears Chronically Ill, not in acute distress
HEENT: Normocephalic
Respiratory: Decreased Breath Sounds
Cardiac: Regular Rhythm
GI: Soft, non tender
MSK: no leg edema
Neuro: Awake, Alert and Oriented, she followed commands.
Psych: calm
Assessment:
# Toxic metabolic encephalopathy
Acute encephalopathy - likely due to volume depletion, VIKTOR. Opiates and sedatives likely contributing. Mental status appears to be back to baseline. Resolved
Severe chronic dysphagia -with recent esophageal dilation in [facility]. Discussed with Dr. Subramanian of GI, recommend this be followed up with her GI at [facility] (Dr Alford) who did her last dilation
- Apparently was discharged on pur�ed diet. continue pureed. speech therapy following. Pt states she is due for another dilation, pt told that she would need follow up with her GI doctor to schedule
- OP GI f/u [facility]
Volume depletion/VIKTOR - resolved with IV fluids.
mild acute HFpEF, possibly iatrogenic volume overload
BUN/Creat: 14/0.8--> 26/1.1--> 39/1.2-->31/1.2
- resumed oral Lasix with improvement, decreased dose to 20 mg with rising Cr.
- echo: LV ejection fraction is 65-70%. No regional wall motion abnormalities are seen. Normal right ventricular size and function. Mild aortic regurgitation. Mild tricuspid regurgitation. Estimated pulmonary artery pressure of 20-25 mmHg.
Chronic normocytic anemia
- stable.
COPD *with* acute exacerbation/chronic hypoxic respiratory failure -stable. Resume inhalers. On chronic home oxygen 3 L [id number] SaO2 97%
Underlying ILD
- CXR with subtle increased reticulonodular opacities in the left mid to lower lung and the right lower lung, new since previous examination, suspicious for pneumonia.
- completed Levaquin 750mg daily,
- prn nebs
- I d/w pulmonary regarding Diamox whether to dc or not. Dr Romeo is on today, he recommended to repeat venous Blood gases, will follow
- started IV steroids 08/21 with worsening respiratory distress; follow pulmonary recs, now on oral Prednisone, now decreased to 30 mg daily, with continued improvement, continue to taper
08/25 CXR: No evidence of congestive heart failure or pneumonia. Subtle band of linear atelectasis at the right lung base.
rheumatoid arthritis
Scleroderma/crest syndrome
IBS
Fibromyalgia
Major depression
Chronic pain syndrome/chronic opiate dependence - fentanyl patch on hold given presentation with sedation, encephalopathy. Oxycodone as needed to continue. Resume fentanyl patch today.
GERD
Hyperlipidemia
moderate protein calorie malnutrition of chronic illness
Full code
Total discharge time spent to see the patient, examine the patient, review data and lab results, and discuss the discharge plan with patient, nurse around 65 minutes
Anticipated Discharge: Today
Subjective/Interval History
-
Date of Service: August 28, 2023
No complaints
No chest pain or sob
Objective Data
-
Labs:
Laboratory Results
08/28/23
06:30
Sodium 137
Potassium 3.8
Chloride 101
Carbon Dioxide 32 H
BUN 30 H
Creatinine 1.0
Glucose 72
Calcium 9.7
Vital Signs:
Vital Signs
Temp Pulse Resp BP Pulse Ox
98.2 F 70 18 130/51 100
08/28/23 07:00 08/28/23 08:05 08/28/23 08:05 08/28/23 07:00 08/28/23 08:05
I&O
08/27/23 08/28/23 08/29/23
06:59 06:59 06:59
Intake Total 1440 / 1440 1260 / 1260
Balance 1440 / 1440 1260 / 1260
[2023-08-28 10:54] LABS: Venous Blood Gas B.E. 5.1 mmol/L (-4 to +4); Venous Blood Gas HCO3 32.7 mmol/L (22-27); Venous Blood Gas O2 Sat % 88.2 %; Venous Blood Gas pCO2 62 mmHg (35-48); Venous Blood Gas pH 7.33 (7.32-7.43); Venous Blood Gas pO2 55 mmHg (30-50)
[2023-08-28 12:16] VITALS: BP 129/49; BP 132/64; PULSE 85; O2SAT 97
--- NOTE | 2023-08-28 13:15 | CM ---
Addendum entered by JU Lopez 08/28/23 13:38:
Patient stated that her daughter will pick her up and take her to [facility]. [facility] coordinator updated.
Original Note:
Reviewed chart, spoke with attending who stated that patient is medically cleared to be discharged. Spoke with Alba in admissions at [facility] who confirmed bed availability for patient.
#For report [phone] and fax [phone].
Provided transfer sheet and medical necessity for patient to transfer.
Will update Alba in admissions with time of p/u.
Will review IMM with patient and put on chart.
Plan: Case management will continue to follow and assist with discharge planning. [facility] transfer today.
[2023-08-28] MEDS: DURAGESIC 25 MCG/HR PATCH 1 PATCH TRANSDERM (13:38)
--- NOTE | 2023-08-28 14:45 | W.DCSUMMARY ---
Discharge Summary
Discharge Data
Date of Admission: 08/19/23
Date of Discharge: 08/28/23
-
Pending Results: No
Hospital Course
72 years old female was sent to the emergency room for increasing lethargy. Patient was found to have toxic metabolic encephalopathy secondary to dehydration, acute kidney injury. She was also found to have elevation in partial fracture of CO2.
Patient was diagnosed with encephalopathy secondary to dehydration with possibility of sedative/narcotic induced encephalopathy. Diuretic therapy was held. Patient received intravenous fluid. She was given nebulizer treatment. Patient was
diagnosed with mild acute chronic obstructive pulmonary disease exacerbation. She was evaluated by pulmonary doctor. She received nebulizer treatment with empiric course of levofloxacin for subtle increase in opacity in the left mid and lower
lung, right lower lung which was new from a previous chest radiography.. Her mentation improved. She was diagnosed with mild acute heart failure with preserved ejection fraction after receiving intravenous fluid. Echocardiogram showed left
ventricular ejection fraction 65 - 70% with no regional wall motion abnormalities. She had mild aortic regurgitation, mild tricuspid regurgitation with estimated pulmonary artery pressure of 20 -o 25 mmHg and normal right ventricular size and
function. Patient had history of chronic dysphagia. She was maintained on pur�ed diet. Patient remained hemodynamically stable. She was discharged to nursing home facility in a stable condition.
Discharge Plan
-
Patient Disposition: Skilled Nursing/SNF
Discharge Diagnosis/Procedures: Acute on chronic respiratory failure with hypoxia and hypercapnia
Acute heart failure with preserved ejection fraction
Moderate chronic obstructive pulmonary disease with air trapping, hyperinflation on chronic prednisone and home oxygen at 3 L/min.
Continue with the prednisone 20 mg for 3 doses then resume home dose of 10/5 mg alternating days.
Chronic pulmonary aspiration
History of dysphagia
History of pulmonary cachexia
Bibasilar linear scarring of both lungs
Acute on chronic anemia
History of scleroderma/crest syndrome/rheumatoid arthritis
Fibromyalgia/chronic pain syndrome with opioid dependency
Acute kidney injury
Additional Diets: Continue with a pur�ed diet
Referrals:
Venutra Garcia MD [Active] - in two to four weeks
([employer] or physician
Set up home CPAP (tolerated in hospital and helped resp sxs))
UNKNOWN - PT DOES,NOT KNOW [Family Provider] -
Prescriptions:
New
prednisone 10 mg tablet
10 mg PO Q OTHER DAY Qty: 10 0RF
Rx Instructions:
Start this dose on 09/01/23
prednisone 5 mg tablet
5 mg PO Q OTHER DAY Qty: 10 0RF
Rx Instructions:
Start this dose on 09/01
prednisone 20 mg tablet
20 mg PO DAILY Qty: 3 0RF
Continued
citalopram 20 MG tablet
40 mg PO DAILY
famotidine 40 MG tablet
40 mg PO HS
valsartan 80 MG tablet
160 mg PO DAILY
trazodone 100 MG tablet
200 mg PO HS
baclofen 10 MG tablet
10 mg PO BID
vitamin B complex 1 TAB tablet
1 tab PO DAILY
aripiprazole 5 MG tablet
5 mg PO DAILY
Focus Factor
2 cap PO DAILY
Hair,Skin and Nails Tablet
2 tab PO DAILY
bupropion HCl 300 mg tablet extended release 24 hr
300 mg PO DAILY
budesonide-formoterol [Symbicort] 160-4.5 mcg/actuation HFA aerosol inhaler
2 puff INHALATION R BID
cholecalciferol (vitamin D3) [Vitamin D3] 125 mcg (5,000 unit) Tablet
125 mcg PO DAILY
furosemide 40 mg Tablet
40 mg PO DAILY
atorvastatin 10 mg Tablet
10 mg PO DAILY
therapeutic multivitamin Tablet
1 tab PO DAILY
omeprazole 40 mg Capsule,Delayed Release(Dr/Ec)
40 mg PO DAILY
TheraTears 0.25 % Drops
1 drp BOTH EYES BID
albuterol sulfate [Ventolin HFA] 90 mcg/actuation Hfa Aerosol Inhaler
2 puff INHALATION R Q6HPRN PRN (Reason: sob)
Spiriva Respimat 2.5 mcg/actuation Mist
2 puff INHALATION R DAILY
fluticasone furoate-vilanterol [Breo Ellipta] 100-25 mcg/dose Blister With Device
1 inh INHALATION R DAILY
budesonide 0.5 mg/2 mL suspension for nebulization
0.5 mg inhalation R TID
Patient Comments:
07/03/2023, pt. states to take this med. TID but on [facility] this med. is listed as BIDPRN as of 06/14/2023.
docusate sodium 100 mg Capsule
100 mg PO BID Qty: 0 0RF
guaifenesin 600 mg Tablet Extended Release 12hr
600 mg PO Q12 Qty: 0 0RF
fentanyl 25 mcg/hr Patch 72 Hour
1 patch TRANSDERMAL Q72H 3 Days Qty: 1 0RF
oxycodone 5 MG tablet
5 mg PO BID Qty: 6 0RF
Discontinued
turmeric
2 cap PO DAILY
prednisone 50 mg Tablet
50 mg PO DAILY Qty: 0 0RF
acetazolamide 250 mg Tablet
250 mg PO BID Qty: 1 0RF
Discharge Orders:
Discharge Patient (As Directed); Ordered 08/28/23
Ordered By: Lola Landa
Discharge Date and Time
Print Language: JAPANESE
[2023-08-28 15:00] VITALS: BP 139/56
== END 2023-08-28 18:49 | DRG 682 ==
LOC: 3 WEST ACU 23:27
PROVIDERS: Hospitalist; Internal Medicine; Internal Medicine Critical Care Medicine; ADMITTING PHYSICIAN Hospitalist; ATTENDING PHYSICIAN Internal Medicine; CONSULT PHYSICIAN Internal Medicine Critical Care Medicine; EMERGENCY PHYSICIAN Student in an Organized Health Care Education/Training Program
DX: N17.9 Acute kidney failure, unspecified (principal); G92.8 Other toxic encephalopathy; I50.31 Acute diastolic (congestive) heart failure; J96.22 Acute and chronic respiratory failure with hypercapnia; J96.21 Acute and chronic respiratory failure with hypoxia; J44.1 Chronic obstructive pulmonary disease with (acute) exacerbation; F11.20 Opioid dependence, uncomplicated; J84.9 Interstitial pulmonary disease, unspecified; R64 Cachexia; E44.0 Moderate protein-calorie malnutrition; I13.0 Hypertensive heart and chronic kidney disease with heart failure and stage 1 through stage 4 chronic kidney disease, or unspecified chronic kidney disease; Z87.891 Personal history of nicotine dependence; M79.7 Fibromyalgia; M34.9 Systemic sclerosis, unspecified; Z68.21 Body mass index [BMI] 21.0-21.9, adult
CPT/HCPCS: 36600; 70450; 71045; 71046; 80048; 80053; 81003; 82805; 83735; 83880; 84443; 84484; 85025; 85027; 92526; 92610; 93005; 93306; 94640; 94660; 97116; 97162; 97166; 97530; 97535; 99291

== ENCOUNTER → 2023-08-30 11:45 | Outpatient (REF) | payer MEDICARE, BC, SELFPAY ==
[2023-08-30 13:51] LABS: Blood Urea Nitrogen 29 mg/dl (7-17); Calcium 9.9 mg/dl (8.4-10.2); Carbon Dioxide 34 mmol/L (22-30); Chloride 94 mmol/L (98-107); Glucose 70 mg/dl (70-99); Potassium 4.1 mmol/L (3.5-5.1); Sodium 133 mmol/L (135-145); eGFR 53.06
== END ==
LOC: OLABP 11:45
PROVIDERS: ATTENDING PHYSICIAN Family Medicine
DX: N17.9 Acute kidney failure, unspecified (principal); J94.9 Pleural condition, unspecified; M79.7 Fibromyalgia; K22.70 Barrett's esophagus without dysplasia; M06.9 Rheumatoid arthritis, unspecified
CPT/HCPCS: 36415; 80048

== ENCOUNTER → 2023-09-05 12:39 | Outpatient (REF) | payer OTHER, MEDICARE, BC, SELFPAY ==
[2023-09-05 14:08] LABS: % Basophils 0.7 % (0-2); % Eosinophils 6.4 % (0-6); % Immature Granulocytes 0.9 % (0-0.5); % Lymphocytes 18.9 % (20.5-51.1); % Monocytes 13.2 % (1.7-9.3); % Neutrophils 59.9 % (42.2-75.2); Absolute Eosinophils 0.4 10^3/uL (0-0.7); Absolute Immature Granulocytes 0.1 10^3/uL (0-0.05); Absolute Lymphocytes 1.1 10^3/uL (1.2-3.4); Absolute Monocytes 0.8 10^3/uL (0.1-0.6); Absolute Neutrophils 3.5 10^3/uL (1.4-6.5); Hematocrit 29.5 % (37.0-47.0); Hemoglobin 9.8 g/dL (12.0-16.0); Mean Corp Hgb Conc. 33.2 g/dL (33.0-37.0); Mean Corpuscular Hgb 32.5 pg (27.0-31.0); Mean Corpuscular Volume 97.7 fL (81.0-99.0); Mean Platelet Volume 10.2 fL (7.4-10.4); Nucleated Red Blood Cells % 0 %; Platelet Count 137 10^3/uL (130-400); Red Blood Cell Count 3.02 10^6/uL (4.20-5.40); Red Cell Dist. Width 13.8 % (11.5-14.5); White Blood Cell Count 5.8 10^3/uL (4.8-10.8)
[2023-09-05 14:31] LABS: Blood Urea Nitrogen 21 mg/dl (7-17); Calcium 9.2 mg/dl (8.4-10.2); Carbon Dioxide 31 mmol/L (22-30); Chloride 96 mmol/L (98-107); Glucose 79 mg/dl (70-99); Potassium 3.9 mmol/L (3.5-5.1); Sodium 132 mmol/L (135-145); eGFR 59.49
== END ==
LOC: OLABP 12:39
PROVIDERS: ATTENDING PHYSICIAN Family Medicine
DX: M17.9 Osteoarthritis of knee, unspecified (principal); J44.9 Chronic obstructive pulmonary disease, unspecified; M79.7 Fibromyalgia; K22.70 Barrett's esophagus without dysplasia; M06.9 Rheumatoid arthritis, unspecified
CPT/HCPCS: 36415; 80048; 85025

== ENCOUNTER 2023-10-08 23:37 | Inpatient (IN) | payer MEDICARE, BC, SELFPAY ==
[2023-10-08] VITALS (13 sets, daily range): BP systolic 78–122; BP diastolic 43–57; BMI 23.9
[2023-10-08 19:53] LABS: % Basophils 0.7 % (0-2); % Eosinophils 2.4 % (0-6); % Immature Granulocytes 0.5 % (0-0.5); % Lymphocytes 10.5 % (20.5-51.1); % Monocytes 4.7 % (1.7-9.3); % Neutrophils 81.2 % (42.2-75.2); Absolute Basophils 0.1 10^3/uL (0-0.2); Absolute Eosinophils 0.2 10^3/uL (0-0.7); Absolute Lymphocytes 0.9 10^3/uL (1.2-3.4); Absolute Monocytes 0.4 10^3/uL (0.1-0.6); Absolute Neutrophils 6.7 10^3/uL (1.4-6.5); Hematocrit 34.2 % (37.0-47.0); Hemoglobin 11.5 g/dL (12.0-16.0); Mean Corp Hgb Conc. 33.6 g/dL (33.0-37.0); Mean Corpuscular Hgb 31.3 pg (27.0-31.0); Mean Corpuscular Volume 93.2 fL (81.0-99.0); Mean Platelet Volume 9.1 fL (7.4-10.4); Nucleated Red Blood Cells % 0 %; Platelet Count 210 10^3/uL (130-400); Red Blood Cell Count 3.67 10^6/uL (4.20-5.40); Red Cell Dist. Width 13.5 % (11.5-14.5); White Blood Cell Count 8.2 10^3/uL (4.8-10.8)
[2023-10-08 20:10] LABS: ALT (SGPT) 15 U/L (0-35); AST (SGOT) 25 U/L (14-36); Albumin 4.4 g/dl (3.5-5.0); Alkaline Phosphatase 67 U/L (38-126); Blood Urea Nitrogen 51 mg/dl (7-17); Calcium 10.4 mg/dl (8.4-10.2); Carbon Dioxide 19 mmol/L (22-30); Chloride 105 mmol/L (98-107); Glucose 98 mg/dl (70-99); Potassium 3.8 mmol/L (3.5-5.1); Sodium 138 mmol/L (135-145); Total Bilirubin 0.5 mg/dl (0.2-1.3); Total Protein 6.3 g/dl (6.3-8.2); eGFR 17.29
[2023-10-08 20:20] LABS: NT-proBNP 228 pg/ml
[2023-10-08 20:43] LABS: Venous Blood Gas B.E. -7.4 mmol/L (-4 to +4); Venous Blood Gas O2 Sat % 99.3 %; Venous Blood Gas pCO2 35 mmHg (35-48); Venous Blood Gas pH 7.32 (7.32-7.43); Venous Blood Gas pO2 165 mmHg (30-50)
[2023-10-08 20:44] LABS: Venous Blood Gas O2 Therapy 2L
[2023-10-08 21:04] LABS: Urine Albumin Trace (Neg - Trace); Urine Bilirubin 1+ (Negative); Urine Character Clear (Clear); Urine Color Yellow; Urine Glucose Negative (Negative); Urine Ketone Negative (Negative); Urine Leukocyte Negative (Negative); Urine Nitrite Negative (Negative); Urine Occult Blood Negative (Negative); Urine Urobilinogen Negative (Neg - 1+)
[2023-10-08] MEDS: NSS 500 IV ×2 (21:11→21:56)
--- NOTE | 2023-10-08 22:33 | ED.GENMED ---
History of Present Illness
General
Chief Complaint: Change Level of Consciousness
Source: patient and family
Exam Limitations: clinical condition
Time Seen by Provider: 10/08/23 20:26
History of Present Illness
History of Present Illness:
72-year-old female with a history of COPD, scleroderma, Raynaud's on chronic pain medication who presents with altered mentation. Family states that she has been like this for the last several days but today seems a little worse. She has been in
and out of the hospital recently both here and at [place]. She has a history of hypercapnia, UTI and overmedication at times. Patient is in charge of her own medications her family is not sure exactly how many pain medication she may have taken.
Of note she was here back in August for similar complaints
Past History
Past History
ED Past Medical History: COPD, Fibromyalgia, GERD and Other (Rheumatoid arthritis, scleroderma, pneumonia, renal, bowel obstruction, IBS, anemia, chronic constipation, rectal prolapse, Upper Gi bleeding, Raynaud's disease)
ED Past Surgical History: Appendectomy, Bowel resection (due to perforation), Cholecystectomy, Gynecological (Hysterectomy) and Other ( breast lumpectomy)
Social History
Tobacco: Former smoker
Alcohol: None
Drug: None
Personal:
Living: alone
Employment: Not employed
Family History
Family History: Unable to obtain
Phy Exam
Physical Exam
Physical Exam:
CONSTITUTIONAL Patient somnolent but is arousable to pain and voice. Vital signs reviewed.
HEAD atraumatic, normocephalic.
EYES eyelids normal to inspection, Pupils equally round and reactive to light, Extraocular muscles intact, Conjunctiva normal, Sclera normal.
NECK normal range of motion, Trachea midline, no jugular venous distention.
RESPIRATORY CHEST No respiratory distress noted, Chest expansion equal, Bilateral breath sounds clear.
CARDIOVASCULAR regular rate and rhythm, Heart sounds normal.
ABDOMEN No distention.
UPPER EXTREMITY range of motion normal, Motor strength normal, no cyanosis, no edema.
LOWER EXTREMITY range of motion normal, Motor strength normal, no cyanosis, no edema.
NEURO no obvious focal deficits but poorly follows commands. Does localize pain.
SKIN skin warm, dry, and normal in color.
Course
Orders/Labs/Results
Orders:
Orders
10/08/23 19:44
CBC/With Diff [Complete Blood Count/With Diff] Urgent
CMP [Comprehensive Metabolic Panel] Urgent
Pro-BNP [NT-proBNP] Urgent
10/08/23 20:36
Straight cath- Treatment ONCE
10/08/23 20:37
Venous Blood Gas Urgent
%Oxygen/Room Air: 2L
10/08/23 20:45
Urinalysis Reflex To Culture Urgent
Date Specimen was Collected: 10/08/23
Time Specimen was Collected: 20:36
10/08/23 21:10
0.9% Sodium Chloride 500 ml [Nss] 500 ml IV BOLUS
10/08/23 21:50
0.9% Sodium Chloride 500 ml [Nss] 500 ml IV BOLUS
Abnormal Lab Results
10/08/23 10/08/23 10/08/23
19:44 20:37 20:45
RBC 3.67 L 10^6/uL
(4.20-5.40)
Hgb 11.5 L g/dL
(12.0-16.0)
Hct 34.2 L %
(37.0-47.0)
MCH 31.3 H pg
(27.0-31.0)
Absolute Neuts (auto) 6.7 H 10^3/uL
(1.4-6.5)
Absolute Lymphs (auto) 0.9 L 10^3/uL
(1.2-3.4)
Neutrophils % 81.2 H %
(42.2-75.2)
Lymphocytes % 10.5 L %
(20.5-51.1)
VBG pO2 165 H mmHg
(30-50)
VBG HCO3 18.0 L mmol/L
(22-27)
Carbon Dioxide 19 L mmol/L
(22-30)
BUN 51 H mg/dl
(7-17)
Creatinine 2.8 H mg/dL
(0.6-1.0)
Calcium 10.4 H mg/dl
(8.4-10.2)
Urine Bilirubin 1+ A
(Negative)
10/08/23 19:44
10/08/23 19:44
Vital Signs
Initial and Last Documented VS:
Initial Vital Signs
Temp Pulse Resp BP Pulse Ox
98.2 F 89 18 101/57 97
10/08/23 19:26 10/08/23 19:26 10/08/23 19:26 10/08/23 19:26 10/08/23 19:26
Last Documented Vital Signs
Temp Pulse Resp BP Pulse Ox
98.0 F 73 24 99/47 100
10/08/23 20:49 10/08/23 22:20 10/08/23 22:20 10/08/23 22:20 10/08/23 22:20
MDM/Problems Addressed
MDM/Problems Addressed:
Acute kidney injury, metabolic cephalopathy, narcotic use
*Pulse Oximetry
Patient hypoxic: no
*[employer] Interpretation
Rate: normal
Interpretation: normal
Rhythm: sinus
*Critical Care Note
Total Time (30-74mins, 75-104mins- exclusive of procedures): 40 minutes
Data Reviewed
Review of Other/Old Records Reveals: Labs and Discharge Summary (Discharge summary reviewed from August 28, 2023 similar presentation)
Source: family
Prescriptions/Medications Considered But Not Given:
Considered Narcan but not hypoxic and no bradypnea
Patient Management
Discussion with other providers: Hospitalist
Escalation/DeEscalation of care consider admission/obs:
Patient with similar presentation to August 27. Suspect related to acute kidney injury and metabolic cephalopathy complicated by chronic narcotic use. Check CT head but anticipate admission
ED Attending Note
-
Portions of this chart may have been created with voice recognition software.� Occasional wrong word or��sound alike� substitutions may have occurred due to the inherent limitations of voice recognition software.
Discharge Plan
Departure
Patient Disposition: Admit
Date of Disposition: 10/08/23
Time of Disposition: 22:38
Admit to: Telemetry
Presentation/result/management discussed w/ accepting MD/DO: Hospitalist
Discharge Problem:
Acute kidney injury, Acute metabolic encephalopathy, Narcotic dependence
Prescriptions:
No Action
citalopram 20 MG tablet
40 mg PO DAILY
famotidine 40 MG tablet
40 mg PO HS
valsartan 80 MG tablet
160 mg PO DAILY
trazodone 100 MG tablet
200 mg PO HS
baclofen 10 MG tablet
10 mg PO BID
vitamin B complex 1 TAB tablet
1 tab PO DAILY
aripiprazole 5 MG tablet
5 mg PO DAILY
Focus Factor
2 cap PO DAILY
Hair,Skin and Nails Tablet
2 tab PO DAILY
bupropion HCl 300 mg tablet extended release 24 hr
300 mg PO DAILY
budesonide-formoterol [Symbicort] 160-4.5 mcg/actuation HFA aerosol inhaler
2 puff INHALATION R BID
cholecalciferol (vitamin D3) [Vitamin D3] 125 mcg (5,000 unit) Tablet
125 mcg PO DAILY
furosemide 40 mg Tablet
40 mg PO DAILY
atorvastatin 10 mg Tablet
10 mg PO DAILY
therapeutic multivitamin Tablet
1 tab PO DAILY
omeprazole 40 mg Capsule,Delayed Release(Dr/Ec)
40 mg PO DAILY
TheraTears 0.25 % Drops
1 drp BOTH EYES BID
albuterol sulfate [Ventolin HFA] 90 mcg/actuation Hfa Aerosol Inhaler
2 puff INHALATION R Q6HPRN PRN (Reason: sob)
Spiriva Respimat 2.5 mcg/actuation Mist
2 puff INHALATION R DAILY
fluticasone furoate-vilanterol [Breo Ellipta] 100-25 mcg/dose Blister With Device
1 inh INHALATION R DAILY
budesonide 0.5 mg/2 mL suspension for nebulization
0.5 mg inhalation R TID
Patient Comments:
07/03/2023, pt. states to take this med. TID but on [facility] this med. is listed as BIDPRN as of 06/14/2023.
docusate sodium 100 mg Capsule
100 mg PO BID Qty: 0 0RF
guaifenesin 600 mg Tablet Extended Release 12hr
600 mg PO Q12 Qty: 0 0RF
fentanyl 25 mcg/hr Patch 72 Hour
1 patch TRANSDERMAL Q72H 3 Days Qty: 1 0RF
oxycodone 5 MG tablet
5 mg PO BID Qty: 6 0RF
prednisone 10 mg tablet
10 mg PO Q OTHER DAY Qty: 10 0RF
Rx Instructions:
Start this dose on 09/01/23
prednisone 5 mg tablet
5 mg PO Q OTHER DAY Qty: 10 0RF
Rx Instructions:
Start this dose on 09/01
prednisone 20 mg tablet
20 mg PO DAILY Qty: 3 0RF
Referrals:
UNKNOWN - PT DOES,NOT KNOW [Family Provider] -
Interventions
Interventions:
*Risk Screen - Suicide Last Done: 10/08/23 21:30
*General Assessment Last Done: 10/08/23 21:30
*Neglect/Abuse Screening Last Done: 10/08/23 21:30
*ED COVID-19 Vaccine History Last Done: 10/08/23 21:30
ED- Cardiac Assessment Last Done: 10/08/23 21:21
ED- Neurological Assessment Last Done: 10/08/23 21:21
ED- Pulmonary Assessment Last Done: 10/08/23 21:21
Discharge Date and Time
Print Language: SETSWANA
--- NOTE | 2023-10-08 23:15 | HPS.HSE ---
Family Physician
-
Family Physician: NOT KNOW UNKNOWN - PT DOES
Chief Complaint
-
AMS
History of Present Illness
I could not get any information from the patient as she is lethargic
Information gathered by chart review and speaking with the ER staff.
HPI
72F with scleroderma HX Home NC O2 3 l ,chr prednisone dependent chronic Hypoxic RF, Chr ILDz, COPD, chronic narcotic depedent pain syndrome seeen at DR for evalaution of AMS;
- very similar presentation from last admissions for UTI, overmedication, hypercapnic RF
- onset of AMS with worsening lethargy
Medical History
Past Medical History
Past Medical History: Reports Other
Additional Past Medical History:
Chronic Hypoxemic Respiratory Failure (3 lpm at home)
COPD
Interstitial Lung Disease
Hypertension
CKD Stage IIIA
Hyperlipidemia
Fibromyalgia
Rheumatoid Arthritis
Scleroderma / CREST Syndrome
Irritable Bowel Syndrome
Major Depressive Disorder
Chronic Pain with Opioid Dependence
GERD
Chronic Dysphagia
Past Surgical History: Reports Other
Additional Past Surgical History:
Appendectomy
Bowel Resection
Cholecystectomy
Hysterectomy
Breast Lumpectomy
EGD with Dilation (multiple)
Social History
Tobacco: Former Smoker
Alcohol: None
Drug: None
Personal:
Living: With Family (In-Law Suite)
Family History
Family History: Not pertinent
Allergies / Home Medications
Allergies reflects when Allergies were last updated in [facility].
Home Medications with original date entered in [facility]
Allergy/Medication List:
Allergies
Allergy/AdvReac Type Severity Reaction Status Date / Time
codeine Allergy rash,hives,METALLIC Verified 08/19/23 19:27
TASTE IN
MOUTH
Home Medications
citalopram 20 mg tablet 40 mg PO DAILY Mental Health 12/27/17
Focus Factor 2 cap PO DAILY Supplement 11/11/20
aripiprazole 5 mg tablet 5 mg PO DAILY Mental Health 11/11/20
baclofen 10 mg tablet 10 mg PO BID Muscle spasms 11/11/20
famotidine 40 mg tablet 40 mg PO HS Gastrointestinal issue 11/11/20
trazodone 100 mg tablet 200 mg PO HS Sleep 11/11/20
valsartan 80 mg tablet 160 mg PO DAILY Blood pressure 11/11/20
vitamin B complex 1 tab PO DAILY Supplement 11/11/20
budesonide-formoterol HFA 160 mcg-4.5 mcg/actuation aerosol inhaler (Symbicort) 2 puff inhalation R BID Lung/Breathing Issues 07/26/22
bupropion HCl 300 mg 24 hr tablet, extended release 300 mg PO DAILY Mental Health 07/26/22
cholecalciferol (vitamin D3) 125 mcg (5,000 unit) tablet (Vitamin D3) 125 mcg PO DAILY Supplement 07/26/22
multivitamin with minerals (Hair,Skin and Nails tablet) 2 tab PO DAILY Supplement 07/26/22
albuterol sulfate 90 mcg/actuation aerosol inhaler (Ventolin HFA) 2 puff inhalation R Q6HPRN PRN sob 07/03/23
atorvastatin 10 mg tablet 10 mg PO DAILY High Cholesterol 07/03/23
budesonide 0.5 mg/2 mL suspension for nebulization 0.5 mg inhalation R TID Lung/breathing issues 07/03/23
carboxymethylcellulose sodium 0.25 % eye drops (TheraTears) 1 drp BOTH EYES BID Eye Condition 07/03/23
fluticasone furoate 100 mcg-vilanterol 25 mcg/dose inhalation powder (Breo Ellipta) 1 inh inhalation R DAILY Lung/Breathing Issues 07/03/23
furosemide 40 mg tablet 40 mg PO DAILY Fluid Retention/Swelling 07/03/23
omeprazole 40 mg capsule,delayed release 40 mg PO DAILY GERD 07/03/23
therapeutic multivitamin 1 tab PO DAILY Supplement 07/03/23
tiotropium bromide 2.5 mcg/actuation mist for inhalation (Spiriva Respimat) 2 puff inhalation R DAILY Lung/Breathing Issues 07/03/23
turmeric 2 cap PO DAILY Supplement 07/03/23
acetazolamide 250 mg tablet 250 mg PO BID #1 tab 07/11/23
docusate sodium 100 mg capsule 100 mg PO BID #0 caps 07/11/23
fentanyl 25 mcg/hr transdermal patch 1 patch transdermal Q72H Pain 3 days #1 ea 07/11/23
guaifenesin 600 mg tablet, extended release 12 hr 600 mg PO Q12 #0 tabs 07/11/23
oxycodone 5 mg tablet 5 mg PO BID Pain #6 tabs 07/11/23
prednisone 50 mg tablet 50 mg PO DAILY #0 tabs 07/11/23
Review of Systems
-
History Source: Patient (Limited ROS due to lethargy)
A 12 point ROS was completed and negative except as noted: Yes
Constitutional: Reports Fatigue
EENT: Denies Sore Throat
Respiratory: Denies Cough or Trouble Breathing
Cardiac: Denies Chest Pain or Palpitations
Abdomen/GI: Denies Abdominal Pain or Nausea
Neurological: Denies Headache
Physical Exam
Vital Signs
Vital Signs
Temp Pulse Resp BP Pulse Ox
98.0 F 73 24 99/47 100
10/08/23 20:49 10/08/23 22:20 10/08/23 22:20 10/08/23 22:20 10/08/23 22:20
Physical Exam
General: Other (somnolent but is arousable to pain and voice)
HEENT: Other (Dry MM. No JVD.)
Respiratory: Other (Decreased BS at bases - otherwise clear.)
Cardiac: S1/S2 and Regular Rhythm
GI: Soft, Non Tender, Non Distended and Normal Bowel Sounds
Musculoskeletal: No Clubbing, No Cyanosis and No Edema
Neuro: Awake and Other (Patient unable to recall details leading to hospitalization. Knows that she is in the hospital. Follows commands.)
Laboratory Results
-
10/08/23 19:44
10/08/23 19:44
Laboratory Results
Total Bilirubin 0.5 mg/dl (0.2-1.3) 10/08/23 19:44
AST 25 U/L (14-36) 10/08/23 19:44
ALT 15 U/L (0-35) 10/08/23 19:44
Alkaline Phosphatase 67 U/L (38-126) 10/08/23 19:44
Data Reviewed
-
Lab Data: Labs Reviewed by me
Old Records: Reviewed
Impression/Plan
-
Reviewed VS: Afebrile HR90 BP 100/55 RR 20 POx 97 on 3L
Data
Hgb 11.5 - baseline 10-11s
CO2 19
BUN 51
Cr 2.8 - baseline 1- 1.2
eGFR 17 - baseline is hi 50s suspect CKD3a
VBG pH 7.32 - acidemia
pCO2 35
pO2 165
proBNP 228
NEG UA
08/23/23 TTE
- LVEF 65-70%. No regional wall motion abnormalities are seen.
Normal right ventricular size and function.
Mild aortic regurgitation.
Mild tricuspid regurgitation.
Estimated pulmonary artery pressure of 20-25 mmHg.
Last hospitalist admission: 08/19/23 - 08/28/23
P Dxs:
Acute on chronic respiratory failure with hypoxia and hypercapnia
Acute HFpEF
Moderate COPD with air trapping, hyperinflation on chronic prednisone and home oxygen at 3 L/min.
Chr pul aspiration
HX Dysphagia
ASSESSMENT & PLAN
Pending Rx reconciliation
Acute hypoactive encephalopathy - suspect multi factorial origins
- likely due to volume depletion, VIKTOR. Opiates and sedatives
- Hold of fentanyl patch, Oxycodone, Trazodone , Wellbutrin and Frusemide
- NPO till MS is back to baseline for aspiration precaution
- ST to evaluate
Prerenal VIKTOR due to volume depletion
Asso. hypotension
Baseline GFR suggest CKD3a
- s/p 1 L NS x 2 at ER
- Held Frusemide, Valsartan
- IVF
- Trend Cr
- avoid any nephrotoxic Meds for now
- daily Wt
Acid base disorder
- Primary metabolic acidosis due to VIKTOR compensated by resp alkalosis and NAG MA
- Trend BMP in response to IVF
Chronic pain syndrome/chronic opiate dependence
- Holding fentanyl patch and Oxycodone due to sedation, encephalopathy.
HX HFpEF
- Held Frusemide, Valsartan due to VIKTOR
- Trend Cr
- daily Wt
-
Chronic normocytic anemia
- Current Hgb seems hemoconcentrated
- stable.
Severe chronic dysphagia
HX esophageal dilation in [facility].
- speech to evaluate
- OP GI f/u [facility]
HX COPD
HX chronic hypoxic respiratory failure on chronic home oxygen 3 L [id number].
Underlying Chr ILD
- prn nebs
- IV Decadron 2mg BID in place of PO Prednisone
Chr HX; Inactive problems
HX rheumatoid arthritis
HX Scleroderma/crest syndrome
IBS
Fibromyalgia
Major depression
GERD
Hyperlipidemia
Moderate protein calorie malnutrition of chronic illness
DVT Px: LMWH
Code: Full
IMU
[2023-10-09] VITALS (41 sets, daily range): BP systolic 72–129; BP diastolic 26–107; PULSE 87–90; O2SAT 94; BMI 22.0
[2023-10-09] MEDS: DECADRON 2 MG IV ×3 (01:02→20:41)
[2023-10-09] MEDS: NSS 500 IV (01:14)
[2023-10-09] MEDS: NSS 1000 IV ×3 (01:17→21:27)
--- NOTE | 2023-10-09 02:24 | PTCARENOTE ---
Received patient AAOx3, following commands, denying pain, very lethargic. Answering questions appropriately but falling asleep mid answer. Normal sinus, 80s. Pressures in the 90s, dropped to high 70s/50s, PANEL MONITOR notified. 500 ml bolus given, started on
IVF per order. Normothermic, weak palpable pedal pulses bilaterally. On 3 liters nasal cannula saturating 100%, lung sounds clear and diminished. Abdomen soft, hypoactive bowel sounds. Purewick in place. Skin red and flaky. PIVs patent, WNL. Call
romero within reach.
[2023-10-09] MEDS: LEVOPHED 250 IV (05:22)
[2023-10-09 05:34] LABS: Hematocrit 31.8 % (37.0-47.0); Hemoglobin 10.6 g/dL (12.0-16.0); Mean Corp Hgb Conc. 33.3 g/dL (33.0-37.0); Mean Corpuscular Hgb 31.7 pg (27.0-31.0); Mean Corpuscular Volume 95.2 fL (81.0-99.0); Mean Platelet Volume 9.4 fL (7.4-10.4); Platelet Count 219 10^3/uL (130-400); Red Blood Cell Count 3.34 10^6/uL (4.20-5.40); Red Cell Dist. Width 13.4 % (11.5-14.5); White Blood Cell Count 5.3 10^3/uL (4.8-10.8)
[2023-10-09 06:04] LABS: ALT (SGPT) 13 U/L (0-35); AST (SGOT) 26 U/L (14-36); Albumin 3.6 g/dl (3.5-5.0); Alkaline Phosphatase 50 U/L (38-126); Blood Urea Nitrogen 45 mg/dl (7-17); Calcium 9.1 mg/dl (8.4-10.2); Carbon Dioxide 20 mmol/L (22-30); Chloride 111 mmol/L (98-107); Estimated Creatinine Clearance 19 ml/min; Glucose 100 mg/dl (70-99); Potassium 3.8 mmol/L (3.5-5.1); Sodium 141 mmol/L (135-145); Total Bilirubin 0.4 mg/dl (0.2-1.3); Total Protein 5.4 g/dl (6.3-8.2); eGFR 25.89
--- NOTE | 2023-10-09 06:38 | W.PN.HOSP.TC ---
Today's Communication/Plan
-
Diet resumed
cont IVF VIKTOR
wean off pressor as tolerated, cont monitoring on IMU while on pressor
Fentanyl patch resumed low dose d/t kidney injury and to avoid opioid withdrawal
Oxycodone prn moderate severe pain (hold if sedated)
Claritin started
low dose ativan prn anxiety
Assessment / Plan
Assessment / Plan
Physical Exam
General: no acute distress appears comfortable at this time
HEENT: Dry MM. No JVD. Hard of Hearing
Respiratory: Clear to Auscultation b/l
Cardiac: S1/S2 and Regular Rhythm
GI: Soft, Non Tender, Non Distended and Normal Bowel Sounds
Musculoskeletal: No Clubbing, No Cyanosis and No Edema
Neuro: AOx3
HPI: 72F with scleroderma HX Home NC O2 3 l ,chr prednisone dependent chronic Hypoxic RF, Chr ILDz, COPD, chronic narcotic depedent pain syndrome p/w progressive AMS w/ associate VIKTOR hypotension.
Acute hypoactive encephalopathy - suspect multi factorial origins
- likely due to volume depletion, VIKTOR. Opiates and sedatives
- Mental status since improved following IVF and hold home opiates sedatives
Prerenal VIKTOR due to volume depletion
Asso. hypotension
Baseline GFR suggest CKD3a
- cont IVF support
- Hold Frusemide, Valsartan
- Trend Cr, improving
- avoid any nephrotoxic Meds for now
- daily Wt
- wean off low pressor support Levophed as tolerated
Chronic pain syndrome/chronic opiate dependence
- Fentanyl Patch resumed reduced dose d/t VIKTOR
-prn oxycodone
Anxiety
-Low dose ativan po prn
Nasal Drip
-claritin started for possible allergic rhinitis
HX HFpEF
- cont Hold Frusemide, Valsartan due to VIKTOR
- Trend Cr
- daily Wt
-
Chronic normocytic anemia
- H&H appears stable baseline at this time
- cont to monitor
Severe chronic dysphagia
HX esophageal dilation in [facility].
- Speech eval appreciated appropriate for Regular diet at this time.
HX COPD
HX chronic hypoxic respiratory failure on chronic home oxygen 3 L [id number].
Underlying Chr ILD
- prn nebs
- IV Decadron 2mg BID in place of PO Prednisone
HX rheumatoid arthritis
HX Scleroderma/crest syndrome
IBS
Fibromyalgia
Major depression
GERD
Hyperlipidemia
Moderate protein calorie malnutrition of chronic illness
DVT Px: LMWH
Code: Full
[id number] Rufina primary contact updated
I spent a total of 50 minutes with the patient or on the floor. More than 50% of this time involved counseling and coordination of care.
Anticipated Discharge: 24 - 48 hours
Subjective/Interval History
-
Date of Service: October 09, 2023
Mental status improved. Hard of hearing but AOx3 conversant coherent. Later anxious and sob/tachypneic improved with pain control,
Objective Data
-
Labs:
Laboratory Results
10/08/23 10/09/23
19:44 05:19
WBC 8.2 5.3
Hgb 11.5 L 10.6 L
Hct 34.2 L 31.8 L
Plt Count 210 219
Sodium 138 141
Potassium 3.8 3.8
Chloride 105 111 H
Carbon Dioxide 19 L 20 L
BUN 51 H 45 H
Creatinine 2.8 H 2.0 H
Glucose 98 100 H
Calcium 10.4 H 9.1
Total Bilirubin 0.5 0.4
AST 25 26
ALT 15 13
Alkaline Phosphatase 67 50
Vital Signs:
Vital Signs
Temp Pulse Resp BP Pulse Ox
97.7 F 71 11 94/59 95
10/09/23 03:22 10/09/23 06:00 10/09/23 06:00 10/09/23 06:00 10/09/23 06:00
I&O
10/07/23 10/08/23 10/09/23
06:59 06:59 06:59
Intake Total 1115.0 / 1115.0
Output Total 850 / 850
Balance 265.0 / 265.0
--- NOTE | 2023-10-09 07:45 | PTCARENOTE ---
0700 patient seen in bed. AAO x3. Denies pain , denies SOB,, no chest pain or nausea. On 2L of oxygen via nasal cannula . NSS at 100 and Levophed at 2mcg/7.5ml via left FA #18 . Left FA peripheral line capped flushed. SR 73; BP via RT upper arm
97/79 MAP 87; RR 16; 98% /2L . no edema . Lungs diminished . Abdomen soft non-tender . Purwick in place HOB elevated call romero within reach
[2023-10-09] MEDS: PULMICORT 0.5 MG INH ×2 (08:17→18:26)
[2023-10-09] MEDS: SYMBICORT 160/4.5 MCG INHALER 2 PUFF INH ×2 (08:17→20:20)
--- NOTE | 2023-10-09 09:16 | PTOTSP ---
Speech Language Pathology
Pt seen for clinical bedside swallow evaluation. Pt with hx of esophageal dysphagia with dilitation completed at [place]. She reported she eats smaller meals and drinks liquid frequently with meals to manage this issue. Three previous VSEs
completed: 07/07/23, 01/20/14, 06/08/11 with recommendations for regular solids/thin liquids each time. P.O. trials of puree, regular solids, and thin liquids provided. Adequate mastication, bolus formation, and A-P transit noted. Throat clear x1
with dry cracker. No overt signs of aspiration. Pt took frequent sips of liquids with dry solids.
Recommend:
(1) Initiate baseline diet of regular solids/thin liquids
(2) Esophageal precautions: smaller more frequent meals, slow rate, frequent sips of liquids during meals, sit upright during meals and for at least 30 minutes after
(3) Meds as tolerated (pt reported she takes them whole with liquid at baseline)
(4) Further [facility] services not indicated. Please reconsult as warranted
--- NOTE | 2023-10-09 09:40 | VNURNOTE ---
Chart reviewed. patient is current with [facility] Will continue to follow hospital course.
--- NOTE | 2023-10-09 10:32 | W.PN.UPDATE ---
Update Note
Progress Note Update
Diet resumed
cont IVF VIKTOR
wean off pressor as tolerated, cont monitoring on IMU while on pressor
Fentanyl patch resumed low dose d/t kidney injury and to avoid opioid withdrawal
Oxycodone prn moderate severe pain (hold if sedated)
[2023-10-09] MEDS: DURAGESIC 12 MCG/HR PATCH 1 PATCH TRANSDERM (12:03)
[2023-10-09] MEDS: ROXICODONE 5 MG PO (12:08)
--- NOTE | 2023-10-09 12:35 | CM ---
CM following re: discharge planning.
Reviewed pt's chart, met with pt.
Pt is a 72 year old female, admitted with primary dx of AMS.
Pt reports she lives in in-law suite attached to son's house, no steps. Pt reports she uses a cane and a walker when goes outside, has home O2 with 2L NC at baseline. Pt is known to [facility], was at [facility] in the past. Pt expressed her desire to
return back home at discharge with family.
PT and OT will evaluate the pt to determine a level of care at discharge.
PCP: Diego Crenshaw
Pharmacy: [facility]
D/C plan: [facility] PT/OT to confirm level of care at discharge.
CM will follow with discharge plan updates as hospitalization progresses
[2023-10-09] MEDS: DUONEB 3 ML INH ×2 (12:50→18:25)
[2023-10-09] MEDS: OCEAN, SALINE MIST 1 SPRAYS NASAL ×3 (13:12→21:26)
[2023-10-09] MEDS: CLARITIN 10 MG PO (13:12)
[2023-10-09] MEDS: LOVENOX 30 MG SC (17:05)
[2023-10-09] MEDS: SENOKOT-S 1 TABLET PO (18:09)
[2023-10-09] MEDS: ATIVAN 0.25 MG PO (18:13)
--- NOTE | 2023-10-09 20:00 | PTCARENOTE ---
Assumed care of pt at shift change; Pt AAOx3, offers no complaints, repositioned in bed. SpO2 97% on 2L O2 NC, lungs diminished but clear. Purewick in place draining clear yellow urine. Remainder of assessment as documented. When BP placed to pt's
RUE, pt reports her BP on RUE is 'never good' and is always lower than her LUE. Pt requesting BP in LUE only. Pt updated on POC for the evening, resting comfortably in bed at this time.
[2023-10-10] VITALS (28 sets, daily range): BP systolic 129–187; BP diastolic 49–124; BMI 22.6
[2023-10-10 05:00] LABS: Hematocrit 28.8 % (37.0-47.0); Hemoglobin 9.9 g/dL (12.0-16.0); Mean Corp Hgb Conc. 34.4 g/dL (33.0-37.0); Mean Corpuscular Volume 93.2 fL (81.0-99.0); Mean Platelet Volume 9.3 fL (7.4-10.4); Platelet Count 194 10^3/uL (130-400); Red Blood Cell Count 3.09 10^6/uL (4.20-5.40); Red Cell Dist. Width 13.2 % (11.5-14.5); White Blood Cell Count 4.3 10^3/uL (4.8-10.8)
[2023-10-10 05:21] LABS: Blood Urea Nitrogen 31 mg/dl (7-17); Calcium 9.6 mg/dl (8.4-10.2); Carbon Dioxide 21 mmol/L (22-30); Chloride 113 mmol/L (98-107); Estimated Creatinine Clearance 32 ml/min; Glucose 99 mg/dl (70-99); Magnesium 1.9 mg/dl (1.6-2.3); Phosphorus 3.6 mg/dl (2.5-4.5); Potassium 3.5 mmol/L (3.5-5.1); Sodium 139 mmol/L (135-145)
[2023-10-10] MEDS: SYMBICORT 160/4.5 MCG INHALER 2 PUFF INH ×2 (07:36→19:29)
[2023-10-10] MEDS: PULMICORT 0.5 MG INH ×3 (07:36→19:30)
[2023-10-10] MEDS: DUONEB 3 ML INH ×3 (07:36→19:30)
[2023-10-10] MEDS: NSS 1000 IV (07:48)
[2023-10-10] MEDS: OCEAN, SALINE MIST 1 SPRAYS NASAL ×3 (08:36→22:11)
[2023-10-10] MEDS: CLARITIN 10 MG PO (08:50)
[2023-10-10] MEDS: DECADRON 2 MG IV ×2 (08:50→20:17)
--- NOTE | 2023-10-10 09:56 | W.PN.HOSP.TC ---
Addendum entered and electronically signed by Yonis Raygoza MD 10/11/23 08:08:
hypovolemic shock resolved
Original Note:
Today's Communication/Plan
-
resume lasix abilify
downgrade to medsurg
PT/OT
Assessment / Plan
Assessment / Plan
Physical Exam
General: no acute distress appears comfortable at this time
HEENT: Dry MM. No JVD. Hard of Hearing
Respiratory: Clear to Auscultation b/l
Cardiac: S1/S2 and Regular Rhythm
GI: Soft, Non Tender, Non Distended and Normal Bowel Sounds
Musculoskeletal: No Clubbing, No Cyanosis and No Edema
Neuro: AOx3
HPI: 72F with scleroderma HX Home NC O2 3 l ,chr prednisone dependent chronic Hypoxic RF, Chr ILDz, COPD, chronic narcotic depedent pain syndrome p/w progressive AMS w/ associate VIKTOR hypotension.
Acute hypoactive encephalopathy - suspect multi factorial origins
- likely due to volume depletion, VIKTOR. Opiates and sedatives
- Mental status since improved following IVF and hold home opiates sedatives
Prerenal VIKTOR due to volume depletion
Asso. hypotension
Baseline GFR suggest CKD3a
- IVF support completed
- resumed Frusemide, Valsartan remains on hold
- Trend Cr, improved near baseline
- avoid any nephrotoxic Meds for now
- daily Wt
- weaned off pressor
-stable for downgrade to med/surg
Chronic pain syndrome/chronic opiate dependence
- Fentanyl Patch resumed reduced dose d/t VIKTOR
-prn oxycodone
Anxiety
Depression
-Low dose ativan po prn
-home abilify resumed, cont hold citalopram for now
Nasal Drip
-claritin started, cont
HX HFpEF
- Frusemide resumed, Valsartan remains on hold due to VIKTOR though resolving
- Trend Cr
- daily Wt
-
Chronic normocytic anemia
- H&H appears stable baseline at this time
- cont to monitor
Severe chronic dysphagia
HX esophageal dilation in [facility].
- Speech eval appreciated appropriate for Regular diet at this time.
HX COPD
HX chronic hypoxic respiratory failure on chronic home oxygen 3 L [id number].
Underlying Chr ILD
- prn nebs
- IV Decadron 2mg BID in place of PO Prednisone
HX rheumatoid arthritis
HX Scleroderma/crest syndrome
IBS
Fibromyalgia
GERD
Hyperlipidemia
Moderate protein calorie malnutrition of chronic illness
DVT Px: LMWH
Code: Full
Yrvoqjiz-ri-paz Rufina primary contact updated
I spent a total of 50 minutes with the patient or on the floor. More than 50% of this time involved counseling and coordination of care.
Anticipated Discharge: 24 - 48 hours
Subjective/Interval History
-
Date of Service: October 10, 2023
No acute distress. Appears comfortable at this time.
Objective Data
-
Labs:
Laboratory Results
10/10/23
04:36
WBC 4.3 L
Hgb 9.9 L
Hct 28.8 L
Plt Count 194
Sodium 139
Potassium 3.5
Chloride 113 H
Carbon Dioxide 21 L
BUN 31 H
Creatinine 1.2 H
Glucose 99
Calcium 9.6
Vital Signs:
Vital Signs
Temp Pulse Resp BP Pulse Ox
97.3 F 82 32 146/95 9
10/10/23 08:00 10/10/23 08:32 10/10/23 08:32 10/10/23 08:32 10/10/23 08:00
I&O
10/09/23 10/10/23 10/11/23
06:59 06:59 06:59
Intake Total 1115.0 / 1217.0 1931
Output Total 850 / 850 600 / 600
Balance 265.0 / 367.0 1331
[2023-10-10] MEDS: LASIX 40 MG PO (12:05)
[2023-10-10] MEDS: OCEAN, SALINE MIST NASAL (12:08)
[2023-10-10] MEDS: ABILIFY 5 MG PO (13:29)
--- NOTE | 2023-10-10 14:32 | PN.CDI ---
CDI
- -
CDI:
Physician Documentation Request
Admit Date: 10/08/23 23:37
Dear Doctor Idalmis,
Patient admitted with VIKTOR.
10/08 PN, 'Prerenal VIKTOR due to volume depletion....wean off low pressor support Levophed as tolerated....cont monitoring on IMU while on pressor'
Please clarify which of the following is the most likely etiology of the above symptoms and treatment rendered:
Hypovolemic shock
Other type of shock
Other diagnosis
Use of terms such as suspected, likely, concern for, or probable (associated with a specific diagnosis that is being evaluated, monitored, or treated as if it exists) are acceptable and can be coded in the inpatient setting, when documented at the
time of discharge.
Thank you,
Alize COHEN,RN,CCDS
CDI Specialist
Available via [place] text
Please use your independent medical judgment in providing your response.
--- NOTE | 2023-10-10 14:55 | PN.CDI ---
CDI
- -
CDI:
Physician Documentation Request
Admit Date: 10/08/23 23:37
Dear Doctor Idalmis,
Patient admitted with VIKTOR.
10/08 PN, 'Prerenal VIKTOR due to volume depletion....wean off low pressor support Levophed as tolerated....cont monitoring on IMU while on pressor.'
See MAP's below:
Selected Entries
10/08/23
20:29 10/08/23
20:36 10/08/23
21:00
MAP (cuff-Geovany Monitor) 63 64 56
10/08/23
21:07 10/08/23
21:20 10/08/23
21:40
MAP (cuff-Geovany Monitor) 58 57 60
10/08/23
22:00 10/08/23
22:20
MAP (cuff-Geovany Monitor) 64 62
Please clarify which of the following is the most likely etiology of the above symptoms and treatment rendered:
Hypovolemic shock
Other type of shock
Other diagnosis
Use of terms such as suspected, likely, concern for, or probable (associated with a specific diagnosis that is being evaluated, monitored, or treated as if it exists) are acceptable and can be coded in the inpatient setting, when documented at the
time of discharge.
Thank you,
Alize COHEN,RN,CCDS
CDI Specialist
Available via [place] text
Please use your independent medical judgment in providing your response.
--- NOTE | 2023-10-10 15:38 | CM ---
CM reviewed medical records. Patient remains acutely ill. CM will continue to follow for needs.
[2023-10-10] MEDS: LOVENOX 30 MG SC (17:42)
--- NOTE | 2023-10-10 20:47 | PTCARENOTE ---
Received patient AAOx3, following commands, denying pain. Normal sinus, 90s, BP stable, normothermic, palpable radial and pedal pulses bilaterally. 98% on 3L nasal cannula, lung sounds diminished. Tachypneic to the high 30s, dyspnea at rest and on
exertion. Last BM earlier today, abdomen soft, round, nontender, hypoactive bowel sounds. Purewick in place draining clear yellow urine. Fentanyl patch on IVONE. RFA PIV patent, WNL. Denture/mouth care done. Call romero within reach, able to make needs
known.
[2023-10-10] MEDS: ATIVAN 0.25 MG PO (22:11)
[2023-10-11] VITALS (8 sets, daily range): BP systolic 134–167; BP diastolic 59–81; PULSE 83; O2SAT 96–97; BMI 22.5
--- NOTE | 2023-10-11 03:06 | DOWNTIME ---
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 Downtime documentation of patient's care, including medication administrations, has been reconciled in the electronic record per guidelines. Refer to the
patient's paper chart under the miscellaneous tab to see printed paper medication records and downtime forms.
[2023-10-11 06:04] LABS: Hematocrit 30.4 % (37.0-47.0); Hemoglobin 10.5 g/dL (12.0-16.0); Mean Corp Hgb Conc. 34.5 g/dL (33.0-37.0); Mean Corpuscular Hgb 31.3 pg (27.0-31.0); Mean Corpuscular Volume 90.7 fL (81.0-99.0); Mean Platelet Volume 9.4 fL (7.4-10.4); Platelet Count 190 10^3/uL (130-400); Red Blood Cell Count 3.35 10^6/uL (4.20-5.40); Red Cell Dist. Width 13.2 % (11.5-14.5); White Blood Cell Count 4.7 10^3/uL (4.8-10.8)
[2023-10-11 06:31] LABS: Blood Urea Nitrogen 26 mg/dl (7-17); Calcium 9.8 mg/dl (8.4-10.2); Carbon Dioxide 28 mmol/L (22-30); Chloride 108 mmol/L (98-107); Estimated Creatinine Clearance 47 ml/min; Glucose 101 mg/dl (70-99); Magnesium 1.9 mg/dl (1.6-2.3); Phosphorus 3.3 mg/dl (2.5-4.5); Potassium 3.5 mmol/L (3.5-5.1); Sodium 138 mmol/L (135-145); eGFR > 60.00
--- NOTE | 2023-10-11 07:58 | W.PN.HOSP.TC ---
Addendum entered and electronically signed by Yonis Raygoza MD 10/12/23 07:40:
acute toxic metabolic encephalopathy
Original Note:
Today's Communication/Plan
-
resume citalopram
valsartan restarted reduced dose
cont pain control
IV steroids converted back to PO
Assessment / Plan
Assessment / Plan
Physical Exam
General: no acute distress appears comfortable at this time
HEENT: Dry MM. No JVD. Hard of Hearing
Respiratory: Clear to Auscultation b/l
Cardiac: S1/S2 and Regular Rhythm
GI: Soft, Non Tender, Non Distended and Normal Bowel Sounds
Musculoskeletal: No Clubbing, No Cyanosis and No Edema
Neuro: AOx3
HPI: 72F with scleroderma HX Home NC O2 3 l ,chr prednisone dependent chronic Hypoxic RF, Chr ILDz, COPD, chronic narcotic depedent pain syndrome p/w progressive AMS w/ associate VIKTOR hypotension.
Acute hypoactive encephalopathy - suspect multi factorial origins
- likely due to volume depletion, VIKTOR. Opiates and sedatives
- Mental status since improved following IVF and hold home opiates sedatives
Prerenal VIKTOR due to volume depletion
Asso. hypotension hypovolemic shock
Baseline GFR suggest CKD3a
- IVF support completed
- Furosemide, Valsartan resumed reduce dose
- VIKTOR resolved
- avoid any nephrotoxic Meds for now
- daily Wt
- weaned off pressor
-downgraded to med/surg
Chronic pain syndrome/chronic opiate dependence
- Fentanyl Patch resumed reduced dose d/t VIKTOR
-prn oxycodone
Anxiety
Depression
-Low dose ativan po prn
-cont home abilify citalopram
Nasal Drip
-claritin started, cont
HX HFpEF
- Frusemide resumed, Valsartan remains on hold due to VIKTOR though resolving
- Trend Cr
- daily Wt
-
Chronic normocytic anemia
- H&H appears stable baseline at this time
- cont to monitor
Severe chronic dysphagia
HX esophageal dilation in [facility].
- Speech eval appreciated appropriate for Regular diet at this time.
HX COPD
HX chronic hypoxic respiratory failure on chronic home oxygen 3 L [id number].
Underlying Chr ILD
- prn nebs
- IV Decadron 2mg BID in place of PO Prednisone, converted back to PO prednisone with improvement
HX rheumatoid arthritis
HX Scleroderma/crest syndrome
IBS
Fibromyalgia
GERD
Hyperlipidemia
Moderate protein calorie malnutrition of chronic illness
DVT Px: LMWH
Code: Full
[id number] Rufina primary contact updated
I spent a total of 50 minutes with the patient or on the floor. More than 50% of this time involved counseling and coordination of care.
Anticipated Discharge: 24 - 48 hours
Subjective/Interval History
-
Date of Service: October 11, 2023
no acute distress. comfortable
Objective Data
-
Labs:
Laboratory Results
10/11/23
05:56
WBC 4.7 L
Hgb 10.5 L
Hct 30.4 L
Plt Count 190
Sodium 138
Potassium 3.5
Chloride 108 H
Carbon Dioxide 28
BUN 26 H
Creatinine 0.8
Glucose 101 H
Calcium 9.8
Vital Signs:
Vital Signs
Temp Pulse Resp BP Pulse Ox
97.8 F 68 13 161/66 99
10/11/23 07:40 10/11/23 06:00 10/11/23 06:00 10/11/23 04:00 10/11/23 06:00
I&O
10/10/23 10/11/23 10/12/23
06:59 06:59 06:59
Intake Total 1931 340 / 340
Output Total 600 / 600 1800 / 1800
Balance 1332 / 1332 -1460 / -1460
[2023-10-11] MEDS: SYMBICORT 160/4.5 MCG INHALER 2 PUFF INH ×2 (08:11→20:30)
[2023-10-11] MEDS: PULMICORT 0.5 MG INH ×3 (08:11→20:30)
--- NOTE | 2023-10-11 08:20 | PTCARENOTE ---
Assumed care of pt at 0715 following shift report. Fentanyl patch verified w/ outgoing shift RN. Pt awake and resting quietly in bed, denies c/o pain or SOB. O2 at 3l/min w/ POx 98%. Pt reports using home O2 at 3l/min. AM Hygiene completed and pt
assisted OOB to BSC and then to chair to eat breakfast. LEVINE noted although POX remained >95%. Physical assessment completed as documented. Call romero w/in pt reach and safe environment maintained.
[2023-10-11] MEDS: DECADRON 2 MG IV (08:57)
[2023-10-11] MEDS: ABILIFY 5 MG PO (08:57)
[2023-10-11] MEDS: CLARITIN 10 MG PO (08:57)
[2023-10-11] MEDS: LASIX 40 MG PO (08:57)
[2023-10-11] MEDS: OCEAN, SALINE MIST 1 SPRAYS NASAL ×4 (08:59→22:02)
--- NOTE | 2023-10-11 09:50 | PTCARENOTE ---
Transfer report given to 'Tessie SIMON'. Pt transferred to Rm 436-2 via . No changes noted or new complaints received prior to transfer. Phone call placed to pt's daughter 'Mariann'- no answer, message left w/ information on transfer to Rm 436-2 and
phone number provided for 4W nurses station.
[2023-10-11] MEDS: DIOVAN 40 MG PO (10:43)
[2023-10-11] MEDS: ROXICODONE 5 MG PO (11:47)
--- NOTE | 2023-10-11 12:24 | PN.CDI ---
CDI
- -
CDI:
Physician Documentation Request
Admit Date: 10/08/23 23:37
Dear Doctor Idalmis,
Patient admitted with VIKTOR.
ED note, '....presents with altered mentation....Discharge Problem: Acute metabolic encephalopathy.'
8/ PN, 'Acute hypoactive encephalopathy - suspect multi factorial origins- likely due to volume depletion, VIKTOR. Opiates and sedatives- Mental status since improved following IVF and hold home opiates sedatives.'
Based on the above, could you clarify in the Progress Notes and Discharge Summary which, if any of the following, is the most likely etiology of the altered mental status:
Metabolic encephalopathy
Toxic metabolic encephalopathy
Other
Use of terms such as suspected, likely, concern for, or probable (associated with a specific diagnosis that is being evaluated, monitored, or treated as if it exists) are acceptable and can be coded in the inpatient setting, when documented at the
time of discharge.
Thank you,
Alize COHEN,RN,CCDS
CDI Specialist
Available via [place] text
Please use your independent medical judgment in providing your response.
[2023-10-11] MEDS: CELEXA 40 MG PO (13:07)
--- NOTE | 2023-10-11 16:36 | CM ---
Patient now in Med surg unit. patient plan is to go home with family, has home O2 per chart review. PT recommending home health at this time. CM will continue to follow for discharge planning needs.
Plan; home with [facility]
[2023-10-11] MEDS: LOVENOX 40 MG SC (17:00)
[2023-10-11] MEDS: DELTASONE 10 MG PO (17:00)
[2023-10-11] MEDS: DUONEB 3 ML INH (20:31)
[2023-10-11] MEDS: ATIVAN 0.25 MG PO (22:01)
[2023-10-12 06:00] VITALS: BMI 22.4
--- NOTE | 2023-10-12 07:25 | W.PN.HOSP.TC ---
Today's Communication/Plan
-
Blood pressure and pain control
PT/OT
Assessment / Plan
Assessment / Plan
Physical Exam
General: no acute distress appears comfortable at this time
HEENT: Dry MM. No JVD. Hard of Hearing
Respiratory: Clear to Auscultation b/l
Cardiac: S1/S2 and Regular Rhythm
GI: Soft, Non Tender, Non Distended and Normal Bowel Sounds
Musculoskeletal: No Clubbing, No Cyanosis and No Edema
Neuro: AOx3
HPI: 72F with scleroderma HX Home NC O2 3 l ,chr prednisone dependent chronic Hypoxic RF, Chr ILDz, COPD, chronic narcotic depedent pain syndrome p/w progressive AMS w/ associate VIKTOR hypotension.
acute toxic metabolic encephalopathy- suspect multi factorial origins
- likely due to volume depletion, VKITOR. Opiates and sedatives
- Mental status since improved following IVF and hold home opiates sedatives
Prerenal VIKTOR due to volume depletion
Asso. hypotension hypovolemic shock
Baseline GFR suggest CKD3a
- IVF support completed
- Furosemide, Valsartan resumed reduce dose
- VIKTOR resolved
- avoid any nephrotoxic Meds for now
- daily Wt
- weaned off pressor
-downgraded to med/surg
Chronic pain syndrome/chronic opiate dependence
- Fentanyl Patch resumed reduced dose d/t VIKTOR
-prn oxycodone
Anxiety
Depression
-Low dose ativan po prn
-cont home abilify citalopram
Nasal Drip
-claritin started, cont
HX HFpEF
- Frusemide resumed, Valsartan remains on hold due to VIKTOR though resolving
- Trend Cr
- daily Wt
-
Chronic normocytic anemia
- H&H appears stable baseline at this time
- cont to monitor
Severe chronic dysphagia
HX esophageal dilation in [facility].
- Speech eval appreciated appropriate for Regular diet at this time.
HX COPD
HX chronic hypoxic respiratory failure on chronic home oxygen 3 L [id number].
Underlying Chr ILD
- prn nebs
- IV Decadron 2mg BID in place of PO Prednisone, converted back to PO prednisone with improvement
HX rheumatoid arthritis
HX Scleroderma/crest syndrome
IBS
Fibromyalgia
GERD
Hyperlipidemia
Moderate protein calorie malnutrition of chronic illness
DVT Px: LMWH
Code: Full
I spent a total of 50 minutes with the patient or on the floor. More than 50% of this time involved counseling and coordination of care.
Anticipated Discharge: 24 - 48 hours
Subjective/Interval History
-
Date of Service: October 12, 2023
Appears comfortable at this time. Patient reports improvement in overall symptoms though had episode diarrhea in AM.
Objective Data
-
Labs:
Laboratory Results
10/12/23
07:16
WBC Pending
Hgb Pending
Hct Pending
Plt Count Pending
Sodium Pending
Potassium Pending
Chloride Pending
Carbon Dioxide Pending
BUN Pending
Creatinine Pending
Glucose Pending
Calcium Pending
Vital Signs:
Vital Signs
Temp Pulse Resp BP Pulse Ox
98.1 F 82 16 158/75 98
10/11/23 23:16 10/11/23 23:16 10/11/23 23:16 10/11/23 23:16 10/11/23 23:16
I&O
10/11/23 10/12/23 10/13/23
06:59 06:59 06:59
Intake Total 340 / 340 600 / 600
Output Total 1800 / 1800
Balance -1460 / -1460 600 / 600
[2023-10-12 07:30] VITALS: BP 176/76
[2023-10-12 07:49] LABS: Hematocrit 35.8 % (37.0-47.0); Hemoglobin 12.1 g/dL (12.0-16.0); Mean Corp Hgb Conc. 33.8 g/dL (33.0-37.0); Mean Corpuscular Hgb 31.5 pg (27.0-31.0); Mean Corpuscular Volume 93.2 fL (81.0-99.0); Mean Platelet Volume 9.8 fL (7.4-10.4); Platelet Count 200 10^3/uL (130-400); Red Blood Cell Count 3.84 10^6/uL (4.20-5.40); Red Cell Dist. Width 13.3 % (11.5-14.5); White Blood Cell Count 5.6 10^3/uL (4.8-10.8)
[2023-10-12 08:07] LABS: Blood Urea Nitrogen 20 mg/dl (7-17); Carbon Dioxide 35 mmol/L (22-30); Chloride 102 mmol/L (98-107); Estimated Creatinine Clearance 47 ml/min; Glucose 88 mg/dl (70-99); Magnesium 1.9 mg/dl (1.6-2.3); Phosphorus 3.1 mg/dl (2.5-4.5); Potassium 3.1 mmol/L (3.5-5.1); Sodium 138 mmol/L (135-145); eGFR > 60.00
[2023-10-12 08:13] VITALS: BP 176/76
[2023-10-12] MEDS: CELEXA 40 MG PO (08:38)
[2023-10-12] MEDS: DIOVAN 80 MG PO (08:38)
[2023-10-12] MEDS: DELTASONE 20 MG PO (08:38)
[2023-10-12] MEDS: CLARITIN 10 MG PO (08:38)
[2023-10-12] MEDS: OCEAN, SALINE MIST 1 SPRAYS NASAL ×4 (08:39→22:55)
[2023-10-12] MEDS: LASIX 40 MG PO (08:39)
[2023-10-12] MEDS: ABILIFY 5 MG PO (08:39)
[2023-10-12] MEDS: SYMBICORT 160/4.5 MCG INHALER 2 PUFF INH ×2 (09:32→19:52)
[2023-10-12] MEDS: PULMICORT 0.5 MG INH ×3 (09:32→19:52)
[2023-10-12] MEDS: DUONEB 3 ML INH (13:02)
[2023-10-12] MEDS: IMODIUM 2 MG PO (13:20)
[2023-10-12] MEDS: KCL 40 MEQ PO (13:20)
[2023-10-12] MEDS: DURAGESIC 12 MCG/HR PATCH 1 PATCH TRANSDERM (13:20)
--- NOTE | 2023-10-12 14:51 | CM ---
inventory control manager reviewed patient's chart and met with patient and plan is to return to home when stable with [facility], patient is followed by [facility] team. Patient is on 3 liters of oxygen at home from [facility].
Plan; Home when stable.
[2023-10-12 15:51] VITALS: BP 163/73
[2023-10-12] MEDS: LOVENOX 40 MG SC (17:39)
[2023-10-12] MEDS: ATIVAN 0.25 MG PO (22:55)
[2023-10-12 23:09] VITALS: BP 152/84
[2023-10-13 06:00] VITALS: BMI 22.2
[2023-10-13 07:20] VITALS: BP 152/70
--- NOTE | 2023-10-13 07:40 | W.PN.HOSP.TC ---
Today's Communication/Plan
-
discharge
Assessment / Plan
Assessment / Plan
Physical Exam
General: no acute distress appears comfortable at this time
HEENT: Dry MM. No JVD. Hard of Hearing
Respiratory: Clear to Auscultation b/l
Cardiac: S1/S2 and Regular Rhythm
GI: Soft, Non Tender, Non Distended and Normal Bowel Sounds
Musculoskeletal: No Clubbing, No Cyanosis and No Edema
Neuro: AOx3
HPI: 72F with scleroderma HX Home NC O2 3 l ,chr prednisone dependent chronic Hypoxic RF, Chr ILDz, COPD, chronic narcotic depedent pain syndrome p/w progressive AMS w/ associate VIKTOR hypotension.
acute toxic metabolic encephalopathy- suspect multi factorial origins
- likely due to volume depletion, VIKTOR. Opiates and sedatives
- AMS since resolved following IVF and hold home opiates sedatives
Prerenal VIKTOR due to volume depletion
Asso. hypotension hypovolemic shock
Baseline GFR suggest CKD3a
-admitted to IMU requiring pressors since weaned off downgraded to med/surg
- IVF support completed
- Furosemide, Valsartan resumed, cont
- VIKTOR resolved
- daily Wt
Chronic pain syndrome/chronic opiate dependence
- Fentanyl Patch resumed reduced dose d/t VIKTOR
-prn oxycodone
Anxiety
Depression
Insomnia
-Low dose ativan po prn
-cont home abilify citalopram
-resume home trazodone reduced dose
Nasal Drip
-claritin, nasal drip since resolved
HX HFpEF
- Frusemide Valsartan resumed
- Euvolemic
Chronic normocytic anemia
- H&H appears stable baseline at this time
- cont to monitor
Severe chronic dysphagia
HX esophageal dilation in [facility].
- Speech eval appreciated appropriate for Regular diet at this time.
HX COPD
HX chronic hypoxic respiratory failure on chronic home oxygen 3 L [id number].
Underlying Chr ILD
- prn nebs
- IV Decadron 2mg BID in place of PO Prednisone, converted back to PO prednisone following resolution AMS Encephalopathy
HX rheumatoid arthritis
HX Scleroderma/crest syndrome
IBS
Fibromyalgia
GERD
Hyperlipidemia
Moderate protein calorie malnutrition of chronic illness
DVT Px: LMWH
Code: Full
Medically stable for discharge home with home services and outpatient follow up recommendations.
Updated [id number] caregiver Pretty
Total Time Preparing Discharge ___50____ minutes including examination of the patient, summary of the hospital stay, instructions for continuing care to all relevant caregivers; and preparation of discharge records, prescriptions, and referral
forms if necessary.
Anticipated Discharge: Today
Subjective/Interval History
-
Date of Service: October 13, 2023
Seen and examined at bedside in no acute distress sitting up comfortably in bed. Patient reports feeling well. Denies new acute issues. Pain well controlled at this time. Eager to go home.
Objective Data
-
Labs:
Laboratory Results
10/13/23
06:34
WBC Pending
Hgb Pending
Hct Pending
Plt Count Pending
Sodium Pending
Potassium Pending
Chloride Pending
Carbon Dioxide Pending
BUN Pending
Creatinine Pending
Glucose Pending
Calcium Pending
Vital Signs:
Vital Signs
Temp Pulse Resp BP Pulse Ox
97.6 F 88 16 152/84 98
10/12/23 23:09 10/12/23 23:09 10/12/23 23:09 10/12/23 23:09 10/12/23 23:09
I&O
10/12/23 10/13/23 10/14/23
06:59 06:59 06:59
Intake Total 600 / 600 1769
Balance 600 / 600 1769
[2023-10-13] MEDS: SYMBICORT 160/4.5 MCG INHALER 2 PUFF INH (07:51)
[2023-10-13] MEDS: PULMICORT 0.5 MG INH ×2 (07:51→13:44)
[2023-10-13 08:22] LABS: Hematocrit 33.9 % (37.0-47.0); Hemoglobin 11.7 g/dL (12.0-16.0); Mean Corp Hgb Conc. 34.5 g/dL (33.0-37.0); Mean Corpuscular Hgb 31.7 pg (27.0-31.0); Mean Corpuscular Volume 91.9 fL (81.0-99.0); Red Blood Cell Count 3.69 10^6/uL (4.20-5.40); Red Cell Dist. Width 13.3 % (11.5-14.5); White Blood Cell Count 6.1 10^3/uL (4.8-10.8)
[2023-10-13] MEDS: CELEXA 40 MG PO (08:37)
[2023-10-13] MEDS: CLARITIN 10 MG PO (08:37)
[2023-10-13] MEDS: OCEAN, SALINE MIST 1 SPRAYS NASAL ×3 (08:37→17:21)
[2023-10-13] MEDS: ABILIFY 5 MG PO (08:37)
[2023-10-13] MEDS: DIOVAN 160 MG PO (08:37)
[2023-10-13] MEDS: DELTASONE 20 MG PO ×2 (08:38→14:19)
[2023-10-13] MEDS: LASIX 40 MG PO (08:38)
[2023-10-13 08:52] LABS: Blood Urea Nitrogen 27 mg/dl (7-17); Calcium 10.2 mg/dl (8.4-10.2); Carbon Dioxide 34 mmol/L (22-30); Chloride 101 mmol/L (98-107); Estimated Creatinine Clearance 42 ml/min; Glucose 81 mg/dl (70-99); Magnesium 1.9 mg/dl (1.6-2.3); Phosphorus 3.3 mg/dl (2.5-4.5); Sodium 140 mmol/L (135-145); eGFR > 60.00
[2023-10-13 09:02] LABS: Mean Platelet Volume 11.7 fL (7.4-10.4); Platelet Count 138 10^3/uL (130-400)
[2023-10-13] MEDS: ROXICODONE 5 MG PO (09:27)
[2023-10-13 12:18] VITALS: BP 145/76; PULSE 80; O2SAT 97
--- NOTE | 2023-10-13 13:30 | CM ---
Plan home with [facility].
Plan; Home with [facility].
[2023-10-13] MEDS: DUONEB 3 ML INH (13:44)
[2023-10-13 15:40] VITALS: BP 157/80
[2023-10-13] MEDS: LOVENOX 40 MG SC (17:20)
--- NOTE | 2023-10-13 18:17 | W.DCSUMMARY ---
Discharge Summary
Discharge Data
Date of Admission: 10/08/23
Date of Discharge: 10/13/23
-
Pending Results: No
Discharge Plan
-
Patient Disposition: Home with Home Care
Discharge Diagnosis/Procedures: acute toxic metabolic encephalopathy multifactorial origins (acute kidney injury, polypharmacy)
Acute Kidney Injury
Hypovolemic Shock
Chronic pain syndrome/chronic opiate dependence
Anxiety
Depression
Insomnia
Chronic Heart Failure with Preserved Ejection Fraction
Chronic normocytic anemia
Chronic Obstructive Pulmonary Disease
Chronic hypoxic respiratory failure on home oxygen 3L
Chronic Interstitial Lung Disease
Rheumatoid arthritis
Scleroderma/crest syndrome
Irritable Bowel Syndrome
Fibromyalgia
GERD
Hyperlipidemia
Moderate protein calorie malnutrition of chronic illness
Condition: Fair
Diet: Regular
Additional Diets: Ensure supplement daily your choice of flavor, available over the counter
Activity: As tolerated and With Walker
Driving Restrictions: No driving
Bathing Restrictions: None
Blood Work: Please repeat CBC and BMP with primary care provider in 1 week of discharge.
Other Services: PT and OT
Specialty Instructions: Weigh Daily- Call MD for wt gain/loss 3 lbs overnight/5 lbs in 1 week
Activity Restrictions/Additional Instructions:
Please follow up with primary care provider in 1 week of discharge, Pain specialist and Pulmonology in 1-2 weeks of discharge, and rheumatology in 1 week of discharge.
citalopram 20 mg tablet 40 mg PO DAILY Anxiety Depression
aripiprazole 5 mg tablet 5 mg PO DAILY Anxiety Depression
valsartan 80 mg tablet 160 mg PO DAILY Hypertension
vitamin B complex 1 tab PO DAILY Supplement
budesonide-formoterol HFA 160 mcg-4.5 mcg/actuation aerosol inhaler (Symbicort) 2 puff inhalation R BID for COPD
cholecalciferol (vitamin D3) 125 mcg (5,000 unit) tablet (Vitamin D3) 125 mcg PO DAILY Supplement
albuterol sulfate 90 mcg/actuation aerosol inhaler (Ventolin HFA) 2 puff inhalation R Q6HPRN as needed for shortness of breath/wheezing
atorvastatin 10 mg tablet 10 mg PO DAILY Cholesterol lowering medication for stroke risk reduction
budesonide 0.5 mg/2 mL suspension for nebulization 0.5 mg inhalation R TID for COPD
carboxymethylcellulose sodium 0.25 % eye drops (TheraTears) 1 drp BOTH EYES BID Eye Condition
furosemide 40 mg tablet 40 mg PO DAILY for heart failure with preserved ejection fraction
omeprazole 40 mg capsule,delayed release 40 mg PO DAILY for GERD and stress ulcer prophylaxis while on steroids
therapeutic multivitamin 1 tab PO DAILY Supplement
docusate sodium 100 mg capsule 100 mg PO BID for constipation
New prescriptions/refills or medication changes:
fentanyl 12 mcg/hr transdermal patch 1 patch transdermal Q72H for chronic pain dose reduced dose from 25 due to concern oversedation
oxycodone 5 mg tablet 5 mg PO BID changed to as needed BIDPRN for moderate to severe pain
prednisone 10 mg tablet 10 mg PO DAILY for COPD. Follow up with primary care provider or telephone plant power operator for further taper instructions.
trazodone 50 mg tablet 25 mg (1/2 x 50 mg) PO as needed bedtime for sleep. Dose reduced due to concern oversedation.
lorazepam 0.5 mg tablet 0.25 mg (1/2 x 0.5 mg) PO as needed at bedtime for sleep has also been prescribed- this is to be taken if trazodone is not sufficient.
Please take medications as prescribed/recommended and follow up with primary care provider and/or other healthcare provider involved in your care for refills and/or further adjustment to your medication regimen as necessary.
Referrals:
Ventura Garcia MD [Active] - in one to two weeks
Frederic Jansen MD [Active] - in one to two weeks
Randal Garza MD [Active] - in two weeks
UNKNOWN - PT DOES,NOT KNOW [Family Provider] -
Prescriptions:
New
trazodone 50 mg Tablet
25 mg PO HSPRN PRN (Reason: Sleep) 30 Days Qty: 15 0RF
fentanyl 12 mcg/hr Patch 72 Hour
1 patch transdermal Q72H Qty: 5 0RF
prednisone 10 mg tablet
10 mg PO DAILY 30 Days Qty: 30 0RF
lorazepam 0.5 mg Tablet
0.25 mg PO HSPRN PRN (Reason: Sleep) Qty: 7 0RF
Rx Instructions:
use if Trazodone is not sufficient for sleep.
Continued
citalopram 20 MG tablet
40 mg PO DAILY
valsartan 80 MG tablet
160 mg PO DAILY
vitamin B complex 1 TAB tablet
1 tab PO DAILY
aripiprazole 5 MG tablet
5 mg PO DAILY
budesonide-formoterol [Symbicort] 160-4.5 mcg/actuation HFA aerosol inhaler
2 puff INHALATION R BID
cholecalciferol (vitamin D3) [Vitamin D3] 125 mcg (5,000 unit) Tablet
125 mcg PO DAILY
furosemide 40 mg Tablet
40 mg PO DAILY
atorvastatin 10 mg Tablet
10 mg PO DAILY
therapeutic multivitamin Tablet
1 tab PO DAILY
omeprazole 40 mg Capsule,Delayed Release(Dr/Ec)
40 mg PO DAILY
TheraTears 0.25 % Drops
1 drp BOTH EYES BID
albuterol sulfate [Ventolin HFA] 90 mcg/actuation Hfa Aerosol Inhaler
2 puff INHALATION R Q6HPRN PRN (Reason: sob)
budesonide 0.5 mg/2 mL suspension for nebulization
0.5 mg inhalation R TID
Patient Comments:
07/03/2023, pt. states to take this med. TID but on [facility] this med. is listed as BIDPRN as of 06/14/2023.
docusate sodium 100 mg Capsule
100 mg PO BID Qty: 0 0RF
Changed
oxycodone 5 MG tablet
5 mg PO BIDPRN PRN (Reason: moderate severe pain) Qty: 6 0RF
Discontinued
famotidine 40 MG tablet
40 mg PO HS
trazodone 100 MG tablet
200 mg PO HS
baclofen 10 MG tablet
10 mg PO BID
Focus Factor
2 cap PO DAILY
Hair,Skin and Nails Tablet
2 tab PO DAILY
bupropion HCl 300 mg tablet extended release 24 hr
300 mg PO DAILY
Spiriva Respimat 2.5 mcg/actuation Mist
2 puff INHALATION R DAILY
fluticasone furoate-vilanterol [Breo Ellipta] 100-25 mcg/dose Blister With Device
1 inh INHALATION R DAILY
guaifenesin 600 mg Tablet Extended Release 12hr
600 mg PO Q12 Qty: 0 0RF
fentanyl 25 mcg/hr Patch 72 Hour
1 patch TRANSDERMAL Q72H 3 Days Qty: 1 0RF
prednisone 10 mg tablet
10 mg PO Q OTHER DAY Qty: 10 0RF
Rx Instructions:
Start this dose on 09/01/23
prednisone 5 mg tablet
5 mg PO Q OTHER DAY Qty: 10 0RF
Rx Instructions:
Start this dose on 09/01
prednisone 20 mg tablet
20 mg PO DAILY Qty: 3 0RF
Discharge Orders:
Discharge Patient (As Directed); Ordered 10/13/23
Ordered By: Yonis Raygoza
Discharge Date and Time
Print Language: MARTINIQUAIS
--- NOTE | 2023-10-13 20:03 | PTCARENOTE ---
Patient discharged home. Son waiting at front entrance of hospital. [facility] PCT assisted patient to front entrance via wheelchair. Patient on 3L NC (baseline). Son brought home O2 tank. Patient AAOx3, ambulatory and pleasant. Reviewed personal
belongings with patient. IV discontinued by Tessie SIMON (dayshift).
== END 2023-10-13 20:02 | disposition home health service (06) | DRG 682 ==
LOC: 4 WEST ACU 23:37
PROVIDERS: ADMITTING PHYSICIAN Internal Medicine; ATTENDING PHYSICIAN Internal Medicine; EMERGENCY PHYSICIAN Emergency Medicine
DX: N17.9 Acute kidney failure, unspecified (principal); G92.8 Other toxic encephalopathy; R57.1 Hypovolemic shock; F11.20 Opioid dependence, uncomplicated; E44.0 Moderate protein-calorie malnutrition; I50.32 Chronic diastolic (congestive) heart failure; I13.0 Hypertensive heart and chronic kidney disease with heart failure and stage 1 through stage 4 chronic kidney disease, or unspecified chronic kidney disease; J44.0 Chronic obstructive pulmonary disease with (acute) lower respiratory infection; J96.11 Chronic respiratory failure with hypoxia; F41.9 Anxiety disorder, unspecified; K58.9 Irritable bowel syndrome, unspecified; M79.7 Fibromyalgia; F32.9 Major depressive disorder, single episode, unspecified; K21.9 Gastro-esophageal reflux disease without esophagitis; E78.5 Hyperlipidemia, unspecified; D64.9 Anemia, unspecified; Z99.81 Dependence on supplemental oxygen; M06.9 Rheumatoid arthritis, unspecified; M34.1 CR(E)ST syndrome; N18.31 Chronic kidney disease, stage 3a; Z68.22 Body mass index [BMI] 22.0-22.9, adult
CPT/HCPCS: 51701; 70450; 80048; 80053; 81003; 82805; 83735; 83880; 84100; 85025; 85027; 87070; 92610; 93005; 94640; 96360; 97116; 97163; 97167; 97530; 97535; 99291

== ENCOUNTER → 2023-10-30 17:32 | Outpatient (REF) | payer MEDICARE, BC, SELFPAY ==
[2023-10-30 18:23] LABS: Hematocrit 33.7 % (37.0-47.0); Hemoglobin 10.9 g/dL (12.0-16.0); Mean Corp Hgb Conc. 32.3 g/dL (33.0-37.0); Mean Corpuscular Hgb 31.5 pg (27.0-31.0); Mean Corpuscular Volume 97.4 fL (81.0-99.0); Mean Platelet Volume 10.6 fL (7.4-10.4); Platelet Count 183 10^3/uL (130-400); Red Blood Cell Count 3.46 10^6/uL (4.20-5.40); Red Cell Dist. Width 13.6 % (11.5-14.5); White Blood Cell Count 8.5 10^3/uL (4.8-10.8)
[2023-10-30 18:57] LABS: Blood Urea Nitrogen 30 mg/dl (7-17); Calcium 9.9 mg/dl (8.4-10.2); Carbon Dioxide 25 mmol/L (22-30); Chloride 99 mmol/L (98-107); Glucose 86 mg/dl (70-99); Potassium 3.8 mmol/L (3.5-5.1); Sodium 137 mmol/L (135-145); eGFR 59.49
== END ==
LOC: CLAB 17:32
PROVIDERS: ATTENDING PHYSICIAN Family Medicine
DX: N17.9 Acute kidney failure, unspecified (principal); G93.40 Encephalopathy, unspecified
CPT/HCPCS: 36415; 80048; 85027

== ENCOUNTER → 2024-02-16 14:28 | Outpatient (REF) | payer MEDICARE, BC, SELFPAY | LOC: RAD 14:28 | PROVIDERS: ATTENDING PHYSICIAN Physician Assistant Surgical; FAMILY PHYSICIAN Family Medicine; REFERRING PHYSICIAN Psychiatry & Neurology Neurology | DX: M54.16 Radiculopathy, lumbar region (principal); M54.50 Low back pain, unspecified | CPT/HCPCS: 72110 ==

== ENCOUNTER → 2024-05-17 10:13 | Outpatient (REF) | payer MEDICARE, BC, SELFPAY | LOC: RAD 10:13 | PROVIDERS: ATTENDING PHYSICIAN Nurse Practitioner; FAMILY PHYSICIAN Family Medicine; REFERRING PHYSICIAN Internal Medicine Critical Care Medicine | DX: K58.0 Irritable bowel syndrome with diarrhea (principal); R15.9 Full incontinence of feces; R06.02 Shortness of breath | CPT/HCPCS: 71046; 74019 ==

== ENCOUNTER → 2024-06-05 15:37 | Outpatient (REF) | payer MEDICARE, BC, SELFPAY | LOC: WDC 15:37 | PROVIDERS: ATTENDING PHYSICIAN Nurse Practitioner Family | DX: Z12.31 Encounter for screening mammogram for malignant neoplasm of breast (principal) | CPT/HCPCS: 77063; 77067 ==

== ENCOUNTER → 2024-06-07 09:22 | Outpatient (REF) | payer MEDICARE, BC, SELFPAY | LOC: RAD 09:22 | PROVIDERS: ATTENDING PHYSICIAN Nurse Practitioner; FAMILY PHYSICIAN Family Medicine; REFERRING PHYSICIAN Internal Medicine Critical Care Medicine | DX: K22.719 Barrett's esophagus with dysplasia, unspecified (principal) | CPT/HCPCS: 74246 ==

== ENCOUNTER 2024-07-11 10:00 | Inpatient (IN) | payer MEDICARE, BC, SELFPAY ==
[2024-07-09 17:49] VITALS: BP 104/65
[2024-07-09 18:21] LABS: % Basophils 0.5 % (0-2); % Eosinophils 0.9 % (0-6); % Immature Granulocytes 0.5 % (0-0.5); % Lymphocytes 8.3 % (20.5-51.1); % Monocytes 4.8 % (1.7-9.3); Absolute Eosinophils 0.1 10^3/uL (0-0.7); Absolute Lymphocytes 0.6 10^3/uL (1.2-3.4); Absolute Monocytes 0.4 10^3/uL (0.1-0.6); Absolute Neutrophils 6.3 10^3/uL (1.4-6.5); Hematocrit 37.2 % (37.0-47.0); Hemoglobin 11.8 g/dL (12.0-16.0); Mean Corp Hgb Conc. 31.7 g/dL (33.0-37.0); Mean Corpuscular Hgb 31.1 pg (27.0-31.0); Mean Corpuscular Volume 97.9 fL (81.0-99.0); Mean Platelet Volume 9.3 fL (7.4-10.4); Nucleated Red Blood Cells % 0 %; Platelet Count 191 10^3/uL (130-400); Red Cell Dist. Width 13.2 % (11.5-14.5); White Blood Cell Count 7.4 10^3/uL (4.8-10.8)
[2024-07-09 18:38] LABS: ALT (SGPT) 25 U/L (0-35); AST (SGOT) 23 U/L (14-36); Albumin 4.4 g/dl (3.5-5.0); Alkaline Phosphatase 78 U/L (38-126); Blood Urea Nitrogen 39 mg/dl (7-17); Calcium 9.7 mg/dl (8.4-10.2); Carbon Dioxide 24 mmol/L (22-30); Chloride 111 mmol/L (98-107); Glucose 116 mg/dl (70-99); Sodium 143 mmol/L (135-145); Total Bilirubin 0.4 mg/dl (0.2-1.3); Total Protein 6.4 g/dl (6.3-8.2)
[2024-07-09 18:44] LABS: NT-proBNP 68.3 pg/ml; Troponin I < 0.012 ng/ml
[2024-07-09 19:19] VITALS: BP 119/80; BMI 22.7
[2024-07-09 20:00] VITALS: BP 124/69
[2024-07-09 21:00] VITALS: BP 114/70
--- NOTE | 2024-07-09 21:22 | ED.GENMED ---
History of Present Illness
General
Chief Complaint: Breathing Problem
Source: patient
Time Seen by Provider: 07/09/24 20:41
History of Present Illness
History of Present Illness:
73-year-old female with past medical history of COPD, hypertension, hyperlipidemia, previous cardiac arrest, previous GI bleeding presenting to the emergency department for evaluation of shortness of breath that has been ongoing since this past
Monday describing a tightness in her chest and feeling as if she cannot take a deep breath. Patient notes that about a month ago she was started on a CPAP machine and states she was doing very well with this to the point where she did not even need
oxygen during the daytime however since Monday she reports needing the oxygen 12/09. Patient denies any fevers, chills, rigors, chest pain, palpitations, diaphoresis, lower extremity edema, cough, pleurisy, hemoptysis or any other concerns. Patient
states that she has had some relief with her inhaler but shortly after the inhaler or nebulizer she notes symptoms start to return.
Past History
Past History
ED Past Medical History: COPD, Fibromyalgia, GERD and Other (Rheumatoid arthritis, scleroderma, pneumonia, renal, bowel obstruction, IBS, anemia, chronic constipation, rectal prolapse, Upper Gi bleeding, Raynaud's disease)
ED Past Surgical History: Appendectomy, Bowel resection (due to perforation), Cholecystectomy, Gynecological (Hysterectomy) and Other ( breast lumpectomy)
Social History
Tobacco: Former smoker
Alcohol: None
Drug: None
Personal:
Living: alone
Employment: Not employed
Family History
Family History: Unable to obtain
Review of Systems
Review of Systems
All Other Systems: ROS reviewed and negative except as documented in HPI and ROS
Phy Exam
Physical Exam
Physical Exam:
GENERAL: Alert , in no apparent distress, thin, appears older than stated age, significant kyphosis
HEAD: Normocephalic atraumatic
EYE: conjunctiva clear
NECK: Supple, no significant adenopathy.
ENT: mmm.
CARDIAC: Regular rate and rhythm
LUNGS: restricted lung sounds throughout. mildly tachypneic but no accessory muscle use. speaking full sentences. On 3L NC
NEUROLOGICAL: Alert and oriented
SKIN: Warm and dry, small abrasion right anterior gallardo
MUSCULOSKELETAL: well perfused. no edema
PSYCH: Normal and appropriate interaction.
Scores
Heart Failure Risk
Heart Failure Risk Score: Not Applicable
Heart Score for Chest Pain Patients
STEMI patient?: Not applicable
Withdrawal Assessment of Alcohol
Withdrawal Assessment Completed?: Not applicable
Course
Orders/Labs/Results
Orders:
Orders
07/09/24 17:50
Electrocardiogram (*1) Urgent
Reason for Study: Chest Pain
07/09/24 17:51
EKG- Treatment ONCE
07/09/24 18:13
Complete Blood Count/With Diff Urgent
Comprehensive Metabolic Panel Urgent
NT-proBNP Urgent
Troponin I Urgent
07/09/24 20:53
Albuterol Sulfate [Ventolin Nebules] 10 mg INH R NOW STA
Ipratropium/Albuterol Sulfate [Duoneb] 3 ml INH R NOW ONE
MethylPREDNISolone PF [Solu-Medrol Pf] 40 mg IV NOW STA
07/09/24 20:56
CR Chest Portable - 1 View Urgent
Comment:
Reason For Exam: SOB
Reason Study Needs to be Portable: Unable to Transport
07/09/24 23:00
Flush (0.9% Sodium Chloride) [Flush (Nss)] See Dose Instructions IV PER PROTOCOL
Abnormal Lab Results
07/09/24
18:13
RBC 3.80 L 10^6/uL
(4.20-5.40)
Hgb 11.8 L g/dL
(12.0-16.0)
MCH 31.1 H pg
(27.0-31.0)
MCHC 31.7 L g/dL
(33.0-37.0)
Absolute Lymphs (auto) 0.6 L 10^3/uL
(1.2-3.4)
Neutrophils % 85.0 H %
(42.2-75.2)
Lymphocytes % 8.3 L %
(20.5-51.1)
Chloride 111 H mmol/L
(98-107)
BUN 39 H mg/dl
(7-17)
Creatinine 1.2 H mg/dL
(0.6-1.0)
Glucose 116 H mg/dl
(70-99)
07/09/24 18:13
07/09/24 18:13
Vital Signs
Initial and Last Documented VS:
Initial Vital Signs
Temp Pulse Resp BP Pulse Ox
98.3 F 83 16 104/65 100
07/09/24 17:49 07/09/24 17:49 07/09/24 17:49 07/09/24 17:49 07/09/24 17:49
Last Documented Vital Signs
Temp Pulse Resp BP Pulse Ox
98.3 F 63 16 114/70 100
07/09/24 17:49 07/09/24 21:30 07/09/24 21:30 07/09/24 21:00 07/09/24 21:30
MDM/Problems Addressed
Differential Diagnosis Includes:
COPD/asthma, CHF, ACS, pneumothorax, pleural effusion, pneumonia
MDM/Problems Addressed:
73-year-old female presenting to the ER for evaluation of gradually worsening shortness of breath over the last 2 to 3 days, initial improvement of COPD with CPAP however notes over the last 2 to 3 days she is back on her usual nasal cannula but
still short of breath with this. No fevers or infectious symptoms, no lower extremity edema. Lung sounds very restricted. I suspect COPD exacerbation is most likely. Labs ordered from triage are reassuring. Troponin and BNP are within normal
limits. Chest x-ray ordered. I did order Solu-Medrol, albuterol and DuoNeb to treat suspected COPD exacerbation. Plan to admit to hospitalist team for continued treatment.
Chronic conditions affecting care: COPD
Acute Exacerbation and/or Progression of Chronic Illness: COPD
*Radiology
Radiology exam reviewed: preliminary read by ED provider (No infiltrates/consolidations)
*Pulse Oximetry
Patient hypoxic: yes
*EKG
Heart Rate: 82
Rate: normal
Rhythm: sinus
Ischemia: no ischemia
*Electric Meter Tester Interpretation
Rate: normal
Rhythm: sinus
*Critical Care Note
Total Time (30-74mins, 75-104mins- exclusive of procedures): Not Applicable
Patient Management
Discussion with other providers: Hospitalist
Escalation/DeEscalation of care consider admission/obs:
Hospitalist team is aware and accepts for continued evaluation and treatment.
ED Attending Note
-
Portions of this chart may have been created with voice recognition software.� Occasional wrong word or��sound alike� substitutions may have occurred due to the inherent limitations of voice recognition software.
Discharge Plan
Departure
Patient Disposition: Admit
Date of Disposition: 07/09/24
Time of Disposition: 21:23
Presentation/result/management discussed w/ accepting MD/DO: Hospitalist
Discharge Problem:
Acute exacerbation of chronic obstructive pulmonary disease
Prescriptions:
No Action
citalopram 20 MG tablet
40 mg PO DAILY
valsartan 80 MG tablet
160 mg PO DAILY
vitamin B complex 1 TAB tablet
1 tab PO DAILY
aripiprazole 5 MG tablet
5 mg PO DAILY
budesonide-formoterol [Symbicort] 160-4.5 mcg/actuation HFA aerosol inhaler
2 puff INHALATION R BID
cholecalciferol (vitamin D3) [Vitamin D3] 125 mcg (5,000 unit) Tablet
125 mcg PO DAILY
furosemide 40 mg Tablet
40 mg PO DAILY
atorvastatin 10 mg Tablet
10 mg PO DAILY
therapeutic multivitamin Tablet
1 tab PO DAILY
omeprazole 40 mg Capsule,Delayed Release(Dr/Ec)
40 mg PO DAILY
TheraTears 0.25 % Drops
1 drp BOTH EYES BID
albuterol sulfate [Ventolin HFA] 90 mcg/actuation Hfa Aerosol Inhaler
2 puff INHALATION R Q6HPRN PRN (Reason: sob)
budesonide 0.5 mg/2 mL suspension for nebulization
0.5 mg inhalation R TID
Patient Comments:
07/03/2023, pt. states to take this med. TID but on [facility] this med. is listed as BIDPRN as of 06/14/2023.
docusate sodium 100 mg Capsule
100 mg PO BID Qty: 0 0RF
trazodone 50 mg Tablet
25 mg PO HSPRN PRN (Reason: Sleep) 30 Days Qty: 15 0RF
fentanyl 12 mcg/hr Patch 72 Hour
1 patch transdermal Q72H Qty: 5 0RF
oxycodone 5 MG tablet
5 mg PO BIDPRN PRN (Reason: moderate severe pain) Qty: 6 0RF
prednisone 10 mg tablet
10 mg PO DAILY 30 Days Qty: 30 0RF
lorazepam 0.5 mg Tablet
0.25 mg PO HSPRN PRN (Reason: Sleep) Qty: 7 0RF
Rx Instructions:
use if Trazodone is not sufficient for sleep.
Referrals:
Diego Crenshaw MD [Family Provider] -
Interventions
Interventions:
*Risk Screen - Suicide Last Done: 07/09/24 17:50
*General Assessment Last Done: 07/09/24 19:19
*Neglect/Abuse Screening Last Done: 07/09/24 17:50
*ED- Fall Risk Assessment Last Done: 07/09/24 19:19
*ED COVID-19 Vaccine History Last Done: 07/09/24 19:19
ED- Cardiac Assessment Last Done: 07/09/24 19:19
ED- Pulmonary Assessment Last Done: 07/09/24 19:19
Discharge Date and Time
Print Language: MALTESE
[2024-07-09] MEDS: VENTOLIN NEBULES 10 MG INH (21:24)
[2024-07-09] MEDS: DUONEB 3 ML INH (21:25)
[2024-07-09] MEDS: SOLU-MEDROL PF 40 MG IV (21:25)
[2024-07-09 22:00] VITALS: BP 99/62
[2024-07-09 23:08] VITALS: BP 140/53
[2024-07-10] VITALS (10 sets, daily range): BP systolic 116–147; BP diastolic 51–69; PULSE 90; BMI 21.8
--- NOTE | 2024-07-10 03:19 | HPS.HSE ---
Family Physician
-
Family Physician: Diego Crenshaw
Chief Complaint
-
SOB/Wheezing/Chest Tightness x Monday
History of Present Illness
73yo F with PMH COPD on Chronic Pred 10mg daily, Chronic Hypoxic Resp Failure on 3LNC, HTN/HLD, Hx Cardiac Arrest (Hypoxic arrest, no stents), Fibromyalgia on Chronic Opiates, RA, Scleroderma, Raynauds, CKD II-IIIa, GERD, Anxiety/Dep presents to ER
for SOB/wheezing/chest tightness since Monday. She reports it feeling similar to past COPD exacerbations. +nonproductive cough. Took home nebulizers/inhalers without improvement. She also reports chest tightness without radiation and nonexertional.
States tightness improved with steroid treatment given in ER. Denies Fever, Chills, Sick contacts, Current CP, Palps, Abd Pain, N/V/D/C, Dysuria, Calf or Leg Pain. No recent med changes. pt follows with Pulm Dr. Garcia.
ER course: Pt presents RR 26-28, other V.S.S on home 3LNC. BUN/Cr 39/1.2, WBC 7.4K, hgb 11.8 g/dL. BNP 68.3. HS Trop < 0.012. LFts wnl. CXR Patchy parenchymal opacity within the left lower lung, predominantly linear morphology most suggestive of
atelectasis. However, pneumonia could have a similar appearance. No evidence for associated pleural effusion. S/P 40mg IV solumedrol, duoneb, albuterol 1hr long.
Medical History
Past Medical History
Past Medical History: Reports Other (COPD, Fibromyalgia, GERD and Other (Rheumatoid arthritis, scleroderma, pneumonia, renal, bowel obstruction, IBS, anemia, chronic constipation, rectal prolapse, Upper Gi bleeding, Raynaud's disease))
Past Surgical History: Reports Other (Appendectomy, Bowel resection (due to perforation), Cholecystectomy, Gynecological (Hysterectomy) and Other ( breast lumpectomy))
Social History
Tobacco: Former Smoker (Quit 2019, Previous 1PPD smoker all her life)
Alcohol: None
Drug: None
Family History
Family History: Not pertinent
Allergies / Home Medications
Allergies reflects when Allergies were last updated in [facility].
Home Medications with original date entered in [facility]
Allergy/Medication List:
Allergies
Allergy/AdvReac Type Severity Reaction Status Date / Time
codeine Allergy rash,hives,METALLIC Verified 10/08/23 19:30
TASTE IN
MOUTH
Home Medications
citalopram 20 mg tablet 40 mg PO DAILY Mental Health 12/27/17
aripiprazole 5 mg tablet 5 mg PO DAILY Mental Health 11/11/20
valsartan 80 mg tablet 160 mg PO DAILY Blood pressure 11/11/20
vitamin B complex 1 tab PO DAILY Supplement 11/11/20
budesonide-formoterol HFA 160 mcg-4.5 mcg/actuation aerosol inhaler (Symbicort) 2 puff inhalation R BID Lung/Breathing Issues 07/26/22
cholecalciferol (vitamin D3) 125 mcg (5,000 unit) tablet (Vitamin D3) 125 mcg PO DAILY Supplement 07/26/22
albuterol sulfate 90 mcg/actuation aerosol inhaler (Ventolin HFA) 2 puff inhalation R Q6HPRN PRN sob 07/03/23
atorvastatin 10 mg tablet 10 mg PO DAILY High Cholesterol 07/03/23
budesonide 0.5 mg/2 mL suspension for nebulization 0.5 mg inhalation R TID Lung/breathing issues 07/03/23
carboxymethylcellulose sodium 0.25 % eye drops (TheraTears) 1 drp BOTH EYES BID Eye Condition 07/03/23
furosemide 40 mg tablet 40 mg PO DAILY Fluid Retention/Swelling 07/03/23
omeprazole 40 mg capsule,delayed release 40 mg PO DAILY GERD 07/03/23
therapeutic multivitamin 1 tab PO DAILY Supplement 07/03/23
docusate sodium 100 mg capsule 100 mg PO BID #0 caps 07/11/23
fentanyl 12 mcg/hr transdermal patch 1 patch transdermal Q72H #5 ea 10/13/23
lorazepam 0.5 mg tablet 0.25 mg (1/2 x 0.5 mg) PO HSPRN PRN Sleep #7 tabs 10/13/23
oxycodone 5 mg tablet 5 mg PO BIDPRN PRN moderate severe pain #6 tabs 10/13/23
prednisone 10 mg tablet 10 mg PO DAILY 30 days #30 tabs 10/13/23
trazodone 50 mg tablet 25 mg (1/2 x 50 mg) PO HSPRN PRN Sleep 30 days #15 tabs 10/13/23
Review of Systems
-
A 12 point ROS was completed and negative except as noted: Yes
Physical Exam
Vital Signs
Vital Signs
Temp Pulse Resp BP Pulse Ox
98.3 F 76 15 126/52 98
07/09/24 17:49 07/10/24 03:00 07/10/24 03:00 07/10/24 03:00 07/10/24 03:00
Physical Exam
General: Well Developed, Well Nourished and No Apparent Distress
HEENT: NormoCephalic, Moist mucous membranes and Atraumatic
Respiratory: Other (Mild wheezing b/l bases. No accessory muscle use. )
Cardiac: S1/S2 and Regular Rhythm; No Murmur or Rub
GI: Soft, Non Tender, Non Distended and Normal Bowel Sounds; No Organomegaly
Rectal: Deferred by Provider
Musculoskeletal: No Clubbing, No Cyanosis and No Edema
Skin: No Rash
Neuro: Awake, Alert, Oriented, AO x 3 and Nonfocal/grossly intact
Hematologic/Lymphatic: No Lymphadenopathy
Psych: Calm
Laboratory Results
-
07/09/24 18:13
07/09/24 18:13
Laboratory Results
Total Bilirubin 0.4 mg/dl (0.2-1.3) 07/09/24 18:13
AST 23 U/L (14-36) 07/09/24 18:13
ALT 25 U/L (0-35) 07/09/24 18:13
Alkaline Phosphatase 78 U/L (38-126) 07/09/24 18:13
Troponin I < 0.012 ng/ml 07/09/24 18:13
Data Reviewed
-
Diagnostic Radiology: Image Personally Visualized and interpreted
Medical Tests (Nuc Med, Echo, EKG etc): Image Personally Visualized and interpreted
Lab Data: Labs Reviewed by me
Old Records: Reviewed
Impression/Plan
-
Acute COPD Exacerbation/Chronic Hypoxic Resp Failure / TRACIE
- RR 26-28 on presentation stable on home 3LNC
- CXR Patchy parenchymal opacity within the left lower lung, predominantly linear morphology most suggestive of atelectasis. However, pneumonia could have a similar appearance. No evidence for associated pleural effusion
- No leukocytosis. WBC 7.4K. Nontoxic. afebrile. Defer abx favoring atelectasis
- Continue 40mg IV Solumedrol started in ER. Home Prednisone 10mg daily on hold.
- Continue Duonebs Q6h standing. Restart budesonide/formoterol when changed to PRN
- Continue Budesonide nebulizer
- Continue cpap qHS (pt reports starting 1 month ago)
- Suspect observation stay, consider Pulm consult and upgrade if unimproved in AM
Chest Tightness
- Low suspicion for cardiac etiology. EKG: NSR @ 82bpm, Q-waves V1-V2, QTC 443ms, no change from prior
- HS trop Neg x 1. Defer further trending
- Chest discomfort resolved wtih steroids in ER - Likely MSK/pleuritic
CKD - Cr 1.2. Baseline Cr ~1.0 CKD II-IIIa. Examines mildly hypovolemic. Hold home lasix. Encourage fluids and trend.
HTN / HLD - Continue home ARB (consider holding if renal function worsens). Continue home statin.
Fibromyalgia/RA/Scleroderma - Continue Q3 daily fentanyl patch due 07/10. Continue home oxycodone 5mg BID prn. Bowel regimen.
Anxiety/Depression - Continue Celexa and Abilify, PRN trazodone and ativan. [place]-PDMP reviewed.
Diet: Regular
DVT ppx: Lovenox
Code Status: Full Code
--- NOTE | 2024-07-10 06:13 | PTCARENOTE ---
Patient arrived to unit via stretcher with dx of COPD Exacerbation. 02 @ [address] Patient AAOx3 and states feels better since medications given in ED. Pleasant and cooperative with care. No c/o pain or discomfort at current time. Oriented
to unit. Call romero within reach.
[2024-07-10] MEDS: THERAGRAN 1 TABLET PO (07:24)
[2024-07-10] MEDS: ABILIFY 5 MG PO (07:24)
[2024-07-10] MEDS: VITAMIN D3 (cholecalciferol) 125 MCG PO (07:24)
[2024-07-10] MEDS: CELEXA 40 MG PO (07:24)
[2024-07-10] MEDS: LIPITOR 10 MG PO (07:24)
[2024-07-10] MEDS: PEPCID 20 MG PO (07:24)
[2024-07-10] MEDS: PROTONIX 40 MG PO (07:24)
[2024-07-10] MEDS: B COMPLEX w/VITAMIN C 1 CAPLET PO (07:25)
[2024-07-10] MEDS: DIOVAN 160 MG PO (07:27)
[2024-07-10] MEDS: PULMICORT 0.5 MG INH ×2 (07:37→19:24)
[2024-07-10] MEDS: DUONEB 3 ML INH ×3 (07:37→19:24)
[2024-07-10] MEDS: REFRESH CELLUVISC GEL 1 DROPS BOTH EYES ×2 (07:38→21:25)
--- NOTE | 2024-07-10 07:41 | W.PN.HOSP.TC ---
Today's Communication/Plan
-
Antibiotics. Steroids.
Assessment / Plan
Assessment / Plan
Physical exam:
General: Acutely ill
HEENT: Normocephalic, Atraumatic and Moist Mucous Membranes
Respiratory: Decreased breath sounds bilateral; bilateral scattered wheezes, few rhonchi in the bases, no crackles.
Cardiac: Regular Rhythm and S1/S2
GI: Soft, Nontender and Nondistended
Musculoskeletal: No Clubbing, No Cyanosis and No Edema
Neuro: Awake, Alert and Oriented, no neurological deficit
Psych: Calm
A/P:
Acute COPD exacerbation/ILD flare:
Restart IV steroids, dexamethasone 4 mg IV every 6 hours
Continue bronchodilators
Oxygen supplementation
Left lower lobe pneumonia:
Community-acquired pneumonia
Start antibiotics, IV Rocephin and oral azithromycin
Check strep and Legionella antigen
Sputum culture if able to produce sputum
Chronic hypoxic respiratory failure:
Continue oxygen supplement (she is on 3 L at home)
VIKTOR on CKD:
Creatinine 0.8 today and upon admission was 1.2
Avoid nephrotoxic
Monitor renal function
Hypertension:
Continue ARB
Chronic pain with narcotic dependence:
Continue fentanyl patch and oxycodone as needed
Continue bowel regimen
Anxiety:
Continue benzodiazepine
History of rheumatoid arthritis and scleroderma:
Rheumatology follow-up as outpatient
DVT prophylaxis:
Lovenox SQ
CODE STATUS:
Full code
Anticipated Discharge: > 48 hours
Subjective/Interval History
-
Date of Service: July 10, 2024
Patient still having shortness of breath although less than admission. No cough. Denies chest pain today. Afebrile
Objective Data
-
Labs:
Laboratory Results
07/10/24
07:08
WBC Pending
Hgb Pending
Hct Pending
Plt Count Pending
Sodium Pending
Potassium Pending
Chloride Pending
Carbon Dioxide Pending
BUN Pending
Creatinine Pending
Glucose Pending
Calcium Pending
Vital Signs:
Vital Signs
Temp Pulse Resp BP Pulse Ox
98.1 F 75 18 116/69 97
07/10/24 04:55 07/10/24 07:27 07/10/24 04:55 07/10/24 07:27 07/10/24 05:30
I&O
07/09/24 07/10/24 07/11/24
06:59 06:59 06:59
Output Total 300 / 300
Balance -300 / -300
[2024-07-10 08:00] LABS: Hematocrit 37.2 % (37.0-47.0); Hemoglobin 12.2 g/dL (12.0-16.0); Mean Corp Hgb Conc. 32.8 g/dL (33.0-37.0); Mean Corpuscular Hgb 31.8 pg (27.0-31.0); Mean Corpuscular Volume 96.9 fL (81.0-99.0); Mean Platelet Volume 9.8 fL (7.4-10.4); Platelet Count 177 10^3/uL (130-400); Red Blood Cell Count 3.84 10^6/uL (4.20-5.40); Red Cell Dist. Width 13.2 % (11.5-14.5); White Blood Cell Count 4.9 10^3/uL (4.8-10.8)
[2024-07-10 08:23] LABS: Blood Urea Nitrogen 33 mg/dl (7-17); Calcium 10.1 mg/dl (8.4-10.2); Carbon Dioxide 24 mmol/L (22-30); Chloride 114 mmol/L (98-107); Estimated Creatinine Clearance 47 ml/min; Glucose 136 mg/dl (70-99); Magnesium 2.2 mg/dl (1.6-2.3); Sodium 145 mmol/L (135-145); eGFR > 60.00
[2024-07-10] MEDS: ZITHROMAX 500 MG PO (08:53)
[2024-07-10] MEDS: ROCEPHIN 1000 MG IV (08:54)
[2024-07-10] MEDS: STERILE WATER FOR INJECTION 10 ML IV (08:54)
[2024-07-10] MEDS: DECADRON 4 MG IV ×3 (08:54→21:25)
[2024-07-10] MEDS: ZOFRAN 4 MG IV (09:32)
[2024-07-10] MEDS: DURAGESIC 12 MCG/HR PATCH 1 PATCH TRANSDERM (10:02)
--- NOTE | 2024-07-10 11:05 | CM ---
Chart reviewed, met with pt at bedside. Initial assessment completed. Lives in In law suite at her son's home, no HOLDEN, uses walker at home. Pt states on home O2 at 3L NC, supplier is [facility]. Nicol reviewed and copy given to pt. Pt has been to [facility] in the past and has had [facility]. CM will continue to follow for discharge planning needs.
PCP: Diego Crenshaw
Pharmacy: [facility]
Plan: Pending medical treatment, home with O2
[2024-07-10] MEDS: LOVENOX 40 MG SC (18:16)
[2024-07-10] MEDS: DESYREL 25 MG PO (23:05)
[2024-07-10] MEDS: ROXICODONE 5 MG PO (23:05)
[2024-07-11] MEDS: DUONEB 3 ML INH ×5 (01:26→23:55)
[2024-07-11] MEDS: DECADRON 4 MG IV ×4 (01:48→22:59)
--- NOTE | 2024-07-11 04:40 | PTCARENOTE ---
AAO x 3. CPAP worn overnight. Patient complaining of chronic generalized pain, PRN oxy administered for pain management. OOB with standby assist, to bedside commode. All patient needs met. Bed in lowest position. Call romero and personal belongings
within reach.
[2024-07-11 06:00] VITALS: BMI 21.8
[2024-07-11 07:00] VITALS: BP 130/68
[2024-07-11] MEDS: PULMICORT 0.5 MG INH ×2 (07:23→19:34)
[2024-07-11] MEDS: ZITHROMAX 500 MG PO (08:34)
[2024-07-11] MEDS: LIPITOR 10 MG PO (08:34)
[2024-07-11] MEDS: THERAGRAN 1 TABLET PO (08:34)
[2024-07-11] MEDS: ABILIFY 5 MG PO (08:34)
[2024-07-11] MEDS: DIOVAN 160 MG PO (08:34)
--- NOTE | 2024-07-11 08:34 | W.PN.HOSP.TC ---
Today's Communication/Plan
-
Steroids antibiotic and bronchodilators.
Assessment / Plan
Assessment / Plan
Physical exam:
General: Acutely ill
HEENT: Normocephalic, Atraumatic and Moist Mucous Membranes
Respiratory: Decreased breath sounds bilateral; bilateral scattered wheezes, few rhonchi in the bases, no crackles.
Cardiac: Regular Rhythm and S1/S2
GI: Soft, Nontender and Nondistended
Musculoskeletal: No Clubbing, No Cyanosis and No Edema
Neuro: Awake, Alert and Oriented, no neurological deficit
Psych: Calm
A/P:
Acute COPD exacerbation/ILD flare:
Continue IV steroids but start tapering today, dexamethasone 4 mg IV every 6 hours decrease to every 8 hours today.
Continue bronchodilators
Oxygen supplementation
Updated daughter over the phone today
Left lower lobe pneumonia:
Community-acquired pneumonia
Start antibiotics, IV Rocephin and oral azithromycin
Check strep and Legionella antigen
Sputum culture if able to produce sputum
Chronic hypoxic respiratory failure:
Continue oxygen supplement (she is on 3 L at home)
VIKTOR on CKD:
Creatinine 0.8 today and upon admission was 1.2
Avoid nephrotoxic
Hypertension:
Continue ARB
Chronic pain with narcotic dependence:
Continue fentanyl patch and oxycodone as needed
Continue bowel regimen
Anxiety:
Continue benzodiazepine
History of rheumatoid arthritis and scleroderma:
Rheumatology follow-up as outpatient
DVT prophylaxis:
Lovenox SQ
CODE STATUS:
Full code
Total time spent on today's encounter was 52 minutes which included time spent in counseling the patient/family regarding diagnosis and treatment plan as listed above, goals of care, and symptom management. Case was discussed with nursing staff,
specialists, and care coordinators/case management. All labs and imaging personally reviewed by me. Remainder the time spent in detailed review of previous records, lab data, imaging, and other medical provider documentation.
Anticipated Discharge: 24 - 48 hours
Subjective/Interval History
-
Date of Service: July 11, 2024
Patient still short of breath but noticed improvement. On supplemental oxygen. Afebrile
Objective Data
-
Labs:
Laboratory Results
07/11/24
06:57
WBC Pending
Hgb Pending
Hct Pending
Plt Count Pending
Sodium Pending
Potassium Pending
Chloride Pending
Carbon Dioxide Pending
BUN Pending
Creatinine Pending
Glucose Pending
Calcium Pending
Vital Signs:
Vital Signs
Temp Pulse Resp BP Pulse Ox
97.9 F 78 18 147/67 99
07/10/24 22:41 07/11/24 07:27 07/11/24 07:27 07/10/24 22:41 07/11/24 07:27
I&O
07/10/24 07/11/24 07/12/24
06:59 06:59 06:59
Intake Total 690 / 690
Output Total 500 / 500
Balance 190 / 190
[2024-07-11] MEDS: PROTONIX 40 MG PO (08:35)
[2024-07-11] MEDS: VITAMIN D3 (cholecalciferol) 125 MCG PO (08:35)
[2024-07-11] MEDS: PEPCID 20 MG PO (08:35)
[2024-07-11] MEDS: B COMPLEX w/VITAMIN C 1 CAPLET PO (08:35)
[2024-07-11] MEDS: ROCEPHIN 1000 MG IV (08:36)
[2024-07-11] MEDS: CELEXA 40 MG PO (08:36)
[2024-07-11] MEDS: STERILE WATER FOR INJECTION 10 ML IV (08:36)
[2024-07-11] MEDS: REFRESH CELLUVISC GEL 1 DROPS BOTH EYES ×2 (08:37→20:20)
[2024-07-11 08:41] LABS: % Basophils 0.2 % (0-2); % Immature Granulocytes 0.5 % (0-0.5); % Lymphocytes 8.9 % (20.5-51.1); % Monocytes 2.3 % (1.7-9.3); % Neutrophils 88.1 % (42.2-75.2); Absolute Lymphocytes 0.6 10^3/uL (1.2-3.4); Absolute Monocytes 0.2 10^3/uL (0.1-0.6); Absolute Neutrophils 5.7 10^3/uL (1.4-6.5); Hematocrit 38.4 % (37.0-47.0); Hemoglobin 12.6 g/dL (12.0-16.0); Mean Corp Hgb Conc. 32.8 g/dL (33.0-37.0); Mean Corpuscular Hgb 31.3 pg (27.0-31.0); Mean Corpuscular Volume 95.3 fL (81.0-99.0); Mean Platelet Volume 10.2 fL (7.4-10.4); Nucleated Red Blood Cells % 0 %; Platelet Count 180 10^3/uL (130-400); Red Blood Cell Count 4.03 10^6/uL (4.20-5.40); Red Cell Dist. Width 13.1 % (11.5-14.5); White Blood Cell Count 6.4 10^3/uL (4.8-10.8)
[2024-07-11 10:13] LABS: Blood Urea Nitrogen 32 mg/dl (7-17); Calcium 10.1 mg/dl (8.4-10.2); Carbon Dioxide 23 mmol/L (22-30); Chloride 113 mmol/L (98-107); Estimated Creatinine Clearance 47 ml/min; Glucose 118 mg/dl (70-99); Potassium 4.3 mmol/L (3.5-5.1); Sodium 142 mmol/L (135-145); eGFR > 60.00
--- NOTE | 2024-07-11 10:43 | CM ---
CM reviewed chart, patient seen bedside. Patient remains on O2. Discussed VN upon discharge, declining at this time. Patient remains on IV antibiotics. CM will continue to follow for all discharge planning needs.
Plan; home no needs likely
[2024-07-11 15:00] VITALS: BP 158/79
[2024-07-11] MEDS: LOVENOX 40 MG SC (15:52)
[2024-07-11 22:54] VITALS: BP 147/66
[2024-07-11] MEDS: DESYREL 25 MG PO (23:05)
[2024-07-11] MEDS: ROXICODONE 5 MG PO (23:06)
[2024-07-12 06:00] VITALS: BMI 22.2
[2024-07-12 06:07] VITALS: PULSE 74
[2024-07-12] MEDS: PULMICORT 0.5 MG INH ×2 (06:07→19:56)
[2024-07-12] MEDS: DUONEB 3 ML INH ×3 (06:07→19:43)
[2024-07-12 07:00] VITALS: BP 152/72
[2024-07-12] MEDS: REFRESH CELLUVISC GEL 1 DROPS BOTH EYES ×2 (08:19→19:11)
[2024-07-12] MEDS: ZITHROMAX 500 MG PO (08:19)
[2024-07-12] MEDS: CELEXA 40 MG PO (08:20)
[2024-07-12] MEDS: ABILIFY 5 MG PO (08:20)
[2024-07-12] MEDS: PROTONIX 40 MG PO (08:20)
[2024-07-12] MEDS: B COMPLEX w/VITAMIN C 1 CAPLET PO (08:20)
[2024-07-12] MEDS: DIOVAN 160 MG PO (08:20)
[2024-07-12] MEDS: LIPITOR 10 MG PO (08:21)
[2024-07-12] MEDS: PEPCID 20 MG PO (08:21)
[2024-07-12] MEDS: THERAGRAN 1 TABLET PO (08:21)
[2024-07-12] MEDS: VITAMIN D3 (cholecalciferol) 125 MCG PO (08:21)
[2024-07-12] MEDS: STERILE WATER FOR INJECTION 10 ML IV (08:22)
[2024-07-12] MEDS: ROCEPHIN 1000 MG IV (08:22)
[2024-07-12] MEDS: DECADRON 4 MG IV ×2 (08:24→19:11)
[2024-07-12] MEDS: ProAIR HFA INHALER 2 PUFF INH (09:43)
[2024-07-12] MEDS: AYR SALINE NASAL GEL 1 APPLIC NASAL (10:49)
--- NOTE | 2024-07-12 11:04 | CM ---
CM reviewed chart, patient seen bedside. Patient remains on IV antibiotics. IMM verbally reviewed, provided with copy, placed in chart. Patient plan remains home no needs when stable.
Plan; home no needs, patient has O2
[2024-07-12] MEDS: ZOFRAN 4 MG IV (12:10)
--- NOTE | 2024-07-12 13:21 | W.PN.HOSP.TC ---
Addendum entered and electronically signed by Scott Whitt MD 07/12/24 17:47:
bilateral heel pressure injury stage 1, poa
Original Note:
Today's Communication/Plan
-
IV steroids and antibiotics.
Assessment / Plan
Assessment / Plan
Physical exam:
General: Acutely ill
HEENT: Normocephalic, Atraumatic and Moist Mucous Membranes
Respiratory: Decreased breath sounds bilateral; bilateral scattered wheezes, few rhonchi in the bases, no crackles.
Cardiac: Regular Rhythm and S1/S2
GI: Soft, Nontender and Nondistended
Musculoskeletal: No Clubbing, No Cyanosis and No Edema
Neuro: Awake, Alert and Oriented, no neurological deficit
Psych: Calm
A/P:
Acute COPD exacerbation/ILD flare:
Continue IV steroids and taper to dexamethasone 4 mg every 12 hours-no more taper until clinical improvement.
Continue bronchodilators
Oxygen supplementation
Updated daughter over the phone prior
Left lower lobe pneumonia:
Community-acquired pneumonia
Continue antibiotics, IV Rocephin and oral azithromycin
Check strep and Legionella antigen
Sputum culture if able to produce sputum
Chronic hypoxic respiratory failure:
Continue oxygen supplement (she is on 3 L at home)
VIKTOR on CKD:
Creatinine 0.8 today and upon admission was 1.2
Avoid nephrotoxic
Hypertension:
Continue ARB
Chronic pain with narcotic dependence:
Continue fentanyl patch and oxycodone as needed
Continue bowel regimen
Anxiety:
Continue benzodiazepine
History of rheumatoid arthritis and scleroderma:
Rheumatology follow-up as outpatient
DVT prophylaxis:
Lovenox SQ
CODE STATUS:
Full code
Total time spent on today's encounter was 52 minutes which included time spent in counseling the patient/family regarding diagnosis and treatment plan as listed above, goals of care, and symptom management. Case was discussed with nursing staff,
specialists, and care coordinators/case management. All labs and imaging personally reviewed by me. Remainder the time spent in detailed review of previous records, lab data, imaging, and other medical provider documentation.
Anticipated Discharge: 24 - 48 hours
Subjective/Interval History
-
Date of Service: July 12, 2024
Patient not feeling well today and feels shortness of breath up and down. Afebrile
Objective Data
-
Vital Signs:
Vital Signs
Temp Pulse Resp BP Pulse Ox
97.7 F 82 18 152/72 98
07/12/24 07:00 07/12/24 09:45 07/12/24 09:45 07/12/24 07:00 07/12/24 09:45
I&O
07/11/24 07/12/24 07/13/24
06:59 06:59 06:59
Intake Total 690 / 690 1920 / 1920 480 / 480
Output Total 500 / 500
Balance 190 / 190 1920 / 1920 480 / 480
[2024-07-12 15:00] VITALS: BP 163/67
--- NOTE | 2024-07-12 16:37 | PN.CDI ---
CDI
- -
CDI:
Physician Documentation Request
Admit Date: 07/11/24 10:00
Dear Doctor Whitt,
Please review the following and provide your response in the progress notes.
Clinical Indicators:
Pt admitted with COPD exacerbation/PNA/Chronic Hypoxic Respiratory Failure
Documented per nursing WOCN note 07/10 ,'present on admission bilateral heel pressure injury stage 1 ...present on admission bilateral lateral ankle pressure injury stage 1 ...silicone border placed...'
Physician documentation of the type and location of wounds is required for compliant documentation. Based on the above clinical findings and your assessment, please provide the following in your progress note:
1. Location of the ulcer/wound, including laterality.( FOR EACH WOUND)
2. Type (etiology) of ulcer/wound:
- Pressure (decubitus) ulcer
- Non-pressure ulcer
- Other ( please specify)
Use of terms such as suspected, likely, concern for, or probable (associated with a specific diagnosis that is being evaluated, monitored, or treated as if it exists) are acceptable and can be coded in the inpatient setting, when documented at the
time of discharge.
Thank you,
Diana Kurtz RN
CDI Specialist
[employer]
Please use your independent medical judgment in providing your response.
*Source: National Pressure Ulcer Advisory Panel (NPUAP)
[2024-07-12] MEDS: LOVENOX 40 MG SC (17:20)
[2024-07-12 23:42] VITALS: BP 161/71
[2024-07-12 23:54] VITALS: PULSE 75
[2024-07-13] MEDS: DUONEB 3 ML INH ×4 (01:42→20:01)
[2024-07-13 06:00] VITALS: BMI 22.2
[2024-07-13 07:00] VITALS: BP 111/78
[2024-07-13] MEDS: PULMICORT 0.5 MG INH ×2 (08:04→20:01)
[2024-07-13] MEDS: ZITHROMAX 500 MG PO (08:12)
[2024-07-13] MEDS: CELEXA 40 MG PO (08:13)
[2024-07-13] MEDS: PROTONIX 40 MG PO (08:13)
[2024-07-13] MEDS: DIOVAN 160 MG PO (08:13)
[2024-07-13] MEDS: REFRESH CELLUVISC GEL 1 DROPS BOTH EYES ×2 (08:13→19:25)
[2024-07-13] MEDS: B COMPLEX w/VITAMIN C 1 CAPLET PO (08:13)
[2024-07-13] MEDS: ABILIFY 5 MG PO (08:13)
[2024-07-13] MEDS: THERAGRAN 1 TABLET PO (08:14)
[2024-07-13] MEDS: VITAMIN D3 (cholecalciferol) 125 MCG PO (08:14)
[2024-07-13] MEDS: LIPITOR 10 MG PO (08:14)
[2024-07-13] MEDS: PEPCID 20 MG PO (08:14)
[2024-07-13] MEDS: DECADRON 4 MG IV ×2 (08:14→19:25)
[2024-07-13] MEDS: ROCEPHIN 1000 MG IV (08:15)
[2024-07-13] MEDS: STERILE WATER FOR INJECTION 10 ML IV (08:15)
[2024-07-13] MEDS: DURAGESIC 12 MCG/HR PATCH 1 PATCH TRANSDERM (08:17)
--- NOTE | 2024-07-13 12:03 | W.PN.HOSP.TC ---
Today's Communication/Plan
-
Continue IV steroids and bronchodilator
Assessment / Plan
Assessment / Plan
Physical exam:
General: Acutely ill
HEENT: Normocephalic, Atraumatic and Moist Mucous Membranes
Respiratory: Decreased breath sounds bilateral; bilateral scattered wheezes, few rhonchi in the bases, no crackles.
Cardiac: Regular Rhythm and S1/S2
GI: Soft, Nontender and Nondistended
Musculoskeletal: No Clubbing, No Cyanosis and No Edema
Neuro: Awake, Alert and Oriented, no neurological deficit
Psych: Calm
A/P:
Acute COPD exacerbation/ILD flare:
Continue IV steroids and taper to dexamethasone 4 mg every 12 hours-no more taper until clinical improvement.
Continue bronchodilators
Oxygen supplementation
Updated daughter over the phone prior
Left lower lobe pneumonia:
Community-acquired pneumonia
Continue antibiotics, IV Rocephin and oral azithromycin
Check strep and Legionella antigen
Sputum culture if able to produce sputum
Chronic hypoxic respiratory failure:
Continue oxygen supplement (she is on 3 L at home)
VIKTOR on CKD:
Creatinine 0.8 today and upon admission was 1.2
Avoid nephrotoxic
Hypertension:
Continue ARB
Chronic pain with narcotic dependence:
Continue fentanyl patch and oxycodone as needed
Continue bowel regimen
Anxiety:
Continue benzodiazepine
History of rheumatoid arthritis and scleroderma:
Rheumatology follow-up as outpatient
DVT prophylaxis:
Lovenox SQ
CODE STATUS:
Full code
Total time spent on today's encounter was 52 minutes which included time spent in counseling the patient/family regarding diagnosis and treatment plan as listed above, goals of care, and symptom management. Case was discussed with nursing staff,
specialists, and care coordinators/case management. All labs and imaging personally reviewed by me. Remainder the time spent in detailed review of previous records, lab data, imaging, and other medical provider documentation.
Anticipated Discharge: 24 - 48 hours
Subjective/Interval History
-
Date of Service: July 13, 2024
Patient feels about the same today. No cough or fever.
Objective Data
-
Vital Signs:
Vital Signs
Temp Pulse Resp BP Pulse Ox
97.4 F 76 20 111/78 99
07/13/24 07:00 07/13/24 08:07 07/13/24 08:07 07/13/24 07:00 07/13/24 08:07
I&O
07/12/24 07/13/24 07/14/24
06:59 06:59 06:59
Intake Total 0 / 1920 1200 / 1200 480 / 480
Balance 1920 / 1920 1200 / 1200 480 / 480
[2024-07-13 15:00] VITALS: BP 158/76
[2024-07-13] MEDS: LOVENOX 40 MG SC (17:09)
[2024-07-13] MEDS: ROXICODONE 5 MG PO (23:25)
[2024-07-13] MEDS: DESYREL 25 MG PO (23:26)
[2024-07-13 23:30] VITALS: PULSE 79
[2024-07-13 23:45] VITALS: BP 115/71
[2024-07-14] MEDS: DUONEB 3 ML INH ×4 (01:08→19:58)
[2024-07-14 06:00] VITALS: BMI 22.2
[2024-07-14 07:00] VITALS: BP 168/79
[2024-07-14] MEDS: PULMICORT 0.5 MG INH ×2 (07:55→19:58)
[2024-07-14] MEDS: ZITHROMAX 500 MG PO (09:13)
[2024-07-14] MEDS: ABILIFY 5 MG PO (09:13)
[2024-07-14] MEDS: B COMPLEX w/VITAMIN C 1 CAPLET PO (09:14)
[2024-07-14] MEDS: PEPCID 20 MG PO (09:14)
[2024-07-14] MEDS: CELEXA 40 MG PO (09:14)
[2024-07-14] MEDS: THERAGRAN 1 TABLET PO (09:14)
[2024-07-14] MEDS: VITAMIN D3 (cholecalciferol) 125 MCG PO (09:15)
[2024-07-14] MEDS: DIOVAN 160 MG PO (09:15)
[2024-07-14] MEDS: LIPITOR 10 MG PO (09:15)
[2024-07-14] MEDS: PROTONIX 40 MG PO (09:15)
[2024-07-14] MEDS: DECADRON 4 MG IV ×2 (09:17→19:47)
[2024-07-14] MEDS: STERILE WATER FOR INJECTION 10 ML IV (09:18)
[2024-07-14] MEDS: ROCEPHIN 1000 MG IV (09:18)
[2024-07-14] MEDS: REFRESH CELLUVISC GEL 1 DROPS BOTH EYES ×2 (09:19→19:47)
--- NOTE | 2024-07-14 11:22 | W.PN.HOSP.TC ---
Today's Communication/Plan
-
Steroids and bronchodilators.
Assessment / Plan
Assessment / Plan
Physical exam:
General: Acutely ill
HEENT: Normocephalic, Atraumatic and Moist Mucous Membranes
Respiratory: Decreased breath sounds bilateral; negative wheezes, or rhonchi; no crackles.
Cardiac: Regular Rhythm and S1/S2
GI: Soft, Nontender and Nondistended
Musculoskeletal: No Clubbing, No Cyanosis and No Edema
Neuro: Awake, Alert and Oriented, no neurological deficit
Psych: Calm
A/P:
Acute COPD exacerbation/ILD flare:
Overall improving
Continue IV steroids for one more day today 4 mg every 12 hours and will switch to oral prednisone
Continue bronchodilators
Oxygen supplementation
Updated daughter over the phone prior
Left lower lobe community-acquired pneumonia:
Switch IV Rocephin to Omnicef
To complete course of azithromycin today
Chronic hypoxic respiratory failure:
Continue oxygen supplement (she is on 3 L at home)
VIKTOR on CKD:
Creatinine 0.8 on 07/11 and upon admission was 1.2
Avoid nephrotoxic
Hypertension:
Continue ARB
Chronic pain with narcotic dependence:
Continue fentanyl patch and oxycodone as needed
Continue bowel regimen
Anxiety:
Continue benzodiazepine
History of rheumatoid arthritis and scleroderma:
Rheumatology follow-up as outpatient
DVT prophylaxis:
Lovenox SQ
CODE STATUS:
Full code
Anticipated Discharge: 24 - 48 hours
Subjective/Interval History
-
Date of Service: July 14, 2024
Patient feels better but not quite back to her baseline. Afebrile.
Objective Data
-
Vital Signs:
Vital Signs
Temp Pulse Resp BP Pulse Ox
98.0 F 67 20 168/79 98
07/13/24 23:45 07/14/24 07:57 07/14/24 07:57 07/14/24 07:00 07/14/24 07:57
I&O
07/13/24 07/14/24 07/15/24
06:59 06:59 06:59
Intake Total 1200 / 1200 960 / 960
Balance 1200 / 1200 960 / 960
[2024-07-14] MEDS: OMNICEF 300 MG PO ×2 (11:41→19:47)
[2024-07-14 15:00] VITALS: BP 170/78
[2024-07-14] MEDS: ProAIR HFA INHALER 2 PUFF INH (16:20)
[2024-07-14] MEDS: LOVENOX 40 MG SC (17:06)
[2024-07-14] MEDS: DESYREL 25 MG PO (23:09)
[2024-07-14] MEDS: ROXICODONE 5 MG PO (23:09)
[2024-07-14 23:32] VITALS: PULSE 74
[2024-07-14 23:55] VITALS: BP 138/74
[2024-07-15] MEDS: DUONEB 3 ML INH ×4 (02:38→18:33)
[2024-07-15 06:00] VITALS: BMI 22.2
--- NOTE | 2024-07-15 06:29 | W.PN.HOSP.TC ---
Today's Communication/Plan
-
cont steroids abx
PT/OT
potential discharged tomorrow if continues to symptomatically improve
Assessment / Plan
Assessment / Plan
Physical exam:
General: no acute distress, appears comfortable at this time
HEENT: Normocephalic, Atraumatic and Moist Mucous Membranes
Respiratory: Decreased breath sounds bilateral; negative wheezes, or rhonchi; no crackles. pursed lip breathing
Cardiac: Regular Rhythm and S1/S2
GI: Soft, Nontender and Nondistended
Musculoskeletal: No Clubbing, No Cyanosis and No Edema
Neuro: Awake, Alert and Oriented, conversant coherent
Psych: Calm
A/P:73F COPD chronic prednisone 10 mg daily baseline 3L HTN HLD Fibromyalgia RA Scleroderma here for COPD exacerbation and Pneumonia
Acute COPD exacerbation/ILD flare:
Overall improving
IV steroids transitioned to oral prednisone taper
Continue bronchodilators
Oxygen supplementation
Left lower lobe community-acquired pneumonia:
Switch IV Rocephin to Omnicef, planned for total 7 days abx
completed course of azithromycin
Chronic hypoxic respiratory failure:
Continue oxygen supplement (she is on 3 L at home)
VIKTOR resolved
Initial Cr 1.2 since trended down 0.8
Hypertension:
Continue ARB
Chronic pain with narcotic dependence:
Continue fentanyl patch and oxycodone as needed
Continue bowel regimen
Anxiety:
Continue benzodiazepine
History of rheumatoid arthritis and scleroderma:
Rheumatology follow-up as outpatient
PT/OT eval appreciated
DVT prophylaxis:
Lovenox SQ
CODE STATUS:
Full code
[id number] listed primary contact Pretty updated
I spent a total of 50 minutes with the patient or on the floor. More than 50% of this time involved counseling and coordination of care.
Anticipated Discharge: Within 24 hours
Subjective/Interval History
-
Date of Service: July 15, 2024
Reports significant improvement SOB at rest. Significant exertional dyspnea however noted on PT/OT evals.
Objective Data
-
Vital Signs:
Vital Signs
Temp Pulse Resp BP Pulse Ox
98.1 F 72 22 138/74 97
07/14/24 23:55 07/15/24 02:39 07/15/24 02:39 07/14/24 23:55 07/15/24 02:39
I&O
07/13/24 07/14/24 07/15/24
06:59 06:59 06:59
Intake Total 1200 / 1200 960 / 960 480 / 480
Balance 1200 / 1200 960 / 960 480 / 480
[2024-07-15 07:00] VITALS: BP 140/86
[2024-07-15] MEDS: PULMICORT 0.5 MG INH ×2 (07:28→18:33)
[2024-07-15] MEDS: ROXICODONE 5 MG PO ×2 (08:48→23:06)
[2024-07-15] MEDS: ABILIFY 5 MG PO (08:49)
[2024-07-15] MEDS: REFRESH CELLUVISC GEL 1 DROPS BOTH EYES ×2 (08:49→19:36)
[2024-07-15] MEDS: DIOVAN 160 MG PO (08:49)
[2024-07-15] MEDS: B COMPLEX w/VITAMIN C 1 CAPLET PO (08:49)
[2024-07-15] MEDS: CELEXA 40 MG PO (08:49)
[2024-07-15] MEDS: OMNICEF 300 MG PO ×2 (08:49→19:36)
[2024-07-15] MEDS: PEPCID 20 MG PO (08:49)
[2024-07-15] MEDS: LIPITOR 10 MG PO (08:50)
[2024-07-15] MEDS: THERAGRAN 1 TABLET PO (08:50)
[2024-07-15] MEDS: PROTONIX 40 MG PO (08:50)
[2024-07-15] MEDS: DELTASONE 40 MG PO (08:50)
[2024-07-15] MEDS: VITAMIN D3 (cholecalciferol) 125 MCG PO (08:50)
[2024-07-15] MEDS: LASIX 40 MG PO (13:30)
[2024-07-15 15:00] VITALS: BP 141/63
[2024-07-15 15:20] VITALS: O2SAT 96
[2024-07-15] MEDS: LOVENOX 40 MG SC (19:14)
[2024-07-15] MEDS: DESYREL 25 MG PO (23:05)
[2024-07-15 23:20] VITALS: BP 139/88
[2024-07-15 23:24] VITALS: PULSE 77
[2024-07-16] MEDS: DUONEB 3 ML INH ×3 (01:00→11:58)
[2024-07-16 03:45] VITALS: PULSE 78
[2024-07-16 06:00] VITALS: BMI 22.1
[2024-07-16 07:00] VITALS: BP 144/63
[2024-07-16 07:28] LABS: Hematocrit 39.5 % (37.0-47.0); Hemoglobin 12.8 g/dL (12.0-16.0); Mean Corp Hgb Conc. 32.4 g/dL (33.0-37.0); Mean Corpuscular Hgb 31.4 pg (27.0-31.0); Mean Corpuscular Volume 97.1 fL (81.0-99.0); Platelet Count 201 10^3/uL (130-400); Red Blood Cell Count 4.07 10^6/uL (4.20-5.40); Red Cell Dist. Width 12.9 % (11.5-14.5); White Blood Cell Count 7.9 10^3/uL (4.8-10.8)
[2024-07-16] MEDS: PULMICORT 0.5 MG INH (07:46)
--- NOTE | 2024-07-16 07:51 | W.PN.HOSP.TC ---
Today's Communication/Plan
-
discharge
Assessment / Plan
Assessment / Plan
Physical exam:
General: no acute distress, appears comfortable at this time
HEENT: Normocephalic, Atraumatic and Moist Mucous Membranes
Respiratory: Decreased breath sounds bilateral; negative wheezes, or rhonchi; no crackles.
Cardiac: Regular Rhythm and S1/S2
GI: Soft, Nontender and Nondistended
Musculoskeletal: No Clubbing, No Cyanosis and No Edema
Neuro: Awake, Alert and Oriented, conversant coherent
Psych: Calm
A/P:73F COPD chronic prednisone 10 mg daily baseline 3L HTN HLD Fibromyalgia RA Scleroderma here for COPD exacerbation and Pneumonia
Acute COPD exacerbation/ILD flare
Chronic hypoxic respiratory failure:
Overall significantly improved
IV steroids transitioned to oral prednisone taper, to continue on discharge
Continue bronchodilators
Oxygen supplementation at baseline 3L
Left lower lobe community-acquired pneumonia:
Switch IV Rocephin to Omnicef, planned for total 7 days abx (07/16/24 last day)
completed course of azithromycin
VIKTOR resolved
Initial Cr 1.2 since improved
Hypertension
Continue ARB
Chronic pain with narcotic dependence:
Continue fentanyl patch and oxycodone as needed
Continue bowel regimen
Anxiety
Continue benzodiazepine
History of rheumatoid arthritis and scleroderma
Rheumatology follow-up as outpatient
PT/OT eval appreciated no needs
DVT prophylaxis:
Lovenox SQ
CODE STATUS:
Full code
medically stable for discharge home with outpatient follow up recommendations.
Total Time Preparing Discharge ____40___ minutes including examination of the patient, summary of the hospital stay, instructions for continuing care to all relevant caregivers; and preparation of discharge records, prescriptions, and referral
forms if necessary.
Anticipated Discharge: Today
Subjective/Interval History
-
Date of Service: July 16, 2024
reports significant improvement in overall symptoms including shortness of breath and exertional dyspnea. Denies new acute issues. Eager to go home.
Objective Data
-
Labs:
Laboratory Results
07/16/24
06:32
WBC 7.9
Hgb 12.8
Hct 39.5
Plt Count 201
Sodium Pending
Potassium Pending
Chloride Pending
Carbon Dioxide Pending
BUN Pending
Creatinine Pending
Glucose Pending
Calcium Pending
Vital Signs:
Vital Signs
Temp Pulse Resp BP Pulse Ox
98.5 F 70 16 139/88 95
07/15/24 23:20 07/16/24 01:03 07/16/24 01:03 07/15/24 23:20 07/16/24 01:03
I&O
07/15/24 07/16/24 07/17/24
06:59 06:59 06:59
Intake Total 480 / 480 720 / 720
Balance 480 / 480 720 / 720
[2024-07-16 08:05] LABS: Blood Urea Nitrogen 29 mg/dl (7-17); Calcium 10.1 mg/dl (8.4-10.2); Carbon Dioxide 34 mmol/L (22-30); Chloride 101 mmol/L (98-107); Estimated Creatinine Clearance 37 ml/min; Glucose 75 mg/dl (70-99); Potassium 3.9 mmol/L (3.5-5.1); Sodium 140 mmol/L (135-145); eGFR 59.12
[2024-07-16] MEDS: DURAGESIC 12 MCG/HR PATCH 1 PATCH TRANSDERM (09:35)
[2024-07-16] MEDS: DIOVAN 160 MG PO (09:40)
[2024-07-16] MEDS: B COMPLEX w/VITAMIN C 1 CAPLET PO (09:40)
[2024-07-16] MEDS: REFRESH CELLUVISC GEL 1 DROPS BOTH EYES (09:40)
[2024-07-16] MEDS: DELTASONE 40 MG PO (09:41)
[2024-07-16] MEDS: CELEXA 40 MG PO (09:41)
[2024-07-16] MEDS: PEPCID 20 MG PO (09:42)
[2024-07-16] MEDS: LASIX 40 MG PO (09:42)
[2024-07-16] MEDS: LIPITOR 10 MG PO (09:43)
[2024-07-16] MEDS: OMNICEF 300 MG PO ×2 (09:43→16:58)
[2024-07-16] MEDS: ABILIFY 5 MG PO (09:43)
[2024-07-16] MEDS: PROTONIX 40 MG PO (09:44)
[2024-07-16] MEDS: THERAGRAN 1 TABLET PO (09:45)
[2024-07-16] MEDS: VITAMIN D3 (cholecalciferol) 125 MCG PO (09:52)
--- NOTE | 2024-07-16 12:42 | CM ---
CM reviewed chart, patient seen bedside. Patient reports she should be leaving today, confirms transportation home from her son. Patient declining needs upon discharge, has home O2. IMM review, signed, patient preciously provided with copy. CM will
continue to follow for all discharge planning needs.
Plan; home with family, no needs, has home O2
[2024-07-16 14:30] VITALS: PULSE 104; O2SAT 96
--- NOTE | 2024-07-16 14:33 | W.DCSUMMARY ---
Discharge Summary
Discharge Data
Date of Admission: 07/11/24
Date of Discharge: 07/16/24
-
Pending Results: No
Discharge Plan
-
Patient Disposition: Home (Routine Discharge)
Discharge Diagnosis/Procedures: Acute COPD exacerbation/ILD flare
Left lower lobe community-acquired pneumonia:
Acute Kidney Injury
Hypertension
Condition: Fair
Diet: Regular
Activity: As tolerated
Driving Restrictions: Not until seen by your Dr
Bathing Restrictions: None
Blood Work: Repeat CBC and BMP with primary care provider in 1 week of discharge.
Others Tests: Repeat Chest X-ray with primary care provider in 1 month of discharge.
Activity Restrictions/Additional Instructions:
Please follow up with primary care provider in 1 week of discharge and Pulmonology in 2-4 weeks of discharge.
Prednisone taper has been prescribed for COPD exacerbation:
40 mg daily x 1 day, then 30 mg daily x 3 days, then 20 mg daily x 3 days, then resume your usual 10 mg daily home medication.
To reduce polypharmacy, Trazodone has been reduced from standing 100 mg bedtime to 25 mg as needed at bedtime.
Diamox has been discontinued, was not required during stay.
Please take medications as prescribed/recommended and follow up with primary care provider and/or other healthcare provider involved in your care for refills and/or further adjustment to your medication regimen as necessary.
Referrals:
Ventura Garcia MD [Active] - in two to four weeks
Diego Crenshaw MD [Family Provider] - in one week
Prescriptions:
New
prednisone 10 mg Tablet
See Rx Instructions .ROUTE .COMPLEX Qty: 19 0RF
Rx Instructions:
Take By Mouth:
40 mg daily x1 day, 30 mg daily x3 days,
20 mg daily x3 days, then resume 10 mg daily then on
trazodone 50 mg Tablet
25 mg PO HSPRN PRN (Reason: Sleep) Qty: 15 0RF
Continued
citalopram 20 MG tablet
40 mg PO DAILY
valsartan 80 MG tablet
160 mg PO DAILY
aripiprazole 5 MG tablet
5 mg PO DAILY
budesonide-formoterol [Symbicort] 160-4.5 mcg/actuation HFA aerosol inhaler
2 puff INHALATION R BID
cholecalciferol (vitamin D3) [Vitamin D3] 125 mcg (5,000 unit) Tablet
125 mcg PO DAILY
furosemide 40 mg Tablet
40 mg PO DAILY
therapeutic multivitamin Tablet
1 tab PO DAILY
omeprazole 40 mg Capsule,Delayed Release(Dr/Ec)
40 mg PO DAILY
Rx Instructions:
take 30 minutes before breakfast
albuterol sulfate [Ventolin HFA] 90 mcg/actuation Hfa Aerosol Inhaler
2 puff INHALATION R Q6
budesonide 0.5 mg/2 mL suspension for nebulization
0.5 mg inhalation R BID
Patient Comments:
07/03/2023, pt. states to take this med. TID but on [facility] this med. is listed as BIDPRN as of 06/14/2023.
fentanyl 12 mcg/hr Patch 72 Hour
1 patch transdermal Q72H Qty: 5 0RF
lorazepam 0.5 mg Tablet
0.25 mg PO HSPRN PRN (Reason: Sleep) Qty: 7 0RF
Rx Instructions:
use if Trazodone is not sufficient for sleep.
famotidine 40 mg Tablet
40 mg PO HS
vitamin E 1,000 unit Tablet
1,000 tab PO 1XD
atorvastatin 10 mg Tablet
10 mg PO DAILY
oxycodone 5 mg Tablet
5 mg PO BID
Incruse Ellipta 62.5 mcg/actuation Blister With Device
2 inh INHALATION DAILY
docusate sodium 100 mg capsule
100 mg PO BID PRN (Reason: constipation)
collagen
1,000 mg PO DAILY
Alive Hair, Skin and Nails
5,000 mcg PO DAILY
vitamin B complex Tablet
5,000 tab PO DAILY
omega-3 fatty acids Capsule
1,200 mg PO DAILY
carboxymethylcellulose sodium [Refresh Celluvisc] 1 % Dropperette,Gel
1 drp OPHTHALMIC (EYE) BID
Held
prednisone 10 mg tablet
10 mg PO DAILY 30 Days Qty: 30 0RF
Hold Instructions: Resume when prednisone taper finishes.
Discontinued
acetazolamide 250 mg Tablet
250 mg PO BID
trazodone 100 mg Tablet
100 mg PO HS
potassium chloride
1,000 mg PO DAILY
Patient Comments:
1000mg daily
Discharge Orders:
Discharge Patient (As Directed); Ordered 07/16/24
Ordered By: Yonis Raygoza
Discharge Date and Time
Print Language: CROATIAN
[2024-07-16 15:00] VITALS: BP 147/72
== END 2024-07-16 17:25 | disposition home or self-care (01) | DRG 190 ==
LOC: 4 WEST ACU 10:00
PROVIDERS: Hospitalist; Student in an Organized Health Care Education/Training Program; ADMITTING PHYSICIAN Internal Medicine; ATTENDING PHYSICIAN Internal Medicine; EMERGENCY PHYSICIAN Emergency Medicine; FAMILY PHYSICIAN Family Medicine
DX: J44.1 Chronic obstructive pulmonary disease with (acute) exacerbation (principal); J18.9 Pneumonia, unspecified organism; F11.20 Opioid dependence, uncomplicated; J96.11 Chronic respiratory failure with hypoxia; N17.9 Acute kidney failure, unspecified; J98.11 Atelectasis; J44.0 Chronic obstructive pulmonary disease with (acute) lower respiratory infection; Z87.891 Personal history of nicotine dependence; I12.9 Hypertensive chronic kidney disease with stage 1 through stage 4 chronic kidney disease, or unspecified chronic kidney disease; N18.2 Chronic kidney disease, stage 2 (mild); M79.7 Fibromyalgia; M34.9 Systemic sclerosis, unspecified; M06.9 Rheumatoid arthritis, unspecified; F32.A Depression, unspecified; F41.9 Anxiety disorder, unspecified; G89.29 Other chronic pain; L89.621 Pressure ulcer of left heel, stage 1; L89.611 Pressure ulcer of right heel, stage 1
CPT/HCPCS: 71045; 80048; 80053; 83735; 83880; 84100; 84484; 85025; 85027; 87070; 93005; 94640; 94660; 96374; 97116; 97161; 97166; 99285

== ENCOUNTER 2024-07-31 15:37 | Inpatient (IN) | payer MEDICARE, BC, SELFPAY ==
[2024-07-31 11:20] VITALS: BP 105/53
[2024-07-31 13:16] VITALS: BP 116/59; BMI 22.7
--- NOTE | 2024-07-31 13:35 | ED.GENMED ---
History of Present Illness
General
Chief Complaint: Breathing Problem
Source: patient
Exam Limitations: none
Time Seen by Provider: 07/31/24 12:39
Nursing documentation reviewed up to this point in time: agreed with
History of Present Illness
History of Present Illness:
Patient with history of oxygen dependent COPD (4 L via nasal cannula), discharge from the hospital 2 weeks ago after receiving treatment for COPD exacerbation, presents to ED from [employer] office secondary to worsening shortness of breath,
despite continual use of oxygen as well as high dose of prednisone. Patient denies increased cough. Denies fever or chills. Patient also reports intermittent anterior chest wall pain. Denies back pain. Denies leg pain or swelling. Denies
nausea, vomiting, or diarrhea. Patient does however report significant decreased appetite since she has been home.
Past History
Past History
ED Past Medical History: COPD, Fibromyalgia, GERD and Other (Rheumatoid arthritis, scleroderma, pneumonia, renal, bowel obstruction, IBS, anemia, chronic constipation, rectal prolapse, Upper Gi bleeding, Raynaud's disease)
ED Past Surgical History: Appendectomy, Bowel resection (due to perforation), Cholecystectomy, Gynecological (Hysterectomy) and Other ( breast lumpectomy)
Social History
Tobacco: Former smoker
Alcohol: None
Drug: None
Personal:
Living: alone
Employment: Not employed
Family History
Family History: Unable to obtain
Review of Systems
Review of Systems
Allergies reviewed?: Yes
All Other Systems: ROS reviewed and negative except as documented in HPI and ROS
Constitutional: Reports no symptoms; Denies fever
Respiratory: Reports cough and trouble breathing
Cardiac: Reports chest pain; Denies palpitations or syncope
ABD/GI: Reports no symptoms; Denies vomiting or diarrhea
Musculoskeletal: Reports no symptoms
Skin: Reports no symptoms
Neurological: Reports no symptoms
Phy Exam
Physical Exam
Physical Exam:
Physical Exam
General: mild respiratory distress, not acutely ill. afebrile
Head: nc/at. eomi
Neck: supple. no meningeal signs. normal posterior pharynx
Heart: s1/s2 regular rate and rhythm
Lungs: mild respiratory distress. diminished breath sounds bilaterally. tachypneic. mild use of intercostal muscles noted.
Abdomen: normal bowel sounds. not tender.
Neuro: alert and oriented x 3. no focal neurological deficits.
Skin: no rash
Psychiatric: well kept. interactive and cooperative
Extremities: no edema. no calf tenderness.
Scores
Heart Failure Risk
Heart Failure Risk Score: Not Applicable
Course
Orders/Labs/Results
Orders:
Orders
07/31/24 11:24
EKG [Electrocardiogram (*1)] Urgent
Reason for Study: Chest Pain
EKG- Treatment ONCE
07/31/24 12:57
CR Chest - 2 Views Urgent
Comment:
Reason For Exam: sob/hypoxia
07/31/24 13:35
Complete Blood Count/With Diff Urgent
Comprehensive Metabolic Panel Urgent
D-Dimer Urgent
Magnesium Urgent
NT-proBNP Urgent
Troponin I Urgent
Urinalysis Reflex To Culture Urgent
Date Specimen was Collected: 07/31/24
Time Specimen was Collected: 13:04
Urine Microscopic Reflex Cult Urgent
07/31/24 13:46
Arterial Blood Gas Urgent
%Oxygen/Room Air: 90
07/31/24 14:27
0.9% Sodium Chloride 500 ml [Nss] 500 ml IV BOLUS
Dexamethasone Sod Phosphate [Decadron] 6 mg IV NOW STA
07/31/24 Dinner
Regular
At Your Request: Full Participation
07/31/24 15:28
Admit/Transfer Patient As Directed
Co-Sign Provider:
Level of Care: Inpatient admission
Assign to:: Medical/Surgical
Physician / Group: Hospitalist
Diagnosis: SOB
Reason for Hospitalization: .
Expected length of stay greater than two midnights?: Yes
ELOS- Estimated Length of Stay in days: 3
I certify the patient meets the requirements for IP care: Yes
PRN Pain Medication Management As Directed
May give lesser potent ordered pain med per pt: Yes
preference::
Protocol:: Medication orders for pain may be administered in a
manner that supports deferring to patient preference
when the pt is:
- Requesting an ordered lesser potent pain medication.
Least to most potent pain medications are defined
as: acetaminophen < NSAID < tramadol < opioids
(morphine, oxycodone, hydromorphone).
- Requesting a lesser dose of the same medication IF
ORDERED.
- Requesting a less intrusive route of administration
if both routes are prescribed by the provider (PO <
IV).
07/31/24 15:30
Code Status As Directed
Resuscitation Status: Full Code
07/31/24 18:21
Consult Pulmonary [PULMONARY CONSULT] Routine
Consulting Provider: Ventura Garcia
Was physician already notified: Yes
Reason for consult: COPD
DX Deep Vein Thrombosis Video Routine
07/31/24 20:00
Heparin 5,000 units SC Q12
08/01/24 08:00
ARIPiprazole [Abilify] 5 mg PO DAILY
Citalopram [Celexa] 40 mg PO DAILY
Abnormal Lab Results
07/31/24 07/31/24
13:35 13:46
MCH 31.1 H pg
(27.0-31.0)
MCHC 32.4 L g/dL
(33.0-37.0)
Absolute Neuts (auto) 7.5 H 10^3/uL
(1.4-6.5)
Absolute Lymphs (auto) 0.7 L 10^3/uL
(1.2-3.4)
Neutrophils % 85.8 H %
(42.2-75.2)
Lymphocytes % 8.5 L %
(20.5-51.1)
D-Dimer 0.75 H ug/mlFEU
(0.00-0.50)
pH 7.34 L
(7.35-7.45)
pCO2 44 H mmHg
(32-35)
pO2 116 H mmHg
(83-108)
ABG O2 Sat (Measured) 99.5 H %
(94-98)
Potassium 3.3 L mmol/L
(3.5-5.1)
Chloride 109 H mmol/L
(98-107)
BUN 34 H mg/dl
(7-17)
Creatinine 1.3 H mg/dL
(0.6-1.0)
Glucose 118 H mg/dl
(70-99)
Total Protein 6.1 L g/dl
(6.3-8.2)
Ur Occult Blood Reflex 2+ A
(Negative)
Urine RBC 3-6 A /HPF
(0-2)
Urine Bacteria (Reflex) Few A
(Negative)
07/31/24 13:35
07/31/24 13:35
Vital Signs
Initial and Last Documented VS:
Initial Vital Signs
Temp Pulse Resp BP Pulse Ox
97.9 F 83 22 105/53 100
07/31/24 11:20 07/31/24 11:20 07/31/24 11:20 07/31/24 11:20 07/31/24 11:20
Last Documented Vital Signs
Temp Pulse Resp BP Pulse Ox
97.9 F 85 17 127/53 96
08/01/24 15:37 08/01/24 15:37 08/01/24 15:37 08/01/24 15:37 08/01/24 16:00
MDM/Problems Addressed
MDM/Problems Addressed:
History and exam concerning for continual symptoms secondary to underlying COPD, along with mild dehydration. As patient is failing to improve with continued outpatient treatment via her [employer] office, patient will be admitted for further
evaluation and treatment.
*Critical Care Note
Total Time (30-74mins, 75-104mins- exclusive of procedures): Not Applicable
ED Attending Note
-
Portions of this chart may have been created with voice recognition software.� Occasional wrong word or��sound alike� substitutions may have occurred due to the inherent limitations of voice recognition software.
Discharge Plan
Departure
Patient Disposition: Admit
Date of Disposition: 07/31/24
Time of Disposition: 15:14
Admit to: Telemetry
Presentation/result/management discussed w/ accepting MD/DO: Hospitalist
Discharge Problem:
COPD (chronic obstructive pulmonary disease)
Interventions
Interventions:
*Risk Screen - Suicide Last Done: 07/31/24 18:33
*General Assessment Last Done: 07/31/24 11:20
*Neglect/Abuse Screening Last Done: 07/31/24 11:20
*ED- Fall Risk Assessment Last Done: 07/31/24 18:15
*ED COVID-19 Vaccine History Last Done: 07/31/24 18:33
*Nursing Disposition Last Done: 07/31/24 18:15
ED- Cardiac Assessment Last Done: 07/31/24 13:49
ED- Pulmonary Assessment Last Done: 07/31/24 13:49
Discharge Date and Time
Discharge Date/Time: 07/31/24 18:15
[2024-07-31 13:46] LABS: % Basophils 0.3 % (0-2); % Eosinophils 0.9 % (0-6); % Immature Granulocytes 0.5 % (0-0.5); % Lymphocytes 8.5 % (20.5-51.1); % Neutrophils 85.8 % (42.2-75.2); Absolute Eosinophils 0.1 10^3/uL (0-0.7); Absolute Lymphocytes 0.7 10^3/uL (1.2-3.4); Absolute Monocytes 0.4 10^3/uL (0.1-0.6); Absolute Neutrophils 7.5 10^3/uL (1.4-6.5); Hematocrit 40.8 % (37.0-47.0); Hemoglobin 13.2 g/dL (12.0-16.0); Mean Corp Hgb Conc. 32.4 g/dL (33.0-37.0); Mean Corpuscular Hgb 31.1 pg (27.0-31.0); Mean Corpuscular Volume 96.2 fL (81.0-99.0); Mean Platelet Volume 9.5 fL (7.4-10.4); Nucleated Red Blood Cells % 0 %; Platelet Count 182 10^3/uL (130-400); Red Blood Cell Count 4.24 10^6/uL (4.20-5.40); Red Cell Dist. Width 12.4 % (11.5-14.5); White Blood Cell Count 8.8 10^3/uL (4.8-10.8)
[2024-07-31 13:59] LABS: Urine Albumin Negative (Neg - Trace); Urine Bilirubin Negative (Negative); Urine Character Clear (Clear); Urine Color Yellow; Urine Glucose Negative (Negative); Urine Ketone Negative (Negative); Urine Leukocyte Negative (Negative); Urine Nitrite Negative (Negative); Urine Occult Blood 2+ (Negative); Urine Specific Gravity 1.015 (<1.030); Urine Urobilinogen Negative (Neg - 1+)
[2024-07-31 14:02] LABS: B.E. -2.2 mmol/L; HCO3 23.7 mmol/L (21-28); O2 Saturation % 99.5 % (94-98); PCO2 44 mmHg (32-35); PO2 116 mmHg (83-108); pH 7.34 (7.35-7.45)
[2024-07-31 14:02] LABS: D-Dimer 0.75 ug/mlFEU (0.00-0.50)
[2024-07-31 14:05] LABS: ALT (SGPT) 26 U/L (0-35); AST (SGOT) 20 U/L (14-36); Albumin 4.2 g/dl (3.5-5.0); Alkaline Phosphatase 102 U/L (38-126); Blood Urea Nitrogen 34 mg/dl (7-17); Calcium 9.7 mg/dl (8.4-10.2); Carbon Dioxide 28 mmol/L (22-30); Chloride 109 mmol/L (98-107); Estimated Creatinine Clearance 27 ml/min; Glucose 118 mg/dl (70-99); Potassium 3.3 mmol/L (3.5-5.1); Sodium 143 mmol/L (135-145); Total Bilirubin 0.4 mg/dl (0.2-1.3); Total Protein 6.1 g/dl (6.3-8.2); eGFR 43.15
[2024-07-31 14:11] LABS: Urine Bacteria Few (Negative); Urine Hyaline Cast 0-2 /LPF (0-2); Urine Squamous Cell 0-2 /LPF (Few)
[2024-07-31 14:16] LABS: NT-proBNP 110 pg/ml; Troponin I < 0.012 ng/ml
--- NOTE | 2024-07-31 15:27 | HPS.HSE ---
Family Physician
-
Family Physician: Diego Crenshaw
Chief Complaint
-
She was sent from pulmonary office for further evaluation in the ER for shortness of breath
History of Present Illness
This is 73 years old female was sent from pulmonary office. She was seen by nurse practitioner and according to the patient told her did not look good. Patient reported that her shortness of breath remained the same since 3 weeks ago. No fever or
chills. She still complains of the same problems per the patient. Patient reported she had decreased appetite because she was having trouble swallowing and her primary care doctor was trying to set up swallowing evaluation for the patient.
Medical History
Past Medical History
Past Medical History: Reports Other (COPD, Fibromyalgia, GERD and Other (Rheumatoid arthritis, scleroderma, pneumonia, renal, bowel obstruction, IBS, anemia, chronic constipation, rectal prolapse, Upper Gi bleeding, Raynaud's disease)
Past Surgical History: Reports Other (No recent major surgery)
Social History
Tobacco: Former Smoker
Alcohol: None
Drug: None
Personal:
Living: With Family
Employment: Retired
Family History
Family History: Not pertinent
Allergies / Home Medications
Allergies reflects when Allergies were last updated in [employer].
Home Medications with original date entered in [employer]
Allergy/Medication List:
Allergies
Allergy/AdvReac Type Severity Reaction Status Date / Time
codeine Allergy rash,hives,METALLIC Verified 07/31/24 11:20
TASTE IN
MOUTH
Home Medications
citalopram 20 mg tablet 40 mg PO DAILY Mental Health 12/27/17
aripiprazole 5 mg tablet 5 mg PO DAILY Mental Health 11/11/20
valsartan 80 mg tablet 160 mg PO DAILY Blood pressure 11/11/20
budesonide-formoterol HFA 160 mcg-4.5 mcg/actuation aerosol inhaler (Symbicort) 2 puff inhalation R BID Lung/Breathing Issues 07/26/22
cholecalciferol (vitamin D3) 125 mcg (5,000 unit) tablet (Vitamin D3) 125 mcg PO DAILY Supplement 07/26/22
albuterol sulfate 90 mcg/actuation aerosol inhaler (Ventolin HFA) 2 puff inhalation R Q6 Lung/Breathing Issues 07/03/23
budesonide 0.5 mg/2 mL suspension for nebulization 0.5 mg inhalation R BID Lung/breathing issues 07/03/23
furosemide 40 mg tablet 40 mg PO DAILY Fluid Retention/Swelling 07/03/23
omeprazole 40 mg capsule,delayed release 40 mg PO DAILY GERD 07/03/23
therapeutic multivitamin 1 tab PO DAILY Supplement 07/03/23
fentanyl 12 mcg/hr transdermal patch 1 patch transdermal Q72H #5 ea 10/13/23
lorazepam 0.5 mg tablet 0.25 mg (1/2 x 0.5 mg) PO HSPRN PRN Sleep #7 tabs 10/13/23
prednisone 10 mg tablet 10 mg PO DAILY 30 days #30 tabs 10/13/23
Held on 07/16/24. Instructions: Resume when prednisone taper finishes.
Alive Hair, Skin and Nails 5,000 mcg PO DAILY Supplement 07/10/24
atorvastatin 10 mg tablet 10 mg PO DAILY High Cholesterol 07/10/24
carboxymethylcellulose sodium 1 % eye gel in a dropperette (Refresh Celluvisc) 1 drp ophthalmic (eye) BID Eye Condition 07/10/24
collagen 1,000 mg PO DAILY Supplement 07/10/24
docusate sodium 100 mg capsule 100 mg PO BID PRN constipation 07/10/24
famotidine 40 mg tablet 40 mg PO HS Gastrointestinal Issue 07/10/24
omega-3 fatty acids 1,200 mg PO DAILY Supplement 07/10/24
oxycodone 5 mg tablet 5 mg PO BID Pain 07/10/24
umeclidinium 62.5 mcg/actuation blister powder for inhalation (Incruse Ellipta) 2 inh inhalation DAILY Lung/Breathing Issues 07/10/24
vitamin B complex 5,000 tab PO DAILY Supplement 07/10/24
vitamin E 1,000 unit tablet 1,000 tab PO 1XD Supplement 07/10/24
prednisone 10 mg tablet See Rx Instructions .Route .COMPLEX #19 tabs 07/16/24
trazodone 50 mg tablet 25 mg (1/2 x 50 mg) PO HSPRN PRN Sleep #15 tabs 07/16/24
Review of Systems
-
History Source: Patient
A 12 point ROS was completed and negative except as noted: Yes
Constitutional: Denies Fever or Chills
EENT: Denies Tearing or Sore Throat
Respiratory: Reports Trouble Breathing
Cardiac: Denies Chest Pain
Abdomen/GI: Reports Anorexia; Denies Abdominal Pain
: Denies Dysuria, Frequency or Difficulty Voiding
Musculoskeletal: Denies Joint Pain or Joint Swelling
Neurological: Denies Numbness
Endocrine: Denies Temp Intolerance
Psych: Denies Panic Disorder
Physical Exam
Vital Signs
Vital Signs
Temp Pulse Resp BP Pulse Ox
97.9 F 82 21 116/59 100
07/31/24 11:20 07/31/24 13:30 07/31/24 13:30 07/31/24 13:16 07/31/24 11:20
Physical Exam
General: No Apparent Distress, Comfortable and Appears Chronically Ill
HEENT: Moist mucous membranes and Atraumatic
Respiratory: Decreased Breath Sounds
Cardiac: S1/S2 and Regular Rhythm
GI: Soft, Non Tender and Non Distended
Genito-urinary: No Beckman
Musculoskeletal: No Cyanosis and No Edema
Skin: No Rash
Neuro: AO x 3 and Nonfocal/grossly intact
Psych: Calm; No Anxious
Laboratory Results
-
07/31/24 13:35
07/31/24 13:35
Laboratory Results
pH 7.34 (7.35-7.45) L 07/31/24 13:46
pCO2 44 mmHg (32-35) H 07/31/24 13:46
pO2 116 mmHg (83-108) H 07/31/24 13:46
HCO3 23.7 mmol/L (21-28) 07/31/24 13:46
Total Bilirubin 0.4 mg/dl (0.2-1.3) 07/31/24 13:35
AST 20 U/L (14-36) 07/31/24 13:35
ALT 26 U/L (0-35) 07/31/24 13:35
Alkaline Phosphatase 102 U/L (38-126) 07/31/24 13:35
Troponin I < 0.012 ng/ml 07/31/24 13:35
Impression/Plan
-
# SOB
She is not in distress
No wheezes on exam but received treatment already in ER
Known COPD /chronic hypoxic respiratory failure
O2 requirement stable at 3-4 liters
Underlying ILD
Continue IV steroids and taper to dexamethasone 4 mg every 12 hours-
Continue bronchodilators
Oxygen supplementation
Appreciate pulmonary input
# hx of severe chronic dysphagia
s/p esophageal dilation
Consult speech
# Hypokalemia
# VIKTOR
give mild IVF
Avoid nephrotoxic agents
Monitor for retention
Monitor renal function
She denied urinary symptoms
# Hx of rheumatoid arthritis/ Hx of Scleroderma/crest syndrome
Report walking without aid.
# IBS
#Fibromyalgia
#Major depression
Mood is cooperative
#Chronic pain syndrome/chronic opiate dependence - chronic fentanyl patch .
#GERD
#Hyperlipidemia
#moderate protein calorie malnutrition of chronic illness
Full code
Total time spent to see the patient, examine the patient, review data and lab result, discuss treatment plan with patient, ER doctor and nursing staff around 75 minutes
[2024-07-31] MEDS: DECADRON 6 MG IV (16:16)
[2024-07-31] MEDS: KLOR-CON 20 MEQ PO (16:16)
[2024-07-31] MEDS: NSS 500 IV (16:18)
[2024-07-31 18:30] VITALS: BP 100/61
[2024-07-31 18:31] VITALS: BP 100/61
[2024-07-31 18:32] VITALS: BMI 21.7
[2024-07-31 19:14] VITALS: BMI 21.7
[2024-07-31] MEDS: DURAGESIC 12 MCG/HR PATCH 1 PATCH TRANSDERM (19:20)
[2024-07-31] MEDS: PULMICORT 0.5 MG INH (20:17)
[2024-07-31] MEDS: SYMBICORT 160/4.5 MCG INHALER 2 PUFF INH (20:17)
[2024-07-31] MEDS: ROXICODONE 5 MG PO (20:23)
[2024-07-31] MEDS: HEPARIN 5000 UNITS SC (20:23)
[2024-07-31] MEDS: NSS 1000 IV (20:24)
[2024-07-31] MEDS: DESYREL 25 MG PO (22:51)
[2024-07-31 23:46] VITALS: PULSE 2
[2024-07-31 23:51] VITALS: BP 131/51
[2024-08-01 02:45] VITALS: PULSE 2
[2024-08-01] MEDS: DECADRON 2 MG IV ×2 (04:47→16:40)
[2024-08-01] MEDS: PULMICORT 0.5 MG INH ×2 (07:30→19:46)
[2024-08-01] MEDS: SYMBICORT 160/4.5 MCG INHALER 2 PUFF INH ×2 (07:30→19:46)
[2024-08-01 08:13] LABS: Blood Urea Nitrogen 29 mg/dl (7-17); Calcium 9.9 mg/dl (8.4-10.2); Carbon Dioxide 24 mmol/L (22-30); Chloride 113 mmol/L (98-107); Estimated Creatinine Clearance 32 ml/min; Glucose 112 mg/dl (70-99); eGFR 52.73
[2024-08-01 08:18] LABS: Sodium 142 mmol/L (135-145)
[2024-08-01] MEDS: PROTONIX 40 MG PO (08:28)
[2024-08-01] MEDS: CELEXA 40 MG PO (08:28)
[2024-08-01] MEDS: ROXICODONE 5 MG PO ×2 (08:28→19:37)
[2024-08-01] MEDS: ABILIFY 5 MG PO (08:28)
[2024-08-01] MEDS: HEPARIN 5000 UNITS SC ×2 (08:29→19:37)
[2024-08-01] MEDS: LIPITOR 10 MG PO (08:29)
[2024-08-01 08:48] VITALS: BP 148/65
--- NOTE | 2024-08-01 08:57 | W.PN.HOSP.TC ---
Today's Communication/Plan
-
Resume Valsartan
c/w steroid
f/w pulmonary recommendations
Assessment / Plan
Assessment / Plan
Physical Exam
General: Appears Chronically Ill
HEENT: Moist mucous membranes and Atraumatic
Respiratory: very decreased Breath Sounds
Cardiac: S1/S2 and Regular Rhythm
GI: Soft, Non Tender and Non Distended
Genito-urinary: No Beckman
Musculoskeletal: No Cyanosis and No Edema
Skin: No Rash
Neuro: AO x 3 and Nonfocal/grossly intact
Psych: Calm; No Anxious
# SOB
She seems at baseline which is very limited and gets sob easily. 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
No wheezes on exam but received treatment already in ER
Known COPD /chronic hypoxic respiratory failure
O2 requirement stable at 3-4 liters
Underlying ILD
Continue IV steroids and taper to dexamethasone 4 mg every 12 hours-
Continue bronchodilators
Oxygen supplementation
I d/w code status, she wanted full code, she will benefit from goal of care discussion. Palliative care.
Appreciate pulmonary input
# hx of severe chronic dysphagia
s/p esophageal dilation
Consult speech
# Hypokalemia
treated.
# VIKTOR
s/p mild IVF
held diuretic and Valsartan
Avoid nephrotoxic agents
Monitor for retention
Monitor renal function
She denied urinary symptoms
# Hx of rheumatoid arthritis/ Hx of Scleroderma/crest syndrome
Report walking without aid.
# IBS
#Fibromyalgia
#Major depression
Mood is cooperative
#Chronic pain syndrome/chronic opiate dependence - chronic fentanyl patch .
#GERD
#Hyperlipidemia
#moderate protein calorie malnutrition of chronic illness
Full code
Total time spent to see the patient, examine the patient, review data and lab result, discuss treatment plan with patient, nursing staff around 55 minutes
Anticipated Discharge: > 48 hours
Subjective/Interval History
-
Date of Service: August 01, 2024
No chest pain
She reports feeling better.
No fevers
Objective Data
-
Labs:
Laboratory Results
08/01/24
07:05
Sodium 142
Potassium 4.0
Chloride 113 H
Carbon Dioxide 24
BUN 29 H
Creatinine 1.1 H
Glucose 112 H
Calcium 9.9
Vital Signs:
Vital Signs
Temp Pulse Resp BP Pulse Ox
97.2 F 68 17 148/65 98
08/01/24 08:48 08/01/24 08:48 08/01/24 08:48 08/01/24 08:48 08/01/24 08:48
I&O
07/31/24 08/01/24 08/02/24
06:59 06:59 06:59
Intake Total 1180 / 1180
Output Total 300 / 300
Balance 880 / 880
--- NOTE | 2024-08-01 09:57 | PN.CDI ---
Addendum entered and electronically signed by Lola Landa MD 08/01/24 10:03:
Pressure injury stage [Present on admission Sacrum] Stage 1
Original Note:
CDI
- -
CDI:
Physician Documentation Request
Admit Date: 07/31/24 15:37
Dear Doctor Syeda,
Patient admitted for shortness of breath.
Selected Entries
07/31/24
21:32
Pressure injury appearance (Stage 1) [Present on admission Sacrum] Non blanchable
red
Pressure injury stage [Present on admission Sacrum] Stage 1
Surrounding Skin - [Present on admission Sacrum] Dry and intact
Treatment provided [Present on admission Sacrum] Silicone border
foam
Physician documentation of the type and location of wounds is required for compliant documentation. Based on the above clinical findings and your assessment, please provide the following in your progress note:
1. Location of the ulcer/wound, including laterality.
2. Type (etiology) of ulcer/wound:
- Diabetic ulcer
- Arterial (ischemic) ulcer
- Traumatic wound
- Venous stasis ulcer
- Pressure (decubitus) ulcer
- Non-healing surgical wound
- Other
- Unable to determine
3. For a non-pressure ulcer, please indicate the depth/severity:
- Limited to the breakdown of skin
- With fat layer exposed
- With necrosis of muscle
- With necrosis of bone
- Other
- Unable to determine
4. If a pressure ulcer, please also include the stage* of the ulcer:
- Stage 1 - Skin intact, non-blanchable redness
- Stage 2 - Partial thickness loss of dermis, includes intact or open blister
- Stage 3 - Full thickness tissue not including bone, tendon or muscle
- Stage 4 - Full thickness tissue loss, including exposed bone, tendon or muscle
- Unstageable - Full thickness loss in which the base of the ulcer is covered by slough (yellow, mike, samuel, green or brown) and/or eschar (mike, brown or black) in the wound bed.
- Unable to determine
Use of terms such as suspected, likely, concern for, or probable (associated with a specific diagnosis that is being evaluated, monitored, or treated as if it exists) are acceptable and can be coded in the inpatient setting, when documented at the
time of discharge.
Thank you,
Maureen Handley RN, BSN
CDI Specialist
Available via [employer] text
Please use your independent medical judgment in providing your response.
*Source: National Pressure Ulcer Advisory Panel (NPUAP)
[2024-08-01] MEDS: DIOVAN 160 MG PO (10:34)
--- NOTE | 2024-08-01 11:26 | CON.PUL ---
Consultation
Consultation Request
Date/Time Consultation Requested: 08/01/24
Date/Time Consultation Performed: 08/01/24
Performing Provider: Nicolasa
Reason for Consultation: SOB
Medical History
-
History of Present Illness:
Patient is a 73 years old female with history of COPD on 2L and chronic prednisone 10mg, RA/scleroderma, chronic SOB was sent from pulmonary office. She was notably tachypneic in office seen by Doris Gagnon, instructed to go to ER. Patient feels
chronically shortness of breath, recently discharged from on 07/16/24. She has had recurrent admissions for AECOPD for the past 3 years, this is her 8th admission since 2022. She states that she 'could just live in the hospital.'
Past Medical History
Past Medical History: Other (see list below)
Social History
Tobacco: Former Smoker
Alcohol: None
Drug: None
Family History
Family History: Reviewed & Not Pertinent
Allergies / Home Medications
Allergies
Allergy/AdvReac Type Severity Reaction Status Date / Time
codeine Allergy rash,hives,METALLIC Verified 07/31/24 11:20
TASTE IN
MOUTH
Home Medications
�Medication �Instructions �Recorded �Confirmed �Last Taken �Type
citalopram 20 mg tablet 40 mg PO DAILY Mental Health 12/27/17 07/31/24 07/31/24 History
aripiprazole 5 mg tablet 5 mg PO DAILY Mental Health 11/11/20 07/31/24 07/31/24 History
valsartan 80 mg tablet 160 mg PO DAILY Blood pressure 11/11/20 07/31/24 07/31/24 History
budesonide-formoterol HFA 160 2 puff inhalation R BID 07/26/22 07/31/24 07/31/24 History
mcg-4.5 mcg/actuation aerosol Lung/Breathing Issues
inhaler (Symbicort)
cholecalciferol (vitamin D3) 125 125 mcg PO DAILY Supplement 07/26/22 07/31/24 07/31/24 History
mcg (5,000 unit) tablet (Vitamin
D3)
albuterol sulfate 90 mcg/actuation 2 puff inhalation R Q6HPRN PRN sob 07/03/23 07/31/24 07/09/24 20:00 History
aerosol inhaler (Ventolin HFA)
budesonide 0.5 mg/2 mL suspension 0.5 mg inhalation R BID 07/03/23 07/31/24 07/31/24 History
for nebulization Lung/breathing issues
furosemide 40 mg tablet 40 mg PO DAILY Fluid 07/03/23 07/31/24 07/31/24 History
Retention/Swelling
omeprazole 40 mg capsule,delayed 40 mg PO DAILY GERD 07/03/23 07/31/24 07/31/24 History
release
therapeutic multivitamin 1 tab PO DAILY Supplement 07/03/23 07/31/24 07/31/24 History
ascorbic acid 30 mg-collagen, 1 tab PO DAILY Supplement ##0 07/10/24 07/31/24 07/31/24 History
hydrolyzed 833.3 mg tablet
(Collagen Skin Renewal)
atorvastatin 10 mg tablet 10 mg PO DAILY High Cholesterol 07/10/24 07/31/24 07/31/24 History
famotidine 40 mg tablet 40 mg PO HS Gastrointestinal Issue 07/10/24 07/31/24 07/30/24 History
oxycodone 5 mg tablet 5 mg PO BID 07/10/24 07/31/24 07/31/24 History
vitamin B complex 1 tab PO DAILY Supplement 07/10/24 07/31/24 07/31/24 History
acetazolamide 250 mg tablet 250 mg PO BID 07/31/24 07/31/24 07/31/24 History
fentanyl 12 mcg/hr transdermal 12 mcg topical Q72H 07/31/24 07/31/24 07/31/24 History
patch
fluticasone furoate 100 2 inh inhalation R DAILY 07/31/24 07/31/24 07/31/24 History
mcg-vilanterol 25 mcg/dose
inhalation powder (Breo Ellipta)
glucosamine sulf dipot 1 cap PO DAILY 07/31/24 07/31/24 07/31/24 History
chlr,msm,chond 550 mg-C 30 mg-robbin
1 mg capsule (Glucosamine
Chondroitin)
omega 3-yra-xkg-fish oil 1,200 mg 1 cap PO DAILY 07/31/24 07/31/24 07/31/24 History
(144 mg-216 mg) capsule (Fish Oil)
potassium gluconate 500 mg (83 mg) 1,000 mg PO DAILY 07/31/24 07/31/24 07/31/24 History
tablet
prednisone 10 mg tablet 10 mg PO DAILY 07/31/24 07/31/24 07/31/24 History
trazodone 50 mg tablet 100 mg PO HS 07/31/24 07/31/24 07/30/24 History
vitamin E 268 mg (400 unit) capsule 268 mg PO DAILY 07/31/24 07/31/24 07/31/24 History
Review of Systems
-
History Source: Patient
All other systems: Negative unless noted
Vitals / Labs / Diagnostic Testing
Vital Signs
Temp Pulse Resp BP Pulse Ox
97.2 F 68 17 148/65 98
08/01/24 08:48 08/01/24 10:34 08/01/24 08:48 08/01/24 10:34 08/01/24 10:13
Lab Data
07/31/24 13:35
08/01/24 07:05
Laboratory Results
07/31/24
13:46
pH 7.34 L
pCO2 44 H
pO2 116 H
HCO3 23.7
O2 Delivery Level Not Reportable
Diagnostic Testing:
Physical Exam
-
HEENT: Normocephalic, Anicteric and Moist Mucous Membranes
Cardiovascular: S1/S2 and Regular Rhythm
Respiratory: Clear and Other (decreased BS, tachypneic but not in distress)
GI: Soft, Non Distended and Non Tender
Neurology: Awake, Alert, Oriented and No Motor Deficits
Skin: Warm, Dry and Good Color
General: Comfortable and Other (NAD)
Assessment
-
Patient is a 73 years old female with history of COPD on 2L and chronic prednisone 10mg, RA/scleroderma, chronic SOB was sent from pulmonary office. She was notably tachypneic in office seen by Doris aGgnon, instructed to go to ER. Patient feels
chronically shortness of breath, recently discharged from on 07/16/24. She has had recurrent admissions for AECOPD for the past 3 years, this is her 8th admission since 2022. She states that she 'could just live in the hospital.' We are
consulted for evaluation 08/01/24.
Acute on chronic hypoxic respiratory failure
Tachypnea, respiratory insufficiency, cannot r/o anxiety
AECOPD
Acute on chronic SOB
History of pulmonary cachexia
Bibasilar linear scarring
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
Moderate COPD (due to centrilobular emphysema) with air trapping and hyperinflation
Follows with Dr Garcia, last PFT stable/moderate obstruction
Pulmonary cachexia
Mild restrictive lung defect
Esophageal dilation seen on CT chest
Chronic hypoxic respiratory failure on home oxygen at 3 L/min
Pulmonary hypertension
History of scleroderma
GERD without esophagitis
History of aspiration
Former tobacco use disorder (quit 07/2019)
IBD
History of diverticulosis
Colon polyps
Fibromyalgia
Depression
Arthritis
History of GI bleed
Rectal prolapse
Plan
Acute on chronic hypoxemia noted on arrival, she is placed on 4L NC
Baseline use of O2 at home--2L
Wean as tolerated back to baseline
There is known prior history of lung disease including COPD--reviewed extensive OP records
Followed by Radha, seen by Doris 07/31
Last note 6/11- PFT is stable over the past 2 years, no evidence of hypoxemia per walk test, however was 70% in the hospital, now on home oxygen.
She is currently using 3L with activity.
Patient was taking Spiriva, Symbicort, chronic prednisone 10 mg
Suspect patient has underlying AECOPD but cannot r/o anxiety component as she is tachypneic for unclear reason
[id number]
CXR/CT obtained indicating no acute findings or change from prior
Last PFT showing stability in function
Agree with IV steroids
She is on baseline 10mg daily
Would be a good candidate for ohtuvayre set up as OP
ECHO results in past reviewed, stable function, mild-mod AR, mild-mod TR, moderate PH
Diuresis--not indicated
May consider repeat ECHO to see if PAP have worsened
Will need outpatient pulmonary evaluation in our office including PFTs and 6MWT
Reviewed with patient
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
She was not ready to talk about palliative care or hospice
She simply wishes to live in the hospital for as long as it takes
We will follow
Diagnostic Data
CXR 07/31/24- Clear lungs. Air-fluid level within the esophagus. Findings may related to hiatal hernia and/or esophageal dysmotility. Chronic compression fractures within the mid thoracic spine, with resulting kyphotic deformity.
CXR 08-22-2023: Mild acute interstitial cardiogenic pulmonary edema. Mild cardiomegaly. Severe calcific atherosclerotic plaque in the thoracic and abdominal aorta. Mild scarring in the right lung apex, lingula, and left lower lobe.
TTE 02-13-2024: Normal biventricular size and systolic function without regional wall motion abnormality. Estimated LVEF 65-70%. Mild/moderate eccentric aortic regurgitation. Mild/moderate tricuspid regurgitation. Mildly elevated PASP. Estimated
pulmonary artery pressure of 42 mmHg. Compared to 10/09/20: AR and TR have progressed from mild to mild/moderate. PASP has increased from 37 mmHg to 42 mmHg.
PFT 11/21/23: FVC 2.02/86%, FEV1 1.09/62%, ratio 56.� TLC 3.83/90%, DLCO 6.52/36%.� Moderate obstruction, severe gas exchange defect
[facility]ard 09/27/23- FVC 1.22 or 50%, FEV1 0.74 or 41%, Ratio 61�--severe obstruction
Branden 02/06/14: FEV1 1.37L 54%, FVC 2.57L 78%, ratio 0.53
Reports and relevant images were personally reviewed.
-----
Total time spent on this consultation _75__ minutes which includes review of history, physical exam, medications, llaboratory data, personal review of imaging, extensive review of outpatient records, and discussions with care team.
[2024-08-01 12:13] VITALS: BMI 21.7
[2024-08-01] MEDS: ProAIR HFA INHALER 2 PUFF INH (15:13)
--- NOTE | 2024-08-01 15:34 | VNURNOTE ---
Home Health Liaison met with patient at bedside to discuss [facility] nurse/therapy, visits, schedule and homebound status. She is familiar with our services, has had us in the past. Patient is agreeable and understands that visits at home will be 2-3 x
per week to assess and teach medical management. She stated she is current with home 02 with [facility] and [facility] through [facility]. She is aware that [facility] will contact them for start of care in 1-2 days after discharge from .
[facility] referral completed in [facility].
[2024-08-01 15:37] VITALS: BP 127/53
[2024-08-01] MEDS: DESYREL 25 MG PO (22:31)
[2024-08-01] MEDS: PEPCID 40 MG PO (22:32)
[2024-08-01 22:59] VITALS: PULSE 2
[2024-08-01 23:41] VITALS: BP 135/64
[2024-08-02] VITALS (8 sets, daily range): BP systolic 113–160; BP diastolic 71–85; PULSE 2–82; O2SAT 94–95; BMI 21.7
[2024-08-02] MEDS: DECADRON 2 MG IV ×2 (04:52→16:32)
[2024-08-02] MEDS: PULMICORT 0.5 MG INH ×2 (07:51→20:05)
[2024-08-02] MEDS: SYMBICORT 160/4.5 MCG INHALER 2 PUFF INH (07:51)
[2024-08-02] MEDS: CELEXA 40 MG PO (08:12)
[2024-08-02] MEDS: DIOVAN 160 MG PO (08:12)
[2024-08-02] MEDS: PROTONIX 40 MG PO (08:12)
[2024-08-02] MEDS: ROXICODONE 5 MG PO ×2 (08:14→20:15)
[2024-08-02] MEDS: LIPITOR 10 MG PO (08:14)
[2024-08-02] MEDS: ABILIFY 5 MG PO (08:14)
[2024-08-02] MEDS: HEPARIN 5000 UNITS SC ×2 (08:14→20:15)
--- NOTE | 2024-08-02 09:15 | W.PN.PUL3 ---
Today's Communication / Plan
-
Better today, weaned to 3L, baseline use of 2L
Transition to PO prednisone, taper to home dose
She is feeling better, encouraged OOB/PT
Can likely d/c in AM if stable overnight
OP FU recommended
Assessment
-
Patient is a 73 years old female with history of COPD on 2L and chronic prednisone 10mg, RA/scleroderma, chronic SOB was sent from pulmonary office. She was notably tachypneic in office seen by Doris Gagnon, instructed to go to ER. Patient feels
chronically shortness of breath, recently discharged from on 07/16/24. She has had recurrent admissions for AECOPD for the past 3 years, this is her 8th admission since 2022. She states that she 'could just live in the hospital.' We are
consulted for evaluation 08/01/24.
Acute on chronic hypoxic respiratory failure
Tachypnea, respiratory insufficiency, cannot r/o anxiety
AECOPD
Acute on chronic SOB
History of pulmonary cachexia
Bibasilar linear scarring
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
Moderate COPD (due to centrilobular emphysema) with air trapping and hyperinflation
Follows with Dr Garcia, last PFT stable/moderate obstruction
Pulmonary cachexia
Mild restrictive lung defect
Esophageal dilation seen on CT chest
Chronic hypoxic respiratory failure on home oxygen at 3 L/min
Pulmonary hypertension
History of scleroderma
GERD without esophagitis
History of aspiration
Former tobacco use disorder (quit 07/2019)
IBD
History of diverticulosis
Colon polyps
Fibromyalgia
Depression
Arthritis
History of GI bleed
Rectal prolapse
Plan
Acute on chronic hypoxemia noted on arrival, she is placed on 3-4L NC
Baseline use of O2 at home--2L
Wean as tolerated back to baseline
There is known prior history of lung disease including COPD--reviewed extensive OP records
Followed by Radha, seen by Doris 07/31
Last note 07/31- PFT is stable over the past 2 years, no evidence of hypoxemia per walk test, however was 70% in the hospital, now on home oxygen.
She is currently using 3L with activity.
Patient was taking Spiriva, Symbicort, chronic prednisone 10 mg
Suspect patient has underlying AECOPD but cannot r/o anxiety component as she is tachypneic for unclear reason
[id number]
CXR/CT obtained indicating no acute findings or change from prior
Last PFT showing stability in function
Agree with IV steroids, can transition to PO course today
She is on baseline 10mg daily
Would be a good candidate for ohtuvayre set up as OP
ECHO results in past reviewed, stable function, mild-mod AR, mild-mod TR, moderate PH
Diuresis--not indicated
May consider repeat ECHO to see if PAP have worsened
Will need outpatient pulmonary evaluation in our office including PFTs and 6MWT
Reviewed with patient
I have discussed with her regarding rn long term care prognosis with her lung disease and recurrent admissions, this indicate poor QoL
She was not ready to talk about palliative care or hospice
She simply wishes to live in the hospital for as long as it takes
Discharge planning if doing well in next 24 hours
Diagnostic Data
CXR 07/31/24- Clear lungs. Air-fluid level within the esophagus. Findings may related to hiatal hernia and/or esophageal dysmotility. Chronic compression fractures within the mid thoracic spine, with resulting kyphotic deformity.
CXR 08-22-2023: Mild acute interstitial cardiogenic pulmonary edema. Mild cardiomegaly. Severe calcific atherosclerotic plaque in the thoracic and abdominal aorta. Mild scarring in the right lung apex, lingula, and left lower lobe.
TTE 02-13-2024: Normal biventricular size and systolic function without regional wall motion abnormality. Estimated LVEF 65-70%. Mild/moderate eccentric aortic regurgitation. Mild/moderate tricuspid regurgitation. Mildly elevated PASP. Estimated
pulmonary artery pressure of 42 mmHg. Compared to 10/09/20: AR and TR have progressed from mild to mild/moderate. PASP has increased from 37 mmHg to 42 mmHg.
PFT 11/21/23: FVC 2.02/86%, FEV1 1.09/62%, ratio 56.� TLC 3.83/90%, DLCO 6.52/36%.� Moderate obstruction, severe gas exchange defect
[place] 09/27/23- FVC 1.22 or 50%, FEV1 0.74 or 41%, Ratio 61�--severe obstruction
[place] 02/06/14: FEV1 1.37L 54%, FVC 2.57L 78%, ratio 0.53
Reports and relevant images were personally reviewed.
-----
Total time spent on this consultation _51__ minutes which includes review of history, physical exam, medications, llaboratory data, personal review of imaging, extensive review of outpatient records, and discussions with care team.
Subjective Data
-
Date of Service:
Date of Service: August 02, 2024
Chief Complaint: Pulmonary Follow Up
Subjective:
Better today, no new complaints
Objective Data
Data Reviewed
Vital Signs / I&O / Oxygen:
Vital Signs
Temp Pulse Resp BP Pulse Ox
97.5 F 72 14 160/74 97
08/02/24 07:00 08/02/24 08:12 08/02/24 07:54 08/02/24 08:12 08/02/24 07:54
Intake and Output
08/01/24 08/02/24 08/03/24
06:59 06:59 06:59
Intake Total 1180 / 1180 480 / 480
Output Total 300 / 300
Balance 880 / 880 480 / 480
SaO2 97
Nasal Cannula flow liters per 3.5
minute
Physical Exam
General: Comfortable and Other (NAD)
HEENT: Normocephalic, Anicteric and Moist Mucous Membranes
Cardiovascular: S1-S2 and Regular Rhythm
Respiratory: Clear (poor air movement) and Non-Labored Respirations
GI: Soft, Non Distended and Non Tender
Neurology: Awake, Alert, Oriented and No Motor Deficits
Skin: Warm, Dry and Good Color
Labs/Micro/Reports
Lab Data
07/31/24 13:35
08/01/24 07:05
Microbiology
07/31/24 20:41 Nose MRSA Screen - Final
No Methicillin Resistant Staphylococcus aureus isolated.
--- NOTE | 2024-08-02 09:22 | W.PN.HOSP.TC ---
Today's Communication/Plan
-
I do not think she has acute on chronic respiratory failure due to same O2 level. Patient reported her baseline O2 at home 3.5-4 liters at home which has been same here.
She is agreeable to use palliative care service at home
Assessment / Plan
Assessment / Plan
Physical Exam
General: Appears Chronically Ill, son on mild exertion
HEENT: Moist mucous membranes and Atraumatic
Respiratory: very decreased Breath Sounds
Cardiac: S1/S2 and Regular Rhythm
GI: Soft, Non Tender and Non Distended
Genito-urinary: No Beckman
Musculoskeletal: No Cyanosis and No Edema
Skin: No Rash
Neuro: AO x 3 and Nonfocal/grossly intact
Psych: Calm; No Anxious
# SOB
I do not think she has acute on chronic respiratory failure due to same O2 level. Patient reported her baseline O2 at home 3.5-4 liters at home which has been same here.
She seems at baseline which is very limited and gets sob easily. 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
No wheezes on exam but received treatment already in ER
Known COPD /chronic hypoxic respiratory failure
O2 requirement stable at 3-4 liters
Underlying ILD
Continue IV steroids and taper to dexamethasone 4 mg every 12 hours-
Continue bronchodilators
Oxygen supplementation
I d/w code status, she wanted full code, she will benefit from goal of care discussion. Palliative care.
Appreciate pulmonary input
# hx of severe chronic dysphagia
s/p esophageal dilation
Consult speech
# Hypokalemia
treated.
# VIKTOR
s/p mild IVF
held diuretic and Valsartan
Avoid nephrotoxic agents
Monitor for retention
Monitor renal function
She denied urinary symptoms
# Hx of rheumatoid arthritis/ Hx of Scleroderma/crest syndrome
Report walking without aid.
# IBS
#Fibromyalgia
#Major depression
Mood is cooperative
#Chronic pain syndrome/chronic opiate dependence - chronic fentanyl patch .
#GERD
#Hyperlipidemia
#moderate protein calorie malnutrition of chronic illness
Full code
Total time spent to see the patient, examine the patient, review data and lab result, discuss treatment plan with patient, nursing staff around 55 minutes
Anticipated Discharge: Within 24 hours
Subjective/Interval History
-
Date of Service: August 02, 2024
no chest pain
same sob
Objective Data
-
Vital Signs:
Vital Signs
Temp Pulse Resp BP Pulse Ox
97.5 F 72 14 160/74 97
08/02/24 07:00 08/02/24 08:12 08/02/24 07:54 08/02/24 08:12 08/02/24 07:54
I&O
08/01/24 08/02/24 08/03/24
06:59 06:59 06:59
Intake Total 1180 / 1180 480 / 480
Output Total 300 / 300
Balance 880 / 880 480 / 480
[2024-08-02] MEDS: IMODIUM 2 MG PO (11:00)
--- NOTE | 2024-08-02 14:02 | PN.CDI ---
Addendum entered and electronically signed by Loal Landa MD 08/02/24 14:28:
Severe protein calorie malnutrition
Original Note:
CDI
- -
CDI:
Physician Documentation Request
Admit Date: 07/31/24 15:37
Dear Doctor Syeda,
08/[address] Contractor Assessment: 'Significant 5.4% weight loss in <1month. Pt meets criteria for severe protein calorie malnutrition of achronic illness with >5% wt loss x 1 month, prolonged inadequate po intake <75% over 1 month.'
08/02 Hospitalist PN: 'moderate protein calorie malnutrition of chronic illness'
Based on the above information and your assessment, which of the following most accurately represents the patient's nutritional status?
Severe protein calorie malnutrition
Moderate protein calorie malnutrition
Other
Clarita Criteria ([facility] Hospitalist 2017)
2 or more criteria must be present for either
non severe or severe malnutrition
Note that the criteria differs related to the
presence of an acute or chronic illness
Acute Illness Chronic Illness
Energy Intake Non Severe: <75% for >7 days Non Severe: <75% for >1 month
Severe: <50% for >5 days Severe: <75% for >1 month
Weight Loss Non Severe: 1-2% over 1 week Non Severe: 5% over 1 month
5% over 1 month 7.5% over 3 months
7.5% over 3 months 10% over 6 months
1 year N/A 20% over 1 year
Severe: >2% over 1 week Severe: >5% over 1 month
>5% over 1 month >7.5% over 3 months
>7.5% over 3 months >10% over 6 months
1 year N/A >20% over 1 year
Body Fat Non Severe: Mild Decrease Non Severe: Mild Loss
Severe: Moderate Decrease Severe: Severe Loss
Muscle Mass Non Severe: Mild Decrease Non Severe: Mild Loss
Severe: Moderate Decrease Severe: Severe Loss
Fluid Accumulation Non Severe: Mild Accumulation Non Severe: Mild Accumulation
Severe: Moderate to severe Severe: Moderate to severe
accumulation accumulation
Reduced Baby Formula Mixer Strength Non Severe: N/A Non Severe: N/A
Severe: Measurably reduced Severe: Measurably reduced
Additional criteria that can be used to Determine if Mild or Moderate Malnutrition (Merck Manual 2018)
Mild Moderate Severe
Albumin gm/dl <3.0 gm/dl <2.5 gm/dl <2.0 gm/dl
Pre Albumin mg/dl <15 gm/dl <10 mg/dl <5.0 mg/dl
BMI <18.5 <17 <16
Use of terms such as suspected, likely, concern for, or probable (associated with a specific diagnosis that is being evaluated, monitored, or treated as if it exists) are acceptable and can be coded in the inpatient setting, when documented at the
time of discharge.
Thank you,
Maureen Handley RN, BSN
CDI Specialist
Available via [place] text
Please use your independent medical judgment in providing your response.
--- NOTE | 2024-08-02 14:47 | CM ---
Patient lives with son and daughter in law in an in law suite, and 2 grandchildren on a one story home, patient has an in law suite that is attached to main home, no steps to enter, patient is independent with adl's and ambulation, patient has home
oxygen at 3 liters, plan is to home with [facility].
Plan; Home with [facility], patient has home oxygen in home.
[2024-08-02] MEDS: ProAIR HFA INHALER 2 PUFF INH (15:56)
[2024-08-02] MEDS: SYMBICORT 160/4.5 MCG INHALER INH (20:05)
[2024-08-02] MEDS: DESYREL 25 MG PO (22:06)
[2024-08-03] MEDS: DECADRON 2 MG IV (04:45)
[2024-08-03 07:35] VITALS: BP 176/67
[2024-08-03] MEDS: SYMBICORT 160/4.5 MCG INHALER 2 PUFF INH ×2 (07:49→19:29)
[2024-08-03] MEDS: PULMICORT 0.5 MG INH ×2 (07:49→19:29)
[2024-08-03] MEDS: ProAIR HFA INHALER 2 PUFF INH ×4 (07:49→22:29)
[2024-08-03] MEDS: DIOVAN 160 MG PO (08:16)
[2024-08-03] MEDS: LIPITOR 10 MG PO (08:16)
[2024-08-03] MEDS: HEPARIN 5000 UNITS SC ×2 (08:16→20:10)
[2024-08-03] MEDS: PROTONIX 40 MG PO (08:16)
[2024-08-03] MEDS: ABILIFY 5 MG PO (08:16)
[2024-08-03] MEDS: CELEXA 40 MG PO (08:16)
[2024-08-03] MEDS: ROXICODONE 5 MG PO ×2 (08:16→20:10)
[2024-08-03] MEDS: DELTASONE 40 MG PO (08:18)
--- NOTE | 2024-08-03 09:20 | W.PN.HOSP.TC ---
Addendum entered and electronically signed by Lola Landa MD 08/03/24 13:30:
Addendum
Had meeting with the patient and family.
Discussed CODE STATUS, she remains full code. Family said she was sick before and needed ventilatory support but she survived.
Reiterated 2 points to the family:
- Patient remains high risk for readmission.
-Chances of regaining baseline after cardiopulmonary arrest/resuscitation is slight in her situation. Patient wishes not to be life support dependent/long-term care patient.
Patient reported that she did not have good quality of life and only existent at this point. Family reported that she was enjoying good quality of life few months ago and they are hoping to regain that status again. For that, we will continue
high-dose oral prednisone and hoping to discharge patient home in 24-48 hours. They agreed to palliative care consult upon discharge.
Also recommended to make appointment with her primary patients transporter Dr. Garcia.
Updated nursing staff and Pulmonary doctor.
End
Original Note:
Today's Communication/Plan
-
dc planning
will need palliative care consult upon discharge
Assessment / Plan
Assessment / Plan
Physical Exam
General: Appears Chronically Ill, son on mild exertion
HEENT: Moist mucous membranes and Atraumatic
Respiratory: very decreased Breath Sounds
Cardiac: S1/S2 and Regular Rhythm
GI: Soft, Non Tender and Non Distended
Genito-urinary: No Beckman
Musculoskeletal: No Cyanosis and No Edema
Skin: No Rash
Neuro: AO x 3 and Nonfocal/grossly intact
Psych: Calm; No Anxious
# SOB
I do not think she has acute on chronic respiratory failure due to same O2 level. Patient reported her baseline O2 at home 3.5-4 liters at home which has been same here.
She seems at baseline which is very limited and gets sob easily. 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
No wheezes on exam but received treatment already in ER
Known COPD /chronic hypoxic respiratory failure
O2 requirement stable at 3-4 liters
Underlying ILD
Continue IV steroids and taper to dexamethasone 4 mg every 12 hours- change to oral prednisone
Continue bronchodilators
Oxygen supplementation
I d/w code status, she wanted full code, she will benefit from goal of care discussion. Palliative care.
Appreciate pulmonary input
# hx of severe chronic dysphagia
s/p esophageal dilation
Consult speech
# Hypokalemia
treated.
# VIKTOR
s/p mild IVF
held diuretic and Valsartan
Avoid nephrotoxic agents
Monitor for retention
Monitor renal function
She denied urinary symptoms
# Hx of rheumatoid arthritis/ Hx of Scleroderma/crest syndrome
Report walking without aid.
# IBS
#Fibromyalgia
#Major depression
Mood is cooperative
#Chronic pain syndrome/chronic opiate dependence - chronic fentanyl patch .
#GERD
#Hyperlipidemia
#moderate protein calorie malnutrition of chronic illness
Full code, we discussed again, she wants DNR/DNI but I recommended to d/w family first.
Total time spent to see the patient, examine the patient, review data and lab result, discuss treatment plan with patient, nursing staff around 55 minutes
Anticipated Discharge: Within 24 hours
Subjective/Interval History
-
Date of Service: August 03, 2024
Same breathing, not worse
No chest pain
Objective Data
-
Vital Signs:
Vital Signs
Temp Pulse Resp BP Pulse Ox
97.9 F 65 18 176/67 100
08/03/24 07:35 08/03/24 07:57 08/03/24 07:57 08/03/24 07:35 08/03/24 07:57
I&O
08/02/24 08/03/24 08/04/24
06:59 06:59 06:59
Intake Total 480 / 480 960 / 960
Balance [facility] / 480 960 / 960
[2024-08-03 15:35] VITALS: BP 134/61
--- NOTE | 2024-08-03 15:53 | W.PN.PUL3 ---
Today's Communication / Plan
-
Continue weaning down supplemental O2 flow rate while maintaining SaO2 88-95%
Continue prednisone taper with eventual wean back to her home dose
PT/OT
Continue Symbicort and budesonide (at home the budesonide was rejected by insurance, so she only uses Symbicort and is supposed to use Spiriva) --> I will add on Spiriva
Has a history of eosinophilia, hence perhaps Dupixent would be ideal for her as an add-on maintenance option. Otherwise, would add on Ohtuvayre - these options can be discussed in the office
Discharge planning
Pulmonary service will continue following and patient will closely follow-up with us in the pulmonary office after discharge
Assessment
-
Patient is a 73 years old female with history of COPD on 2L and chronic prednisone 10mg, RA/scleroderma, chronic SOB was sent from pulmonary office. She was notably tachypneic in office seen by Doris Gagnon, instructed to go to ER. Patient feels
chronically shortness of breath, recently discharged from on 07/16/24. She has had recurrent admissions for AECOPD for the past 3 years, this is her 8th admission since 2022. She states that she 'could just live in the hospital.' We are
consulted for evaluation 08/01/24.
Acute on chronic hypoxic respiratory failure
Tachypnea, respiratory insufficiency, cannot r/o anxiety
AECOPD
Acute on chronic SOB
History of pulmonary cachexia
Bibasilar linear scarring
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
Moderate COPD (due to centrilobular emphysema) with air trapping and hyperinflation
Follows with Dr Garcia, last PFT stable/moderate obstruction
Pulmonary cachexia
Mild restrictive lung defect
Esophageal dilation seen on CT chest
Chronic hypoxic respiratory failure on home oxygen at 3 L/min
Pulmonary hypertension
History of scleroderma
GERD without esophagitis
History of aspiration
Former tobacco use disorder (quit 07/2019)
IBD
History of diverticulosis
Colon polyps
Fibromyalgia
Depression
Arthritis
History of GI bleed
Rectal prolapse
Plan
Acute on chronic hypoxemia noted on arrival, she is placed on 3-4L NC
Baseline use of O2 at home--2L; currently on 4L/min
Wean down supplemental O2 flow rate to keep SpO2 88-95%
Would check a home O2 assessment prior to discharge to reassess home oxygen needs
Wean as tolerated back to baseline
There is known prior history of lung disease including COPD--reviewed extensive OP records
Followed by Radha, seen by Doris 07/31
Last note 07/31- PFT is stable over the past 2 years, no evidence of hypoxemia per walk test, however was 70% in the hospital, now on home oxygen.
She is currently using 3L with activity.
Patient was taking Spiriva, Symbicort, chronic prednisone 10 mg
Patient is currently on Symbicort 160 mcg + budesonide 0.5 mg BID - -> supposed to be on Spiriva + Symbicort at home, and previously was using budesonide nebulizer however insurance had rejected this. I will add on Spiriva to her regimen and she
should resume this upon discharge in addition to steroid taper (as below). Given her refractory COPD, CAD should be on either Ohtuvayre +/- Zithromax TIW. This can be discussed as an outpatient. Interestingly, in July 2022 her absolute
eosinophil count was 800, and in July + August 2023 her absolute eosinophil counts range between 300�400. Absolute eosinophils have been <200 since June 2024, however perhaps this is reflecting her chronic prednisone use. This is important because if
truly has eosinophilia/type II inflammation then she could benefit greatly from Dupixent add-on therapy
Suspect patient has underlying AECOPD but cannot r/o anxiety component as she is tachypneic for unclear reason
proBNP 110
CXR/CT obtained indicating no acute findings or change from prior
Last PFT showing stability in function
Agree with steroids, now on PO prednisone course, currently 40mg daily � would slowly wean down, reducing by 10 mg every 6th day until back to her home dose
She is on baseline 10mg daily
Would be a good candidate for ohtuvayre set up as OP
ECHO results in past reviewed, stable function, mild-mod AR, mild-mod TR, moderate PH
Diuresis--not indicated
May consider repeat ECHO to see if PAP have worsened
Will need outpatient pulmonary evaluation in our office including PFTs and 6MWT
Reviewed with patient
Dr. Mcallister discussed with her regarding skilled nursing prognosis with her lung disease and recurrent admissions, this indicate poor QoL
She was not ready to talk about palliative care or hospice
She simply wishes to live in the hospital for as long as it takes
Discharge planning.
Pulmonary service will continue to follow along.
Diagnostic Data
CXR 07/31/24- Clear lungs. Air-fluid level within the esophagus. Findings may related to hiatal hernia and/or esophageal dysmotility. Chronic compression fractures within the mid thoracic spine, with resulting kyphotic deformity.
CXR 08-22-2023: Mild acute interstitial cardiogenic pulmonary edema. Mild cardiomegaly. Severe calcific atherosclerotic plaque in the thoracic and abdominal aorta. Mild scarring in the right lung apex, lingula, and left lower lobe.
TTE 02-13-2024: Normal biventricular size and systolic function without regional wall motion abnormality. Estimated LVEF 65-70%. Mild/moderate eccentric aortic regurgitation. Mild/moderate tricuspid regurgitation. Mildly elevated PASP. Estimated
pulmonary artery pressure of 42 mmHg. Compared to 10/09/20: AR and TR have progressed from mild to mild/moderate. PASP has increased from 37 mmHg to 42 mmHg.
PFT 11/21/23: FVC 2.02/86%, FEV1 1.09/62%, ratio 56.� TLC 3.83/90%, DLCO 6.52/36%.� Moderate obstruction, severe gas exchange defect
[place] 09/27/23- FVC 1.22 or 50%, FEV1 0.74 or 41%, Ratio 61�--severe obstruction
[place] 02/06/14: FEV1 1.37L 54%, FVC 2.57L 78%, ratio 0.53
Reports and relevant images were personally reviewed.
-----
Total time spent on this consultation _37__ minutes which includes review of history, physical exam, medications, llaboratory data, personal review of imaging, extensive review of outpatient records, and discussions with care team.
Subjective Data
-
Date of Service:
Date of Service: August 03, 2024
Chief Complaint: Pulmonary Follow Up
Subjective:
Patient seen and evaluated today bedside (late note entry). She got short of breath today that seemingly occurred during activity. Currently on 4 L/min nasal cannula. She denies a cough. She said that the nebulizers make her feel better.
Review of Systems
General: Other (Negative unless mentioned above)
Objective Data
Data Reviewed
Vital Signs / I&O / Oxygen:
Vital Signs
Temp Pulse Resp BP Pulse Ox
97.9 F 65 18 176/67 100
08/03/24 07:35 08/03/24 07:57 08/03/24 07:57 08/03/24 07:35 08/03/24 07:57
Intake and Output
08/02/24 08/03/24 08/04/24
06:59 06:59 06:59
Intake Total 480 / 480 960 / 960
Balance 480 / 480 960 / 960
SaO2 100
Nasal Cannula flow liters per 3.5
minute
Physical Exam
General: Respiratory Distress (negative), Comfortable and Other (NAD)
HEENT: Normocephalic, Anicteric and Moist Mucous Membranes
Cardiovascular: S1-S2 and Peripheral Edema (negative)
Respiratory: Wheeze (Occasional expiratory wheezing heard in left upper lobe), Crackles (Faint rales heard bilateral), Rhonchi (negative), Non-Labored Respirations and Other (Diminished breath sounds bilaterally)
GI: Soft, Non Distended and Non Tender
Neurology: Awake, Alert and Tremors (negative)
Skin: Warm, Dry, Cyanosis (negative) and Jaundice (negative)
Labs/Micro/Reports
Lab Data
07/31/24 13:35
08/01/24 07:05
Microbiology
07/31/24 20:41 Nose MRSA Screen - Final
No Methicillin Resistant Staphylococcus aureus isolated.
[2024-08-03] MEDS: DURAGESIC 12 MCG/HR PATCH 1 PATCH TRANSDERM (17:57)
[2024-08-03] MEDS: DESYREL 25 MG PO (22:21)
[2024-08-03] MEDS: PEPCID 40 MG PO (22:24)
[2024-08-03 22:36] VITALS: PULSE 100; PULSE 2
[2024-08-03 23:17] VITALS: BP 153/70
[2024-08-04 03:15] VITALS: PULSE 2
[2024-08-04] MEDS: PULMICORT 0.5 MG INH ×2 (07:18→19:54)
[2024-08-04] MEDS: ProAIR HFA INHALER 2 PUFF INH ×3 (07:19→18:24)
[2024-08-04] MEDS: SYMBICORT 160/4.5 MCG INHALER 2 PUFF INH ×2 (07:19→19:54)
[2024-08-04 08:00] VITALS: BP 165/76
[2024-08-04] MEDS: ROXICODONE 5 MG PO ×2 (08:35→19:55)
[2024-08-04] MEDS: ABILIFY 5 MG PO (08:35)
[2024-08-04] MEDS: LIPITOR 10 MG PO (08:35)
[2024-08-04] MEDS: DIOVAN 160 MG PO (08:35)
[2024-08-04] MEDS: PROTONIX 40 MG PO (08:35)
[2024-08-04] MEDS: SOLU-MEDROL PF 40 MG IV ×2 (08:36→19:55)
[2024-08-04] MEDS: CELEXA 40 MG PO (08:36)
[2024-08-04] MEDS: HEPARIN 5000 UNITS SC ×2 (08:36→19:55)
[2024-08-04] MEDS: DELTASONE PO (08:47)
--- NOTE | 2024-08-04 08:49 | W.PN.HOSP.TC ---
Today's Communication/Plan
-
.
Assessment / Plan
Assessment / Plan
Physical Exam
General: Appears Chronically Ill, son on mild exertion
HEENT: Moist mucous membranes and Atraumatic
Respiratory: very decreased Breath Sounds
Cardiac: S1/S2 and Regular Rhythm
GI: Soft, Non Tender and Non Distended
Genito-urinary: No Beckman
Musculoskeletal: No Cyanosis and No Edema
Skin: No Rash
Neuro: AO x 3 and Nonfocal/grossly intact
Psych: Calm; No Anxious
# SOB
Acute respiratory distress over night. O2 requirement remained the same but patient was sob (pt: I could not take breath)
Will place back on IV steroid
Chronic respiratory failure due to same O2 level. Patient reported her baseline O2 at home 3.5-4 liters at home which has been same here.
She seems at baseline which is very limited and gets sob easily. 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
O2 requirement stable at 3-4 liters
Underlying ILD
Continue bronchodilators
Oxygen supplementation
Appreciate pulmonary input
# hx of severe chronic esophageal dysphagia
s/p esophageal dilation
c/w modified diet.
# Hypokalemia
treated.
# VIKTOR
s/p mild IVF
held diuretic and Valsartan
Check BMP
Avoid nephrotoxic agents
Monitor for retention
Monitor renal function
She denied urinary symptoms
# Hx of rheumatoid arthritis/ Hx of Scleroderma/crest syndrome
Report walking without aid.
# IBS
#Fibromyalgia
#Major depression
Mood is cooperative
#Chronic pain syndrome/chronic opiate dependence - chronic fentanyl patch .
#GERD
#Hyperlipidemia
#Severe protein calorie malnutrition of chronic illness
# Full code.
Had family meeting 08/03 Had meeting with the patient and family.
Discussed CODE STATUS, she remains full code. Family said she was sick before and needed ventilatory support but she survived.
Reiterated 2 points to the family:
- Patient remains high risk for readmission.
-Chances of regaining baseline after cardiopulmonary arrest/resuscitation is slight in her situation. Patient wishes not to be life support dependent/long-term care patient.
Patient reported that she did not have good quality of life and only existent at this point. Family reported that she was enjoying good quality of life few months ago and they are hoping to regain that status again. For that, we will continue
high-dose steroid. They agreed to palliative care consult upon discharge.
Also recommended to make appointment with her primary computator Dr. Garcia.
Total time spent to see the patient, examine the patient, review data and lab result, discuss treatment plan with patient, pulmonary doctor, nursing staff around 55 minutes
Anticipated Discharge: 24 - 48 hours
Subjective/Interval History
-
Date of Service: August 04, 2024
She reports sob over night
Objective Data
-
Vital Signs:
Vital Signs
Temp Pulse Resp BP Pulse Ox
97.6 F 68 19 165/76 100
08/04/24 08:00 08/04/24 08:00 08/04/24 08:00 08/04/24 08:00 08/04/24 08:00
I&O
08/03/24 08/04/24 08/05/24
06:59 06:59 06:59
Intake Total 960 / 960 700 / 700
Balance 960 / 960 700 / 700
[2024-08-04 16:00] VITALS: BP 159/63
--- NOTE | 2024-08-04 16:36 | W.PN.PUL3 ---
Addendum entered and electronically signed by Kevin Busby MD 08/05/24 00:31:
Patient was seen and evaluated on 08/04/2024
Original Note:
Today's Communication / Plan
-
Continue weaning down supplemental O2 flow rate while maintaining SaO2 88-95%
Raise steroids back up, and willl change prednisone to SoluMedrol 40mg IV q8hr given that she is now worsening with her respiratory status
PT/OT
Continue Symbicort and budesonide (at home the budesonide was rejected by insurance, so she only uses Symbicort and is supposed to use Spiriva); add on LAMA/Spiriva
Has a history of eosinophilia, hence perhaps Dupixent would be ideal for her as an add-on maintenance option. Otherwise, would add on Ohtuvayre - these options can be discussed in the office
Discharge planning
Pulmonary service will continue following and patient will closely follow-up with us in the pulmonary office after discharge
Assessment
-
Patient is a 73 years old female with history of COPD on 2L and chronic prednisone 10mg, RA/scleroderma, chronic SOB was sent from pulmonary office. She was notably tachypneic in office seen by Doris Gagnon, instructed to go to ER. Patient feels
chronically shortness of breath, recently discharged from on 07/16/24. She has had recurrent admissions for AECOPD for the past 3 years, this is her 8th admission since 2022. She states that she 'could just live in the hospital.' We are
consulted for evaluation 08/01/24.
Acute on chronic hypoxic respiratory failure
Tachypnea, respiratory insufficiency, cannot r/o anxiety
AECOPD
Acute on chronic SOB
History of pulmonary cachexia
Bibasilar linear scarring
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
Moderate COPD (due to centrilobular emphysema) with air trapping and hyperinflation
Follows with Dr Garcia, last PFT stable/moderate obstruction
Pulmonary cachexia
Mild restrictive lung defect
Esophageal dilation seen on CT chest
Chronic hypoxic respiratory failure on home oxygen at 3 L/min
Pulmonary hypertension
History of scleroderma
GERD without esophagitis
History of aspiration
Former tobacco use disorder (quit 07/2019)
IBD
History of diverticulosis
Colon polyps
Fibromyalgia
Depression
Arthritis
History of GI bleed
Rectal prolapse
Plan
Acute on chronic hypoxemia noted on arrival, she is placed on 3-4L NC
Baseline use of O2 at home--2L; currently on 4L/min
Wean down supplemental O2 flow rate to keep SpO2 88-95%
Would check a home O2 assessment prior to discharge to reassess home oxygen needs
Wean O2 as tolerated back to baseline
There is known prior history of lung disease including COPD--reviewed extensive OP records
Followed by Radha, seen by Doris 07/31
Last note 07/31- PFT is stable over the past 2 years, no evidence of hypoxemia per walk test, however was 70% in the hospital, now on home oxygen.
She is currently using 3L with activity.
Patient was taking Spiriva, Symbicort, chronic prednisone 10 mg
Patient is currently on Symbicort 160 mcg + budesonide 0.5 mg BID - -> supposed to be on Spiriva + Symbicort at home, and previously was using budesonide nebulizer however insurance had rejected this. I will add on Spiriva to her regimen and she
should resume this upon discharge in addition to steroid taper (as below). Given her refractory COPD, she should be on either Ohtuvayre +/- Zithromax TIW. This can be discussed as an outpatient. Interestingly, in July 2022 her absolute
eosinophil count was 800, and in July + August 2023 her absolute eosinophil counts range between 300�400. Absolute eosinophils have been <200 since June 2024, however perhaps this is reflecting her chronic prednisone use. This is important because if
she truly has eosinophilia/type II inflammation then she could benefit greatly from Dupixent add-on therapy
Suspect patient has underlying AECOPD but cannot r/o anxiety component as she is tachypneic for unclear reason
proBNP 110
CXR/CT obtained indicating no acute findings or change from prior
Last PFT showing stability in function
Agree with steroids, would raise dose given that she is deteriorating and no longer feeling like she is improving. Change from 40mg prednisone daily to Solu-Medrol 40mg IV q8hr�eventual slow wean
She is on baseline 10mg daily
Would be a good candidate for ohtuvayre set up as OP
ECHO results in past reviewed, stable function, mild-mod AR, mild-mod TR, moderate PH
Diuresis--not indicated
May consider repeat ECHO to see if PAP have worsened
Will need outpatient pulmonary evaluation in our office including PFTs and 6MWT
Reviewed with patient
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
She was not ready to talk about palliative care or hospice
She simply wishes to live in the hospital for as long as it takes
Discharge planning.
Pulmonary service will continue to follow along.
Diagnostic Data
CXR 07/31/24- Clear lungs. Air-fluid level within the esophagus. Findings may related to hiatal hernia and/or esophageal dysmotility. Chronic compression fractures within the mid thoracic spine, with resulting kyphotic deformity.
CXR 08-22-2023: Mild acute interstitial cardiogenic pulmonary edema. Mild cardiomegaly. Severe calcific atherosclerotic plaque in the thoracic and abdominal aorta. Mild scarring in the right lung apex, lingula, and left lower lobe.
TTE 02-13-2024: Normal biventricular size and systolic function without regional wall motion abnormality. Estimated LVEF 65-70%. Mild/moderate eccentric aortic regurgitation. Mild/moderate tricuspid regurgitation. Mildly elevated PASP. Estimated
pulmonary artery pressure of 42 mmHg. Compared to 10/09/20: AR and TR have progressed from mild to mild/moderate. PASP has increased from 37 mmHg to 42 mmHg.
PFT 11/21/23: FVC 2.02/86%, FEV1 1.09/62%, ratio 56.� TLC 3.83/90%, DLCO 6.52/36%.� Moderate obstruction, severe gas exchange defect
[place] 09/27/23- FVC 1.22 or 50%, FEV1 0.74 or 41%, Ratio 61�--severe obstruction
[place] 02/06/14: FEV1 1.37L 54%, FVC 2.57L 78%, ratio 0.53
Reports and relevant images were personally reviewed.
-----
Total time spent on this consultation _41__ minutes which includes review of history, physical exam, medications, llaboratory data, personal review of imaging, extensive review of outpatient records, and discussions with care team.
Subjective Data
-
Date of Service:
Date of Service: August 04, 2024
Chief Complaint: Pulmonary Follow Up
Subjective:
Pt seen earlier this afternoon (late note entry). She says she is having another bad day and is having trouble breathing. Currently on 4L/min nasal cannula. Not currently wheezing. She denies chest pain.
Review of Systems
General: Other (negative unless mentioned above)
Objective Data
Data Reviewed
Vital Signs / I&O / Oxygen:
Vital Signs
Temp Pulse Resp BP Pulse Ox
97.6 F 68 19 165/76 100
08/04/24 08:00 08/04/24 08:00 08/04/24 08:00 08/04/24 08:00 08/04/24 08:00
Intake and Output
08/03/24 08/04/24 08/05/24
06:59 06:59 06:59
Intake Total 960 / 960 700 / 700
Balance 960 / 960 700 / 700
SaO2 100
Nasal Cannula flow liters per 4
minute
Physical Exam
General: Respiratory Distress (negative), Comfortable and Other (NAD)
HEENT: Normocephalic, Anicteric and Moist Mucous Membranes
Cardiovascular: S1-S2 and Peripheral Edema (negative)
Respiratory: Wheeze (negative), Crackles (bilateral), Rhonchi (negative), Non-Labored Respirations and Other (Diminished breath sounds bilaterally with poor inspiratory effort)
GI: Soft, Non Distended and Non Tender
Neurology: Awake, Alert and Tremors (negative)
Skin: Warm, Dry, Cyanosis (negative) and Jaundice (negative)
Labs/Micro/Reports
Lab Data
07/31/24 13:35
08/01/24 07:05
Microbiology
07/31/24 20:41 Nose MRSA Screen - Final
No Methicillin Resistant Staphylococcus aureus isolated.
[2024-08-04] MEDS: ATIVAN 0.25 MG PO (19:54)
--- NOTE | 2024-08-04 20:13 | W.PN.UPDATE ---
Update Note
Progress Note Update
1999 RN states pt daughter brought in POLST form and has decided to change code status to DNR/DNI. Reviewed POLST form and it was originally signed in 2023 stating full treatment. And today full treatment crossed out and DNR DNI noted with todays
date.
Unsure is this is legal since it wasnt signed by a medical professional.
at bedside, spoke to pt and daughter, when asked if in the event of cardiac arrest would she want CPR or mechanical ventilation--pt and daughter both state 'no'. They had long discussion with Dr Landa and after much thought has decided on DNR/ DNI.
OK with fluid and abx if needed. Based on their wishes, will update code status in computer.
[2024-08-04] MEDS: DESYREL 25 MG PO (21:53)
[2024-08-04 22:40] VITALS: PULSE 2; PULSE 99
[2024-08-05] VITALS (7 sets, daily range): BP systolic 148–188; BP diastolic 62–80; PULSE 2–101; O2SAT 98; BMI 22.1
[2024-08-05] MEDS: PROTONIX 40 MG PO (06:26)
[2024-08-05 06:28] LABS: Hematocrit 39.2 % (37.0-47.0); Hemoglobin 12.6 g/dL (12.0-16.0); Mean Corp Hgb Conc. 32.1 g/dL (33.0-37.0); Mean Corpuscular Hgb 30.7 pg (27.0-31.0); Mean Corpuscular Volume 95.6 fL (81.0-99.0); Mean Platelet Volume 10.1 fL (7.4-10.4); Platelet Count 154 10^3/uL (130-400); Red Cell Dist. Width 12.5 % (11.5-14.5); White Blood Cell Count 6.8 10^3/uL (4.8-10.8)
[2024-08-05 06:45] LABS: Albumin 3.6 g/dl (3.5-5.0); Alkaline Phosphatase 94 U/L (38-126); Blood Urea Nitrogen 31 mg/dl (7-17); Calcium 10.6 mg/dl (8.4-10.2); Carbon Dioxide 32 mmol/L (22-30); Chloride 105 mmol/L (98-107); Estimated Creatinine Clearance 44 ml/min; Glucose 125 mg/dl (70-99); Potassium 4.8 mmol/L (3.5-5.1); Sodium 141 mmol/L (135-145); Total Protein 5.4 g/dl (6.3-8.2); eGFR > 60.00
[2024-08-05 06:46] LABS: ALT (SGPT) 25 U/L (0-35); AST (SGOT) 18 U/L (14-36); Total Bilirubin 0.3 mg/dl (0.2-1.3)
[2024-08-05] MEDS: SYMBICORT 160/4.5 MCG INHALER 2 PUFF INH ×2 (07:57→20:36)
[2024-08-05] MEDS: PULMICORT 0.5 MG INH (07:57)
[2024-08-05] MEDS: SPIRIVA RESPIMAT 2.5 MCG 2 PUFF INH (07:57)
[2024-08-05] MEDS: ProAIR HFA INHALER 2 PUFF INH ×3 (07:59→20:36)
[2024-08-05] MEDS: ROXICODONE 5 MG PO ×2 (10:34→20:22)
[2024-08-05] MEDS: DIOVAN 160 MG PO (10:34)
[2024-08-05] MEDS: CELEXA 40 MG PO (10:35)
[2024-08-05] MEDS: LIPITOR 10 MG PO (10:35)
[2024-08-05] MEDS: HEPARIN 5000 UNITS SC ×2 (10:35→20:22)
[2024-08-05] MEDS: ABILIFY 5 MG PO (10:36)
[2024-08-05] MEDS: ATIVAN 0.25 MG PO (10:42)
[2024-08-05] MEDS: SOLU-MEDROL PF 40 MG IV ×2 (10:45→17:06)
--- NOTE | 2024-08-05 11:03 | W.PN.PUL3 ---
Today's Communication / Plan
-
- DC nebulized budesonide, continue Symbicort and Spiriva
- Switch IV steroids to oral prednisone
- Start azithromycin, 250 mg, 3 times weekly, Monday, Monday, Monday
- Anticipate discharge over next 24 to 48 hours
Assessment
-
Patient is a 73 years old female with history of COPD on 2L and chronic prednisone 10mg, RA/scleroderma, chronic SOB was sent from pulmonary office. She was notably tachypneic in office seen by Doris Gagnon, instructed to go to ER. Patient feels
chronically shortness of breath, recently discharged from on 07/16/24. She has had recurrent admissions for AECOPD for the past 3 years, this is her 8th admission since 2022. She states that she 'could just live in the hospital.' We are
consulted for evaluation 08/01/24.
#1. Acute on chronic hypoxic respiratory failure
-Due to COPD exacerbation, clinically improving
-At baseline patient uses 3 to 3.5 L/min supplemental oxygen
-Titrate supplemental O2 to keep saturations above 88%
#2. Acute exacerbation of chronic severe COPD. At baseline, prednisone and oxygen dependent
-Known history of centrilobular emphysema with air trapping and hyperinflation. Follows up with Dr. Danielle at [facility]
-Continue triple therapy currently with Symbicort and Spiriva. Discontinue nebulized budesonide
-In view of clinical improvement, switch to oral prednisone starting 08/06
-Will start Monday, Monday, Monday azithromycin 250 mg. Follow-up EKG in a.m. to monitor QTc
- Will consider nebulized Ensifentrine versus Dupilumab therapy as outpatient considering prior history of eosinophilia.
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
Pulmonary cachexia
Mild restrictive lung defect
Esophageal dilation seen on CT chest
Chronic hypoxic respiratory failure on home oxygen at 3 L/min
Pulmonary hypertension, mild. PASP 20-25 with mild TR.
History of scleroderma
GERD without esophagitis
History of aspiration
Former tobacco use disorder (quit 07/2019)
IBD
History of diverticulosis
Colon polyps
Fibromyalgia
Depression
Arthritis
History of GI bleed
Rectal prolapse
Total time spent on this consultation/encounter __50__ minutes which includes review of history, physical exam, medications, laboratory data, personal review of imaging, extensive review of outpatient records, discussion with care team and
respiratory therapy.
Diagnostic Data
CXR 07/31/24- Clear lungs. Air-fluid level within the esophagus. Findings may related to hiatal hernia and/or esophageal dysmotility. Chronic compression fractures within the mid thoracic spine, with resulting kyphotic deformity.
CXR 08-22-2023: Mild acute interstitial cardiogenic pulmonary edema. Mild cardiomegaly. Severe calcific atherosclerotic plaque in the thoracic and abdominal aorta. Mild scarring in the right lung apex, lingula, and left lower lobe.
TTE 02-13-2024: Normal biventricular size and systolic function without regional wall motion abnormality. Estimated LVEF 65-70%. Mild/moderate eccentric aortic regurgitation. Mild/moderate tricuspid regurgitation. Mildly elevated PASP. Estimated
pulmonary artery pressure of 42 mmHg. Compared to 10/09/20: AR and TR have progressed from mild to mild/moderate. PASP has increased from 37 mmHg to 42 mmHg.
PFT 11/21/23: FVC 2.02/86%, FEV1 1.09/62%, ratio 56.� TLC 3.83/90%, DLCO 6.52/36%.� Moderate obstruction, severe gas exchange defect
[place] 09/27/23- FVC 1.22 or 50%, FEV1 0.74 or 41%, Ratio 61�--severe obstruction
[place] 02/06/14: FEV1 1.37L 54%, FVC 2.57L 78%, ratio 0.53
Reports and relevant images were personally reviewed.
Subjective Data
-
Date of Service:
Date of Service: August 05, 2024
Chief Complaint: Pulmonary Follow Up
Subjective:
Patient reports overall feeling better since steroids were changed to IV yesterday.
Review of Systems
Genitourinary: Other (No new symptoms reported.)
Objective Data
Data Reviewed
Vital Signs / I&O / Oxygen:
Vital Signs
Temp Pulse Resp BP Pulse Ox
97.7 F 70 14 188/80 88
08/05/24 07:00 08/05/24 10:34 08/05/24 08:00 08/05/24 10:34 08/05/24 08:00
Intake and Output
08/04/24 08/05/24 08/06/24
06:59 06:59 06:59
Intake Total 700 / 700 120 / 120
Output Total 300 / 300
Balance 700 / 700 -180 / -180
SaO2 88
Nasal Cannula flow liters per 4
minute
Physical Exam
General: Respiratory Distress (negative), Comfortable and Other (NAD)
HEENT: Normocephalic, Anicteric and Moist Mucous Membranes
Cardiovascular: S1-S2 and Peripheral Edema (negative)
Respiratory: Wheeze (negative), Rhonchi (negative), Non-Labored Respirations and Other (Diminished breath sounds bilaterally with poor inspiratory effort)
GI: Soft, Non Distended and Non Tender
Neurology: Awake, Alert and Tremors (negative)
Skin: Warm, Dry, Cyanosis (negative) and Jaundice (negative)
Labs/Micro/Reports
Lab Data
08/05/24 05:45
08/05/24 05:45
Microbiology
07/31/24 20:41 Nose MRSA Screen - Final
No Methicillin Resistant Staphylococcus aureus isolated.
--- NOTE | 2024-08-05 13:44 | W.PN.HOSP.TC ---
Today's Communication/Plan
-
Assessment / Plan
Assessment / Plan
NAD
Scleral Anicteric
MMM
No JVD
Diminished breath sounds throughout all lung pinedo however without wheezing noted
RRR, S1/S2
Soft, NT, ND, BS+
Warm, Dry
AAOx3
Calm
Acute on chronic hypoxemic respiratory failure 3.5 to 4 L home O2
Transition to oral steroid
She seems at baseline which is very limited and gets sob easily. 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
O2 requirement stable at 3-4 liters
Underlying ILD
Continue bronchodilators
Oxygen supplementation
Appreciate pulmonary input
Incentive spirometer
Acapella
Per pulmonary start azithromycin Monday
History of severe chronic esophageal dysphagia
s/p esophageal dilation
c/w modified diet.
Hypertension
Uncontrolled likely augmented by steroids
Continue valsartan, resume Lasix as VIKTOR has resolved
VIKTOR
Resolved
History of rheumatoid arthritis/ Hx of Scleroderma/crest syndrome
Report walking without aid.
Major depression
Mood is cooperative
Chronic pain syndrome/chronic opiate dependence
Chronic fentanyl patch
GERD
Continue H2 blockers
Hyperlipidemia
Continue statin
Severe protein calorie malnutrition of chronic illness versus pulmonary cachexia
Ensure 3 times daily
DNR/DNI
Anticipated Discharge: 24 - 48 hours
Subjective/Interval History
-
Date of Service: August 05, 2024
Seen and examined. No new complaints. No acute overnight events.
Objective Data
-
Labs:
Laboratory Results
08/05/24
05:45
WBC 6.8
Hgb 12.6
Hct 39.2
Plt Count 154
Sodium 141
Potassium 4.8
Chloride 105
Carbon Dioxide 32 H
BUN 31 H
Creatinine 0.8
Glucose 125 H
Calcium 10.6 H
Total Bilirubin 0.3
AST 18
ALT 25
Alkaline Phosphatase 94
Vital Signs:
Vital Signs
Temp Pulse Resp BP Pulse Ox
97.7 F 70 14 188/80 88
08/05/24 07:00 08/05/24 10:34 08/05/24 08:00 08/05/24 10:34 08/05/24 08:00
I&O
08/04/24 08/05/24 08/06/24
06:59 06:59 06:59
Intake Total 700 / 700 120 / 120
Output Total 300 / 300
Balance 700 / 700 -180 / -180
[2024-08-05] MEDS: ZITHROMAX 250 MG PO (13:46)
--- NOTE | 2024-08-05 14:41 | CM ---
Chart reviewed and case coordinator follows with patient progress, plan is to home when stable, patient has home oxygen set up with 3 liters, patient is on 4 liters in the hospital, plan is to home with [facility] when stable. Family supports in home.
Plan; Home with [facility].
[2024-08-05] MEDS: LASIX 40 MG PO (17:08)
[2024-08-05] MEDS: DESYREL 25 MG PO (22:17)
[2024-08-05] MEDS: PEPCID 40 MG PO (22:17)
[2024-08-06 04:46] VITALS: PULSE 2
[2024-08-06 06:00] VITALS: BMI 21.4
[2024-08-06 07:45] VITALS: BP 180/77
[2024-08-06] MEDS: ABILIFY 5 MG PO (07:57)
[2024-08-06] MEDS: CELEXA 40 MG PO (07:57)
[2024-08-06] MEDS: DIOVAN 160 MG PO (07:57)
[2024-08-06] MEDS: PROTONIX 40 MG PO (07:57)
[2024-08-06] MEDS: LASIX 40 MG PO (07:58)
[2024-08-06] MEDS: LIPITOR 10 MG PO (07:58)
[2024-08-06] MEDS: ROXICODONE 5 MG PO ×2 (07:58→19:59)
[2024-08-06] MEDS: DELTASONE 40 MG PO (07:58)
[2024-08-06] MEDS: SYMBICORT 160/4.5 MCG INHALER 2 PUFF INH ×2 (08:01→19:48)
[2024-08-06] MEDS: SPIRIVA RESPIMAT 2.5 MCG 2 PUFF INH (08:02)
[2024-08-06] MEDS: HEPARIN 5000 UNITS SC ×2 (08:06→19:59)
[2024-08-06] MEDS: ATIVAN 0.25 MG PO ×2 (08:08→20:15)
--- NOTE | 2024-08-06 10:50 | W.PN.PUL3 ---
Today's Communication / Plan
-
- Continue LAMA/LABA/ICS
- Continue prednisone 40 mg for now along with azithromycin Monday, Monday and Monday
- Discharge planning
Assessment
-
Patient is a 73 years old female with history of COPD on 2L and chronic prednisone 10mg, RA/scleroderma, chronic SOB was sent from pulmonary office. She was notably tachypneic in office seen by Doris Gagnon, instructed to go to ER. Patient feels
chronically shortness of breath, recently discharged from on 07/16/24. She has had recurrent admissions for AECOPD for the past 3 years, this is her 8th admission since 2022. She states that she 'could just live in the hospital.' We are
consulted for evaluation 08/01/24.
#1. Acute on chronic hypoxic respiratory failure
-Due to COPD exacerbation, clinically improving
-At baseline patient uses 3 to 3.5 L/min supplemental oxygen
-Titrate supplemental O2 to keep saturations above 88%
#2. Acute exacerbation of chronic severe COPD. At baseline, prednisone and oxygen dependent
-Known history of centrilobular emphysema with air trapping and hyperinflation. Follows up [facility] Pulmonary clinic.
-Continue triple therapy currently with Symbicort and Spiriva. Discontinue nebulized budesonide. (Patient reports that she has been using both Symbicort and Breo at home explained to her that these medications are similar, patient feels better
with Breo and will continue Breo going forward along with Spiriva and stop Symbicort at discharge)
-In view of clinical improvement, switched to oral prednisone starting 08/06
- Continue Monday, Monday, Monday azithromycin 250 mg. Follow-up EKG 08/06, shows QTc of 426
-Will consider nebulized Ensifentrine versus Dupilumab therapy as outpatient considering prior history of eosinophilia.
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
Pulmonary cachexia
Mild restrictive lung defect
Esophageal dilation seen on CT chest
Chronic hypoxic respiratory failure on home oxygen at 3 L/min
Pulmonary hypertension, mild. PASP 20-25 with mild TR.
History of scleroderma
GERD without esophagitis
History of aspiration
Former tobacco use disorder (quit 07/2019)
IBD
History of diverticulosis
Colon polyps
Fibromyalgia
Depression
Arthritis
History of GI bleed
Rectal prolapse
Total time spent on this consultation/encounter __46__ minutes which includes review of history, physical exam, medications, laboratory data, personal review of imaging, extensive review of outpatient records, discussion with care team and
respiratory therapy.
Diagnostic Data
CXR 07/31/24- Clear lungs. Air-fluid level within the esophagus. Findings may related to hiatal hernia and/or esophageal dysmotility. Chronic compression fractures within the mid thoracic spine, with resulting kyphotic deformity.
CXR 08-22-2023: Mild acute interstitial cardiogenic pulmonary edema. Mild cardiomegaly. Severe calcific atherosclerotic plaque in the thoracic and abdominal aorta. Mild scarring in the right lung apex, lingula, and left lower lobe.
TTE 02-13-2024: Normal biventricular size and systolic function without regional wall motion abnormality. Estimated LVEF 65-70%. Mild/moderate eccentric aortic regurgitation. Mild/moderate tricuspid regurgitation. Mildly elevated PASP. Estimated
pulmonary artery pressure of 42 mmHg. Compared to 10/09/20: AR and TR have progressed from mild to mild/moderate. PASP has increased from 37 mmHg to 42 mmHg.
PFT 11/21/23: FVC 2.02/86%, FEV1 1.09/62%, ratio 56.� TLC 3.83/90%, DLCO 6.52/36%.� Moderate obstruction, severe gas exchange defect
[place] 09/27/23- FVC 1.22 or 50%, FEV1 0.74 or 41%, Ratio 61�--severe obstruction
[place] 02/06/14: FEV1 1.37L 54%, FVC 2.57L 78%, ratio 0.53
Reports and relevant images were personally reviewed.
Subjective Data
-
Date of Service:
Date of Service: August 06, 2024
Chief Complaint: Pulmonary Follow Up
Subjective:
Patient reports overall feeling better, sitting in bed in no acute distress.
Review of Systems
Genitourinary: Other (No new pulmonary symptoms reported.)
Objective Data
Data Reviewed
Vital Signs / I&O / Oxygen:
Vital Signs
Temp Pulse Resp BP Pulse Ox
97.6 F 82 18 180/77 98
08/06/24 07:45 08/06/24 08:03 08/06/24 08:03 08/06/24 07:57 08/06/24 08:03
Intake and Output
08/05/24 08/06/24 08/07/24
06:59 06:59 06:59
Intake Total 120 / 120
Output Total 300 / 300
Balance -180 / -180
SaO2 98
Nasal Cannula flow liters per 4.5
minute
Physical Exam
General: Respiratory Distress (negative), Comfortable and Other (NAD)
HEENT: Normocephalic, Anicteric and Moist Mucous Membranes
Cardiovascular: S1-S2 and Peripheral Edema (negative)
Respiratory: Wheeze (negative), Rhonchi (negative), Non-Labored Respirations and Other (Diminished breath sounds bilaterally with poor inspiratory effort)
GI: Soft, Non Distended and Non Tender
Neurology: Awake, Alert and Tremors (negative)
Skin: Warm, Dry, Cyanosis (negative) and Jaundice (negative)
Labs/Micro/Reports
Lab Data
08/05/24 05:45
08/05/24 05:45
[2024-08-06 12:03] VITALS: PULSE 81; O2SAT 97
--- NOTE | 2024-08-06 12:22 | W.PN.HOSP.TC ---
Today's Communication/Plan
-
Assessment / Plan
Assessment / Plan
NAD
Scleral Anicteric
MMM
No JVD
Diminished breath sounds throughout all lung pinedo however without wheezing noted
RRR, S1/S2
Soft, NT, ND, BS+
Warm, Dry
AAOx3
Calm
Acute on chronic hypoxemic respiratory failure 3.5 to 4 L home O2
Transition to oral steroid
She seems at baseline which is very limited and gets sob easily. 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
O2 requirement stable at 3-4 liters
Underlying ILD
Continue bronchodilators
Appreciate pulmonary input
Incentive spirometer
Acapella
Per pulmonary start azithromycin Monday
History of severe chronic esophageal dysphagia
s/p esophageal dilation
c/w modified diet.
Hypertension
Uncontrolled likely augmented by steroids
Continue valsartan, resume Lasix as VIKTOR has resolved
VIKTOR
Resolved
History of rheumatoid arthritis/ Hx of Scleroderma/crest syndrome
Report walking without aid.
Major depression
Mood is cooperative
Chronic pain syndrome/chronic opiate dependence
Chronic fentanyl patch
GERD
Continue H2 blockers
Hyperlipidemia
Continue statin
Severe protein calorie malnutrition of chronic illness versus pulmonary cachexia
Ensure 3 times daily
DNR/DNI
Anticipated Discharge: Within 24 hours
Subjective/Interval History
-
Date of Service: August 06, 2024
seen and exmiand. no new complaits. no acute ovenright events
Objective Data
-
Vital Signs:
Vital Signs
Temp Pulse Resp BP Pulse Ox
97.6 F 82 18 180/77 98
08/06/24 07:45 08/06/24 08:03 08/06/24 08:03 08/06/24 07:57 08/06/24 08:03
I&O
08/05/24 08/06/24 08/07/24
06:59 06:59 06:59
Intake Total 120 / 120
Output Total 300 / 300
Balance -180 / -180
--- NOTE | 2024-08-06 14:33 | CM ---
Chart reviewed and patient is for discharge to home when stable, patient is currently ambulating 70 feet X2 with no device, patient has home oxygen in home and has been set up with [facility].
Plan; Home with [facility] when stable.
[2024-08-06 15:32] VITALS: BP 138/60
[2024-08-06] MEDS: ProAIR HFA INHALER 2 PUFF INH (16:57)
[2024-08-06] MEDS: DURAGESIC 12 MCG/HR PATCH 1 PATCH TRANSDERM (18:40)
[2024-08-06] MEDS: DESYREL 25 MG PO (22:07)
[2024-08-06 23:26] VITALS: BP 157/68
[2024-08-07 00:03] VITALS: PULSE 2
--- NOTE | 2024-08-07 04:18 | DOWNTIME ---
Addendum entered by Susi Cabrera RN 08/07/24 14:12:
Downtime was 08/07/2024 from 0100 to 08/07/2024 at 0415
Original Note:
There was a [employer] Downtime on 08/06/2024 from 0100 to 08/07/2024 at 0415. Downtime documentation of patient's care, including medication administrations, has been reconciled in the electronic record per guidelines. Refer to the
patient's paper chart under the miscellaneous tab to see printed paper medication records and downtime forms.
[2024-08-07 04:19] VITALS: PULSE 2
[2024-08-07 06:00] VITALS: BMI 21.7
[2024-08-07 08:06] VITALS: BP 133/68
[2024-08-07] MEDS: SPIRIVA RESPIMAT 2.5 MCG 2 PUFF INH (08:11)
[2024-08-07] MEDS: SYMBICORT 160/4.5 MCG INHALER 2 PUFF INH (08:11)
[2024-08-07] MEDS: DIOVAN 160 MG PO (08:50)
[2024-08-07] MEDS: PROTONIX 40 MG PO (08:50)
[2024-08-07] MEDS: CELEXA 40 MG PO (08:52)
[2024-08-07] MEDS: HEPARIN 5000 UNITS SC (08:52)
[2024-08-07] MEDS: ABILIFY 5 MG PO (08:52)
[2024-08-07] MEDS: DELTASONE 40 MG PO (08:52)
[2024-08-07] MEDS: ROXICODONE 5 MG PO (08:53)
[2024-08-07] MEDS: LASIX 40 MG PO (08:53)
[2024-08-07] MEDS: LIPITOR 10 MG PO (08:54)
[2024-08-07] MEDS: ZITHROMAX 250 MG PO (08:59)
[2024-08-07] MEDS: ATIVAN 0.25 MG PO ×2 (08:59→13:43)
[2024-08-07 12:26] VITALS: BP 138/57
--- NOTE | 2024-08-07 12:50 | CM ---
Chart reviewed and patient is for discharge to home home today, patient has been set up with [facility], patient's son to transport patient to home and will bring in patient's home oxygen for discharge. IMM completed and placed on chart.
Plan: Home with [facility], son to transport patient and will bring in patient's home oxygen.
--- NOTE | 2024-08-07 13:04 | W.DCSUMMARY ---
Discharge Summary
Discharge Data
Date of Admission: 07/31/24
Date of Discharge: 08/07/24
-
Pending Results: No
Hospital Course
73 years old female with pmhx of COPD, Fibromyalgia, GERD, Rheumatoid arthritis, scleroderma, pneumonia, renal, bowel obstruction, IBS, anemia, chronic constipation, rectal prolapse, Upper Gi bleeding, Raynaud's disease
Presented with acute on chronic hypoxemic respiratory failure that was secondary to COPD exacerbation. Evaluated by pulmonary started on steroids along with azithromycin Monday 250 mg. Will be discharged home with Breo along with
Spiriva and discontinuation of Symbicort at discharge.
CXR
IMPRESSION:
1. Clear lungs.
2. Air-fluid level within the esophagus. Findings may related to hiatal hernia and/or esophageal dysmotility.
3. Also chronic compression fractures within the mid thoracic spine, with resulting kyphotic deformity.
Seen and examined on the day of discharge which was 08/07/2024. No new complaints. No acute overnight events
Feeling much better, no further chest tightness. states she is ready to go home.
NAD
Scleral Anicteric
MMM
No JVD
CTA bilateral
RRR, S1/S2
Soft, NT, ND, BS+
Warm, Dry
AAOx3
Calm
Discharge Plan
-
Patient Disposition: Home with Home Care
Discharge Diagnosis/Procedures: Acute on chronic hypoxic respiratory failure
Diet: As tolerated
Activity: As tolerated
Activity Restrictions/Additional Instructions:
Presented with acute on chronic hypoxemic respiratory failure that was secondary to COPD exacerbation. Evaluated by pulmonary started on steroids along with azithromycin Monday 250 mg. Will be discharged home with Breo along with
Spiriva and discontinuation of Symbicort at discharge.
CXR
IMPRESSION:
1. Clear lungs.
2. Air-fluid level within the esophagus. Findings may related to hiatal hernia and/or esophageal dysmotility.
3. Also chronic compression fractures within the mid thoracic spine, with resulting kyphotic deformity.
Referrals:
Diego Crenshaw MD [Family Provider, [facility]]
Prescriptions:
New
azithromycin 250 mg Tablet
250 mg PO MoWeFr@0800 Qty: 60 0RF
pantoprazole 40 mg Tablet,Delayed Release (Dr/Ec)
40 mg PO DAILY 30 Days Qty: 30 0RF
prednisone 10 mg tablets,dose pack
See Taper PO DIRECTED Qty: 16 0RF
Taper: Prednisone DC Starting at 40 mg daily
40 mg Daily for 1 Day and 0 Hour
30 mg Daily for 3 Days and 0 Hour
20 mg Daily for 3 Days and 0 Hour
Continued
citalopram 20 MG tablet
40 mg PO DAILY
valsartan 80 MG tablet
160 mg PO DAILY
aripiprazole 5 MG tablet
5 mg PO DAILY
cholecalciferol (vitamin D3) [Vitamin D3] 125 mcg (5,000 unit) Tablet
125 mcg PO DAILY
furosemide 40 mg Tablet
40 mg PO DAILY
therapeutic multivitamin Tablet
1 tab PO DAILY
omeprazole 40 mg Capsule,Delayed Release(Dr/Ec)
40 mg PO DAILY
albuterol sulfate [Ventolin HFA] 90 mcg/actuation Hfa Aerosol Inhaler
2 puff INHALATION R Q6HPRN PRN (Reason: sob)
budesonide 0.5 mg/2 mL suspension for nebulization
0.5 mg inhalation R BID
famotidine 40 mg Tablet
40 mg PO HS
atorvastatin 10 mg Tablet
10 mg PO DAILY
oxycodone 5 mg Tablet
5 mg PO BID
Collagen Skin Renewal 30-833.3 mg Tablet
1 tab PO DAILY Qty: 0
vitamin B complex Tablet
1 tab PO DAILY
prednisone 10 mg Tablet
10 mg PO DAILY
acetazolamide 250 mg Tablet
250 mg PO BID
vitamin E 268 mg (400 unit) Capsule
268 mg PO DAILY
omega 8-vxm-ssa-fish oil [Fish Oil] 1,200 (144-216) mg Capsule
1 cap PO DAILY
potassium gluconate 500 mg (83 mg) Tablet
1,000 mg PO DAILY
Glucosamine Chondroitin 550-30-1 mg Capsule
1 cap PO DAILY
trazodone 50 mg tablet
100 mg PO HS
fentanyl 12 mcg/hr patch 72 hour
12 mcg topical Q72H
Rx Instructions:
place on skin 07/30/24
fluticasone furoate-vilanterol [Breo Ellipta] 100-25 mcg/dose Blister With Device
2 inh INHALATION R DAILY Qty: 60 0RF
Discontinued
budesonide-formoterol [Symbicort] 160-4.5 mcg/actuation HFA aerosol inhaler
2 puff INHALATION R BID
Discharge Orders:
Discharge Patient (As Directed); Ordered 08/07/24
Ordered By: Todd Weinberg
Discharge Date and Time
Print Language: INDONESIAN
--- NOTE | 2024-08-07 13:38 | W.PN.PUL3 ---
Today's Communication / Plan
-
- Stable for discharge from pulmonary standpoint
- Continue Breo at home, add Spiriva. Discontinue Symbicort
- Prednisone tapering dose over next week then essentially back to her 10 mg p.o. prednisone daily
- Outpatient follow-up with pulmonary clinic for consideration for Ensifentrine versus biologic therapy.
Assessment
-
Patient is a 73 years old female with history of COPD on 2L and chronic prednisone 10mg, RA/scleroderma, chronic SOB was sent from pulmonary office. She was notably tachypneic in office seen by Doris Gagnon, instructed to go to ER. Patient feels
chronically shortness of breath, recently discharged from on 07/16/24. She has had recurrent admissions for AECOPD for the past 3 years, this is her 8th admission since 2022. She states that she 'could just live in the hospital.' We are
consulted for evaluation 08/01/24.
#1. Acute on chronic hypoxic respiratory failure
-Due to COPD exacerbation, clinically improving
-At baseline patient uses 3 to 3.5 L/min supplemental oxygen
-Titrate supplemental O2 to keep saturations above 88%
#2. Acute exacerbation of chronic severe COPD. At baseline, prednisone and oxygen dependent
-Known history of centrilobular emphysema with air trapping and hyperinflation. Follows up [facility] Pulmonary clinic.
-Continue triple therapy currently with Symbicort and Spiriva. Discontinue nebulized budesonide. (Patient reports that she has been using both Symbicort and Breo at home explained to her that these medications are similar, patient feels better
with Breo and will continue Breo going forward along with Spiriva and stop Symbicort at discharge)
-In view of clinical improvement, switched to oral prednisone starting 08/06
-Continue Monday, Monday, Monday azithromycin 250 mg. Follow-up EKG 08/06, shows QTc of 426
-Will consider nebulized Ensifentrine versus Dupilumab therapy as outpatient considering prior history of eosinophilia.
Stable for d/c home
Chronic conditions MEDICAL TECH:
Pulmonary cachexia
Mild restrictive lung defect
Esophageal dilation seen on CT chest
Chronic hypoxic respiratory failure on home oxygen at 3 L/min
Pulmonary hypertension, mild. PASP 20-25 with mild TR.
History of scleroderma
GERD without esophagitis
History of aspiration
Former tobacco use disorder (quit 07/2019)
IBD
History of diverticulosis
Colon polyps
Fibromyalgia
Depression
Arthritis
History of GI bleed
Rectal prolapse
Total time spent on this consultation/encounter __46__ minutes which includes review of history, physical exam, medications, laboratory data, personal review of imaging, extensive review of outpatient records, discussion with care team and
respiratory therapy.
Diagnostic Data
CXR 07/31/24- Clear lungs. Air-fluid level within the esophagus. Findings may related to hiatal hernia and/or esophageal dysmotility. Chronic compression fractures within the mid thoracic spine, with resulting kyphotic deformity.
CXR 08-22-2023: Mild acute interstitial cardiogenic pulmonary edema. Mild cardiomegaly. Severe calcific atherosclerotic plaque in the thoracic and abdominal aorta. Mild scarring in the right lung apex, lingula, and left lower lobe.
TTE 02-13-2024: Normal biventricular size and systolic function without regional wall motion abnormality. Estimated LVEF 65-70%. Mild/moderate eccentric aortic regurgitation. Mild/moderate tricuspid regurgitation. Mildly elevated PASP. Estimated
pulmonary artery pressure of 42 mmHg. Compared to 10/09/20: AR and TR have progressed from mild to mild/moderate. PASP has increased from 37 mmHg to 42 mmHg.
PFT 11/21/23: FVC 2.02/86%, FEV1 1.09/62%, ratio 56.� TLC 3.83/90%, DLCO 6.52/36%.� Moderate obstruction, severe gas exchange defect
Branden 09/27/23- FVC 1.22 or 50%, FEV1 0.74 or 41%, Ratio 61�--severe obstruction
[facility]anden 02/06/14: FEV1 1.37L 54%, FVC 2.57L 78%, ratio 0.53
Reports and relevant images were personally reviewed.
Subjective Data
-
Date of Service:
Date of Service: August 07, 2024
Chief Complaint: Pulmonary Follow Up
Subjective:
Patient feels that she is at her baseline now.
Review of Systems
Genitourinary: Other (All 14 systems reviewed and negative except as stated above in the history of present illness.)
Objective Data
Data Reviewed
Vital Signs / I&O / Oxygen:
Vital Signs
Temp Pulse Resp BP Pulse Ox
97.9 F 90 16 138/57 97
08/07/24 12:26 08/07/24 12:26 08/07/24 12:26 08/07/24 12:26 08/07/24 12:26
Intake and Output
08/06/24 08/07/24 08/08/24
06:59 06:59 06:59
Intake Total 1200 / 1200 780 / 780
Balance 1200 / 1200 780 / 780
SaO2 97
Nasal Cannula flow liters per 4
minute
Physical Exam
General: Respiratory Distress (negative), Comfortable and Other (NAD)
HEENT: Normocephalic, Anicteric and Moist Mucous Membranes
Cardiovascular: S1-S2 and Peripheral Edema (negative)
Respiratory: Wheeze (negative), Rhonchi (negative), Non-Labored Respirations and Other (Diminished breath sounds bilaterally with poor inspiratory effort)
GI: Soft, Non Distended and Non Tender
Neurology: Awake, Alert and Tremors (negative)
Skin: Warm, Dry, Cyanosis (negative) and Jaundice (negative)
Labs/Micro/Reports
Lab Data
08/05/24 05:45
08/05/24 05:45
== END 2024-08-07 14:59 | disposition home health service (06) | DRG 189 ==
LOC: 4 WEST ACU 15:37
PROVIDERS: ADMITTING PHYSICIAN Internal Medicine; ATTENDING PHYSICIAN Hospitalist; EMERGENCY PHYSICIAN Emergency Medicine; FAMILY PHYSICIAN Family Medicine; OTHER PHYSICIAN Internal Medicine
DX: J96.21 Acute and chronic respiratory failure with hypoxia (principal); E43 Unspecified severe protein-calorie malnutrition; N17.9 Acute kidney failure, unspecified; F11.20 Opioid dependence, uncomplicated; J84.9 Interstitial pulmonary disease, unspecified; J44.1 Chronic obstructive pulmonary disease with (acute) exacerbation; E87.6 Hypokalemia; K58.9 Irritable bowel syndrome, unspecified; M79.7 Fibromyalgia; F32.9 Major depressive disorder, single episode, unspecified; G89.4 Chronic pain syndrome; K21.9 Gastro-esophageal reflux disease without esophagitis; Z68.21 Body mass index [BMI] 21.0-21.9, adult; E78.00 Pure hypercholesterolemia, unspecified; L89.151 Pressure ulcer of sacral region, stage 1; Z87.891 Personal history of nicotine dependence
CPT/HCPCS: 71046; 80048; 80053; 81003; 81015; 82805; 83735; 83880; 84484; 85025; 85027; 85379; 87070; 93005; 94640; 94660; 97116; 97161; 97166; 97530; 99285

== ENCOUNTER → 2024-11-15 08:36 | Outpatient (REF) | payer MEDICARE, BC, SELFPAY | LOC: RAD 08:36 | PROVIDERS: ATTENDING PHYSICIAN Internal Medicine; FAMILY PHYSICIAN Family Medicine | DX: M81.0 Age-related osteoporosis without current pathological fracture (principal) | CPT/HCPCS: 77080 ==